=== PATIENT | female | born 1940 | race Caucasian/White ===

== ENCOUNTER → 2017-05-29 12:08 | Outpatient (CLI) | payer MEDICARE, SELFPAY ==
--- NOTE | 2017-05-29 12:16 | XR_ITS ---
XR hip LT 2-3V w/pelvis HISTORY: ITS.REASON: LT HIP PAIN ORDERING PHYSICIAN: Jose Garcia MD PATIENT AGE: 77 years COMPARISON: None FINDINGS: No obvious fracture or dislocation. No lytic or blastic lesion. The joint spaces well-preserved. There are mild osteoarthritic changes of the SI joints and degenerative disc disease of the lumbosacral junction. IMPRESSION: 1. 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 2. Degenerative changes of the sacroiliac joints with degenerative disc disease of the lower lumbar spine
== END ==
PROVIDERS: PCP Family Medicine; Visit Provider Family Medicine
DX: M25.552 Pain in left hip (principal)
CPT/HCPCS: 73502

== ENCOUNTER → 2017-12-02 11:33 | Outpatient (CLI) | payer MEDICARE, SELFPAY ==
--- NOTE | 2017-12-02 11:37 | XR_ITS ---
XR knee RT 4V HISTORY: ITS.REASON: right knee pain/ 4 views weightbearing ORDERING PHYSICIAN: Onesimo Craft MD PATIENT AGE: 77 years COMPARISON: 12/09/2013 FINDINGS: Severe osteoarthritic changes are present at the lateral compartment with moderate osteoarthritis at the medial compartment and patellofemoral joint. Small suprapatellar effusion is present. No fracture or dislocation. No lytic or blastic change. IMPRESSION: Severe osteoarthritis. This has progressed since 12/09/2013
== END ==
PROVIDERS: PCP Family Medicine; Visit Provider Orthopaedic Surgery
DX: M25.561 Pain in right knee (principal)
CPT/HCPCS: 73564

== ENCOUNTER → 2017-12-04 07:55 | Outpatient (CLI) | payer MEDICARE, SELFPAY ==
[2017-12-04 08:51] LABS: Microscopic, Urine URINE MICROSCOPIC (MICROSCOPIC)
[2017-12-04 09:11] LABS: Basophils % 0.5 % (0.1-2.0); Eosinophils # 0.2 K/mm3 (0.0-0.4); Hematocrit 45.8 % (37.0-47.0); Hemoglobin 14.4 g/dL (12.2-16.2); Lymphocytes # 1.5 K/mm3 (0.7-4.5); Lymphocytes % 19.6 K/mm3 (10-50); Mean Corpuscular HGB Conc 31.4 g/dL (31.8-35.4); Mean Corpuscular Hemoglobin 31.2 pg (27.0-31.2); Mean Corpuscular Volume 99.1 fl (81-99); Mean Platelet Volume 7.3 fl (7.4-10.4); Monocytes # 0.5 K/mm3 (0.1-1.0); Monocytes % 6.7 % (1.7-9.3); Neutrophils # 5.4 K/mm3 (1.8-7.8); Neutrophils % 71.2 % (37.0-80.0); Platelet Count 261 K/mm3 (142-424); Red Blood Count 4.62 M/mm3 (4.20-5.40); Red Cell Distribution Width 12.8 % (11.5-17.5); White Blood Count 7.6 K/mm3 (4.8-10.8)
--- NOTE | 2017-12-04 09:12 | XR_ITS ---
XR chest 2V HISTORY: ITS.REASON: DM2, HTN ORDERING PHYSICIAN: Greg So MD PATIENT AGE: 77 years COMPARISON: 03/15/2016 FINDINGS: The cardiomediastinal silhouette and pulmonary vascularity are within normal limits. The lungs are clear without infiltrates, suspicious nodules, or pleural effusions. There is severe subacromial stenosis of the right shoulder with osteoarthritic change of the acromioclavicular joint with bony debris about the AC joint. There has been prior left shoulder replacement. Multilevel degenerative disc disease is present in the thoracic spine. IMPRESSION: 1. No acute findings. 2. 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
[2017-12-04 09:20] LABS: Appearance,Urine CLEAR (Clear); Bilirubin,Urine Negative (Negative); Blood, Urine Negative (Negative); Color,Urine YELLOW (Yellow); Glucose,Urine (UA) Negative (Negative); Ketones,Urine Negative (Negative); Leukocyte Esterase,Urine Negative (Negative); Nitrate,Urine POSITIVE (Negative); PH,Urine 6.5 (5.0-8.5); Protein,Urine Negative (Negative)
[2017-12-04 09:27] LABS: Bacteria,Urine 4+ /lpf
[2017-12-04 09:29] LABS: Hemoglobin A1C 5.8 % (0.0-7.0)
[2017-12-04 09:31] LABS: Activated Partial Thrombo Time 27.2 seconds (23.6-34.0); INR 0.97 (0.9-1.1)
[2017-12-04 10:07] LABS: Alanine Aminotransferase 21 U/L (12-78); Albumin Level 3.8 gm/dL (3.4-5.0); Albumin/Globulin Ratio 1.4 (1.1-1.8); Alkaline Phosphatase 81 U/L (46-116); Anion Gap 10.5 mEq/L (5-15); Aspartate Amino Transferase 15 U/L (15-37); Bilirubin,Total 0.7 mg/dL (0.2-1.0); Blood Urea Nitrogen 22 mg/dL (7-18); Calcium 8.9 mg/dL (8.5-10.1); Carbon Dioxide 31 mmol/L (21.0-32.0); Chloride 104 mmol/L (98-107); Chol/HDL Ratio 1.9 (1-3.5); Cholesterol 155 mg/dL (140-200); Estimated Glomerular Filt Rate 120 ml/min (>60); Free T4 (Free Thyroxine) 1.04 ng/dl (0.76-1.46); GFR (African American) 145 ML/MIN (>60); Globulin 2.8 gm/dl (1.3-3.2); Glucose 80 mg/dL (74-106); HDL Cholesterol 81 mg/dL (29-89); LDL Cholesterol 66 mg/dL (0-130); Potassium 4.5 mmoL/L (3.5-5.1); Sodium 141 mmol/L (136-145); Thyroid Stimulating Hormone 1.59 uIU/ml (0.358-3.740); Total Protein,Serum 6.6 gm/dL (6.4-8.2); Triglycerides 40 mg/dL (30-200); VLDL Cholesterol 8 mg/dL (0-40)
== END ==
PROVIDERS: PCP Family Medicine; Visit Provider Family Medicine
DX: Z01.818 Encounter for other preprocedural examination (principal); E11.42 Type 2 diabetes mellitus with diabetic polyneuropathy; E78.5 Hyperlipidemia, unspecified; E03.9 Hypothyroidism, unspecified; I10 Essential (primary) hypertension; R82.90 Unspecified abnormal findings in urine; Z51.81 Encounter for therapeutic drug level monitoring
CPT/HCPCS: 36415; 71046; 80053; 80061; 81001; 83036; 84439; 84443; 85025; 85610; 85730; 87086; 87088; 87186; 93005

== ENCOUNTER → 2017-12-28 14:18 | Outpatient (CLI) | payer MEDICARE, SELFPAY ==
[2017-12-28 14:22] LABS: Microscopic, Urine URINE MICROSCOPIC (MICROSCOPIC)
[2017-12-28 14:50] LABS: Basophils # 0.1 K/mm3 (0-0.2); Basophils % 0.7 % (0.1-2.0); Eosinophils # 0.2 K/mm3 (0.0-0.4); Eosinophils % 2.7 % (0.1-12.0); Hematocrit 41.6 % (37.0-47.0); Hemoglobin 13.8 g/dL (12.2-16.2); Lymphocytes # 1.8 K/mm3 (0.7-4.5); Lymphocytes % 25.3 K/mm3 (10-50); Mean Corpuscular HGB Conc 33.1 g/dL (31.8-35.4); Mean Corpuscular Hemoglobin 32.9 pg (27.0-31.2); Mean Corpuscular Volume 99.3 fl (81-99); Mean Platelet Volume 7.4 fl (7.4-10.4); Monocytes # 0.4 K/mm3 (0.1-1.0); Monocytes % 5.9 % (1.7-9.3); Neutrophils # 4.7 K/mm3 (1.8-7.8); Neutrophils % 65.4 % (37.0-80.0); Platelet Count 277 K/mm3 (142-424); Red Blood Count 4.19 M/mm3 (4.20-5.40); White Blood Count 7.3 K/mm3 (4.8-10.8)
[2017-12-28 14:55] LABS: Appearance,Urine CLEAR (Clear); Bilirubin,Urine Negative (Negative); Blood, Urine Negative (Negative); Color,Urine YELLOW (Yellow); Glucose,Urine (UA) Negative (Negative); Ketones,Urine Negative (Negative); Leukocyte Esterase,Urine Negative (Negative); Nitrate,Urine Negative (Negative); Protein,Urine Negative (Negative); Urobilinogen,Urine 0.2 EU/dl (0.2)
[2017-12-28 16:55] LABS: Squamous Epithelial Cell,Urine Occasional #/hpf (0-5)
[2017-12-28 17:36] LABS: Alanine Aminotransferase 22 U/L (12-78); Albumin Level 3.8 gm/dL (3.4-5.0); Albumin/Globulin Ratio 1.4 (1.1-1.8); Alkaline Phosphatase 81 U/L (46-116); Anion Gap 10.4 mEq/L (5-15); Aspartate Amino Transferase 24 U/L (15-37); Bilirubin,Total 0.4 mg/dL (0.2-1.0); Blood Urea Nitrogen 17 mg/dL (7-18); Carbon Dioxide 31 mmol/L (21.0-32.0); Chloride 103 mmol/L (98-107); Creatinine,Serum 0.56 mg/dL (0.55-1.02); Estimated Glomerular Filt Rate 105 ml/min (>60); GFR (African American) 127 ML/MIN (>60); Globulin 2.8 gm/dl (1.3-3.2); Glucose 83 mg/dL (74-106); Potassium 4.4 mmoL/L (3.5-5.1); Sodium 140 mmol/L (136-145); Total Protein,Serum 6.6 gm/dL (6.4-8.2)
== END ==
PROVIDERS: Visit Provider Orthopaedic Surgery
DX: Z01.818 Encounter for other preprocedural examination (principal); M17.11 Unilateral primary osteoarthritis, right knee
CPT/HCPCS: 36415; 80053; 81001; 85025; 86850

== ENCOUNTER → 2018-01-09 10:21 | Outpatient (CLI) | payer MEDICARE, SELFPAY | PROVIDERS: Visit Provider Orthopaedic Surgery | DX: Z01.818 Encounter for other preprocedural examination (principal); M17.11 Unilateral primary osteoarthritis, right knee | CPT/HCPCS: 36415; 86850 ==

== ENCOUNTER 2018-01-11 06:04 | Inpatient (IN) ==
--- NOTE | 2018-01-11 06:50 | Progress Note ---
[facility] Anesthesia Checklist - Patient Identification Patient Identification: Arm Band, Verbal (Name & ) - Structural Data Admitted From: Home Planned Operative Procedure/s: Right TKA Consent for Planned Operative Procedure(s) Verified: Yes Verified Documents: Surgical Consent, History and Physical - NPO Status Verified Time NPO: 21:30 - Chart Verification Results Verified: CBC, BMP - Additional verifications Anesthesia Reactions: No - Airway Assessment C-Spine Mobility Assessed: Yes TMJ Mobility Assessed: Yes Dentition: Dentures-good fit - Neurological Assessment Level of Consciousness: Awake Hx Seizures: No Numbness or tingling in extremities: No - Anesthesia Plan Anesthesia Risk discussed: Yes Anesthesia Plan: Verified ASA Class: III Anesthesia Type: General (with Femoral/sciatic nerve block) [facility] History I have reviewed the patient's past medical history: Yes Medical History: Reports:: Cancer (skin), Diabetes Mellitus Type 2, Hyperlipidemia, Hypertension Denies:: Diabetes Mellitus Type 1, Internal Pacemaker, MRSA, Seizures Other Medical History: Reports: Arthritis, Hypothyroidism. Denies: Blood Transfusion Reaction Laterality Cases: Left: Arthroscopy Knee, Other, Bilateral: Carpal Tunnel Release Other Surgeries: Yes: Colonoscopy, Hysterectomy-Total. No: Pacemaker Amputation: No Fractures: No - *Social History Educational Level: Completed High School Smoking Status: Never smoker Alcohol Intake: never Occupational Status: retired Housing: house Household Members: spouse - Psychiatric History Expresses thoughts of harming self/others: None Suicide Plan Description: No Plan *Family Hx:: Cancer, Hypertension
--- NOTE | 2018-01-11 11:05 | Progress Note ---
[facility] Anesthesia Record Part I Intake, IV Amount: 1,100 Estimated blood loss (mL): 25 Urine output (mL): 250 Blood Products used (#): none Blood Pressure: 122/81 SaO2: 92 Pulse Rate: 90 Respiratory Rate: 17 Temperature: 97.3 F Patient is:: Awake, Stable Stable to PACU at:: 11:00
--- NOTE | 2018-01-11 11:06 | Progress Note ---
[facility] Anesthesia Record Part II Discharge Time: 11:30 Destination: Medical Surgical Department PACU nurse assessment reviewed?: Yes Patient Condition:: Good Anesthesia Complications:: None
--- NOTE | 2018-01-11 11:25 | Operative Note ---
Date of procedure: 01/11/18 Pre-op Diagnosis:: Advanced degenerative arthritis, right knee Post-op Diagnosis:: Same Procedure performed:: Cemented primary total knee arthroplasty, right knee Surgeon:: Onesimo Craft MD Procurement Officer(s):: China Madden HOUSEKEEPING CLEANER:: Reji Lan Anesthesia: GETA, regional Estimated blood loss (mL): 50 Clinical Note:: Patient is a 77-year-old female with end-stage osteoarthritis and [id number] osteoarthritis of the lateral compartment with a progressive valgus deformity of her right knee presented with unremitting severe pain not relieved by conservative management. The pain is advanced to the point that it is becoming a hazard for the patient with risk of falling and injuring herself. Total knee arthroplasty is indicated to relieve the pain, improve function, reduce the risk of falls and improve quality of life. She previously had a successful left total knee arthroplasty a few years ago by Dr. Serrano. Please refer to my office note for full details. Operative findings:: As noted on the preoperative evaluation, the knee joint had a fixed flexion of 5 and fixed valgus deformity of 80 degrees. As seen on the preoperative x- rays, the lateral and patellofemoral compartments showed advanced degenerative changes with [id number] appearance. The menisci and cruciate ligaments were significantly degenerated. There was extensive osteophyte formation over the lateral and patellofemoral compartments. There were a couple of small loose bodies at the back of the knee. Bone quality was satisfactory. Operative note:: On the day of the surgery the patient and her sister were seen in the preoperative area. I reviewed the clinical and x-ray findings with the patient and her sister. I again discussed the diagnosis, natural history and management options in detail including both nonsurgical and surgical. She has end-stage degenerative arthritis of her RIGHT knee and has failed to respond satisfactorily to conservative management so far and has opted for a RIGHT total knee arthroplasty. Her knee joint gives out and she is at risk of falls resulting in fractures. She previously had a successful total knee arthroplasty on the left side few years ago by Dr. Serrano. We again discussed the details of the procedure, risks and benefits and alternatives in detail. The complications discussed include but are not limited to infection, injury to nerves and blood vessels including injury to popliteal artery, injury to tendons and ligaments, DVT and PE, fat embolism, intraoperative fracture, limb length inequality, patella fracture, patellofemoral instability, patellar clunk syndrome, quadriceps and patellar tendon rupture, implant failure, component loosening, periprosthetic femur and tibia fractures, stiffness(arthrofibrosis), limp, incomplete relief of pain, incomplete functional recovery, likely need for further surgery in future including revision and anesthetic complications including heart attack, stroke and even . We discussed how any of these events can be devastating. We have discussed nonsurgical alternatives as well. Patient understands wishes to proceed with a RIGHT total knee arthroplasty and I believe that she is fully informed as to the risks, benefits, and alternatives including nonsurgical alternatives. We also discussed the postoperative course including the rehab and physical therapy required. She lives with her family and is planning to go back home with home health after surgery. A physical examination was performed and documented. Patient understood the risks, agreed to proceed with surgery, [signed the consent form] and no guarantees or assurances were given or implied. The patient was then brought to the operating room and a general anesthesia was administered by the veterinary meat inspector. Prior to that patient had femoral and sciatic nerve blocks in the pre-anesthetic area. The patient was then positioned supine on the operating table. All the bony prominences were appropriately padded. A well-padded tourniquet cuff was placed high over the upper thigh. The RIGHT knee was prepped with isopropyl alcohol followed by chlorhexidine and draped in the usual sterile fashion. Prior to this, patient had used Hibiclens for a total of 5 days prior to the surgery and also used topical intranasal Bactroban. The entire operative team wore isolation suits and the Operating Room traffic was controlled. The skin incision was marked for a medial parapatellar approach to the knee joint. The entire operative site was sealed off with Ioban drape. A preprocedure timeout was performed as per hospital protocol. At the start of the procedure administration of 2 g of prophylactic IV Ancef was confirmed with the anesthetic team. Patient also received 1 g of IV tranexamic acid before starting the procedure and one more gram at the end of the procedure to reduce the postoperative blood loss. A preprocedure timeout was performed as per hospital protocol. The limb was exsanguinated with Esmarch bandage, the knee joint flexed beyond 90 and the tourniquet cuff was inflated to 300 mmHg. Please see the nursing records for a total tourniquet time. I then made a midline incision utilizing a #10 scalpel blade. Electrocautery was used to seal off subcutaneous vessels. The extensor mechanism was exposed, marked and a curvilinear incision made for a medial parapatellar approach using the scalpel blade. The patella was everted carefully and most of the fat pad resected to allow sufficient visualization of the proximal tibia. The anterior cruciate ligament and the anterior aspects of both menisci were resected. A very limited medial release was performed releasing the deep MCL to keep it out of harm's way during bone cuts. A step drill was used to open the intramedullary canal and the IM distal femoral cutting jig was placed. The jig was pinned into position and the intramedullary itzel removed. The distal cut was made at 5 degrees of valgus and the sizing jig placed. This sized best at a size 4 femur for the [employer] system. We then placed the 4-in-1 cutting block in position in 3 degrees of external rotation. A cross pin was added for stabilizing the block and the valery wing utilized to ensure notching of the femur would not occur. The anterior cut was made followed by the posterior cut then the posterior chamfer and finally the anterior chamfer cuts in that order. Soft tissues were protected throughout this with careful retraction using the Z retractors. We checked for trueness of cuts and then moved on to the tibia. The tibial extra medullary guide was placed and aligned from the central aspect of the plateau between the spines down to the second metatarsal base. We pinned cutting block in position for minimal resection of the tibia from the lateral side which was more severely involved with arthritis, checked alignment, protected the soft tissues with appropriate retractors and resected with the [place] saw. The resected tibial plateau articular surface was removed and sized it at a size 3. We ensured correctness of the cut and correct posterior slope. We then checked the extension and flexion gaps and found them to be equal and well balanced. We trialed the femur and the tibia with trial components and a trial insert and ranged the knee to ensure full flexion and extension and checked for ligamentous stability. We then everted the patella and reamed for a 26 mm central pegged button. We had lateralized the femur and medialized the patella intentionally. We placed trial components and noted that a 11 mm thick polyethylene to fit best. This gave us a ligamentously stable knee and allowed full extension. We allowed this to be free-floating and then checked it and made sure it was in appropriate position in relation to the tibial tubercle. We also used tibial alignment itzel to check for satisfactory position of the base plate and markings were made with electrocautery on the proximal tibia. We then elected to proceed with the box cut for a posterior stabilized femoral component. We placed the cutting jig for the box cut in the femur, drilled and then used the box osteotome to create the channel. We then trialed with the posterior stabilized polyethylene and found a size 11 to fit best. This gave us appropriate range of motion with proper ligamentous stability. We then removed the trial components and positioned and pinned the base plate to the top of the tibia and punched the groove for the V shaped stem. We used a small trocar tipped pin drill holes into the subchondral sclerotic bone of the lateral tibia to augment cement fixation. We then copiously irrigated with the normal saline pulse lavage, injected the bone with 2 g of Ancef, and then dried the cut surfaces. We then cemented the tibial tray, the femoral component, and placed a 11 mm trial insert and brought the knee into extension. We then cemented the patella button. We allowed the cement to set and then inspected the knee joint and removed excess cement with an osteotome. We then placed the size 11 definitive polyethylene tibial insert ensuring that the dovetails fit appropriately and that the polyethylene was down and seated into the tibial tray properly. The knee joint was put through range of motion and noted the patella to be tracking appropriately with no thumb technique. The knee joint was then soaked with dilute Betadine (0.35 percent) solution for 3 minutes followed by suctioning of the solution and pulsatile lavage with the 1 L of normal saline. The tourniquet was deflated and hemostasis obtained with diathermy cautery. Another 1 gram of tranexamic acid was given intravenously by the veterinary meat inspector at the time of deflating the tourniquet. The knee joint was again thoroughly irrigated with pulse lavage and good hemostasis was confirmed before proceeding with wound closure. The capsule/extensor mechanism was closed with #1 Vicryl [id number] sutures ensuring a watertight closure. Next, the subcutaneous tissue was closed with 2-0 Vicryl interrupted sutures. The skin was closed with subcuticular 4-0 Monocryl sutures, Dermabond and Steri-Strips. Sterile dressings were applied consisting of Silverlon dressing, soft roll and secured in place with Mark wrap. No drains were placed. The patient was then transferred from the operating table onto the bed. The tibialis posterior and dorsalis pedis pulses were noted 2+ with good capillary refill in the foot. The patient was then reversed from the anesthetic and transported to the postoperative recovery area in a stable condition. Patient tolerated the procedure well and there were no immediate complications. The swab, needle and instrument counts were correct according to the scrub team at the end of the procedure. Portable x-rays of the RIGHT knee AP view and lateral view were obtained in the recovery area and showed the components to be well fixed in a satisfactory alignment and position without any complications. The knee was placed in a knee immobilizer which should be continued when standing and walking, until patient regains full quadriceps control. Postoperatively, institute and continue standard precautions and physical therapy and edema management for a standard primary total knee arthroplasty starting on postoperative day 1. Patient can be mobilized full weightbearing as tolerated. Implants: [employer] Beverly II nonporous RIGHT tibial base plate-size 3 [employer] Beverly II Biconvex patellar component- 26 mm [employer] posterior stabilized Legion Oxinium femoral component, size 4 RIGHT [employer] Legion PS XLPE high flexion articular insert- size 3-4 x 11 mm [employer] Versabond bone cement with gentamicin. Industry scheduling representative: Hernandez Lawrence ([employer]) Condition: stable Disposition: floor Specimens:: None Complications:: None
--- NOTE | 2018-01-11 13:36 | Pharmacy Consult Notes ---
[facility] Pharmacy VTE Monitoring - Patient Demographics Admission date: 01/11/18 Report Date: 01/11/18 Time: 13:35 Allergies/Adverse Reactions: Patient Allergies No Known Allergies Allergy (Verified 01/08/18 11:58) Height: 1.4 m Weight: 76.374 kg - VTE Risk Was VTE Risk Assessment Performed: Yes VTE Score: 5 VTE Risk Level: Low Risk - Prophylaxis VTE Prophylaxis Ordered?: Yes Types of VTE Prophylaxis: IPCS Knee High Location of Applied Device: Bilateral Lower Extremeties
--- NOTE | 2018-01-11 18:13 | Progress Note ---
Internal Medicine - PN: Subj Interval history: FAMILY MEDICINE CONSULT NOTE: 77 yo WF who is post op from TKA this morning. I was asked to consult for medical management. She is well known to me with hx of diabetes, HLP, hypothyroidism and OA. SHe tolerated the surgery well and has not unusual complaints at this time Exam Vital signs and Labs for Last 24 Hours: Temp Pulse Resp BP Pulse Ox 97.9 F 92 H 16 120/75 93 L 01/11/18 17:50 01/11/18 17:50 01/11/18 17:50 01/11/18 17:50 01/11/18 17:50 Laboratory Results - last 24 hr 01/11/18 06:41: POC Glucose 90 01/11/18 08:00: Urine Color Yellow, Urine Appearance Clear, Urine pH 6.0, Ur Specific [place] 1.010, Urine Protein Negative, Urine Glucose (UA) Negative, Urine Ketones Negative, Urine Blood Negative, Urine Nitrate Negative, Urine Bilirubin Negative, Urine Urobilinogen 0.2, Ur Leukocyte Esterase 1+ A, Urine WBC 5-10, Ur Squamous Epith Cells 3-5, Urine Bacteria 2+ A 01/11/18 11:33: POC Glucose 93 I & O for Last 24 hours: Intake & Output 01/09/18 01/10/18 01/11/18 01/12/18 11:59 11:59 11:59 11:59 Intake Total 1100 / 1100 Balance 1100 / 1100 Weight 154 lb 168 lb 6 oz - Constitutional Comments: sitting up in bed awake and alert. NAD - *Routine HEENT Exam ENT: Present: mucous membranes moist, oropharynx clear - *Routine Neck Exam Present: supple. Absent: carotid bruit, lymphadenopathy, thyromegaly - *Routine Respiratory Exam Present: CTA bilaterally - *Routine Cardiovascular Exam Present: RRR - *Routine Abdominal Exam Present: soft. Absent: tenderness - *Routine Extremities Exam Absent: edema, calf tenderness Assessment and Plan (1) Type 2 diabetes mellitus Current visit: Yes Status: Acute Category: Medical Code(s): E11.9 - Type 2 diabetes mellitus without complications (2) Hyperlipidemia Current visit: Yes Status: Acute Category: Medical Code(s): E78.5 - Hyperlipidemia, unspecified (3) Hypothyroid Current visit: Yes Status: Acute Category: Medical Code(s): E03.9 - Hypothyroidism, unspecified (4) Osteoarthritis Current visit: Yes Status: Acute Category: Medical Code(s): M19.90 - Unspecified osteoarthritis, unspecified site - Assessment and plan all Dx Assessment and Plan for all problems:: Appears stable post op. She has been appropriately started on her maintenance medication. She is on Xarelto for DVT prophylaxis. Will follow along while she is hospitalized.
--- NOTE | 2018-01-11 20:35 | Progress Note ---
Subjective Date: 01/11/18 Time: 19:15 Principal diagnosis: Status post total knee arthroplasty, right Interval history: Patient is status post right knee arthroplasty earlier today. Patient is lying down on the bed. She says the no blocks or wearing of and she is experiencing a little bit of pain. No history of any nausea or vomiting. No history of any cough, chest pain, shortness of breath or palpitations. Patient says she is eating and drinking well. She was seen postoperatively by Dr. Garcia for medical management. PN: Obj Ex Vital signs: Temp Pulse Resp BP Pulse Ox 97.9 F 93 H 16 130/70 89 L 01/11/18 18:50 01/11/18 18:50 01/11/18 18:50 01/11/18 18:50 01/11/18 19:03 Narrative: General appearance: alert, active, awake Cardiovascular: regular rate & rhythm, normal peripheral pulses Respiratory: No respiratory distress noted, speaks in full sentences ABD: soft and non tender Neuro: alert,, awake, oriented x 3 On examination of the lower extremities the limb lengths are equal. On examination of the right knee the dressings are clean, dry and intact. Soft tissue compartments are soft. Distal pulses are 2+. Capillary refill is brisk. She has numbness over her right foot and ankle. She is actively moving the ankle, foot and the toes. Postoperative check x-ray reviewed along with radiologist report. The x-rays show right total knee arthroplasty in satisfactory alignment. No complications noted. - Urinary Catheter Management Sewell Cath placed during this visit: yes Urethral indwelling: Yes Reason for continuing: Surgical procedure Insertion date: 01/11/18 Insertion time: 08:00 Progress Note: A&P (1) Type 2 diabetes mellitus Status: Acute Current Visit: Yes (2) Hyperlipidemia Status: Acute Current Visit: Yes (3) Hypothyroid Status: Acute Current Visit: Yes (4) Osteoarthritis Status: Acute Current Visit: Yes (5) History of total knee arthroplasty Status: Acute Current Visit: Yes Assessment and Plan for All Diagnoses:: I reviewed the clinical and operative findings and procedure performed with the patient. Patient was seen postoperatively by Dr. Garcia for management of medical problems. Avoid placing pillow behind the knee; use knee immobilizer when weightbearing and walking until she regains full quadriceps control and is able to actively straight leg raise. Start physical therapy on first postoperative day. Continue DVT prophylaxis and as needed pain medication. Care management consult regarding discharge planning. Medical management as per Dr. Garcia.
[2018-01-12 06:15] LABS: Basophils % 0.3 % (0.1-2.0); Eosinophils % 0.2 % (0.1-12.0); Hematocrit 36.3 % (37.0-47.0); Lymphocytes % 17.4 % (10-50); Mean Corpuscular HGB Conc 33.1 g/dL (31.8-35.4); Mean Corpuscular Hemoglobin 32.7 pg (27.0-31.2); Mean Corpuscular Volume 98.9 fl (81-99); Mean Platelet Volume 7.2 fl (7.4-10.4); Monocytes # 0.9 K/mm3 (0.1-1.0); Monocytes % 7.6 % (1.7-9.3); Neutrophils # 8.3 K/mm3 (1.8-7.8); Neutrophils % 74.5 % (37.0-80.0); Platelet Count 251 K/mm3 (142-424); Red Blood Count 3.67 M/mm3 (4.20-5.40); Red Cell Distribution Width 13.1 % (11.5-17.5); White Blood Count 11.2 K/mm3 (4.8-10.8)
[2018-01-12 06:36] LABS: Anion Gap 13.5 mEq/L (5-15); Calcium 8.1 mg/dL (8.5-10.1); Potassium 3.5 mmoL/L (3.5-5.1)
--- NOTE | 2018-01-12 08:26 | Progress Note ---
Internal Medicine - PN: Subj *Date: 01/12/18 *Time: 08:23 Interval history: Had some pain during the night and did not rest well. No c/o chest pain or SOA. She is using her IS. Eager to proceed with PT. Exam Vital signs and Labs for Last 24 Hours: Temp Pulse Resp BP Pulse Ox 98.1 F 88 20 113/53 L 92 L 01/12/18 04:00 01/12/18 04:00 01/12/18 04:00 01/12/18 04:00 01/12/18 04:00 Laboratory Results - last 24 hr 01/11/18 08:00: Urine Color Yellow, Urine Appearance Clear, Urine pH 6.0, Ur Specific [place] 1.010, Urine Protein Negative, Urine Glucose (UA) Negative, Urine Ketones Negative, Urine Blood Negative, Urine Nitrate Negative, Urine Bilirubin Negative, Urine Urobilinogen 0.2, Ur Leukocyte Esterase 1+ A, Urine WBC 5-10, Ur Squamous Epith Cells 3-5, Urine Bacteria 2+ A 01/11/18 11:33: POC Glucose 93 01/12/18 06:00: WBC 11.2 H, RBC 3.67 L, Hgb 12.0 L, Hct 36.3 L, MCV 98.9, MCH 32.7 H, MCHC 33.1, RDW 13.1, Plt Count 251, MPV 7.2 L, Neut % (Auto) 74.5, Lymph % (Auto) 17.4, [place] % (Auto) 7.6, Eos % (Auto) 0.2, Baso % (Auto) 0.3, Neut # (Auto) 8.3 H, Lymph # (Auto) 2.0, [place] # (Auto) 0.9, Eos # (Auto) 0.0, Baso # (Auto) 0.0 01/12/18 06:00: Sodium 138, Potassium 3.5, Chloride 102, Carbon Dioxide 26, Anion Gap 13.5, BUN 15, Creatinine 0.50 L, Estimated Creat Clear 58, Estimated GFR 120, Est GFR ( Amer) 145, Glucose 114 H, Calcium 8.1 L I & O for Last 24 hours: Intake & Output 01/09/18 01/10/18 01/11/18 01/12/18 11:59 11:59 11:59 11:59 Intake Total 1100 / 1100 2249 / 2249 Output Total 1900 / 1900 Balance 1100 / 1100 349 / 349 Weight 154 lb 168 lb 6 oz - Constitutional Comments: sitting up in bed. Alert and oriented - *Routine Respiratory Exam Present: CTA bilaterally - *Routine Cardiovascular Exam Present: RRR - *Routine Extremities Exam Absent: edema, calf tenderness Assessment and Plan (1) Type 2 diabetes mellitus Current visit: Yes Status: Acute Category: Medical Code(s): E11.9 - Type 2 diabetes mellitus without complications (2) Hyperlipidemia Current visit: Yes Status: Acute Category: Medical Code(s): E78.5 - Hyperlipidemia, unspecified (3) Hypothyroid Current visit: Yes Status: Acute Category: Medical Code(s): E03.9 - Hypothyroidism, unspecified (4) Osteoarthritis Current visit: Yes Status: Acute Category: Medical Code(s): M19.90 - Unspecified osteoarthritis, unspecified site (5) History of total knee arthroplasty Current visit: Yes Status: Acute Category: Surgical Code(s): Z96.659 - Presence of unspecified artificial knee joint - Assessment and plan all Dx Assessment and Plan for all problems:: Medically stable post op day #1. Proceed with PT.
--- NOTE | 2018-01-12 10:10 | Progress Note ---
Subjective Date: 01/12/18 Time: 09:30 Principal diagnosis: Status post total knee arthroplasty, right Interval history: Patient is status post right knee arthroplasty, postoperative day 1. Patient is lying down on the bed. She says she had a rough night with pain. She has the pain medication are helping but do not last long enough. No history of any nausea or vomiting. No history of any cough, chest pain, shortness of breath or palpitations. Patient says she is eating and drinking well. PN: Obj Ex Vital signs: Temp Pulse Resp BP Pulse Ox 97.5 F L 86 17 108/58 L 93 L 01/12/18 08:00 01/12/18 08:00 01/12/18 08:00 01/12/18 08:00 01/12/18 08:00 Narrative: Laboratory Results - last 24 hr 01/12/18 06:00: WBC 11.2 H, RBC 3.67 L, Hgb 12.0 L, Hct 36.3 L, MCV 98.9, MCH 32.7 H, MCHC 33.1, RDW 13.1, Plt Count 251, MPV 7.2 L, Neut % (Auto) 74.5, Lymph % (Auto) 17.4, [place] % (Auto) 7.6, Eos % (Auto) 0.2, Baso % (Auto) 0.3, Neut # (Auto) 8.3 H, Lymph # (Auto) 2.0, [place] # (Auto) 0.9, Eos # (Auto) 0.0, Baso # (Auto) 0.0 01/12/18 06:00: Sodium 138, Potassium 3.5, Chloride 102, Carbon Dioxide 26, Anion Gap 13.5, BUN 15, Creatinine 0.50 L, Estimated Creat Clear 58, Estimated GFR 120, Est GFR ( Amer) 145, Glucose 114 H, Calcium 8.1 L Exam: General appearance: alert, active, awake Cardiovascular: regular rate & rhythm, normal peripheral pulses Respiratory: No respiratory distress noted, speaks in full sentences ABD: soft and non tender Neuro: alert, awake, oriented x 3 On examination of the lower extremities the limb lengths are equal. On examination of the right knee the dressings are clean, dry and intact. Soft tissue compartments are soft. Distal pulses are 2+. Capillary refill is brisk. Sensation is intact light touch throughout. She is actively moving the ankle, foot and the toes. - Urinary Catheter Management Sewell Cath placed during this visit: yes Urethral indwelling: Yes Reason for continuing: Surgical procedure (DC Sewell catheter today) Insertion date: 01/11/18 Insertion time: 08:00 Progress Note: A&P (1) Type 2 diabetes mellitus Status: Acute Current Visit: Yes (2) Hyperlipidemia Status: Acute Current Visit: Yes (3) Hypothyroid Status: Acute Current Visit: Yes (4) Osteoarthritis Status: Acute Current Visit: Yes (5) History of total knee arthroplasty Status: Acute Current Visit: Yes Assessment and Plan for All Diagnoses:: I reviewed the clinical findings and progress with the patient. Advised her to avoid placing pillow behind the knee; use knee immobilizer when weightbearing and walking until she regains full quadriceps control and is able to actively straight leg raise. To be seen by PT today and start standard protocol for a primary knee replacement. Continue DVT prophylaxis and as needed pain medication. Changed her oral pain medication from [place] to Percocet as needed. Discontinue IV fluids as she is eating and drinking well; DC urinary catheter today. Care management consult regarding discharge planning. Medical manag ement as per Dr. Garcia.
--- NOTE | 2018-01-13 08:15 | Progress Note ---
Internal Medicine - PN: Subj *Date: 01/13/18 *Time: 08:12 Interval history: Rested better last night. SHe has been up to chair and BR and tolerating well. No chest pain, SOA. Exam Vital signs and Labs for Last 24 Hours: Temp Pulse Resp BP Pulse Ox 97.8 F 110 H 18 134/63 91 L 01/13/18 07:31 01/13/18 07:31 01/13/18 07:31 01/13/18 07:31 01/13/18 07:31 I & O for Last 24 hours: Intake & Output 01/10/18 01/11/18 01/12/18 01/13/18 11:59 11:59 11:59 11:59 Intake Total 1100 / 1100 2489 / 2489 481 / 481 Output Total 1900 / 1900 600 / 600 Balance 1100 / 1100 589 / 589 -119 / -119 Weight 168 lb 6 oz Microbiology Reports for the Last 24 Hours: Microbiology 01/11/18 08:00 Urine,Catheterized Urine Culture - Preliminary NO GROWTH AFTER 24 HOURS - Constitutional no acute distress - *Routine Respiratory Exam Present: CTA bilaterally - *Routine Cardiovascular Exam Present: RRR - *Routine Extremities Exam Absent: edema, calf tenderness Assessment and Plan (1) Type 2 diabetes mellitus Current visit: Yes Status: Acute Category: Medical Code(s): E11.9 - Type 2 diabetes mellitus without complications (2) Hyperlipidemia Current visit: Yes Status: Acute Category: Medical Code(s): E78.5 - Hyperlipidemia, unspecified (3) Hypothyroid Current visit: Yes Status: Acute Category: Medical Code(s): E03.9 - Hypothyroidism, unspecified (4) Osteoarthritis Current visit: Yes Status: Acute Category: Medical Code(s): M19.90 - Unspecified osteoarthritis, unspecified site (5) History of total knee arthroplasty Current visit: Yes Status: Acute Category: Surgical Code(s): Z96.659 - Presence of unspecified artificial knee joint - Assessment and plan all Dx Assessment and Plan for all problems:: POD#2 - Doing well. Medically stable. Continue PT. Plan is to return home.
--- NOTE | 2018-01-13 09:41 | Progress Note ---
Subjective Date: 01/13/18 Time: 09:00 Principal diagnosis: Status post total knee arthroplasty, right Interval history: Patient is status post right knee arthroplasty, postoperative day 2. Patient is lying down on the bed. She says she is doing well and the pain is well controlled. No history of any nausea or vomiting. No history of any cough, chest pain, shortness of breath or palpitations. Patient says she is eating and drinking well. She is mobilizing well with a walker and physical therapy. PN: Obj Ex Vital signs: Temp Pulse Resp BP Pulse Ox 97.8 F 110 H 18 134/63 91 L 01/13/18 07:31 01/13/18 07:31 01/13/18 07:31 01/13/18 07:31 01/13/18 08:00 Narrative: General appearance: alert, active, awake Cardiovascular: regular rate & rhythm, normal peripheral pulses Respiratory: No respiratory distress noted, speaks in full sentences ABD: soft and non tender Neuro: alert, awake, oriented x 3 On examination of the lower extremities the limb lengths are equal. On exam ination of the right knee the dressings are clean, dry and intact. I have reduced the compression dressing and just left a Silverlon dressing on. No signs of excessive inflammation, discharge or infection noted. Soft tissue compartments are soft. Distal pulses are 2+. Capillary refill is brisk. Sensation is intact light touch throughout. She is actively moving the ankle, foot and the toes. - Urinary Catheter Management Sewell Cath placed during this visit: yes Urethral indwelling: Yes Reason for continuing: Surgical procedure Insertion date: 01/11/18 Insertion time: 08:00 Progress Note: A&P (1) Type 2 diabetes mellitus Status: Acute Current Visit: Yes (2) Hyperlipidemia Status: Acute Current Visit: Yes (3) Hypothyroid Status: Acute Current Visit: Yes (4) Osteoarthritis Status: Acute Current Visit: Yes (5) History of total knee arthroplasty Status: Acute Current Visit: Yes Assessment and Plan for All Diagnoses:: I reviewed the clinical findings and progress with the patient. Advised her to avoid placing pillow behind the knee; use knee immobilizer when weightbearing and walking until she regains full quadriceps control and is able to actively straight leg raise. Continue mobilization with physical therapy and continue standard PT protocol for a primary knee replacement. Continue DVT prophylaxis and as needed pain medication. Patient is keen to go back home with home health. Care management consult regarding discharge planning. Medical management as per Dr. Garcia.
[2018-01-14 07:19] VITALS: BP 114/63
--- NOTE | 2018-01-14 08:16 | Progress Note ---
Internal Medicine - PN: Subj *Date: 01/14/18 *Time: 08:13 Interval history: Progressing with PT. No new complaints. She is anticipating going home today. Exam Vital signs and Labs for Last 24 Hours: Temp Pulse Resp BP Pulse Ox 98.2 F 108 H 17 114/63 96 01/14/18 07:18 01/14/18 07:18 01/14/18 07:18 01/14/18 07:18 01/14/18 07:18 I & O for Last 24 hours: Intake & Output 01/11/18 01/12/18 01/13/18 01/14/18 11:59 11:59 11:59 11:59 Intake Total 1100 / 1100 2489 / 2489 481 / 481 600 / 600 Output Total 1900 / 1900 600 / 600 Balance 1100 / 1100 589 / 589 -119 / -119 600 / 600 Weight 168 lb 6 oz 168 lb 2 oz Microbiology Reports for the Last 24 Hours: Microbiology 01/11/18 08:00 Urine,Catheterized Urine Culture - Final NO GROWTH AFTER 48 HOURS - Constitutional Comments: sitting up in chair. Appears comfortable - *Routine Respiratory Exam Present: CTA bilaterally - *Routine Cardiovascular Exam Present: RRR - *Routine Extremities Exam Comments: trace edema of right leg. No calf tenderness. Assessment and Plan (1) Type 2 diabetes mellitus Current visit: Yes Status: Acute Category: Medical Code(s): E11.9 - Type 2 diabetes mellitus without complications (2) Hyperlipidemia Current visit: Yes Status: Acute Category: Medical Code(s): E78.5 - Hyperlipidemia, unspecified (3) Hypothyroid Current visit: Yes Status: Acute Category: Medical Code(s): E03.9 - Hypothyroidism, unspecified (4) Osteoarthritis Current visit: Yes Status: Acute Category: Medical Code(s): M19.90 - Unspecified osteoarthritis, unspecified site (5) History of total knee arthroplasty Current visit: Yes Status: Acute Category: Surgical Code(s): Z96.659 - Presence of unspecified artificial knee joint - Assessment and plan all Dx Assessment and Plan for all problems:: POD#3. Doing well. Medically stable for discharge.
--- NOTE | 2018-01-14 09:26 | Discharge Summary ---
General - General Admission date:: 01/11/18 Discharge date: 01/14/18 HPI HPI: Patient is a 77-year-old female with advanced degenerative joint disease of the right knee who is admitted to the hospital electively following an uncomplicated primary total knee arthroplasty on 01/11/2018. She has not responded well to conservative management including NSAID, Tylenol, and intra-articular injections and arthroscopic surgery in the past. She is using assistive walking devices. Total knee arthroplasty is indicated to reduce the risk of falls, improve her pain and mobility and quality of life. The surgical and nonsurgical alternatives were discussed in detail with the patient as well as the risks and benefits of the surgery. She has a history of hypothyroidism, diabetes, hyperlipidemia, obesity and osteoarthritis. She previously had a successful total knee arthroplasty on the left side a few years ago by Dr. Serrano. Hospital Course Hospital Course: Patient underwent an uncomplicated straightforward primary right total knee arthroplasty on 01/11/2018. Following surgery patient progressed well without any complications. Her postoperative check x-ray was satisfactory with good alignment and fixation of the components. She progressed rapidly with physical therapy and was able to mobilize using a walker. At the time of discharge she still has not regained good quadriceps control and was advised to mobilize with the knee immobilizer until she fully regains quadriceps control and is able to actively straight leg raise. Her pain is well controlled with as needed oral Percocet. The dressings were reduced on the second postoperative day and the wound is healthy and healing well. No signs of any erythema, induration or discharge. Patient was started on Xarelto 10 mg daily for DVT prophylaxis after surgery. Her neurovascular status in both lower extremities is intact. Pedal pulses 2+ bilaterally and fully sensate distally. No clinical evidence of DVT noted. Patient was cleared for discharge by physical therapy. On the day of discharge, the patient has been stable. Patient's vital signs have been stable throughout and she is afebrile at the time of discharge. She is being dis charged home with home health. During her admission to the hospital she was also seen by Dr. Garcia for management of medical problems. On the day of discharge Dr. Garcia cleared her for discharge from a medical standpoint. Condition at discharge: improved and stable. Treatments and Procedures: Total knee arthroplasty, RIGHT knee; date of surgery 01/14/2018. Objective Vital signs: Temp Pulse Resp BP Pulse Ox 98.2 F 108 H 17 114/63 96 01/14/18 07:18 01/14/18 07:18 01/14/18 07:18 01/14/18 07:18 01/14/18 07:18 no acute distress, cooperative - *Routine HEENT Exam Head: Present: normocephalic, atraumatic Eye: Present: EOMI ENT: Present: mucous membranes moist - *Routine Neck Exam Present: supple, full ROM - *Routine Respiratory Exam Present: CTA bilaterally - *Routine Cardiovascular Exam Present: RRR, Normal S1, Normal S2 - *Routine Abdominal Exam Present: soft, normoactive bowel sounds. Absent: tenderness - *Routine Extremities Exam Comments: On examination of the right knee, Silverlon dressing is in place and is clean, dry and intact. There is no erythema or discharge. There is diffuse swelling and some tenderness over the knee as to be expected. Knee range of motion is 5- 70 of flexion. Distal pulses are 2+. Capillary refill is brisk. Sensation is intact to light touch throughout. Thigh and calf are soft and there is mild tenderness over the distal thigh. There is also 1+ edema of the left leg, ankle and foot. She demonstrates good range of foot and ankle movements. The quadriceps tendon is actively georgina. She is not able to actively straight leg raise. - *Routine Skin Exam Present: intact, warm, normal turgor - *Routine Neurological Exam Present: alert, oriented X3, CN II-XII intact, vision grossly intact, hearing grossly intact, normal speech - Routine Psychiatric Exam Present: normal affect, normal thought process, cooperative, good judgment DS: Diagnosis - Discharge Diagnosis (1) Type 2 diabetes mellitus Status: Acute (2) Hyperlipidemia Status: Acute (3) Hypothyroid Status: Acute (4) Osteoarthritis Status: Acute (5) History of total knee arthroplasty Status: Acute Discharge Plan - Patient Discharge Instructions ACTIVITY: Continue current activity, Ambulate as tolerated Patient Instructions: DI for Knee Replacement, DI for Surgical Site Infection - Follow up Plan Disposition: Home Health Service Home Medications: Home Medications Medication Instructions Recorded Confirmed Type gabapentin 300 mg capsule 300 mg PO BID 12/02/17 01/11/18 History levothyroxine 75 mcg capsule 75 mcg PO DAILY 12/02/17 01/11/18 History lisinopril 2.5 mg tablet 2.5 mg PO DAILY 12/02/17 01/11/18 History lovastatin 40 mg tablet 40 mg PO DAILY 12/02/17 01/11/18 History meloxicam 15 mg tablet 15 mg PO DAILY 12/02/17 01/11/18 History metformin 500 mg tablet 500 mg PO BID 12/02/17 01/11/18 History Cyanocobalamin (Vitamin B-12) 2.5 tab PO DAILY 01/11/18 01/11/18 History [Vitamin B-12 1000mcg Tablet] Prescriptions/Medication Reconciliation: New Docusate Sodium [Docusate Sodium 100mg Cap] 100 mg PO BIDP PRN #14 capsule PRN Reason: Constipation Oxycodone HCl/Acetaminophen [Percocet 5/325mg tablet] 1 - 2 each PO Q4HP PRN #30 tab PRN Reason: Moderate To Severe Pain Rivaroxaban [Xarelto 10mg tablet] 10 mg PO QPMWM #10 tablet Continue meloxicam 15 mg tablet 15 mg PO DAILY gabapentin 300 mg capsule 300 mg PO BID lisinopril 2.5 mg tablet 2.5 mg PO DAILY metformin 500 mg tablet 500 mg PO BID levothyroxine 75 mcg capsule 75 mcg PO DAILY lovastatin 40 mg tablet 40 mg PO DAILY Cyanocobalamin (Vitamin B-12) [Vitamin B-12 1000mcg Tablet] 2.5 tab PO DAILY Discontinued acetaminophen 325 mg capsule 325 mg PO Q6H PRN PRN Reason: pain Tramadol HCl/Acetaminophen [Ultracet 37.5/325mg tablet] 1 tab PO Q6HP PRN PRN Reason: PAIN - Additional Information Additional Information: Our recommendations on discharge include physical therapy with weightbearing as tolerated and range of motion exercises of the right knee with emphasis on full extension and regaining flexion gradually. Patient will have home health and physical therapy at home. Note is made that the patient easily extends the knee to 0 degrees and flexes to 120 degrees while she was under anesthesia for the total knee arthroplasty with the wound closed. I have strongly advised her not to place any pillow behind the knee. But she can place a pillow under the ankle thus allowing gravity/weight of the leg help the knee into full extension. Patient was also advised to keep the leg elevated and ice the knee/use Polar pack on a regular basis. At this stage it is permissible to take a shower and allow the incision to get wet with shower water. After padding the area dry, the wound can be left open. The Silverlon dressing does not need changing for up to 7 days after surgery unless clinically indicated. Patient will follow up with me in the office in approximately 12-14 days for wound check and to cut the suture ends. Recommend 10 mg of Xarelto p.o. daily for 10 days for DVT prophylaxis. Please feel free to call our office at [phone] or via the hospital bag machine set up operator [phone] for any orthopaedic questions or concerns.
== END 2018-01-14 13:27 | disposition home health service (06) ==
LOC: OR 06:04 → 2ND 06:04 → OBSVTOIN 12:00
PROVIDERS: ADMIT Orthopaedic Surgery; ATTEND Orthopaedic Surgery
CPT/HCPCS: 36415; 73560; 80048; 81001; 82962; 85025; 86850; 87086; 94761; 96374; 97116; 97161; 97530; C1765; C1776

== ENCOUNTER → 2018-02-26 08:41 | Outpatient (CLI) | payer MEDICARE, SELFPAY ==
--- NOTE | 2018-02-26 08:44 | XR_ITS ---
XR knee RT 2V HISTORY: Follow-up total knee arthroplasty ITS.REASON: sp RT TKA ORDERING PHYSICIAN: Onesimo Craft MD PATIENT AGE: 77 years COMPARISON: Portable postop knee 01/21/2018 FINDINGS: The metallic femoral prosthesis is in good alignment and apposition to the tibial plateau prosthesis. The ringlike plug along the undersurface the patella is again noted. There is been interval resolution of the postsurgical changes in the soft tissues seen on the previous study. Again noted is possibly 2 small oval opacities in the distal femur near the diametaphyseal zone possibly representing evolving bone infarcts IMPRESSION: Post total knee arthroplasty with stable small focal mildly sclerotic lesions within the distal femur as noted above
== END ==
PROVIDERS: PCP Family Medicine; Visit Provider Orthopaedic Surgery
DX: Z96.659 Presence of unspecified artificial knee joint (principal)
CPT/HCPCS: 73560

== ENCOUNTER 2018-04-05 09:00 | Outpatient (RCR) | payer MEDICARE, SELFPAY ==
--- NOTE | 2018-03-03 10:21 | HMH.PTOPEV ---
PT Outpatient Evaluation Rehab PT Outpatient Evaluation Start: 03/03/18 10:12 Freq: Status: Active Protocol: Document 03/03/18 10:12 KANDICE (Rec: 03/03/18 10:21 KANDICE [id number]) Electronically Signed By Cesar Cohen, PT 03/03/18 10:12 Outpatient Therapy Subjective History Subjective History Pt presents s/p R TKA on 01/11, and reports progressed well w/HHPT and HHOT since sx. Pt reports good ROM, decreased pain, and improved ambulation since sx. Chief Complaint Pain Stiff Swelling Weakness Symptom Type Sharp Symptoms Relieved By Rest/Positioning Ice Symptoms Aggravated By Standing Physical Activity Walking Prior Functional Limitations Standing Walking Current Functional Limitations Housework Standing Walking Stairs Symptom Description Intermittent Level of pain today (0-10) 0 Pain scale - at its best (0-10) 0 Pain scale - at its worst (0-10) 2 Hip/Knee Eval Gait Observation General Gait Pattern Observation Wide Based Gait Assistive Device Assistive Devices None / NA Palpation Tenderness right Knee Palpation Finding Tenderness Knee Palpation Overall Comment 2/4 popiteal space MMT bilateral Hip Flexion Strength Grade 4 Good Hip Abduction Strength Grade 4- Good- Hip Adduction Strength Grade 4- Good- Hip Extension Strength Grade 4- Good- Knee Extension Strength Grade 5 Normal Knee Flexion Strength Grade 5 Normal ROM right Knee Flexion Active Range of Motion ( 0-110 degrees) Knee ROM Limitations Pain Outpatient Therapy Assessment Impairments Problems/Impairmments Palpation Tenderness Impaired Range of Motion Impaired Strength Impaired Gait Pattern Impaired Walking Impaired Standing Impaired Household Care Impaired Stair Climbing Subjective C/O Pain Impaired Self Care/Self Management Prognosis Rehab Potential Good Clinical Impression Consistent with Diagno
== END 2018-04-05 09:05 | disposition home or self-care (01) ==
LOC: PT 09:00
PROVIDERS: Visit Provider Orthopaedic Surgery
DX: Z96.651 Presence of right artificial knee joint (principal)
CPT/HCPCS: 97014; 97016; 97110; 97140; 97163; G0283

== ENCOUNTER → 2018-07-08 08:43 | Outpatient (CLI) | payer MEDICARE, SELFPAY ==
--- NOTE | 2018-07-08 08:46 | XR_ITS ---
XR knee RT 2V HISTORY: Follow-up knee replacement ITS.REASON: sp RT TKA, dos 01/11/18 ORDERING PHYSICIAN: Onesimo Craft MD PATIENT AGE: 78 years COMPARISON: 02/26/2018 FINDINGS: Status post total knee replacement. Good alignment. No orthopedic complication. There is some increased density in the intramedullary region of the distal femur nonspecific and not significantly changed IMPRESSION: Status post total knee replacement, no acute finding
== END ==
PROVIDERS: PCP Family Medicine; Visit Provider Orthopaedic Surgery
DX: Z96.659 Presence of unspecified artificial knee joint (principal)
CPT/HCPCS: 73560

== ENCOUNTER → 2018-08-26 08:20 | Outpatient (CLI) | payer MEDICARE, SELFPAY ==
--- NOTE | 2018-08-26 09:00 | MM_ITS ---
MM Dig screening mamm BI w/CAD CAD Screening COMPARISON: Digital mammograms with CAD 07/15/2016 INDICATION: There is no personal or family history of breast cancer TECHNIQUE: Standard CC and MLO images were obtained. R2 CAD reviewed. FINDINGS: The breasts are composed primarily of fat with scattered fibroglandular densities throughout each breast. The nipples appear to be inverted but this was seen on the previous study as well. There are few benign-appearing calcifications in each breast. There is no suspicious lesion and there are no suspicious microcalcifications. There is minimal arterial calcification in each breast. IMPRESSION: Fibrofatty parenchyma no suspicious lesion seen BI-RADS Category: 2 Benign Finding(s) RECOMMENDED FOLLOW-UP: 1YR - 1 YEAR FOLLOW-UP (A letter has been sent to the patient regarding results of the study.)
--- NOTE | 2018-08-26 09:30 | XR_ITS ---
XR DEXA axial skeleton HISTORY: ITS.REASON: OSTEOPENIA ORDERING PHYSICIAN: Jose Garcia MD PATIENT AGE: 78 years COMPARISON: None FINDINGS: Lumbar spines shows degenerative disc disease with reactive sclerotic changes which cause false elevation of the bone density measurement throughout the lumbar spine. The BMD measured at the right femoral neck is 0.679 g/cm squared with a T score of -2.6. This is considered osteoporosis according to the World Health Organization criteria. Fracture risk is Moderate. Treatment is advised. IMPRESSION: Osteoporosis.
== END ==
PROVIDERS: PCP Family Medicine; Visit Provider Family Medicine
DX: Z12.31 Encounter for screening mammogram for malignant neoplasm of breast (principal); M85.89 Other specified disorders of bone density and structure, multiple sites
CPT/HCPCS: 77067; 77080

== ENCOUNTER 2018-10-15 08:55 | Outpatient (RCR) | payer MEDICARE, SELFPAY ==
--- NOTE | 2018-10-15 09:43 | HMH.OTOPEV ---
OT Inpatient Evaluation Rehab OT Outpatient Eval Start: 10/15/18 09:30 Freq: Status: Active Protocol: Document 10/15/18 09:30 TFRY (Rec: 10/15/18 09:43 TFRY [id number]) Electronically Signed By Gisselle Mayers OT 10/15/18 09:30 Outpatient Therapy Subjective History Subjective History This is a 78 year old right handed female referred to occupational therapy for adhesive capsulitis of right shoulder. Patient reports that she went to the doctor for her neck as she was having pain in her neck. Patient reports that she has seen occupational therapy in the past for her shoulder but knows she needs to have something done with her shoulder. Reports that she has stopped doing her exercises for her shoulder. Chief Complaint Pain Symptom Type Ache,Sharp Symptoms Relieved By Heat,Prescription Meds Symptoms Aggravated By Physical Activity Prior Functional Limitations None Current Functional Limitations Reaching,Lifting,Housework, Dressing Symptom Description Activity Dependent Level of pain today (0-10) 1 Pain scale - at its best (0-10) 0 Pain scale - at its worst (0-10) 5 Shoulder/Elbow Eval Shoulder Objective Measurements Shoulder ROM Right Shoulder Abduction Active Range of 85 Motion (degrees) Shoulder Flexion Active Range of Motion 115 (degrees) Query Text: Shoulder External Rotation Active Range 40 of Motion (degrees) Shoulder Internal Rotation Active Range 40 of Motion (degrees) Shoulder Extension Active Range of 55 Motion (degrees) pain with active ROM shoulder exam right standard pain with passive ROM shoulder exam right standard decreased ROM shoulder exam standard right Shoulder MMT Shoulder Abduction Strength Grade 3+ Fair+ Shoulder Extension Strength Grade 3+ Fair+ Shoulder Flexion Strength Grade 3+ Fair+ Shoulder Horizontal Abduction Strength 3+ Fair+ Grade Shoulder Horizontal Adduction Strength 3+ Fair+ Grade Shoulder External Rotation Strength 3+ Fair+ Grade Shoulder Internal Rotation Strength 3+ Fair+ Grade Shoulder Strength Patient Testing
== END 2018-10-15 08:59 | disposition home or self-care (01) ==
LOC: OT 08:55
PROVIDERS: PCP Family Medicine; Visit Provider Emergency Medicine
DX: M75.01 Adhesive capsulitis of right shoulder (principal)
CPT/HCPCS: 97165

== ENCOUNTER → 2019-01-12 08:09 | Outpatient (CLI) | payer MEDICARE, SELFPAY ==
--- NOTE | 2019-01-12 08:15 | XR_ITS ---
PROCEDURE: XR KNEE RT 2V CLINICAL INDICATION: 1 year follow up right total knee arthroplasty Follow-up knee replacement COMPARISON: [id number] KNEE-LIMITED 2 VIEWS-LT from 01/24/2014 [id number] XR knee RT 4V from 12/02/2017 KNEELMRT XR knee RT 2V from 01/11/2018 KNEELMRT XR knee RT 2V from 02/26/2018 FINDINGS: Status post total knee replacement with good alignment. No fracture or dislocation. Stable area of sclerosis in the intramedullary region of the distal femur Other findings:None. IMPRESSION: Good alignment status post total knee replacement Dictated by: Phu Amado MD 01/12/2019 11:35 Electronically signed by Phu Amado MD in [place] 01/12/2019 11:35
--- NOTE | 2019-01-12 09:57 | XR_ITS ---
PROCEDURE: XR SHOULDER RT MIN 2V CLINICAL INDICATION: right shoulder pain COMPARISON: [id number] VIEWS from 05/07/2015 FINDINGS: There are severe osteoarthritic changes of the glenohumeral joint and acromioclavicular joint with subacromial stenosis. Calcification noted over the humeral head laterally consistent with calcific tendinitis. There is moderate subacromial stenosis suggesting rotator cuff tear. There a calcification along the superior aspect of the glenoid which could be from the osteoarthritic change or a loose body. Calcification also noted along the humeral neck posteriorly. Prominent osteophytes are present along the humeral head and neck. There is an 8 mm calcific density at the base of the a chromium and may represent a loose body. IMPRESSION: Severe osteoarthritic change with calcific tendinitis and possible loose body Dictated by: Phu Amado MD 01/12/2019 11:25 Electronically signed by Phu Amado MD in [facility] 01/12/2019 11:25
== END ==
PROVIDERS: PCP Family Medicine; Visit Provider Orthopaedic Surgery
DX: Z96.659 Presence of unspecified artificial knee joint (principal); M25.511 Pain in right shoulder; M25.561 Pain in right knee
CPT/HCPCS: 73030; 73560

== ENCOUNTER → 2019-03-22 07:58 | Outpatient (CLI) | payer MEDICARE, SELFPAY ==
--- NOTE | 2019-03-22 07:58 | CT_ITS ---
PROCEDURE: CT SHOULDER RT WO CON CLINICAL HISTORY: preoperative work up COMPARISON: XR SHOULDER RT MIN 2V from 01/12/2019 TECHNIQUE: Shoulder pain Axial images obtained with sagittal and coronal reformats. 3D reconstruction images were performed. All CT scans at the facility use one or more dose reduction, viz: automated exposure control, ma/kV adjustment per patient size (including targeted exams where dose is matched to indication, i.e. head), or iterative reconstruction technique. FINDINGS: There is severe glenohumeral osteoarthritis. Moderate acromioclavicular joint arthropathy is also noted. There is superior subluxation of humeral head at the glenohumeral joint with near complete loss of the acromial humeral space. This is likely associated with chronic rotator cuff tear. There is some calcification in the region of the anticipated rotator cuff tendons and muscles. Chronic calcific tendinitis should be considered. There are also several well corticated bone densities in the soft tissues adjacent to the glenohumeral joint. These may represent intra-articular loose bodies. No acute fracture or dislocation is apparent. Moderate sized glenohumeral joint effusion is noted. IMPRESSION: Severe glenohumeral joint arthropathy with joint effusion Dictated by: Palomo Palacio 03/22/2019 09:15 Electronically signed by Palomo Palacio in [place] 03/22/2019 09:15
[2019-03-22 11:06] LABS: Microscopic, Urine URINE MICROSCOPIC (MICROSCOPIC)
--- NOTE | 2019-03-22 11:32 | ECG_ITS ---
APPROVED REPORT Exam: Resting ECG HR:88 bpm ECG Measurements Heart Rate 88 AXES VT 174 P 67 QRSd 134 QRS -77 QT 392 T 90 QTc 474 <Conclusion> Normal sinus rhythm Left axis deviation Nonspecific intraventricular block Cannot rule out Anteroseptal infarct, age undetermined Abnormal ECG Electronically signed by : Brad Raza, 03/24/2019 15:43:13
--- NOTE | 2019-03-22 11:41 | XR_ITS ---
PROCEDURE: XR CHEST 2V CLINICAL HISTORY: F/U COUGH,CONGESTION, COMPARISON: CXR CHEST(2 VIEWS-NOT PORTABLE) from 03/06/2016 CXR CHEST(2 VIEWS-NOT PORTABLE) from 03/11/2016 CXR1 CHEST-PORTABLE from 03/15/2016 CXR2V XR chest 2V from 12/04/2017 FINDINGS: The cardiomediastinal silhouette and pulmonary vascularity are within normal limits. The lungs are clear without infiltrates, suspicious nodules, or pleural effusions. No acute bony abnormalities. IMPRESSION: No acute findings. Dictated by: Palomo Palacio 03/22/2019 12:51 Electronically signed by Palomo Palacio in [facility] 03/22/2019 12:51
[2019-03-22 12:12] LABS: Basophils % 0.6 % (0.1-2.0); Eosinophils # 0.1 K/mm3 (0.0-0.4); Eosinophils % 1.1 % (0.1-12.0); Hematocrit 44.2 % (37.0-47.0); Lymphocytes # 1.8 K/mm3 (0.7-4.5); Lymphocytes % 26.2 % (10-50); Mean Corpuscular HGB Conc 31.7 g/dL (31.8-35.4); Mean Corpuscular Hemoglobin 32.1 pg (27.0-31.2); Mean Corpuscular Volume 101.2 fl (81-99); Mean Platelet Volume 7.6 fl (7.4-10.4); Monocytes # 0.4 K/mm3 (0.1-1.0); Monocytes % 5.8 % (1.7-9.3); Neutrophils # 4.5 K/mm3 (1.8-7.8); Neutrophils % 66.2 % (37.0-80.0); Platelet Count 285 K/mm3 (142-424); Red Blood Count 4.37 M/mm3 (4.20-5.40); Red Cell Distribution Width 12.9 % (11.5-17.5); White Blood Count 6.7 K/mm3 (4.8-10.8)
[2019-03-22 13:36] LABS: Appearance,Urine CLOUDY (Clear); Bilirubin,Urine Negative (Negative); Blood, Urine TRACE-L (Negative); Color,Urine YELLOW (Yellow); Glucose,Urine (UA) Negative (Negative); Ketones,Urine Negative (Negative); Leukocyte Esterase,Urine Negative (Negative); Nitrate,Urine POSITIVE (Negative); Protein,Urine Negative (Negative); Specific Gravity, Urine >= 1.030 (1.005-1.030); Urobilinogen,Urine 0.2 EU/dl (0.2)
[2019-03-22 13:48] LABS: Bacteria,Urine 4+ /lpf
[2019-03-22 14:06] LABS: Blood Urea Nitrogen 15 mg/dL (7-18); Calcium 8.9 mg/dL (8.5-10.1); Carbon Dioxide 29 mmol/L (21.0-32.0); Chloride 103 mmol/L (98-107); Creatinine,Serum 0.54 mg/dL (0.55-1.02); Estimated Glomerular Filt Rate 109 ml/min (>60); GFR (African American) 132 ML/MIN (>60); Glucose 74 mg/dL (74-106); Sodium 142 mmol/L (136-145)
[2019-03-22 15:21] LABS: Hemoglobin A1C 5.8 % (0.0-7.0)
== END ==
PROVIDERS: PCP Family Medicine; Visit Provider Orthopaedic Surgery
DX: M12.811 Other specific arthropathies, not elsewhere classified, right shoulder (principal); M75.101 Unspecified rotator cuff tear or rupture of right shoulder, not specified as traumatic; Z01.818 Encounter for other preprocedural examination; R82.90 Unspecified abnormal findings in urine
CPT/HCPCS: 36415; 71046; 73200; 80048; 81001; 83036; 85025; 87086; 87088; 87186; 93005

== ENCOUNTER → 2019-03-25 11:02 | Outpatient (CLI) | payer MEDICARE, SELFPAY ==
[2019-03-25 12:29] LABS: Free T4 (Free Thyroxine) 1.32 ng/dl (0.76-1.46); Thyroid Stimulating Hormone 1.29 uIU/ml (0.358-3.740)
[2019-03-26 09:46] LABS: Triiodothyronine (T3) Free 2.6 pg/mL (2.0-4.4)
== END ==
PROVIDERS: Visit Provider Internal Medicine Cardiovascular Disease
DX: I10 Essential (primary) hypertension (principal); R00.0 Tachycardia, unspecified; R94.31 Abnormal electrocardiogram [ECG] [EKG]; Z01.810 Encounter for preprocedural cardiovascular examination
CPT/HCPCS: 36415; 84439; 84443; 84481

== ENCOUNTER → 2019-03-28 08:07 | Outpatient (CLI) | payer MEDICARE, SELFPAY ==
--- NOTE | 2019-03-28 | CA_ITS ---
APPROVED REPORT Exam: Pharmacologic Technologist: Mirna Sauer Ht: 4 ft 10 in Wt: 155 lbs BSA: 1.63 m2 HR: 77 bpm BP: 121/64 mmHg Indications: Abnormal ekg Medical History Medications: Lisinopril,,,,, Omeprazole,,,,, Levothyroxine,,,,, Metoprolol,,,,, Lovastatin,,,,, Metformin,,,,, Gabapentin,,,,, Vitamin B12,,,,, Tramadol,,,,, Calcium,,,,, MeLOXICAM,,,,, Levofloxacin,,,,, Stress Test Details Test: LEXISCAN HR Resting HR: 82 bpm Max Heart Rate (APMHR): 143 bpm Max HR Achieved: 115 bpm Target HR (85% APMHR): 121 bpm % of APMHR: 80 Recovery HR: 93 bpm BP Resting BP: 121.0/64.0 mmHg Max BP: 126.0/58.0 mmHg Recovery BP: 126.0/58.0 mmHg ECG Resting ECG: Resting EKG showed sinus rhythm incomplete left bundle branch block Clinical Exercise duration: 04:00 min Highest Stage Achieved: Exercise capacity: 1.0 METs Stress ECG Conclusion Resting ECG: Sinus rhythm with right bundle branch block Lexiscan portion completed. Patient complained of abdominal cramping during peak infusion. Symptoms: Abdominal cramping during peak infusion. Resolved in recovery. Arrhythmias/Ectopy: Occasional PVC ST-T Changes: Less than 1.[address] depression. Conclusion: Images to follow. Test Summary REST . . . . . . . Resting REST 10:02 . . 82 . 121/ 64 . . Stage 1 01:00 . . 98 . . . . Stage 2 01:00 . . 109 . 117/ 65 . . Stage 3 01:00 . . 103 . 112/ 70 . . Stage 4 01:00 . . 102 . 112/ 67 . Stop exercise at 04:00 RECOVERY 01:00 . . 102 . 110/ 51 . . RECOVERY 02:00 . . 97 . 110/ 51 . . RECOVERY 03:00 . . 100 . 122/ 63 . . RECOVERY 04:00 . . 93 . 122/ 63 . . RECOVERY 04:20 . . 93 . 126/ 58 . . Electronically signed by : Claus Ribeiro, 03/28/2019 19:35:27
[2019-03-28 08:14] LABS: Microscopic, Urine URINE MICROSCOPIC (MICROSCOPIC)
--- NOTE | 2019-03-28 08:27 | CA_ITS ---
APPROVED REPORT EXAM: Comprehensive 2D, Doppler, and color-flow Echocardiogram Feed Blender: Danica Menard CRT Ht: 5 ft 6 in Wt: 157lbs BSA: 1.80 BP: 127/57 mmHg Indications: Diabetes, Hyperlipidemia, Hypertension/HDD Pre-Op Clearance shoulder, Diabetes, Hypertension/HDD, sinus tach, GERD 2D Dimensions LVOT 2.03 cm (M/F) 1.5-2.5 M-Mode Dimensions RVDd 2.88 cm (0.9-2.6) LVDd 4.59 cm (3.5-5.7) LVDs 3.22 cm (3.5-5.7) IVSd 1.63 cm (0.6-1.1) PWd 0.68 cm (0.6-1.1) EF (Teich) 57.00% FS 29.80% EDV (Teich) 96.80 mL ESV (Teich) 41.60 mL LV Diastology E/A Ratio 0.35 Mitral Valve MV A Velocity 81.00 (40-130 cm/s) Left Ventricle Left atrium is mildly enlarged, left ventricle is normal size, mild concentric left ventricular hypertrophy, reduced left ventricular systolic function, visually estimated ejection fraction 35%, there is marked hypokinesis involving mid to distal septum, anterior, anterior apical and anteroseptal wall. Grade 1 diastolic dysfunction seen without tissue Doppler evidence of raise left atrial pressure. Right Ventricle Right atrium and right ventricle are normal size and contractility. Aortic Valve Aortic valve is minimally thickened and fibrosed, there is no aortic stenosis or aortic insufficiency. Mitral Valve Mitral valve is grossly normal, there is mild mitral regurgitation. Tricuspid Valve Tricuspid valve is grossly normal, there is mild tricuspid regurgitation. Tricuspid radiation jet velocity is inadequate for calculation of the right ventricular systolic pressure. Pulmonic Valve Pulmonic valve is poorly visualized. Great Vessels Aortic root is normal size. Pericardium No significant pericardial effusion noted. Conclusion 1. Mildly enlarged left atrium, normal left ventricular size, mild concentric left ventricular hypertrophy, reduced left ventricular systolic function, visually estimated ejection fraction 35% with segmental wall motion abnormality described above, grade 1 diastolic dysfunction seen without tissue Doppler evidence of raise left atrial pressure. 2. Mild mitral and tricuspid regurgitation 3. No significant pericardial effusion noted. Electronically signed by : Claus Ribeiro, 03/28/2019 20:42:24
--- NOTE | 2019-03-28 08:27 | NM_ITS ---
APPROVED REPORT Exam: Nuclear Stress Test Indication: pre-op surgery..abn ekg Patient Location: Outpatient Stress Tech: Mirna Sauer NM Tech:China GilbertMIKE RT(R)(N) Ht: 4 ft 8 in Wt: 155 lbs HR: 77 bpm BP: 121/64 mmHg BSA: 1.59 m2 BMI: 34.7 History: pre-op surgery..abn ekg Procedure: Patient received a 0.4 mg of intravenous Lexiscan, resting heart rate 77 bpm, resting blood pressure 121/64 mmHg, with Lexiscan maximum heart rate achived was 109 bpm which is Less than 85 % of the maximum predicted heart rate and blood pressure was 117/65 mmHg. With Lexiscan, patient denied any complaint of chest pain. Electrocardiogram Resting electrocardiogram showed sinus rhythm with incomplete left bundle branch block nonspecific ST-T changes, with Lexiscan there is additional millimeter ST segment depression noted from the baseline EKG. The EKG portion of the Lexiscan Myoview is nondiagnostic. Cardiac Stress and Resting SPECT Images: Cardiac Stress and Resting SPECT images were obtained using technetium 99m Myoview 31.8 mCi stress and 10.64 mCi at rest. Gated SPECT with analysis of segmental wall motion and calculation of the ejection fraction also done. Cardiac stress and resting SPECT images show decrease tracer activity in the anteroseptal and anteroapical wall which partially improves on the resting images suggestive of mixed ischemia and scar in that area. Computer derived ejection fraction is 48% with moderate anterior apical and anteroseptal wall hypokinesis. Right ventricle is normal size and contractility. Conclusion: 1. The EKG portion of the Lexiscan Myoview is nondiagnostic. 2. Scintigraphic evidence of mixed ischemia and scar involving the anterior apical and anteroseptal wall, computer derived ejection fraction is 48% with segmental wall motion abnormality described above, right ventricle is normal size and contractility. 3. Abnormal Lexiscan Myoview study Electronically signed by : Claus Ribeiro, 03/28/2019 19:38:44
[2019-03-28 08:28] LABS: Appearance,Urine CLEAR (Clear); Bilirubin,Urine Negative (Negative); Blood, Urine Negative (Negative); Color,Urine YELLOW (Yellow); Glucose,Urine (UA) Negative (Negative); Ketones,Urine Negative (Negative); Leukocyte Esterase,Urine Negative (Negative); Nitrate,Urine Negative (Negative); PH,Urine 5.5 (5.0-8.5); Protein,Urine Negative (Negative); Specific Gravity, Urine >= 1.030 (1.005-1.030); Urobilinogen,Urine 0.2 EU/dl (0.2)
[2019-03-28 08:35] LABS: RBC,Urine Occasional #/hpf (0-3)
--- NOTE | 2019-03-28 14:00 | HMH.ITSHM ---
Current Home Medications as stated by this patient Leana Curry or event marketing representative. []LISINOPRIL LEVOTHYROXINE OMEPRAZOLE CALCIUM VITAMIN B12 ACTONEL MELOXICAM LOVASTATIN NEURONTIN
--- NOTE | 2019-03-28 15:41 | HMH.ITSHM ---
Current Home Medications as stated by this patient Leana Curry or employee's representative. [] LISINOPRIL LEVOTHYROXINE OMEPRAZOLE CALIUM LOVASRATIN
== END ==
PROVIDERS: Orthopaedic Surgery; PCP Family Medicine; Visit Provider Internal Medicine Cardiovascular Disease
DX: I10 Essential (primary) hypertension (principal); R00.0 Tachycardia, unspecified; R94.31 Abnormal electrocardiogram [ECG] [EKG]; Z01.818 Encounter for other preprocedural examination; M19.011 Primary osteoarthritis, right shoulder
CPT/HCPCS: 78452; 81001; 93017; 93306; A9502; J2785

== ENCOUNTER → 2019-04-02 08:07 | Outpatient (CLI) | payer MEDICARE, SELFPAY | PROVIDERS: Visit Provider Orthopaedic Surgery | DX: Z01.818 Encounter for other preprocedural examination (principal) | CPT/HCPCS: 36415; 86850 ==

== ENCOUNTER 2019-04-04 06:00 | Inpatient (IN) ==
--- NOTE | 2019-04-04 07:00 | Progress Note ---
[facility] Anesthesia Checklist - Patient Identification Patient Identification: Arm Band, Verbal (Name & ) - Structural Data Admitted From: Home Planned Operative Procedure/s: right total shoulder Consent for Planned Operative Procedure(s) Verified: Yes Verified Documents: History and Physical - NPO Status Verified Time NPO: 00:00 - Chart Verification Results Verified: CBC, BMP - Additional verifications Patient : No Anesthesia Reactions: No Hx Blood Transfusions: No Blood Transfusion Reaction: No Cephalosporin Allergy: No Previous Colonoscopy: Yes - Cardiovascular Assessment Heart Sounds: S1 & S2 Pulse Strength: Baseline Pulse Rhythm: Regular Peripheral Edema: No - Airway Assessment C-Spine Mobility Assessed: Yes TMJ Mobility Assessed: Yes Dentition: Good Dentition - Neurological Assessment Level of Consciousness: Awake, Alert, Appropriate Hx Seizures: No Numbness or tingling in extremities: No - Anesthesia Plan Anesthesia Risk discussed: Yes ASA Class: III Anesthesia Type: General [facility] History I have reviewed the patient's past medical history: Yes Medical History: Reports:: Diabetes Mellitus Type 2, Gastroesophageal Reflux Disease(GERD), Hyperlipidemia, Hypertension Denies:: Cancer, Diabetes Mellitus Type 1, Internal Pacemaker, MRSA, Seizures *Have you ever received a pneumonia vaccine?: Yes *Have you received a flu vaccine this season?: Yes Other Medical History: Reports: Arthritis, Hypothyroidism. Denies: Blood Transfusion Reaction Anesthesia experience/problems:: none Laterality Cases: Left: Arthroscopy Knee, Other, Bilateral: Carpal Tunnel Release Other Surgeries: Yes: Colonoscopy, Hysterectomy-Total, Other (Left reverse shoulder arthroplasty). No: Pacemaker Amputation: No Fractures: No - *Social History Educational Level: Completed High School Smoking Status: Never smoker Alcohol Intake: never Substance Use Type: other *Occupational Status:: retired Housing: house Household Members: spouse *Travel in the last 8 weeks: None Family Hx:: Cancer, Hypertension
--- NOTE | 2019-04-04 12:18 | Progress Note ---
[facility] Anesthesia Record Part I Intake, IV Amount: 1,300 Estimated blood loss (mL): 450 Urine output (mL): 600 Blood Products used (#): none Blood Pressure: 116/71 SaO2: 95 Pulse Rate: 81 Respiratory Rate: 14 Temperature: 97.1 F Patient is:: Awake, Nasal O2, Stable Stable to PACU at:: 12:10
--- NOTE | 2019-04-04 12:25 | Operative Note ---
Date of procedure: 04/04/19 Pre-op Diagnosis:: Rotator cuff tear arthropathy, right shoulder Post-op Diagnosis:: Same Procedure performed:: Reverse shoulder arthroplasty, right shoulder Surgeon:: Onesimo Craft MD Electronic Transaction Implementer(s):: China Madden SPRING SALVAGE WORKER:: Salo Meza Anesthesia: GETA, regional (Interscalene block) Estimated blood loss (mL): 400 Clinical Note:: Patient is a 78-year-old female with advanced degenerative changes in her right shoulder secondary to chronic rotator cuff tear. She is having significant pain, stiffness and disability secondary to the arthritis. She previously had a successful reverse shoulder arthroplasty on the left side. Please refer to my office note for full details. Operative findings:: Advanced degenerative changes involving both glenoid and humeral head as noted on the preoperative imaging. Patient also had complete full-thickness tears of the subscapularis, supra and infraspinatus tendons. The biceps tendon was absent. Operative note:: The patient was identified in the preoperative holding area. Risks were discussed with the patient, who again consented to the surgical procedure. The site and side were marked and initialed by me. Patient was taken to the operating room and placed under general anesthesia and positioned in a beachchair position with the head in neutral position. All the bony prominences were appropriately padded. Prior to that patient also had interscalene nerve blocks in the preoperative area. The upper extremity was prepped and draped in the usual sterile fashion. A preprocedure timeout was performed as per hospital protocol. Administration of preop prophylactic antibiotics (IV Ancef and vancomycin) was confirmed with the tests superintendent. A 10 cm long incision was made over the deltopectoral interval. Using a combination of Bovie cautery and blunt dissection, the deltopectoral interval was developed mobilizing the cephalic vein medially. The underlying fascia was incised and a combination of careful sharp and blunt dissection was used to free up the subdeltoid, subcoracoid and subacromial intervals. Rotator cuff pathology involving the subscapularis, supraspinatus and part of infraspinatus were identified. Excess degenerative rotator cuff was released and excised. The biceps tendon was absent in the groove. Inferiorly the capsule was carefully released and the humeral head was gently dislocated anteriorly. An external cutting guide was placed along the humerus and the humeral head and surrounding osteophytes were resected. A canal finder followed by sequential reaming and broaching was performed, and the trial broach was left in position. A calcar planar was used to fine-tune the depth, varus/valgus and version of the humeral cut. Retractors were then placed around the glenoid and the labrum was excised all around. The axillary nerve was identified by tug test and a careful capsular release was performed after protecting the axillary nerve. Osteophytes mainly anteriorly over the glenoid were removed with a rondure. Guidepin was drilled into the central inferior aspect of the glenoid at 10 degrees of inferior tilt using the drill guide. The glenoid was then reamed. A standard [place] reunion baseplate with a center screw and 4 peripheral locking screws was opened and assembled onto the glenoid with excellent initial fixation. Based off trialing and soft tissue tension, a [place] reunion is size 12 humeral stem with a 4 mm humeral socket and 6 mm poly-liner was opened and assembled on the back table. A 32+6 glenosphere was opened and assembled onto the baseplate. The humeral stem and the humeral sided components were then malleted into position in the proper depth and version. Reduction confirmed with excellent soft tissue tension and range of motion with no signs of instability or bony impingement. All instruments were then removed. Copious amounts of pulsatile lavage was used in the shoulder followed by a Betadine rinse and more lavage. The incision was then closed in layers over 1 g of vancomycin powder and Hemovac drain. Deltopectoral interval was closed with interrupted #1 Vicryl sutures. Subcutaneous tissue closed with 2-0 Vicryl sutures. The skin was closed with subcuticular 3-0 Monocryl Stratafix sutures and Dermabond Prineo Skin Closure System. Sterile dressings were applied consisting of 4 x 4 gauze, ABDs and secured in place with adhesive tape. The patient was then transferred from the operating table onto the bed. The radial pulse at the wrist was 2+ with good capillary refill in the hand. The patient was then reversed from the anesthetic and transported to the postoperative recovery area in a stable condition. Patient tolerated the procedure well and there were no immediate complications. The swab, needle and instrument counts were correct, according to the scrub team, at the end of the procedure. Another dose of tranexamic acid was given intravenously by the tests superintendent after the procedure. Portable x-rays of the shoulder were obtained in the recovery area which showed the components were well fixed in a satisfactory position without any complications. The arm was placed in a sling which should be continued until further recommendations in the office. Postoperatively, advised strict nonweightbearing on the right upper extremity. Implants: [place] [employer] glenoid baseplate, 28 mm [place] [employer] concentric glenosphere 32 mm/6 mm offset [employer] peripheral screws- 4.5 mm diameter x 28 mm, 32 mm, 16 mm and 16 mm [employer] center screw 6.5 mm x 24 mm Abdiel [employer] S press-fit humeral stem 12 mm x 96 mm [employer]iel [employer] humeral cup 32 mm x 4 mm [place] [employer] X3 humeral insert 32 mm x 10 mm Industry field representatives director: Edgar Vargas ([employer]) Condition: stable Disposition: PACU Specimens:: None Complications:: None
--- NOTE | 2019-04-04 14:18 | Pharmacy Consult Notes ---
[facility] Pharmacy VTE Monitoring - Patient Demographics Admission date: 04/04/19 Report Date: 04/04/19 Time: 14:17 Allergies/Adverse Reactions: Patient Allergies No Known Allergies Allergy (Verified 04/04/19 06:20) Height: 1.42 m Weight: 76.34 kg - VTE Risk Was VTE Risk Assessment Performed: Yes VTE Score: 3 VTE Risk Level: Low Risk - Prophylaxis VTE Prophylaxis Ordered?: Yes Types of VTE Prophylaxis: IPCS Thigh High Location of Applied Device: Bilateral Lower Extremeties - VTE Diagnosis Confirmed Treatment or plan recommended: Continue Current Treatment
--- NOTE | 2019-04-04 17:39 | Consult Report ---
*Admission Date: 04/04/19 *Reason for consult:: Medical management *History of present illness: Ms. Curry is a 78-year-old white female with a history of type 2 diabetes mellitus, hyperlipidemia, hypothyroidism who underwent right shoulder replacement by Dr. Craft this morning. She has been admitted postoperatively for observation and I have been asked to consult on the patient to manage her medication. Her surgery went well with no unforeseen complications. Of note, preoperatively she had an abnormal EKG and underwent an extensive cardiology preop evaluation including stress test, echocardiogram, and cardiac catheterization. Her stress test was abnormal. Her echo reportedly showed a 30 to 35% ejection fraction and her heart cath showed normal coronary arteries with a 30 to 35% ejection fraction. The patient tells me that the possibility of a pacemaker has been entertained but I do not find this in her medical record. At the present time she is sitting up in bed eating her supper. She has no complaints. [facility] History Medical History: Reports:: Arrhythmia, Cardiomyopathy, Congestive Heart Failure, Diabetes Mellitus Type 2, Gastroesophageal Reflux Disease(GERD), Hyperlipidemia Denies:: Cancer, Diabetes Mellitus Type 1, Internal Pacemaker, MRSA, Seizures *Have you ever received a pneumonia vaccine?: Yes *Have you received a flu vaccine this season?: Yes Other Medical History: Reports: Arthritis, Hypothyroidism. Denies: Blood Transfusion Reaction Anesthesia experience/problems:: none Laterality Cases: Left: Arthroscopy Knee, Other, Bilateral: Carpal Tunnel Release Other Surgeries: Yes: Cardiac Catheterization, Colonoscopy, Hysterectomy-Total, Other (Left reverse shoulder arthroplasty). No: Pacemaker Amputation: No Fractures: No - *Social History Educational Level: Completed High School Smoking Status: Never smoker Alcohol Intake: never Substance Use Type: denies use *Occupational Status:: retired Housing: house Household Members: spouse *Travel in the last 8 weeks: None Family Hx:: Cancer, Diabetes, Hypertension Review of Systems - Constitutional Denies anorexia, Denies chills, Denies fever(s) - Eyes Denies change in vision - ENT Denies abnormal hearing, Denies dizziness - *Cardiovascular Reports fast heart rate, Denies chest pain, Denies shortness of breath, Denies generalized swelling, Denies rapid, pounding, or irregular heartbeat - *Respiratory Denies chest congestion, Denies cough - *Gastrointestinal Denies abdominal pain, Denies constipation, Denies heartburn, Denies black, tarry stools - *Genitourinary Denies difficulty urinating - *Musculoskeletal Reports joint pain, Reports limited joint movement - Integumentary/Breasts Denies change in skin color - *Neurologic Denies confusion, Denies dizziness - Psychiatric Denies behavioral changes, Denies memory loss - Endocrine Denies cold intolerance, Denies heat intolerance - Hematologic/Lymphatic Denies easy bruising Meds Home Medications Medication Instructions Recorded Confirmed Type lisinopril 2.5 mg tablet 2.5 mg PO DAILY 12/02/17 04/04/19 History lovastatin 40 mg tablet 40 mg PO HS 12/02/17 04/04/19 History meloxicam 15 mg tablet 15 mg PO DAILY 12/02/17 04/04/19 History metformin 500 mg tablet 500 mg PO BID 12/02/17 04/04/19 History Cyanocobalamin (Vitamin B-12) 2,500 mcg PO DAILY 01/11/18 04/04/19 History [Vitamin B-12 1000mcg Tablet] gabapentin 300 mg capsule 300 mg PO BID 03/23/19 04/04/19 History omeprazole 40 mg capsule,delayed 40 mg PO DAILY 03/23/19 04/04/19 History release risedronate 35 mg tablet 35 mg PO WEEKLY 03/23/19 04/04/19 History tramadol 37.5 mg-acetaminophen 325 1 tab PO Q6HP PRN 03/23/19 04/04/19 History mg tablet calcium carbonate-vitamin D3 600 1 tab PO BID tab 03/25/19 04/04/19 History mg (1,500 mg)-800 unit tablet Levothyroxine Sodium 75 mcg PO DAILY 04/04/19 04/04/19 History [Levothyroxine 75mcg (0.075mg) Tab] Metoprolol Succinate 25 mg PO DAILY 04/04/19 04/04/19 History Allergies Allergy/AdvReac Type Severity Reaction Status Date / Time No Known Allergies Allergy Verified 04/04/19 06:20 Exam Vital signs and Labs for Last 24 Hours: Temp Pulse Resp BP Pulse Ox 98.1 F 83 17 121/73 95 04/04/19 17:00 04/04/19 17:00 04/04/19 17:00 04/04/19 17:00 04/04/19 17:00 Laboratory Results - last 24 hr 04/04/19 06:39: POC Glucose 98 04/04/19 08:10: Urine Color Yellow, Urine Appearance Clear, Urine pH 6.0, Ur Specific [place] 1.025, Urine Protein Negative, Urine Glucose (UA) Negative, Urine Ketones Negative, Urine Blood Negative, Urine Nitrate Negative, Urine Bilirubin Negative, Urine Urobilinogen 0.2, Ur Leukocyte Esterase Negative, Urine RBC 5-10, Urine WBC Occasional, Ur Squamous Epith Cells Occasional, Urine Bacteria None 04/04/19 12:22: POC Glucose 134 H 04/04/19 14:18: WBC Cancelled, Corrected WBC Cancelled, RBC Cancelled, Hgb Cancelled, Hct Cancelled, MCV Cancelled, MCH Cancelled, MCHC Cancelled, RDW Cancelled, Plt Count Cancelled, MPV Cancelled, Neut % (Auto) Cancelled, Lymph % (Auto) Cancelled, [place] % (Auto) Cancelled, Eos % (Auto) Cancelled, Baso % (Auto) Cancelled, Neut # (Auto) Cancelled, Lymph # (Auto) Cancelled, [place] # (Auto) Cancelled, Eos # (Auto) Cancelled, Baso # (Auto) Cancelled, Total Counted Cancelled, Neutrophils % (Manual) Cancelled, Band Neutrophils % Cancelled, Lymphocytes % (Manual) Cancelled, Atypical Lymphs % Cancelled, Monocytes % (Manual) Cancelled, Eosinophils % (Manual) Cancelled, Basophils % (Manual) Cancelled, Metamyelocytes % Cancelled, Myelocytes % Cancelled, Promyelocytes % Cancelled, Blast Cells % Cancelled, Nucleated RBCs Cancelled, Differential Comment Cancelled, Hypersegmented Neuts Cancelled, Toxic Granulation Cancelled, Toxic Vacuolation Cancelled, Dohle Bodies Cancelled, Tereza Rods Cancelled, Platelet Estimate Cancelled, Giant Platelets Cancelled, RBC Morphology Can celled, Polychromasia Cancelled, Hypochromasia Cancelled, Poikilocytosis Cancelled, Basophilic Stippling Cancelled, Anisocytosis Cancelled, Microcytosis Cancelled, Macrocytosis Cancelled, Spherocytes Cancelled, Pappenheimer Bodies Cancelled, Sickle Cells Cancelled, Target Cells Cancelled, Tear Drop Cells Cancelled, Ovalocytes Cancelled, Stomatocytes Cancelled, Helmet Cells Cancelled, [place] Bodies Cancelled, [place] Rings Cancelled, Humza Cells Cancelled, Acanthocytes (Spur) Cancelled, Rouleaux Cancelled, Schistocytes Cancelled 04/04/19 14:18: Sodium Cancelled, Potassium Cancelled, Chloride Cancelled, Carbon Dioxide Cancelled, Anion Gap Cancelled, BUN Cancelled, Creatinine Cancelled, Estimated Creat Clear Cancelled, Estimated GFR Cancelled, Est GFR ( Amer) Cancelled, Glucose Cancelled, Calcium Cancelled I & O for Last 24 hours: Intake & Output 04/02/19 04/03/19 04/04/19 04/05/19 11:59 11:59 11:59 11:59 Intake Total 1365 / 1365 Output Total 675 / 675 Balance 690 / 690 Weight 155 lb 168 lb 4.8 oz Narrative: She is sitting up in bed eating her supper. She is awake, alert, and in no distress. Color is normal. HEENT shows a cream to be atraumatic and normocephalic. Sclera and conjunctive are clear. Nares patent. Oropharynx shows no oral lesions. Mucous membranes are moist. Neck is supple with no masses, thyromegaly, or bruits. Lungs are clear to auscultation. Heart is regular. Abdomen is soft and nondistended with no unusual masses or tenderness. Lower extremities show no edema. Right arm is in a sling and swath. Internal Medicine - CN: Reslt - Labs CBC & Chem 7: 04/04/19 14:18 04/04/19 14:18 Labs: Short CBC 04/04/19 Range/Units 14:18 WBC Cancelled Hgb Cancelled Hct Cancelled Plt Count Cancelled BMP 04/04/19 14:18 Sodium Cancelled Potassium Cancelled Chloride Cancelled Carbon Dioxide Cancelled BUN Cancelled Creatinine Cancelled Glucose Cancelled Calcium Cancelled Urine 04/04/19 Range/Units 08:10 Urine Color Yellow (Yellow) Urine Appearance Clear (Clear) Urine pH 6.0 (5.0-8.5) Ur Specific [place] 1.025 (1.005-1.030) Urine Protein Negative (Negative) Urine Glucose (UA) Negative (Negative) Assessment and Plan (1) Status post replacement of right shoulder joint Current visit: Yes Status: Acute Category: Surgical Code(s): Z96.611 - Presence of right artificial shoulder joint (2) Cardiomyopathy Current visit: No Status: Acute Qualifiers: Cardiomyopathy type: unspecified Qualified Code(s): I42.9 - Cardiomyopathy, unspecified Category: Medical Code(s): I42.9 - Cardiomyopathy, unspecified (3) Hyperlipidemia Current visit: No Status: Acute Qualifiers: Hyperlipidemia type: unspecified Qualified Code(s): E78.5 - Hyperlipidemia, unspecified Category: Medical Code(s): E78.5 - Hyperlipidemia, unspecified (4) Hypothyroid Current visit: No Status: Acute Category: Medical Code(s): E03.9 - Hypothyroidism, unspecified (5) Type 2 diabetes mellitus Current visit: No Status: Acute Qualifiers: Diabetes mellitus mcc insulin use: unspecified watermaster insulin use status Diabetes mellitus complication status: with other specified complication Qualified Code(s): E11.69 - Type 2 diabetes mellitus with other specified complication Category: Medical Code(s): E11.9 - Type 2 diabetes mellitus without complications - Assessment and plan all Dx Assessment and Plan for all problems:: We will follow the patient medically. She is stable at the present time. All medications have been reordered by orthopedic surgery. We will plan to repeat labs in the morning. Rehab per Ortho recommendation.
--- NOTE | 2019-04-04 18:49 | Progress Note ---
[facility] [place] Anesthesia Record Part II Discharge Time: 12:40 Destination: Medical Surgical Department PACU nurse assessment reviewed?: Yes Patient Condition:: Good Anesthesia Complications:: None Swallowing reflex intact?: Yes Cyanosis?: No Blood Pressure: 113/74 Pulse Rate: 66 Temperature: 98 F Mental Status: Alert & Oriented Pain level:: 0 Nausea and/or vomitting:: None Intake, IV Amount: 0
[2019-04-05 07:42] LABS: Basophils % 0.3 % (0.1-2.0); Eosinophils # 0.1 K/mm3 (0.0-0.4); Eosinophils % 0.6 % (0.1-12.0); Hematocrit 40.4 % (37.0-47.0); Hemoglobin 12.6 g/dL (12.2-16.2); Lymphocytes % 16.6 % (10-50); Mean Corpuscular HGB Conc 31.1 g/dL (31.8-35.4); Mean Corpuscular Volume 103.1 fl (81-99); Mean Platelet Volume 8.2 fl (7.4-10.4); Monocytes # 0.9 K/mm3 (0.1-1.0); Monocytes % 7.4 % (1.7-9.3); Neutrophils # 8.8 K/mm3 (1.8-7.8); Neutrophils % 75.2 % (37.0-80.0); Platelet Count 246 K/mm3 (142-424); Red Blood Count 3.92 M/mm3 (4.20-5.40); White Blood Count 11.7 K/mm3 (4.8-10.8)
[2019-04-05 07:44] LABS: Anion Gap 11.3 mEq/L (5-15); Calcium 8.3 mg/dL (8.5-10.1)
--- NOTE | 2019-04-05 08:50 | Progress Note ---
Internal Medicine - PN: Subj *Date: 04/05/19 *Time: 08:48 Interval history: She rested fairly well last night. No new complaints this morning. She has been up to the bathroom with assistance. Exam Vital signs and Labs for Last 24 Hours: Temp Pulse Resp BP Pulse Ox 97.7 F 100 H 16 113/48 L 94 L 04/05/19 08:00 04/05/19 08:00 04/05/19 08:00 04/05/19 08:00 04/05/19 08:00 Laboratory Results - last 24 hr 04/04/19 08:10: Urine Color Yellow, Urine Appearance Clear, Urine pH 6.0, Ur Specific [place] 1.025, Urine Protein Negative, Urine Glucose (UA) Negative, Urine Ketones Negative, Urine Blood Negative, Urine Nitrate Negative, Urine Bilirubin Negative, Urine Urobilinogen 0.2, Ur Leukocyte Esterase Negative, Urine RBC 5-10, Urine WBC Occasional, Ur Squamous Epith Cells Occasional, Urine Bacteria None 04/04/19 12:22: POC Glucose 134 H 04/04/19 14:18: WBC Cancelled, Corrected WBC Cancelled, RBC Cancelled, Hgb Cancelled, Hct Cancelled, MCV Cancelled, MCH Cancelled, MCHC Cancelled, RDW Cancelled, Plt Count Cancelled, MPV Cancelled, Neut % (Auto) Cancelled, Lymph % (Auto) Cancelled, [place] % (Auto) Cancelled, Eos % (Auto) Cancelled, Baso % (Auto) Cancelled, Neut # (Auto) Cancelled, Lymph # (Auto) Cancelled, [place] # (Auto) Cancelled, Eos # (Auto) Cancelled, Baso # (Auto) Cancelled, Total Counted Cancelled, Neutrophils % (Manual) Cancelled, Band Neutrophils % Cancelled, Lym phocytes % (Manual) Cancelled, Atypical Lymphs % Cancelled, Monocytes % (Manual) Cancelled, Eosinophils % (Manual) Cancelled, Basophils % (Manual) Cancelled, Metamyelocytes % Cancelled, Myelocytes % Cancelled, Promyelocytes % Cancelled, Blast Cells % Cancelled, Nucleated RBCs Cancelled, Differential Comment Cancelled, Hypersegmented Neuts Cancelled, Toxic Granulation Cancelled, Toxic Vacuolation Cancelled, Dohle Bodies Cancelled, Tereza Rods Cancelled, Platelet Estimate Cancelled, Giant Platelets Cancelled, RBC Morphology Cancelled, Polychromasia Cancelled, Hypochromasia Cancelled, Poikilocytosis Cancelled, Basophilic Stippling Cancelled, Anisocytosis Cancelled, Microcytosis Cancelled, Macrocytosis Cancelled, Spherocytes Cancelled, Pappenheimer Bodies Cancelled, Sickle Cells Cancelled, Target Cells Cancelled, Tear Drop Cells Cancelled, Ovalocytes Cancelled, Stomatocytes Cancelled, Helmet Cells Cancelled, [place] Bodies Cancelled, [place] Rings Cancelled, [place] Cells Cancelled, Acanthoc ytes (Spur) Cancelled, Rouleaux Cancelled, Schistocytes Cancelled 04/04/19 14:18: Sodium Cancelled, Potassium Cancelled, Chloride Cancelled, Carbon Dioxide Cancelled, Anion Gap Cancelled, BUN Cancelled, Creatinine Cancelled, Estimated Creat Clear Cancelled, Estimated GFR Cancelled, Est GFR ( Amer) Cancelled, Glucose Cancelled, Calcium Cancelled 04/05/19 07:07: WBC 11.7 H, RBC 3.92 L, Hgb 12.6, Hct 40.4, MCV 103.1 H, MCH 32.1 H, MCHC 31.1 L, RDW 13.0, Plt Count 246, MPV 8.2, Neut % (Auto) 75.2, Lymph % (Auto) 16.6, [place] % (Auto) 7.4, Eos % (Auto) 0.6, Baso % (Auto) 0.3, Neut # (Auto) 8.8 H, Lymph # (Auto) 2.0, [place] # (Auto) 0.9, Eos # (Auto) 0.1, Baso # (Auto) 0.0 04/05/19 07:07: Sodium 140, Potassium 4.3, Chloride 105, Carbon Dioxide 28, Anion Gap 11.3, BUN 11, Creatinine 0.61, Estimated Creat Clear 57, Estimated GFR 95, Est GFR ( Amer) 115, Glucose 91, Calcium 8.3 L I & O for Last 24 hours: Intake & Output 04/02/19 04/03/19 04/04/19 04/05/19 11:59 11:59 11:59 11:59 Intake Total 2285 / 2285 Output Total 885 / 885 Balance 1400 / 1400 Weight 155 lb 168 lb 4.8 oz 168 lb 4.814 oz Narrative: Alert and oriented. Color is normal. Lungs clear to auscultation. Heart is regular. Lower extremities show no edema or calf tenderness. Assessment and Plan (1) Status post replacement of right shoulder joint Current visit: Yes Status: Acute Category: Surgical Code(s): Z96.611 - Presence of right artificial shoulder joint (2) Cardiomyopathy Current visit: No Status: Acute Qualifiers: Cardiomyopathy type: unspecified Qualified Code(s): I42.9 - Cardiomyopathy, unspecified Category: Medical Code(s): I42.9 - Cardiomyopathy, unspecified (3) Hyperlipidemia Current visit: No Status: Acute Qualifiers: Hyperlipidemia type: unspecified Qualified Code(s): E78.5 - Hyperlipidemia, unspecified Category: Medical Code(s): E78.5 - Hyperlipidemia, unspecified (4) Hypothyroid Current visit: No Status: Acute Category: Medical Code(s): E03.9 - Hypothyroidism, unspecified (5) Type 2 diabetes mellitus Current visit: No Status: Acute Qualifiers: 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 Medically stable. Blood sugars 91 this morning. Discharge planning per orthopedic service.
--- NOTE | 2019-04-05 13:39 | Progress Note ---
Subjective Date: 04/05/19 Time: 12:30 Principal diagnosis: Status post reverse shoulder arthroplasty, right Interval history: Patient is status post right reverse shoulder arthroplasty post op day #1. Patient is lying down in the bed. Says she is doing well and reports no problems. Patient has no pain or discomfort in the shoulder; says the nerve block is wearing off and she is able to feel the hand and move the fingers. No history of any nausea or vomiting. No history of any cough, chest pain, shortness of breath or palpitations. Patient says she is eating and drinking well. Exam General appearance: alert, active, awake, no acute distress Cardiovascular: regular rate & rhythm, normal peripheral pulses Respiratory: No respiratory distress noted, speaks in full sentences ABD: soft and non tender Neuro: alert, awake, oriented x 3 Psych: Appropriate mood and affect for her situation On examination of the right shoulder the dressings are clean, dry and intact; she is in an arm sling. The surgical drain is in place and she had total of about 160 cc drainage since surgery. The drain is removed and dressings are changed by me. There is no soakage of the dressings. The wound looks clean and healthy. No discharge or complications is noted. There is some ecchymosis around the surgical incision and upper arm as to be expected. Distal pulses are 2+. Distal sensation is intact to light touch throughout. No motor deficits noted distally. Sensation is intact over the axillary nerve distribution. Deltoid is felt to be georgina well. I have reviewed the clinical and operative findings and procedure performed with the patient and her . Patient is doing well and reports no problems. Advised her to continue with arm sling, rest, activity modification, regular icing/use the polar pack, as needed pain medication. Encouraged her to inte rmittently move the elbow, forearm, wrist and fingers. Complete nonweightbearing on the right upper extremity. Specifically advised her to not mobilize the shoulder and also place a pillow behind the elbow when lying down or sitting. Case management consult regarding discharge planning. She is keen to go back to work and I am discharging her this afternoon. Follow-up in my office in 1 weeks time with check x-ray. Continue medical management as per Dr. Garcia. PN: Obj Ex Vital signs: Temp Pulse Resp BP Pulse Ox 97.7 F 100 H 16 113/48 L 94 L 02/04/20 08:00 04/05/19 08:00 04/05/19 08:00 04/05/19 08:00 04/05/19 08:00 - Urinary Catheter Management Sewell Cath placed during this visit: no Progress Note: A&P (1) Status post replacement of right shoulder joint Status: Acute Current Visit: Yes (2) Cardiomyopathy Status: Acute Current Visit: No (3) Hyperlipidemia Status: Acute Current Visit: No (4) Hypothyroid Status: Acute Current Visit: No (5) Type 2 diabetes mellitus Status: Acute Current Visit: No
--- NOTE | 2019-04-05 14:20 | Discharge Summary ---
General - General Admission date:: 04/04/19 Objective Vital signs: Temp Pulse Resp BP Pulse Ox 98.1 F 94 H 16 108/41 L 94 L 04/05/19 12:00 04/05/19 12:00 04/05/19 12:00 04/05/19 12:00 04/05/19 12:00 Results Labs on day of discharge: Labs from last 24 hours 04/05/19 04/05/19 04/04/19 07:07 07:07 14:18 WBC 11.7 H Corrected WBC RBC 3.92 L Hgb 12.6 Hct 40.4 MCV 103.1 H MCH 32.1 H MCHC 31.1 L RDW 13.0 Plt Count 246 MPV 8.2 Neut % (Auto) 75.2 Lymph % (Auto) 16.6 [place] % (Auto) 7.4 Eos % (Auto) 0.6 Baso % (Auto) 0.3 Neut # (Auto) 8.8 H Lymph # (Auto) 2.0 [place] # (Auto) 0.9 Eos # (Auto) 0.1 Baso # (Auto) 0.0 Total Counted Neutrophils % (Manual) Band Neutrophils % Lymphocytes % (Manual) Atypical Lymphs % Monocytes % (Manual) Eosinophils % (Manual) Basophils % (Manual) Metamyelocytes % Myelocytes % Promyelocytes % Blast Cells % Nucleated RBCs Differential Comment Hypersegmented Neuts Toxic Granulation Toxic Vacuolation Dohle Bodies Tereza Rods Platelet Estimate Giant Platelets RBC Morphology Polychromasia Hypochromasia Poikilocytosis Basophilic Stippling Anisocytosis Microcytosis Macrocytosis Spherocytes Pappenheimer Bodies Sickle Cells Target Cells Tear Drop Cells Ovalocytes Stomatocytes Helmet Cells [place] Bodies Junior Rings Humza Cells Acanthocytes (Spur) Rouleaux Schistocytes Sodium 140 Cancelled Potassium 4.3 Cancelled Chloride 105 Cancelled Carbon Dioxide 28 Cancelled Anion Gap 11.3 Cancelled BUN 11 Cancelled Creatinine 0.61 Cancelled Estimated Creat Clear 57 Cancelled Estimated GFR 95 Cancelled Est GFR ( Amer) 115 Cancelled Glucose 91 Cancelled Calcium 8.3 L Cancelled 04/04/19 14:18 WBC Cancelled Corrected WBC Cancelled RBC Cancelled Hgb Cancelled Hct Cancelled MCV Cancelled MCH Cancelled MCHC Cancelled RDW Cancelled Plt Count Cancelled MPV Cancelled Neut % (Auto) Cancelled Lymph % (Auto) Cancelled [place] % (Auto) Cancelled Eos % (Auto) Cancelled Baso % (Auto) Cancelled Neut # (Auto) Cancelled Lymph # (Auto) Cancelled [place] # (Auto) Cancelled Eos # (Auto) Cancelled Baso # (Auto) Cancelled Total Counted Cancelled Neutrophils % (Manual) Cancelled Band Neutrophils % Cancelled Lymphocytes % (Manual) Cancelled Atypical Lymphs % Cancelled Monocytes % (Manual) Cancelled Eosinophils % (Manual) Cancelled Basophils % (Manual) Cancelled Metamyelocytes % Cancelled Myelocytes % Cancelled Promyelocytes % Cancelled Blast Cells % Cancelled Nucleated RBCs Cancelled Differential Comment Cancelled Hypersegmented Neuts Cancelled Toxic Granulation Cancelled Toxic Vacuolation Cancelled Dohle Bodies Cancelled Tereza Rods Cancelled Platelet Estimate Cancelled Giant Platelets Cancelled RBC Morphology Cancelled Polychromasia Cancelled Hypochromasia Cancelled Poikilocytosis Cancelled Basophilic Stippling Cancelled Anisocytosis Cancelled Microcytosis Cancelled Macrocytosis Cancelled Spherocytes Cancelled Pappenheimer Bodies Cancelled Sickle Cells Cancelled Target Cells Cancelled Tear Drop Cells Cancelled Ovalocytes Cancelled Stomatocytes Cancelled Helmet Cells Cancelled [place] Bodies Cancelled [place] Rings Cancelled [place] Cells Cancelled Acanthocytes (Spur) Cancelled Rouleaux Cancelled Schistocytes Cancelled Sodium Potassium Chloride Carbon Dioxide Anion Gap BUN Creatinine Estimated Creat Clear Estimated GFR Est GFR ( Amer) Glucose Calcium DS: Diagnosis - Discharge Diagnosis (1) Status post replacement of right shoulder joint Status: Acute (2) Cardiomyopathy Status: Acute (3) Hyperlipidemia Status: Acute (4) Hypothyroid Status: Acute (5) Type 2 diabetes mellitus Status: Acute Discharge Plan - Patient Discharge Instructions Patient Instructions: How to Care for a Surgical Wound, Type 2 Diabetes, DI for Surgical Site Infection, Shoulder Replacement, DI for Shoulder Replacement - Follow up Plan Follow up with: Onesimo Craft MD [Staff Physician] - 04/14/19 10:15 am Bernabe Honeycutt MD [Staff Physician] - 04/14/19 11:30 am Home Medications: Home Medications Medication Instructions Recorded Confirmed Type lisinopril 2.5 mg tablet 2.5 mg PO DAILY 12/02/17 04/04/19 History lovastatin 40 mg tablet 40 mg PO HS 12/02/17 04/04/19 History meloxicam 15 mg tablet 15 mg PO DAILY 12/02/17 04/04/19 History metformin 500 mg tablet 500 mg PO BID 12/02/17 04/04/19 History Cyanocobalamin (Vitamin B-12) 2,500 mcg PO DAILY 01/11/18 04/04/19 History [Vitamin B-12 1000mcg Tablet] gabapentin 300 mg capsule 300 mg PO BID 03/23/19 04/04/19 History omeprazole 40 mg capsule,delayed 40 mg PO DAILY 03/23/19 04/04/19 History release risedronate 35 mg tablet 35 mg PO WEEKLY 03/23/19 04/04/19 History tramadol 37.5 mg-acetaminophen 325 1 tab PO Q6HP PRN 03/23/19 04/04/19 History mg tablet calcium carbonate-vitamin D3 600 1 tab PO BID tab 03/25/19 04/04/19 History mg (1,500 mg)-800 unit tablet Levothyroxine Sodium 75 mcg PO DAILY 04/04/19 04/04/19 History [Levothyroxine 75mcg (0.075mg) Tab] Metoprolol Succinate 25 mg PO DAILY 04/04/19 04/04/19 History Prescriptions/Medication Reconciliation: No Action meloxicam 15 mg tablet 15 mg PO DAILY lisinopril 2.5 mg tablet 2.5 mg PO DAILY metformin 500 mg tablet 500 mg PO BID lovastatin 40 mg tablet 40 mg PO HS omeprazole 40 mg capsule,delayed release 40 mg PO DAILY risedronate 35 mg tablet 35 mg PO WEEKLY tramadol 37.5 mg-acetaminophen 325 mg tablet 1 tab PO Q6HP PRN PRN Reason: PAIN gabapentin 300 mg capsule 300 mg PO BID calcium carbonate-vitamin D3 600 mg (1,500 mg)-800 unit tablet 1 tab PO BID tab Metoprolol Succinate 25 mg PO DAILY Levothyroxine Sodium [Levothyroxine 75mcg (0.075mg) Tab] 75 mcg PO DAILY Cyanocobalamin (Vitamin B-12) [Vitamin B-12 1000mcg Tablet] 2,500 mcg PO DAILY - Problem Reconciliation Problems Reviewed?: Yes
== END 2019-04-05 17:24 | disposition home or self-care (01) | DRG 483 ==
LOC: 2ND 06:00 → OR 06:00 → OBSVTOIN 06:02 → 2ND 12:42
PROVIDERS: ADMIT Orthopaedic Surgery; ATTEND Orthopaedic Surgery
CPT/HCPCS: 36415; 73030; 80048; 81001; 82962; 85025; 86850; 93458; 96374; 99152; C1713; C1725; C1769; C1776; J1644; J2405; J3370; Q9967

== ENCOUNTER → 2019-04-14 11:03 | Outpatient (CLI) | payer MEDICARE, SELFPAY ==
--- NOTE | 2019-04-14 11:07 | XR_ITS ---
PROCEDURE: XR SHOULDER RT MIN 2V CLINICAL INDICATION: sp reverse RT shoulder arthroplasty COMPARISON: 04/04/2019 FINDINGS: Status post right shoulder replacement with good alignment. There is heterotopic ossification about the shoulder joint and acromioclavicular region. No change with no acute finding. Previously noted curvilinear density over the right proximal humerus is not demonstrated on today's exam. IMPRESSION: Status post right shoulder replacement with good alignment Dictated by: Phu Amado MD 04/14/2019 12:37 Electronically signed by Phu Amado MD in [place] 04/14/2019 12:37
== END ==
PROVIDERS: PCP Family Medicine; Visit Provider Orthopaedic Surgery
DX: Z96.611 Presence of right artificial shoulder joint (principal); M25.511 Pain in right shoulder
CPT/HCPCS: 73030

== ENCOUNTER → 2019-05-11 07:58 | Outpatient (CLI) | payer MEDICARE, SELFPAY ==
--- NOTE | 2019-05-11 08:01 | XR_ITS ---
PROCEDURE: XR SHOULDER RT MIN 2V CLINICAL INDICATION: sp reverse RT shoulder arthroplasty COMPARISON: [id number] [id number] VIEWS from 05/07/2015 XR SHOULDER RT MIN 2V from 01/12/2019 XR SHOULDER RT MIN 2V from 04/04/2019 XR SHOULDER RT MIN 2V from 04/14/2019 FINDINGS: The post right shoulder replacement. There is good alignment of the prosthesis with no acute findings. There is an old fracture of the distal clavicle with osteoarthritic changes at the AC joint and heterotopic ossification about the right shoulder. There is a calcific density in the sub clavicular region rounded in nature and could be due to a synovial osteo chondroma. IMPRESSION: Good alignment status post right shoulder arthroplasty Dictated by: Phu Amado MD 05/11/2019 09:43 Electronically signed by Phu Amado MD in [place] 05/11/2019 09:43
== END ==
PROVIDERS: PCP Family Medicine; Visit Provider Orthopaedic Surgery
DX: Z96.611 Presence of right artificial shoulder joint (principal); M25.511 Pain in right shoulder
CPT/HCPCS: 73030

== ENCOUNTER 2019-05-24 09:30 | Outpatient (RCR) | payer MEDICARE, SELFPAY ==
--- NOTE | 2019-05-19 11:10 | HMH.OTOPEV ---
OT Inpatient Evaluation Rehab OT Outpatient Eval Start: 05/19/19 10:49 Freq: Status: Active Protocol: Document 05/19/19 10:49 RMARSHALL (Rec: 05/19/19 11:10 [id number] Electronically Signed By Ravi Valerio OT 05/19/19 10:49 Outpatient Therapy Subjective History Subjective History Pt is a 79 year old female who reports to therapy for initial evaluation to right shoulder. Pt had a total shoulder arthoplasty (reverse) on April 04, 2019. Pt is currently starting week 6 of post op. Surgeon sent a protocol to follow with therapy. Pt demonstrates with decreased PROM and strength upon evaluation. Pt will continue to be seen twice a week in order to address deficits. Chief Complaint Pain,Stiff,Weakness Symptom Type Ache,Sharp Symptoms Relieved By Rest/Positioning Symptoms Aggravated By Physical Activity Prior Functional Limitations None Current Functional Limitations Reaching,Lifting,Housework, Dressing,Driving,Sleeping, Recreation Activity Symptom Description Intermittent,Activity Dependent Level of pain today (0-10) 0 Pain scale - at its best (0-10) 0 Shoulder/Elbow Eval Shoulder Objective Measurements Shoulder ROM Right Shoulder Abduction Passive Range of 90 degrees Motion (degrees) Shoulder Flexion Passive Range of Motion 115 degrees (degrees) Shoulder External Rotation Passive Range 20 degrees of Motion (degrees) Shoulder Internal Rotation Passive Range 40 degrees of Motion (degrees) pain with passive ROM shoulder exam right standard decreased ROM shoulder exam standard right Shoulder MMT Anterior Deltoid Strength Grade 3 Fair Shoulder Abduction Strength Grade 3 Fair Shoulder Flexion Strength Grade 3 Fair Shoulder External Rotation Strength 3 Fair Grade Middle Deltoid Strength Strength Grade 3 Fair Shoulder Internal Rotation Strength 3 Fair Grade Posterior Deltoid Strength Grade 3 Fair Shoulder Strength Patient Testing Sitting Position Elbow Objective Measurements OT Outpatient Assessment Impairments Problems/Impairments Palpation Tenderness,Impaired Range of Motion,Impaired
== END 2019-05-24 09:35 | disposition home or self-care (01) ==
LOC: OT 09:30
PROVIDERS: Visit Provider Orthopaedic Surgery
DX: M75.101 Unspecified rotator cuff tear or rupture of right shoulder, not specified as traumatic (principal); M12.811 Other specific arthropathies, not elsewhere classified, right shoulder; M25.511 Pain in right shoulder; G89.29 Other chronic pain; Z96.611 Presence of right artificial shoulder joint
CPT/HCPCS: 97110; 97140; 97166

== ENCOUNTER → 2019-06-22 08:04 | Outpatient (CLI) | payer MEDICARE, SELFPAY ==
--- NOTE | 2019-06-22 08:08 | XR_ITS ---
PROCEDURE: XR SHOULDER RT MIN 2V CLINICAL INDICATION: sp reverse RT shoulder arthroplasty Follow-up surgery COMPARISON: XR SHOULDER RT MIN 2V from 01/12/2019 XR SHOULDER RT MIN 2V from 04/04/2019 XR SHOULDER RT MIN 2V from 04/14/2019 XR SHOULDER RT MIN 2V from 05/11/2019 FINDINGS: Prior total arthroplasty of the right shoulder with the ball portion of the prosthesis at the glenoid in the socket portion at the proximal humerus indicating a reverse shoulder arthroplasty. There is good alignment. Prominent bony hypertrophic changes are present at the acromioclavicular and coracoclavicular region as before with a small separate bony fragment at the distal clavicle unchanged. Does appear to be some capsular calcification along the posterior aspect of the shoulder IMPRESSION: No change status post right shoulder replacement as described above with good alignment Dictated by: Phu Amado MD 06/22/2019 11:52 Electronically signed by Phu Amado MD in [place] 06/22/2019 11:52
== END ==
PROVIDERS: PCP Family Medicine; Visit Provider Orthopaedic Surgery
DX: Z96.611 Presence of right artificial shoulder joint (principal); M25.511 Pain in right shoulder
CPT/HCPCS: 73030

== ENCOUNTER → 2019-08-16 12:32 | Outpatient (CLI) | payer MEDICARE, SELFPAY | PROVIDERS: PCP Family Medicine; Visit Provider Urology | DX: I51.9 Heart disease, unspecified (principal) | CPT/HCPCS: 93306 ==

== ENCOUNTER → 2019-08-29 07:39 | Outpatient (CLI) | payer MEDICARE, SELFPAY ==
--- NOTE | 2019-08-29 07:41 | MM_ITS ---
PROCEDURE: MM DIG SCREENING MAMM BI W/CAD Digital Breast Tomosynthesis Included CLINICAL INDICATION: SCREENING There is no personal or family history of breast cancer. COMPARISON: DMSB DIG MAMM-SCREEN HANNAH W/CAD from 07/15/2016 DIG MAMM-SCREEN HANNAH from 08/26/2018 TECHNIQUE: Standard CC and MLO images and 3D Tomosynthesis was obtained. R2 CAD reviewed. FINDINGS: Scattered diffuse fibroglandular densities are seen throughout both breasts. There are scattered benign-appearing microcalcifications in each breast. There is a stable tiny nodular density near the axillary tail left breast. The nipples are inverted bilaterally which has been noted previously. There is faint arterial calcification in each breast. There is no suspicious lesion in either breast and no suspicious microcalcifications. IMPRESSION: Fibrofatty parenchyma with no suspicious lesions seen BI-RAD Category: 2 Benign Finding(s) FOLLOW-UP: 1YR 1 Year Follow-up (A letter has been sent to the patient regarding results of the study.) Dictated by: Dr. Kota Maddox MD 08/30/2019 17:[address] Kota Maddox MD in [place] 08/30/2019 17:47
--- NOTE | 2019-08-29 07:42 | XR_ITS ---
PROCEDURE: XR DEXA AXIAL SKELETON CLINICAL HISTORY: OSTEOPOROSIS COMPARISON: No exams were available for comparison in ring on the pancreatectomy and not a FINDINGS: The right hip BMD is 0.507 with a t-score of -3.1. The left hip BMD is 0.631 with a t-score of -2.5. The Lumbar spine BMD is 1.296 with a t-score of 2.3. IMPRESSION: This patient is considered osteoporotic according to the World Health Organization criteria. Fracture risk is high. Treatment is advised. Based on these results of follow-up exam is recommended in 1 year Dictated by: Phu Amado MD 08/29/2019 22:13 Electronically signed by Phu Amado MD in [place] 08/30/2019 07:55
== END ==
PROVIDERS: PCP Family Medicine; Visit Provider Family Medicine
DX: Z12.31 Encounter for screening mammogram for malignant neoplasm of breast (principal); M81.0 Age-related osteoporosis without current pathological fracture
CPT/HCPCS: 77063; 77067; 77080

== ENCOUNTER 2019-08-31 08:56 | Day surgery (SDC) | payer MEDICARE, SELFPAY ==
[2019-08-31] VITALS (7 sets, daily range): BP systolic 112–141; BP diastolic 67–100; PULSE 70–87; RESP 16–18; TEMP 36.7; O2SAT 91–98; BMI 37.8
--- NOTE | 2019-08-31 07:03 | IR_ITS ---
APPROVED REPORT Patient Location: Outpatient Internal Audit Consultant: MIKE Duque RT (R) PROCEDURES 1. Pocket formation for biventricular pacemaker generator with cardiac resynchronization/defibrillator therapy. 2. Placement of atrial sensing and pacing lead into the right atrial appendage. 3. Placement of a right ventricular sensing, pacing and shocking lead in the right ventricular apex. 4. Placement of left ventricular sensing pacing lead via the coronary sinus. 5. Permanent cardiac resynchronization therapy with ICD implantation/biventricular pacemaker. INDICATION Systolic Congestive Heart Failure, ejection <35%, Wide QRS >120ms, [place] Heart Assoication Class 3 Congestive Heart Failure Informed consent was obtained prior to the procedure. COMPLICATIONS None Estimated Blood Loss: Less than 10ml TECHNIQUE 1% Lidocaine with epinephrine used to anesthetized the left anterior aspect of the chest. Scalpel was used to make the initial cutaneous incision while electrocautery was used to dissect down tinto the fascia. The fascia was lifted off the pectoralis muscle and digitally manipulated creating a pocket for the defibrillator. The patient was then placed in Trendelenburg position and the subclavian vein was accessed 3 times via the Selinger technique. A 8 Afghan sheath was placed under fluoroscopic guidance into the subclavian vein. The dilator was removed from the sheath. Using fluoroscopic guidance, the ventricular lead was placed into the right ventricular apex, screwed and secured into place. Electronic interrogation proved acceptable thresholds and voltage within the lead. Using 3-0 silk, the ventricular lead was then secured into place and sheath peeled away. Following this, a 9.5 Afghan sheath and dilator was then placed over one of the wires while keeping the other wire in place within the subclavian vein. The dilator was removed from the sheath. Using fluoroscopic guidance, contrast was used to visualize the coronary sinus, the left ventricular lead was placed into the coronary sinus. Electronic interrogation proved acceptable thresholds and voltage within the lead. Using 3-0 silk, the left ventricular lead was then secured into place and sheath peeled away.An additional 6 Afghan fresh sheath and dilator was placed over the existing wire. Using fluoroscopic guidance, the atrial lead was then placed into the right atrial appendage and screwed and secured in place. Electrical interrogation demonstrated acceptable thresholds and voltage number. The atrial lead was then secured into place using 3-0 silk and sheath peeled away. 1 gram of Ancef was used to flush the pocket. All 3 leads were connected to generator and tested via computer. The defibrillator then secured to the fascia. Monocryl was used to close the subcutaneous layers while markell were used to close the cutaneous layer. A pressure dressing was placed and the patient was transferred to the postop holding area in stable condition for postoperative care. INTERROGATION Generator Serial number: VIGILANT X4 [id number] Generator Model number: [id number] Atrial lead model number: INGEVITY MRI 7740 Atrial lead serial number: [id number] P-wave: 2.5 mV Impedence: 450 Ohms Threshold: 1.0V Left Ventricular lead model number: ACUITY X4 SPIRAL 4674 Left Ventricular lead serial number: [id number] R-wave: 4.0 mV Impedence: 568 Ohms Threshold: 1.0V Right Ventricular lead model number: ELGIN 4 FRONT 0675 Right Ventricular lead serial number: [id number] R-wave: 12.0 mV Impedence: 1200 Ohms Threshold: 0.5V Pacing Parameters: Mode: DDDR Base/Max Track: 60/130 PPM ICD Rate Cutoffs: VT-1: 170 BP
[2019-08-31 09:39] LABS: Chloride 101 mmol/L (98-107); Potassium 4.5 mmoL/L (3.5-5.1); Sodium 135 mmol/L (136-145)
[2019-08-31 09:42] LABS: Basophils # 0.4 K/mm3 (0-0.2); Basophils % 4.5 % (0.1-2.0); Eosinophils # 0.2 K/mm3 (0.0-0.4); Eosinophils % 1.9 % (0.1-12.0); Hematocrit 48.1 % (37.0-47.0); Hemoglobin 14.7 g/dL (12.2-16.2); Lymphocytes # 2.7 K/mm3 (0.7-4.5); Lymphocytes % 28.7 % (10-50); Mean Corpuscular HGB Conc 30.5 g/dL (31.8-35.4); Mean Corpuscular Hemoglobin 32.8 pg (27.0-31.2); Mean Corpuscular Volume 107.5 fl (81-99); Mean Platelet Volume 11.3 fl (7.4-10.4); Monocytes # 0.7 K/mm3 (0.1-1.0); Monocytes % 7.6 % (1.7-9.3); Neutrophils # 5.8 K/mm3 (1.8-7.8); Neutrophils % 61.8 % (37.0-80.0); Platelet Count 280 K/mm3 (142-424); Red Blood Count 4.47 M/mm3 (4.20-5.40); Red Cell Distribution Width 20.3 % (11.5-17.5); White Blood Count 9.4 K/mm3 (4.8-10.8)
[2019-08-31 09:43] LABS: Anion Gap 11.5 mEq/L (5-15); Blood Urea Nitrogen 21 mg/dl (7-17); Calcium 9.7 mg/dl (8.4-10.2); Carbon Dioxide 27 mmol/L (22.0-30.0); Creatinine Clearance Estimated 54 mL/min (50-200); Estimated Glomerular Filt Rate 97 ml/min (>60); GFR (African American) 117 ML/MIN (>60); Glucose 93 mg/dl (74-100)
--- NOTE | 2019-08-31 10:03 | P.PN_ITS ---
[facility] Anesthesia Checklist - Patient Identification Patient Identification: Arm Band - Structural Data Admitted From: Home Planned Operative Procedure/s: Biventricular pacemaker/AICD Consent for Planned Operative Procedure(s) Verified: Yes Verified Documents: Surgical Consent, History and Physical - NPO Status Verified Time NPO: 00:00 - Additional verifications Anesthesia Reactions: No Hx Blood Transfusions: No Blood Transfusion Reaction: No - Airway Assessment C-Spine Mobility Assessed: Yes (mp2) TMJ Mobility Assessed: Yes Dentition: Dentures-good fit - Neurological Assessment Level of Consciousness: Awake, Alert - Anesthesia Plan Anesthesia Risk discussed: Yes Anesthesia Plan: Verified ASA Class: III Anesthesia Type: MAC [facility] History I have reviewed the patient's past medical history: Yes Medical History: Reports:: Arrhythmia, Cardiomyopathy, Congestive Heart Failure, Diabetes Mellitus Type 2, Gastroesophageal Reflux Disease(GERD), Hyperlipidemia, Hypertension Denies:: Cancer, Diabetes Mellitus Type 1, Internal Pacemaker, MRSA, Seizures *Have you ever received a pneumonia vaccine?: Yes *Have you received a flu vaccine this season?: Yes Other Medical History: Reports: Arthritis, Hypothyroidism. Denies: Blood Transfusion Reaction Anesthesia experience/problems:: nac Laterality Cases: Left: Other, Right: Arthroscopy Shoulder, Bilateral: Arthroscopy Knee, Carpal Tunnel Release Other Surgeries: Yes: Cardiac Catheterization, Colonoscopy, Coronary Stent, Hysterectomy-Total, Other. No: Pacemaker Amputation: No Fractures: No - *Social History Educational Level: Completed High School Smoking Status: Never smoker Alcohol Intake: never Substance Use Type: denies use *Occupational Status:: retired Housing: house Household Members: spouse *Travel in the last 8 weeks: None Family Hx:: Cancer, Diabetes, Hypertension
--- NOTE | 2019-08-31 13:29 | XR_ITS ---
PROCEDURE: XR CHEST PORTABLE CLINICAL HISTORY: post aicd placement Follow-up pacer placement COMPARISON: CTAC CTA-CHEST from 03/11/2016 CXR1 CHEST-PORTABLE from 03/15/2016 CXR2V XR chest 2V from 12/04/2017 XR CHEST 2V from 03/22/2019 FINDINGS: There has been interval insertion of a biventricular and right atrial pacemaker from the left subclavian approach. The leads appear in satisfactory position on the AP view. There is no evidence of pneumothorax. No obvious complications Lungs are clear. Bilateral shoulder prosthesis present. No acute bony abnormalities. IMPRESSION: Status post cardiac pacemaker placement as detailed above without evidence of pneumothorax Dictated by: Phu Amado MD 08/31/2019 13:59 Electronically signed by Phu Amado MD in [place] 08/31/2019 13:59
== END 2019-08-31 15:04 | disposition home or self-care (01) ==
LOC: CATHLAB 08:57
PROVIDERS: PCP Family Medicine; Visit Provider Internal Medicine
PROC: 0JH609Z Insertion of Cardiac Resynchronization Defibrillator Pulse Generator into Chest Subcutaneous Tissue and Fascia, Open Approach (ICD-10-PCS; CPT 33249; principal; 2019-08-31 10:30)
DX: I11.0 Hypertensive heart disease with heart failure (principal); I50.22 Chronic systolic (congestive) heart failure; E11.9 Type 2 diabetes mellitus without complications; Z79.84 Long term (current) use of oral hypoglycemic drugs; E03.9 Hypothyroidism, unspecified; E78.5 Hyperlipidemia, unspecified; I42.9 Cardiomyopathy, unspecified; Z45.02 Encounter for adjustment and management of automatic implantable cardiac defibrillator
CPT/HCPCS: 33249; 71045; 80048; 85025; C1769; C1882; C1895; C1898; C1900; J2704; Q9967

== ENCOUNTER → 2019-09-21 08:37 | Outpatient (CLI) | payer MEDICARE, SELFPAY ==
--- NOTE | 2019-09-21 08:42 | XR_ITS ---
PROCEDURE: XR SHOULDER RT MIN 2V CLINICAL INDICATION: sp rt reverse total shoulder arthroplasty COMPARISON: XR SHOULDER RT MIN 2V from 04/04/2019 XR SHOULDER RT MIN 2V from 04/14/2019 XR SHOULDER RT MIN 2V from 05/11/2019 XR SHOULDER RT MIN 2V from 06/22/2019 FINDINGS: There has been a reverse total arthroplasty with good alignment of the shoulder. Bony hypertrophic changes/heterotopic ossification noted along the inferior aspect of the a chromium. There is bony fragmentation at the acromioclavicular joint. These findings are not significantly changed. IMPRESSION: Good alignment status post reverse arthroplasty of the right shoulder with bony hypertrophy/heterotopic ossification at the a chromium and bony fragmentation at the distal clavicle unchanged Dictated by: Phu Amado MD 09/21/2019 14:57 Electronically signed by Phu Amado MD in [place] 09/21/2019 14:57
== END ==
PROVIDERS: PCP Family Medicine; Visit Provider Orthopaedic Surgery
DX: Z09 Encounter for follow-up examination after completed treatment for conditions other than malignant neoplasm (principal); Z96.611 Presence of right artificial shoulder joint
CPT/HCPCS: 73030

== ENCOUNTER → 2020-02-29 08:42 | Outpatient (CLI) | payer MEDICARE, SELFPAY ==
--- NOTE | 2020-02-29 08:47 | XR_ITS ---
PROCEDURE: XR HIP RT 2-3V W/PELVIS CLINICAL INDICATION: HANNAH HIP PAIN COMPARISON: CR HIPCMLT XR hip LT 2-3V w/pelvis from 05/29/2017 FINDINGS: No fracture or dislocation is evident. No significant degenerative change. No lytic or blastic change. Unremarkable soft tissues. Several phleboliths just above the symphysis pubis. The SI joints and symphysis pubis appear normal. IMPRESSION: No acute findings. Dictated by: Dr. Kota Maddox MD 02/29/2020 09:23 Dr. Kota Maddox MD in [place] 02/29/2020 09:23
--- NOTE | 2020-02-29 08:47 | XR_ITS ---
PROCEDURE: XR LUMBAR SPINE MIN 4V CLINICAL INDICATION: SPINAL STENOSIS COMPARISON: CR LS5 LUMBAR SPINE 5 VIEWS from 01/12/2017 FINDINGS: There is generalized osteopenia. There is rather severe multilevel degenerate changes multilevel disc space narrowing, there is a vacuum phenomenon at the L4-5 disc space. There is no obvious pars defect. There prominent hypertrophic facet changes at the L3-4, L4-5 and L5-S1 levels. The SI joints are normal. All these changes are basically stable with no significant progression from the previous study 01/12/2017. There is diffuse arthrosclerotic calcification of the abdominal aorta but there is no aneurysm. There does appear to be suggestion of bony spinal stenosis lower lumbar spine on the coned-down lateral view, this could be confirmed with a CT scan lumbar spine. IMPRESSION: Marked diffuse multilevel degenerate changes and osteopenia, findings all basically unchanged from the previous study Dictated by: Dr. Kota Maddox MD 02/29/2020 09:22 Dr. Kota Maddox MD in [place] 02/29/2020 09:22
--- NOTE | 2020-02-29 08:47 | XR_ITS ---
PROCEDURE: XR HIP LT 2-3V W/PELVIS CLINICAL INDICATION: HANNAH HIP PAIN COMPARISON: CR HIPCMLT XR hip LT 2-3V w/pelvis from 05/29/2017 FINDINGS: No fracture or dislocation is evident. There is mild asymmetrical joint space narrowing. No lytic or blastic change. Unremarkable soft tissues. IMPRESSION: Mild osteoarthritic change left hip Dictated by: Dr. Kota Maddox MD 02/29/2020 09:25 Dr. Kota Maddox MD in [place] 02/29/2020 09:25
== END ==
PROVIDERS: PCP Family Medicine; Visit Provider Family Medicine
DX: M25.552 Pain in left hip (principal); M25.551 Pain in right hip; M48.07 Spinal stenosis, lumbosacral region
CPT/HCPCS: 72110; 73502

== ENCOUNTER → 2020-03-27 08:33 | Outpatient (CLI) | payer MEDICARE, SELFPAY ==
--- NOTE | 2020-03-27 08:39 | XR_ITS ---
PROCEDURE: XR SHOULDER RT MIN 2V CLINICAL INDICATION: 1 year follow up RT reverse, sx 04/04/2019 Follow-up shoulder replacement COMPARISON: CR XR SHOULDER RT MIN 2V from 04/14/2019 CR XR SHOULDER RT MIN 2V from 05/11/2019 CR XR SHOULDER RT MIN 2V from 06/22/2019 CR XR SHOULDER RT MIN 2V from 09/21/2019 FINDINGS: Good alignment status post reverse right shoulder replacement. No fracture or dislocation. There is an old fracture involving the distal aspect of the clavicle. Other findings:None. IMPRESSION: Good alignment status post right total shoulder replacement Dictated by: Phu Amado MD 03/27/2020 16:09 Phu Amado MD in [place] 03/27/2020 16:09
== END ==
PROVIDERS: PCP Family Medicine; Visit Provider Orthopaedic Surgery
DX: Z96.611 Presence of right artificial shoulder joint (principal)
CPT/HCPCS: 73030

== ENCOUNTER → 2020-08-29 07:54 | Outpatient (CLI) | payer MEDICARE, SELFPAY ==
--- NOTE | 2020-08-29 07:58 | MM_ITS ---
PROCEDURE INFORMATION: Exam: MG Screening 3D Mammography Exam date and time: 08/29/2020 7:58 AM Age: 80 years old Clinical indication: Encounter for screening mammogram for malignant neoplasm of breast TECHNIQUE: Imaging protocol: Screening tomosynthesis and 2D mammography including computer-aided detection (CAD) when performed. COMPARISON: 1. MG MM DIG SCREENING MAMM BI W/CAD 08/29/2019 8:07 AM 2. MG DIG MAMM-SCREEN HANNAH 08/26/2018 9:14 AM FINDINGS: MAMMOGRAPHY: Breast composition: The breasts are almost entirely fatty. Mass: None. Architectural distortion: None. Calcifications: No suspicious calcifications. Asymmetric density: None. Skin thickening: None. Axillary adenopathy: None. IMPRESSION: No mammographic evidence of malignancy. Annual screening is recommended unless otherwise clinically indicated. ASSESSMENT: BI-RADS Category 1: Negative
--- NOTE | 2020-08-29 07:59 | XR_ITS ---
PROCEDURE: XR DEXA AXIAL SKELETON CLINICAL HISTORY: AGE RELATED OSTEOPOROSIS COMPARISON: CR,DX BONE3 BONE DENSITOMETRY(HIP:LT SPINE from 07/15/2016 FINDINGS: The right hip BMD is 0.572 with a T-score of -2.5. The left hip BMD is 0.646 with a T-score of -2.4. The lumbar spine BMD is 1.237 with a T-score of 1.7. Previously the lowest T-score value is -2.4 IMPRESSION: This patient is considered osteoporotic according to the World Health Organization criteria. Fracture risk is high. Treatment is advised. Based on these results a follow-up exam is recommended in 1 year. Dictated by: Phu Amado MD 08/30/2020 07:38 Phu Amado MD in [place] 08/30/2020 07:38
== END ==
PROVIDERS: PCP Family Medicine; Visit Provider Family Medicine
DX: Z12.31 Encounter for screening mammogram for malignant neoplasm of breast (principal); M81.0 Age-related osteoporosis without current pathological fracture
CPT/HCPCS: 77063; 77067; 77080

== ENCOUNTER → 2021-01-22 12:50 | Outpatient (CLI) | payer MEDICARE, SELFPAY | PROVIDERS: PCP Internal Medicine; Visit Provider Physician Assistant | DX: E78.5 Hyperlipidemia, unspecified (principal); I42.9 Cardiomyopathy, unspecified; I50.22 Chronic systolic (congestive) heart failure; I11.0 Hypertensive heart disease with heart failure | CPT/HCPCS: 93306 ==

== ENCOUNTER 2021-02-17 09:14 | Emergency (ER) | payer MEDICARE, SELFPAY ==
[2021-02-17 10:22] VITALS: BP 134/89; PULSE 87; RESP 18; TEMP 37.1; O2SAT 94; BMI 35.9
[2021-02-17 10:26] VITALS: BP 134/89; PULSE 87; RESP 18; TEMP 37.1
--- NOTE | 2021-02-17 10:55 | HMH.EDUTC ---
[facility] [place] Disposition Clinical Impression: Allergic rhinitis Qualifiers: Allergic rhinitis trigger: unspecified Allergic rhinitis seasonality: unspecified Qualified Code(s): J30.9 - Allergic rhinitis, unspecified Disposition: Home, Self-Care Condition on Discharge: Good Instructions: DI for Allergic Rhinitis Additional Instructions: Drink plenty of fluids. Take tylenol for pain or fever. Return if you begin to have difficulty breathing. Follow up with your regular doctor. GO TO THE ER FOR ANY WORSENING SYMPTOMS Quarantine until you know the results of your covid-19 test. If it is positive, the health department should call you and give you further instructions about your length of Quarantine and other things. Notify your school or workplace of your results and follow their instructions regarding return to work/school. Prescriptions: Loratadine [Claritin 10mg Tablet] 10 mg PO DAILY #30 tab Transmission Status: Received by [facility] Fluticasone Propionate [Flonase 50mcg nasal spray 16gm] 1 spr NS DAILY 30 Days #120 each Transmission Status: Received by [facility] Referrals: Jose Garcia MD [Primary Care Provider] - Time of Disposition: 11:06 Medical Decision Making - Medical Records Medical records reviewed: No: I reviewed the patient's medical records. - Rey Inquiry Pt receiving controlled substance: No Vital Signs: 02/17/21 10:22 02/17/21 10:26 Temperature 98.7 F 98.7 F Temperature Source Oral Pulse Rate 87 Pulse Rate [Left] 87 Respiratory Rate 18 18 Blood Pressure 134/89 Blood Pressure [Right Arm] 134/89 Blood Pressure Mean [Right Arm] 104 02 Sat by Pulse Oximetry 94 L [facility] [place] HPI - General Stated complaint: sore throat, runny nose, COVID test Time Seen by Provider: 02/17/21 10:55 Mode of Arrival: Ambulatory Source of Information: Patient Limitations: No Limitations Description of Symptoms (Recalled from Triage Doc. by RN): pt c/o nasal drainage and cough. pt requests a covid test. HEENT Symptoms (Recalled from RN notes): Yes (nasal drainage) Resp Symptoms (Recalled from RN notes): Yes (cough) Skin Symptoms (Recalled from RN notes): No MS Symptoms (Recalled from RN notes): No Functional Status (Recalled from RN notes): wnl - History of Present Illness Provider Complaint: She states that she has been having sinus congestion and some chilling for the past 2 days. - Related Data Home Medications Medication Instructions Recorded Confirmed meloxicam 15 mg tablet 15 mg PO DAILY 12/02/17 01/29/21 metformin 500 mg tablet 500 mg PO BID 12/02/17 01/29/21 Cyanocobalamin (Vitamin B-12) 2,500 mcg PO DAILY 01/11/18 01/29/21 [Vitamin B-12 1000mcg Tablet] gabapentin 300 mg capsule 300 mg PO BID 03/23/19 01/29/21 omeprazole 40 mg capsule,delayed 40 mg PO DAILY 03/23/19 01/29/21 release risedronate 35 mg tablet 35 mg PO WEEKLY 03/23/19 01/29/21 calcium carbonate 600 mg-vitamin 1 tab PO BID tab 03/25/19 01/29/21 D3 20 mcg (800 unit) tablet Levothyroxine Sodium 75 mcg PO DAILY 04/04/19 01/29/21 [Levothyroxine 75mcg (0.075mg) Tab] Aspirin [Low Dose Aspirin EC] 81 mg PO DAILY 08/31/19 01/29/21 tramadol 37.5 mg-acetaminophen 325 1 tab PO Q4-6H PRN tab 09/08/19 01/29/21 mg tablet Previous Rx's Medication Instructions Recorded metoprolol succinate 25 mg See Rx Instructions .ROUTE 07/26/20 tablet,extended release 24 hr .COMPLEX #90 tab losartan 50 mg tablet See Rx Instructions .ROUTE 10/18/20 .COMPLEX #90 tab rosuvastatin 10 mg tablet See Rx Instructions .ROUTE 01/28/21 .COMPLEX #90 tab Fluticasone Propionate [Flonase 1 spr NS DAILY 30 Days #120 each 02/17/21 50mcg nasal spray 16gm] Loratadine [Claritin 10mg 10 mg PO DAILY #30 tab 02/17/21 Tablet] Allergies Allergy/AdvReac Type Severity Reaction Status Date / Time No Known Allergies Allergy Verified 01/29/21 13:41 - Worker's Comp Is this a Worker's Comp
== END 2021-02-17 11:27 | disposition home or self-care (01) ==
PROVIDERS: Emergency Provider Nurse Practitioner Family; PCP Family Medicine
DX: J30.9 Allergic rhinitis, unspecified (principal); K21.9 Gastro-esophageal reflux disease without esophagitis; E11.9 Type 2 diabetes mellitus without complications; I50.9 Heart failure, unspecified; Z20.822 Contact with and (suspected) exposure to COVID-19; Z79.899 Other long term (current) drug therapy
CPT/HCPCS: G0463; 99202; C9803; U0003; U0005

== ENCOUNTER → 2021-04-01 10:17 | Outpatient (CLI) | payer MEDICARE, SELFPAY ==
[2021-04-02 06:49] LABS: Covid-19 Nasal PCR Sendout Lex POSITIVE
== END ==
PROVIDERS: PCP Family Medicine; Visit Provider Nurse Practitioner
DX: U07.1 COVID-19 (principal)
CPT/HCPCS: C9803; U0004; U0005

== ENCOUNTER 2021-04-12 21:29 | Emergency (ER) | payer MEDICARE, SELFPAY ==
[2021-04-12 21:28] VITALS: BP 139/78; PULSE 82; RESP 18; TEMP 36.7; O2SAT 92; BMI 35.9
[2021-04-12 21:33] VITALS: BMI 35.9
--- NOTE | 2021-04-12 21:34 | XR_ITS ---
PROCEDURE INFORMATION: Exam: XR Right Humerus Exam date and time: 04/12/2021 9:34 PM Age: 81 years old Clinical indication: Injury or trauma; Fall; Blunt trauma (contusions or hematomas); Arm, upper; Right; Injury date: 04/12/2021; Injury details: Fell obvious deformity; Prior surgery; Surgery date: 6+ months; Surgery type: Total shoulder TECHNIQUE: Imaging protocol: XR Right humerus. Views: 2 or more views. COMPARISON: CR XR SHOULDER RT MIN 2V 03/27/2020 8:54 AM FINDINGS: Bones/joints: Comminuted fracture of the mid humerus at the approximate level of the tip of the arthroplasty stem component. There is mild apex medial fracture angulation. No dislocation. Soft tissues: Soft tissue swelling adjacent to the fracture site. IMPRESSION: Humerus fracture.
--- NOTE | 2021-04-12 21:34 | CT_ITS ---
PROCEDURE INFORMATION: Exam: CT Cervical Spine Without Contrast Exam date and time: 04/12/2021 9:34 PM Age: 81 years old Clinical indication: Injury or trauma; Fall; Blunt trauma; Injury date: 04/12/2021; Additional info: Fall hematoma over left eye TECHNIQUE: Imaging protocol: Computed tomography images of the cervical spine without contrast. Radiation optimization: All CT scans at this facility use at least one of these dose optimization techniques: automated exposure control; mA and/or kV adjustment per patient size (includes targeted exams where dose is matched to clinical indication); or iterative reconstruction. COMPARISON: [facility] CT CERVICAL SPINE W/O CONT 06/21/2015 9:00 PM FINDINGS: Bones/joints: No acute fracture. Normal alignment. Discs/Spinal canal/Neural foramina: Obliteration of the disc space at C3-C4. Severe disc space narrowing at C4-C5 and C6-C7. Moderate disc space narrowing at C5-C6 and C7-T1. No significant disc protrusion. No severe spinal canal stenosis. Multilevel facet arthrosis. Mild bilateral bony foraminal stenosis at C4-C5 and C5-C6. Lungs: Lung apices are normal. Soft tissues: Unremarkable. IMPRESSION: No acute findings.
--- NOTE | 2021-04-12 21:34 | CT_ITS ---
PROCEDURE INFORMATION: Exam: CT Head Without Contrast Exam date and time: 04/12/2021 9:34 PM Age: 81 years old Clinical indication: Injury or trauma; Fall; Blunt trauma (contusions or hematomas); Without loss of consciousness; Injury date: 04/12/2021; Additional info: Fall hematoma over left eye TECHNIQUE: Imaging protocol: Computed tomography of the head without contrast. Radiation optimization: All CT scans at this facility use at least one of these dose optimization techniques: automated exposure control; mA and/or kV adjustment per patient size (includes targeted exams where dose is matched to clinical indication); or iterative reconstruction. COMPARISON: [facility] CT CERVICAL SPINE W/O CONT 06/21/2015 9:00 PM FINDINGS: Brain: There is age-appropriate cerebral atrophy. Moderate changes of chronic small vessel ischemia within the cerebral white matter regions bilaterally. No acute infarct or hemorrhage. Cerebral ventricles: No ventriculomegaly. Paranasal sinuses: Visualized sinuses are unremarkable. No fluid levels. Mastoid air cells: Visualized mastoid air cells are well aerated. Bones/joints: Unremarkable. No acute fracture. Soft tissues: Unremarkable. IMPRESSION: No acute intracranial abnormality.
--- NOTE | 2021-04-12 21:42 | XR_ITS ---
PROCEDURE INFORMATION: Exam: XR Pelvis Exam date and time: 04/12/2021 9:42 PM Age: 81 years old Clinical indication: Injury or trauma; Fall; Blunt trauma (contusions or hematomas); Bilateral; Pelvic region; Injury date: 04/12/2021 TECHNIQUE: Imaging protocol: XR pelvis. Views: 1 or 2 view. COMPARISON: CR XR HIP LT 2-3V W/PELVIS 02/29/2020 8:50 AM FINDINGS: Bones/joints: No acute fracture or dislocation. Mild bilateral hip joint space narrowing. The SI joints and pubic symphysis are unremarkable. Soft tissues: Unremarkable. IMPRESSION: No acute findings.
--- NOTE | 2021-04-12 21:42 | XR_ITS ---
PROCEDURE INFORMATION: Exam: XR Chest Exam date and time: 04/12/2021 9:42 PM Age: 81 years old Clinical indication: Injury or trauma; Fall; Blunt trauma (contusions or hematomas); Injury date: 04/12/2021; Prior surgery; Surgery date: 6+ months; Surgery type: Pacemaker TECHNIQUE: Imaging protocol: XR of the chest. Views: 4 or more views. COMPARISON: CR XR CHEST PORTABLE 08/31/2019 1:41 PM FINDINGS: Tubes, catheters and devices: Cardiac pulse generator in place. Lungs: Unremarkable. No consolidation. Pleural spaces: Unremarkable. No pleural effusion. No pneumothorax. Heart/Mediastinum: Unremarkable. No cardiomegaly. Bones/joints: Prior bilateral shoulder arthroplasty. Mildly angulated and comminuted fracture through the proximal right humeral shaft adjacent to the tip of the humeral stem component of the arthroplasty. IMPRESSION: Proximal right humerus fracture.
--- NOTE | 2021-04-12 21:44 | XR_ITS ---
PROCEDURE INFORMATION: Exam: XR Left Knee Exam date and time: 04/12/2021 9:44 PM Age: 81 years old Clinical indication: Injury or trauma; Fall; Blunt trauma; Knee; Left; Injury date: 04/12/2021; Prior surgery; Surgery date: 6+ months TECHNIQUE: Imaging protocol: XR Left knee. Views: 3 views. COMPARISON: CR (KNEE AP, KNEE, KNEE AP) 07/08/2018 8:50 AM FINDINGS: Bones/joints: Normal bone mineralization. Stable appearance of TKR hardware. No acute fracture or dislocation. Soft tissues: No effusion or soft tissue swelling. IMPRESSION: No acute findings.
[2021-04-12 21:47] LABS: Basophils # 0.2 K/mm3 (0-0.2); Basophils % 1.9 % (0.1-2.0); Eosinophils # 0.2 K/mm3 (0.0-0.4); Eosinophils % 2.3 % (0.1-12.0); Hematocrit 44.4 % (37.0-47.0); Lymphocytes # 2.2 K/mm3 (0.7-4.5); Lymphocytes % 28.4 % (10-50); Mean Corpuscular HGB Conc 31.6 g/dL (31.8-35.4); Mean Corpuscular Hemoglobin 32.6 pg (27.0-31.2); Mean Corpuscular Volume 103.2 fl (81-99); Mean Platelet Volume 8.6 fl (7.4-10.4); Monocytes # 0.6 K/mm3 (0.1-1.0); Monocytes % 7.9 % (1.7-9.3); Neutrophils # 4.7 K/mm3 (1.8-7.8); Neutrophils % 59.5 % (37.0-80.0); Platelet Count 242 K/mm3 (142-424); Red Cell Distribution Width 13.1 % (11.5-17.5); White Blood Count 7.8 K/mm3 (4.8-10.8)
--- NOTE | 2021-04-12 21:59 | HMH.EDFALL ---
ED Disposition Clinical Impression: Fracture, humerus closed Qualifiers: Encounter type: initial encounter Humerus Location: shaft Fracture morphology: comminuted Fracture alignment: displaced Laterality: right Qualified Code(s): S42.351A - Displaced comminuted fracture of shaft of humerus, right arm, initial encounter for closed fracture Concussion without loss of consciousness Qualifiers: Encounter type: initial encounter Qualified Code(s): S06.0X0A - Concussion without loss of consciousness, initial encounter Fall Qualifiers: Encounter type: initial encounter Qualified Code(s): W19.XXXA - Unspecified fall, initial encounter Disposition: Home, Self-Care Condition on Discharge: Good Instructions: Humeral Shaft Fracture Additional Instructions: call pcp and ortho for follow up Referrals: Jose Garcia MD [Primary Care Provider] - Onesimo Craft MD [Staff Physician] - - Critical Care Critical Care Time: No Attestation: On 04/12/21, the high probability of a clinically significant, sudden or life threatening deterioration of the following system(s) required my full and direct attention, intervention and personal management. The time I documented below is in addition to time spent performing reported procedures but includes the following listed in this critical care notation. Medical Decision Making - Medical Records Medical records reviewed: Yes: I reviewed the patient's medical records. - Rey Inquiry Pt receiving controlled substance: No Vital Signs: 04/12/21 21:28 Temperature 98.1 F Temperature Source Oral Pulse Rate [Left Radial] 82 Respiratory Rate 18 Blood Pressure [Left Arm] 139/78 Blood Pressure Mean [Left Arm] 98 Blood Pressure Source [Left Arm] Automatic Cuff Blood Pressure Position [Left Arm] Sitting 02 Sat by Pulse Oximetry 92 L Oxygen Delivery Method Room Air - Lab Data Lab results reviewed: Yes: I reviewed the patient's lab results. Lab Results 04/12/21 21:30: WBC 7.8, RBC 4.30, Hgb 14.0, Hct 44.4, MCV 103.2 H, MCH 32.6 H, MCHC 31.6 L, RDW 13.1, Plt Count 242, MPV 8.6, Neut % (Auto) 59.5, Lymph % (Auto) 28.4, [place] % (Auto) 7.9, Eos % (Auto) 2.3, Baso % (Auto) 1.9, Neut # (Auto) 4.7, Lymph # (Auto) 2.2, [place] # (Auto) 0.6, Eos # (Auto) 0.2, Baso # (Auto) 0.2 04/12/21 21:30: Sodium 134 L, Potassium 5.0, Chloride 98, Carbon Dioxide 30, Anion Gap 11.0, BUN 20 H, Creatinine 0.50 L, Estimated Creat Clear 51, Estimated GFR 119, Est GFR ( Amer) 144, Glucose 115 H, Calcium 9.1, Total Bilirubin 0.9, AST 45 H, ALT 18, Alkaline Phosphatase 55, Total Protein 6.7, Albumin 4.3, Globulin 2.4, Albumin/Globulin Ratio 1.8 04/12/21 21:56: PT 11.0, INR 0.97 04/12/21 22:42: SARS-CoV-2 (PCR) Detected A, Influenza A Untype (PCR) Not detected, Influenza Type B (PCR) Not detected Result diagrams: 04/12/21 21:30 04/12/21 21:30 Orders (Tests/Meds): ED MEDICATIONS Discontinued Medications Generic Name Dose Route Start Last Admin Trade Name Nicci PRN Reason Stop Dose Admin Morphine Sulfate 2 mg 04/12/21 22:17 04/12/21 22:26 Morphine 2mg/Ml Syringe IV 04/12/21 22:18 2 mg ONCE ONE Administration Morphine Sulfate 2 mg 04/12/21 23:41 04/12/21 23:51 Morphine 2mg/Ml Syringe IV 04/12/21 23:42 Not Given ONCE ONE Morphine Sulfate 4 mg 04/12/21 23:50 04/12/21 23:51 Morphine 4mg/Ml Syringe IV 04/12/21 23:51 2 mg ONCE ONE Administration Ondansetron HCl 4 mg 04/12/21 22:17 04/12/21 22:26 Ondansetron 4mg/2ml Vial IV 04/12/21 22:18 4 mg ONCE ONE Administration - Radiology Data #1 Image(s): Chest, Humerus, Pelvis, Knee Image Reviewed: Yes I have reviewed radiologist's interpretation Preliminary Findings: Abnormal (see report ) - Physician Consults Physician Consulted: priscilla Reason -: Pt condition Medical Decision Narrative: pt with acute fx rt humerus but otherxrays ok and labs and vittal signs ok and had covid-19 about 2 we
[2021-04-12 22:00] LABS: Alanine Aminotransferase 18 U/L (12-78); Albumin Level 4.3 g/dl (3.5-5.0); Albumin/Globulin Ratio 1.8 (1.1-1.8); Alkaline Phosphatase 55 U/L (38-126); Aspartate Amino Transferase 45 U/L (14-36); Bilirubin,Total 0.9 mg/dl (0.2-1.3); Blood Urea Nitrogen 20 mg/dl (7-17); Calcium 9.1 mg/dl (8.4-10.2); Carbon Dioxide 30 mmol/L (22.0-30.0); Chloride 98 mmol/L (98-107); Creatinine Clearance Estimated 51 mL/min (50-200); Estimated Glomerular Filt Rate 119 ml/min (>60); GFR (African American) 144 ML/MIN (>60); Globulin 2.4 g/dL (1.3-3.2); Glucose 115 mg/dl (74-100); Sodium 134 mmol/L (136-145); Total Protein,Serum 6.7 g/dl (6.3-8.2)
[2021-04-12 22:14] LABS: INR 0.97 (0.9-1.1)
--- NOTE | 2021-04-12 22:41 | PC.NURSE ---
Ortho paged for Dr. Gaston
[2021-04-12 22:48] LABS: Influenza A, PCR Not Detected (NotDetected); Influenza B, PCR Not Detected (NotDetected)
[2021-04-12 23:00] VITALS: BP 121/73; PULSE 91; RESP 18; O2SAT 95
[2021-04-12 23:15] LABS: Coronavirus 19, PCR Detected (NotDetected)
[2021-04-13] VITALS: BP 122/68; PULSE 93; O2SAT 94
[2021-04-13 01:02] VITALS: BP 131/79; PULSE 90; RESP 16; TEMP 36.6; O2SAT 95
== END 2021-04-13 01:02 | disposition home or self-care (01) ==
PROVIDERS: Emergency Provider Emergency Medicine; PCP Family Medicine
DX: S42.351A Displaced comminuted fracture of shaft of humerus, right arm, initial encounter for closed fracture (principal); S06.0X0A Concussion without loss of consciousness, initial encounter; W01.0XXA Fall on same level from slipping, tripping and stumbling without subsequent striking against object, initial encounter; Y92.481 Parking lot as the place of occurrence of the external cause
CPT/HCPCS: 29105; 70450; 71045; 72125; 72170; 73060; 73562; 80053; 85025; 85610; 96374; 96375; 96376; 99283; C9803; J2405; U0003; U0005

== ENCOUNTER 2021-05-13 09:19 | Emergency (ER) | payer MEDICARE, SELFPAY ==
[2021-05-13 09:25] VITALS: BP 141/89; PULSE 86; RESP 20; TEMP 36.9; O2SAT 100; BMI 33.4
[2021-05-13 09:40] VITALS: BP 141/89; PULSE 86; RESP 20; TEMP 36.9; O2SAT 100
--- NOTE | 2021-05-13 09:48 | HMH.EDUTC ---
[facility] [place] Clinical Impression: Encounter for screening for COVID-19 Disposition: Home, Self-Care Condition on Discharge: Good Instructions: Preventing the Spread of Coronavirus Discharge Instructions Additional Instructions: Drink plenty of fluids. Follow up with your regular doctor. GO TO THE ER FOR ANY WORSENING SYMPTOMS Referrals: Jeffrey Pool [Primary Care Provider] - Time of Disposition: 09:51 Medical Decision Making - Medical Records Medical records reviewed: No: I reviewed the patient's medical records. - Rey Inquiry Pt receiving controlled substance: No Vital Signs: 05/13/21 09:25 05/13/21 09:40 Temperature 98.4 F 98.4 F Temperature Source Oral Pulse Rate 86 Pulse Rate [Right Brachial] 86 Respiratory Rate 20 20 Blood Pressure 141/89 H Blood Pressure [Right Arm] 141/89 H Blood Pressure Mean [Right Arm] 106 Blood Pressure Source [Right Arm] Automatic Cuff Blood Pressure Position [Right Arm] Sitting 02 Sat by Pulse Oximetry 100 Oxygen Delivery Method Room Air [facility] [place] - General Stated complaint: covid test Time Seen by Provider: 05/13/21 09:48 - History of Present Illness Provider Complaint: She is scheduled for surgery to repair her broke right arm. She needs a covid-19 test before she can do this. - Related Data Home Medications Medication Instructions Recorded Confirmed meloxicam 15 mg tablet 15 mg PO DAILY 12/02/17 04/16/21 metformin 500 mg tablet 500 mg PO BID 12/02/17 04/16/21 Cyanocobalamin (Vitamin B-12) 2,500 mcg PO DAILY 01/11/18 04/16/21 [Vitamin B-12 1000mcg Tablet] gabapentin 300 mg capsule 300 mg PO BID 03/23/19 04/16/21 omeprazole 40 mg capsule,delayed 40 mg PO DAILY 03/23/19 04/16/21 release risedronate 35 mg tablet 35 mg PO WEEKLY 03/23/19 04/16/21 calcium carbonate 600 mg-vitamin 1 tab PO BID tab 03/25/19 04/16/21 D3 20 mcg (800 unit) tablet Levothyroxine Sodium 75 mcg PO DAILY 04/04/19 04/16/21 [Levothyroxine 75mcg (0.075mg) Tab] Aspirin [Low Dose Aspirin EC] 81 mg PO DAILY 08/31/19 04/16/21 tramadol 37.5 mg-acetaminophen 325 1 tab PO Q4-6H PRN tab 09/08/19 04/16/21 mg tablet Previous Rx's Medication Instructions Recorded metoprolol succinate 25 mg See Rx Instructions .ROUTE 07/26/20 tablet,extended release 24 hr .COMPLEX #90 tab losartan 50 mg tablet See Rx Instructions .ROUTE 10/18/20 .COMPLEX #90 tab rosuvastatin 10 mg tablet See Rx Instructions .ROUTE 01/28/21 .COMPLEX #90 tab Fluticasone Propionate [Flonase 1 spr NS DAILY 30 Days #120 each 02/17/21 50mcg nasal spray 16gm] Loratadine [Claritin 10mg 10 mg PO DAILY #30 tab 02/17/21 Tablet] Allergies Allergy/AdvReac Type Severity Reaction Status Date / Time No Known Allergies Allergy Verified 04/16/21 11:21 [facility] History - Hepatitis A Screen Attestation statement:: This patient has been screened for Hepatitis A risk factors. I have reviewed the patient's past medical history: Yes Medical History: Reports:: Arrhythmia, Cardiomyopathy, Congestive Heart Failure, Coronary Artery Disease, Diabetes Mellitus Type 2, Gastroesophageal Reflux Disease(GERD), Hyperlipidemia, Hypertension, Internal Pacemaker Denies:: Cancer, Diabetes Mellitus Type 1, MRSA, Seizures Other Medical History: Reports: Arthritis, Hypothyroidism. Denies: Blood Transfusion Reaction Comment: Hx of KYM Laterality Cases: Left: Other, Right: Arthroscopy Shoulder, Bilateral: Arthroscopy Knee, Carpal Tunnel Release Other Surgeries: Yes: Cardiac Catheterization, Colonoscopy, Coronary Stent, Hysterectomy-Total, Pacemaker, Other Amputation: No Fractures: No - Social History Smoking Status: Never smoker Alcohol Intake: never Substance Use Type: denies use Occupational Status: retired Housing: house Household Members: spouse Family Hx:: Cancer, Diabetes, Hypertension ROS Obtained: Yes All systems reviewed & no additional complaints - Constitutional Constituti
== END 2021-05-13 09:50 | disposition home or self-care (01) ==
PROVIDERS: Emergency Provider Nurse Practitioner Family; PCP Orthopaedic Surgery
DX: Z11.52 Encounter for screening for COVID-19 (principal)
CPT/HCPCS: G0463; 99211; C9803; U0003; U0005

== ENCOUNTER 2021-05-25 21:40 | Emergency (ER) | payer MEDICARE, SELFPAY ==
[2021-05-25 22:24] VITALS: BP 147/73; PULSE 92; RESP 16; TEMP 36.6; O2SAT 98
--- NOTE | 2021-05-25 22:29 | PC.NURSE ---
PT CAME IN WITH POSSIBLE BLEEDING FROM SURGICAL SITE. OLD BLOOD NOTED. SX SITE WELL APPROXIMATED WITH NO S/S OF INFECTION. PT REQUEST TO HAVE AREA RE DRESSED AND TO LEAVE WITHOUT BEING SEEN SINCE THERE WAS NO COMPLICATION WITH THE SITE.
== END 2021-05-25 22:25 | disposition left against medical advice (07) ==
LOC: ER 21:57
PROVIDERS: Emergency Provider Emergency Medicine; PCP Family Medicine
DX: Z53.21 Procedure and treatment not carried out due to patient leaving prior to being seen by health care provider (principal); Z48.01 Encounter for change or removal of surgical wound dressing
CPT/HCPCS: 99211

== ENCOUNTER 2021-05-28 20:13 | Emergency (ER) | payer MEDICARE, SELFPAY ==
[2021-05-28 20:49] VITALS: BP 135/78; PULSE 87; RESP 19; TEMP 36.8; O2SAT 98
== END 2021-05-28 20:54 | disposition left against medical advice (07) ==
LOC: ER 20:20
PROVIDERS: Emergency Provider Emergency Medicine; PCP Family Medicine
DX: Z53.21 Procedure and treatment not carried out due to patient leaving prior to being seen by health care provider (principal); Z48.01 Encounter for change or removal of surgical wound dressing
CPT/HCPCS: 99211

== ENCOUNTER → 2021-07-26 10:03 | Outpatient (CLI) | payer MEDICARE, SELFPAY ==
[2021-07-26 11:16] LABS: Chloride 99 mmol/L (98-107); Sodium 134 mmol/L (136-145)
[2021-07-26 11:17] LABS: Potassium 3.6 mmoL/L (3.5-5.1)
[2021-07-26 11:19] LABS: Blood Urea Nitrogen 33 mg/dl (7-17); Estimated Glomerular Filt Rate 81 ml/min (>60); GFR (African American) 97 ML/MIN (>60)
[2021-07-26 11:20] LABS: Anion Gap 8.6 mEq/L (5-15); Calcium 9.6 mg/dl (8.4-10.2); Carbon Dioxide 30 mmol/L (22.0-30.0); Glucose 92 mg/dl (74-100)
[2021-07-26 11:28] LABS: NT Pro Brain Natriuretic Pep. 141 pg/mL (0-450)
== END ==
PROVIDERS: Visit Provider Internal Medicine Cardiovascular Disease
DX: I50.9 Heart failure, unspecified; I50.22 Chronic systolic (congestive) heart failure; E11.69 Type 2 diabetes mellitus with other specified complication; E78.5 Hyperlipidemia, unspecified; I42.9 Cardiomyopathy, unspecified; R60.9 Edema, unspecified; R93.1 Abnormal findings on diagnostic imaging of heart and coronary circulation; R94.31 Abnormal electrocardiogram [ECG] [EKG]; Z95.810 Presence of automatic (implantable) cardiac defibrillator; Z96.611 Presence of right artificial shoulder joint; Z79.84 Long term (current) use of oral hypoglycemic drugs
CPT/HCPCS: 36415; 80048; 83880

== ENCOUNTER 2021-11-08 08:00 | Outpatient (RCR) | payer MEDICARE, SELFPAY | END 2021-11-08 08:05 | disposition home or self-care (01) | LOC: OT 08:00 | PROVIDERS: PCP Family Medicine; Visit Provider Orthopaedic Surgery | DX: M79.621 Pain in right upper arm (principal); M25.511 Pain in right shoulder | CPT/HCPCS: 97010; 97014; 97110; 97140; 97164; 97166; G0283 ==

== ENCOUNTER → 2022-01-15 10:10 | Outpatient (CLI) | payer MEDICARE, SELFPAY ==
--- NOTE | 2022-01-15 10:13 | MM_ITS ---
PROCEDURE INFORMATION: Exam: MG Bilateral Screening 3D Mammography Exam date and time: 01/15/2022 10:06 AM Age: 81 years old Clinical indication: Screening examination. No family history of breast cancer. TECHNIQUE: Imaging protocol: Bilateral Screening tomosynthesis and 2D mammography including computer-aided detection (CAD) when performed. COMPARISON: 1. MG MM DIG SCREENING MAMM BI W/CAD 08/29/2020 8:26 AM 2. MG MM DIG SCREENING MAMM BI W/CAD 08/29/2019 8:07 AM 3. MG DIG MAMM-SCREEN HANNAH 08/26/2018 9:14 AM 4. MG DMSB DIG MAMM-SCREEN HANNAH W/CAD 07/15/2016 10:35 AM FINDINGS: MAMMOGRAPHY: Breast composition: The breasts are almost entirely fatty. Mass: None. Architectural distortion: None. Calcifications: No suspicious calcifications. Asymmetric density: None. Skin thickening: None. Axillary adenopathy: None. Other findings: Left pacemaker battery pack in the axilla, limits evaluation and accentuates the importance of clinical breast exam. Stable bilateral nipple inversion. IMPRESSION: No mammographic evidence of malignancy. Annual screening is recommended unless otherwise clinically indicated. ASSESSMENT: BI-RADS Category 2: Benign
== END ==
PROVIDERS: PCP Family Medicine; Visit Provider Family Medicine
DX: Z12.31 Encounter for screening mammogram for malignant neoplasm of breast (principal)
CPT/HCPCS: 77063; 77067

== ENCOUNTER 2022-02-25 13:33 | Emergency (ER) | payer MEDICARE, SELFPAY ==
--- NOTE | 2022-02-25 15:19 | EXP.UTC ---
Discharge Plan Disposition Patient Disposition: Home, Self-Care Condition: Good Prescriptions Prescriptions: New cyclobenzaprine 5 mg tablet 5 mg PO HS Qty: 20 0RF methylprednisolone 4 mg Tablets,Dose Pack 4 mg PO DIRECTED Qty: 21 0RF No Action meloxicam 15 mg tablet 15 mg PO DAILY metformin 500 mg tablet 500 mg PO BID omeprazole 40 mg capsule,delayed release(DR/EC) 40 mg PO DAILY risedronate [Actonel] 35 mg tablet 35 mg PO WEEKLY Rx Instructions: administer at least 30 minutes before the first food or drink of the day other than water. gabapentin [Neurontin] 300 mg capsule 300 mg PO BID calcium carbonate-vitamin D3 600 mg(1,500mg) -800 unit tablet 1 tab PO BID Label Comments: TAKE ONE TABLET BY MOUTH TWICE DAILY tramadol-acetaminophen 37.5-325 mg tablet 1 tab PO Q4-6H PRN furosemide [Lasix] 20 mg tablet 20 mg PO DAILY Qty: 30 5RF losartan 50 mg tablet See Rx Instructions .ROUTE .COMPLEX Qty: 90 2RF Dose Instruction: TAKE ONE TABLET BY MOUTH EVERY DAY AT BEDTIME FOR HIGH BLOOD PRESSURE Rx Instructions: TAKE ONE TABLET BY MOUTH EVERY DAY AT BEDTIME FOR HIGH BLOOD PRESSURE metoprolol succinate 25 mg tablet extended release 24 hr See Rx Instructions .ROUTE .COMPLEX Qty: 90 3RF Dose Instruction: TAKE ONE TABLET BY MOUTH EVERY DAY Rx Instructions: TAKE ONE TABLET BY MOUTH EVERY DAY rosuvastatin 10 mg tablet See Rx Instructions .ROUTE .COMPLEX Qty: 90 1RF Dose Instruction: TAKE ONE TABLET BY MOUTH EVERY DAY Rx Instructions: TAKE ONE TABLET BY MOUTH EVERY DAY cyanocobalamin (vitamin B-12) 1,000 MCG tablet 2,500 mcg PO DAILY levothyroxine 75 MCG tablet 75 mcg PO DAILY Label Comments: TAKE 1 TABLET BY MOUTH EVERY DAY aspirin 81 MG tablet,delayed release (DR/EC) 81 mg PO DAILY loratadine 10 MG tablet 10 mg PO DAILY Qty: 30 0RF fluticasone propionate 120 SPR/BOT bottle 1 spr NS DAILY 30 Days Qty: 120 0RF Referrals Follow up/Referrals: Jose Garcia MD [Primary Care Provider] - See instructions Activity Restrictions/Add. Instructions Additional Instructions/Restrictions: Go home and rest. It would be best if you rested tomorrow too. No heavy lifting. No twisting. Take the oral medications as directed. The muscle relaxer (cyclobenzaprine--Flexeril) will make you drowsy, so don't drive or operate heavy machinery after taking it. Follow up with your regular doctor. GO TO THE ER FOR ANY WORSENING SYMPTOMS OR CONCERN, ESPECIALLY BOWEL OR BLADDER ISSUES, SADDLE AREA NUMBNESS, FEVER, ETC Clinical Impressions Clinical Impression: Muscle spasm of back, Back pain Discharge ED Provider: Trip Ng [facility] [place] General Stated complaint: No accident, RT side back pain Time Seen by Provider: 02/25/22 15:19 History of Present Illness Provider Complaint: She states that for the past several days she has had right sided low back pain. She denies any urinary symptoms. She denies any fall or injury. She has had similar symptoms in the past that were well treated with steroids and a muscle relaxer. Related Data Home Medications Medication Instructions Recorded Confirmed meloxicam 15 mg tablet 15 mg PO DAILY Pain 12/02/17 12/13/21 metformin 500 mg tablet 500 mg PO BID Diabetes 12/02/17 12/13/21 cyanocobalamin (vitamin B-12) 2,500 mcg PO DAILY Supplement 01/11/18 12/13/21 1,000 mcg tablet gabapentin 300 mg capsule 300 mg PO BID Pain 03/23/19 12/13/21 (Neurontin) omeprazole 40 mg capsule,delayed 40 mg PO DAILY GERD 03/23/19 12/13/21 release risedronate 35 mg tablet (Actonel) 35 mg PO WEEKLY Osteoarthritis 03/23/19 12/13/21 calcium carbonate 600 mg-vitamin 1 tab PO BID Supplement 03/25/19 12/13/21 D3 20 mcg (800 unit) tablet levothyroxine 75 mcg tablet 75 mcg PO DAILY THYROID 04/04/19 12/13/21 aspirin 81 mg tablet,delayed
[2022-02-25 15:21] VITALS: BP 118/79; PULSE 82; RESP 16; TEMP 36.8; O2SAT 94; BMI 35.9
[2022-02-25 15:55] VITALS: BP 118/79; PULSE 82; RESP 16; TEMP 36.8
== END 2022-02-25 15:55 | disposition home or self-care (01) ==
PROVIDERS: Emergency Provider Nurse Practitioner Family; PCP Family Medicine
DX: M62.830 Muscle spasm of back (principal)
CPT/HCPCS: 99212; G0463

== ENCOUNTER 2022-04-11 08:50 | Emergency (ER) | payer MEDICARE, SELFPAY ==
--- NOTE | 2022-04-11 08:54 | EXP.UTC ---
Discharge Plan Disposition Patient Disposition: Home, Self-Care Condition: Good Prescriptions Prescriptions: New azithromycin [Zithromax] 250 mg tablet See Rx Instructions .ROUTE .COMPLEX Qty: 6 0RF Rx Instructions: For 250 mg dose pack: take 500 mg today (day 1), then 250 mg for 4 days (days 2-5) prednisone 20 mg tablet 20 mg PO BID Qty: 10 0RF cyclobenzaprine 5 mg tablet 5 mg PO Q8H PRN (Reason: muscle spasm) Qty: 30 0RF No Action meloxicam 15 mg tablet 15 mg PO DAILY metformin 500 mg tablet 500 mg PO BID omeprazole 40 mg capsule,delayed release(DR/EC) 40 mg PO DAILY risedronate [Actonel] 35 mg tablet 35 mg PO WEEKLY Rx Instructions: administer at least 30 minutes before the first food or drink of the day other than water. gabapentin [Neurontin] 300 mg capsule 300 mg PO BID calcium carbonate-vitamin D3 600 mg(1,500mg) -800 unit tablet 1 tab PO BID Label Comments: TAKE ONE TABLET BY MOUTH TWICE DAILY tramadol-acetaminophen 37.5-325 mg tablet 1 tab PO Q4-6H PRN furosemide [Lasix] 20 mg tablet 20 mg PO DAILY Qty: 30 5RF losartan 50 mg tablet See Rx Instructions .ROUTE .COMPLEX Qty: 90 2RF Dose Instruction: TAKE ONE TABLET BY MOUTH EVERY DAY AT BEDTIME FOR HIGH BLOOD PRESSURE Rx Instructions: TAKE ONE TABLET BY MOUTH EVERY DAY AT BEDTIME FOR HIGH BLOOD PRESSURE metoprolol succinate 25 mg tablet extended release 24 hr See Rx Instructions .ROUTE .COMPLEX Qty: 90 3RF Dose Instruction: TAKE ONE TABLET BY MOUTH EVERY DAY Rx Instructions: TAKE ONE TABLET BY MOUTH EVERY DAY rosuvastatin 10 mg tablet See Rx Instructions .ROUTE .COMPLEX Qty: 90 1RF Dose Instruction: TAKE ONE TABLET BY MOUTH EVERY DAY Rx Instructions: TAKE ONE TABLET BY MOUTH EVERY DAY cyanocobalamin (vitamin B-12) 1,000 MCG tablet 2,500 mcg PO DAILY levothyroxine 75 MCG tablet 75 mcg PO DAILY Label Comments: TAKE 1 TABLET BY MOUTH EVERY DAY aspirin 81 MG tablet,delayed release (DR/EC) 81 mg PO DAILY loratadine 10 MG tablet 10 mg PO DAILY Qty: 30 0RF fluticasone propionate 120 SPR/BOT bottle 1 spr NS DAILY 30 Days Qty: 120 0RF cyclobenzaprine 5 mg tablet 5 mg PO HS Qty: 20 0RF methylprednisolone 4 mg Tablets,Dose Pack 4 mg PO DIRECTED Qty: 21 0RF Referrals Follow up/Referrals: Jose Garcia MD [Primary Care Provider] - See instructions Clinical Impressions Clinical Impression: Upper respiratory infection, Muscle spasm of back Instructions Patient Instructions: DI for Muscle Spasm Discharge ED Provider: Nani Tony [facility] [place] HPI General Stated complaint: Back muscle spasms cough drainage congestion Time Seen by Provider: 04/11/22 09:32 History of Present Illness Provider Complaint: Cough and congestion X 2 days. Feels achy and tired. Denies ear pain or sore throat. Has post nasal drainage. No fever. No vomiting or diarrhea. Also has spasms in her back, which she has had before. Requesting refill on muscle relaxer. Onset (ago): day(s) (2) Relieving factors: none Exacerbating factors: none Associated symptoms: cough Treatments prior to arrival: none Related Data Home Medications Medication Instructions Recorded Confirmed meloxicam 15 mg tablet 15 mg PO DAILY Pain 12/02/17 12/13/21 metformin 500 mg tablet 500 mg PO BID Diabetes 12/02/17 12/13/21 cyanocobalamin (vitamin B-12) 2,500 mcg PO DAILY Supplement 01/11/18 12/13/21 1,000 mcg tablet gabapentin 300 mg capsule 300 mg PO BID Pain 03/23/19 12/13/21 (Neurontin) omeprazole 40 mg capsule,delayed 40 mg PO DAILY GERD 03/23/19 12/13/21 release risedronate 35 mg tablet (Actonel) 35 mg PO WEEKLY Osteoarthritis 03/23/19 12/13/21 calcium carbonate 600 mg-vitamin 1 tab PO BID Supplement 03/25/19 12/13/21 D3 20 mcg (800 unit) tablet levothyroxine 75 mcg tablet 75 mcg PO
[2022-04-11 09:15] VITALS: BP 118/85; PULSE 86; RESP 20; TEMP 36.8; O2SAT 95; BMI 37.6
[2022-04-11 10:09] VITALS: BP 118/85; PULSE 86; RESP 20; TEMP 36.8; O2SAT 95
== END 2022-04-11 10:09 | disposition home or self-care (01) ==
PROVIDERS: Emergency Provider Physician Assistant; PCP Family Medicine
DX: J06.9 Acute upper respiratory infection, unspecified (principal); M62.830 Muscle spasm of back
CPT/HCPCS: 99212; 99213; C9803; G0463; U0003; U0005

== ENCOUNTER → 2022-07-01 08:06 | Outpatient (POV) | payer MEDICARE, SELFPAY | PROVIDERS: Visit Provider Dermatology | DX: Z00.00 Encounter for general adult medical examination without abnormal findings (principal) ==

== ENCOUNTER → 2022-08-26 12:48 | Outpatient (CLI) | payer MEDICARE, SELFPAY ==
--- NOTE | 2022-08-26 12:57 | XR_ITS ---
FINAL REPORT CLINICAL HISTORY: HIP PAIN FINDINGS: RIGHT HIP Two views of the right hip demonstrate no acute fracture or dislocation. There is mild degenerative change present in both hips as well as the lower lumbar spine. The visualized bony structures are well aligned. No soft tissue abnormality is seen. IMPRESSION: No acute bony abnormality. Reviewed, Interpreted and Dictated by Ronnell Méndez III, MD Transcribed by Dara Hess Authenticated and [facility]
== END ==
PROVIDERS: PCP Family Medicine; Visit Provider Family Medicine
DX: M25.551 Pain in right hip (principal); W19.XXXA Unspecified fall, initial encounter
CPT/HCPCS: 73502

== ENCOUNTER → 2022-09-26 07:50 | Outpatient (CLI) | payer MEDICARE, SELFPAY ==
--- NOTE | 2022-09-26 07:54 | CT_ITS ---
FINAL REPORT CLINICAL HISTORY: LUMBAR RADICULOPATHY COMPARISON: None FINDINGS: CT LUMBAR SPINE TECHNIQUE: Thin section noncontrast axial CT with sagittal reconstructions of the lumbar spine were obtained. This study was performed with techniques to keep radiation doses as low as reasonably achievable, (ALARA). Individualized dose reduction techniques using automated exposure control or adjustment of mA and/or kV according to the patient's size were employed. FINDINGS: Exam is limited secondary to body habitus with large [id number] imaging performed. Generalized spondylolisthesis of L4 on L5 secondary to facet disease. Grade 1 spondylolisthesis of L5 on S1 relative to pars defects. Canal stenosis at essentially all lumbar levels with neuroforaminal narrowing most pronounced at L4-5 and L5-S1. No acute fracture. Incidental note is made of minimal bilateral nephrolithiasis. IMPRESSION: Multilevel degenerative disc disease, most pronounced at L4-5 and L5-S1. Reviewed, Interpreted and Dictated by Franky De Dios MD Transcribed by Angélica Edge Authenticated and [facility]
== END ==
PROVIDERS: PCP Family Medicine; Visit Provider Family Medicine
DX: M54.16 Radiculopathy, lumbar region (principal)
CPT/HCPCS: 72131

== ENCOUNTER 2022-12-03 20:27 | Emergency (ER) | payer MEDICARE, SELFPAY ==
[2022-12-03 20:28] VITALS: BP 124/79; PULSE 95; RESP 19; TEMP 36.8; O2SAT 100; BMI 30.2
--- OUTSIDE RECORDS SUMMARY | 2022-12-03 22:07 | XMS_ITS | Continuity of Care Document ---
Author Name Unknown Organization [facility] Address [address] [address] Phone Care Team Providers Care Internet Marketing Consultant Name Role Phone Edgar Bhandari DO Unavailable Unavailable Allergies, Adverse Reactions, Alerts Substance Reaction Status Criticality No Known Allergies Active No Inform ation Medications Medication Instructions Dosage Effective Dates (start - stop) Status Comments gabapentin 400 mg capsule take 1 capsule by oral route 2 times every day 400 MG - Active meloxicam 15 mg tablet take 1 tablet by oral route 2 times every day 15 MG - Active aspirin 81 mg tablet,delayed release take 1 tablet by oral route every day 81 MG - Active rosuvastatin 10 mg tablet take 1 tablet by oral route every day 10 MG - Active losartan 50 mg tablet take 1 tablet by o ral route every day 50 MG - Active metoprolol succinate ER 25 mg tablet,extended release 24 hr take 1 tablet by oral route every day 25 MG - Active risedronate 5 mg tablet take 1 tablet by oral route every day in the morning, at least 30 min before first food, beverage, or medication of day 5 MG - Active tramadol 37.5 mg-acetaminophen 325
--- OUTSIDE RECORDS SUMMARY | 2022-12-03 22:07 | XMS_ITS | Clinical Summary ---
Author Name Unknown Address [address] [place] [id number] Phone Organization [facility] Address [address] [place] [phone] Phone Care Team Providers Care Pottery Decorator Name Role Phone Trip Valentina Unavailable Unavailable Conditions or Problems Problem Name Problem Code Onset Date Status Entry Date Provider Comment Standard Description Annotate CELLULITIS , BACK [id number] (SNOMED CT) Active Valentina Dominique Cellulitis of back, except buttock REDNESS-SK IN L52 (ICD-10-CM) Active Valentina Dominique Erythema nodosum Medications Medication Instructions Start Date Stop Date Generic Name [facility] Provider ADVAIR DISKUS AEROSOL POWDER BREATH ACTIVATED FLUTICASONE-SALME TEROL AEPB [id number] Valentina Dominique ALBUTEROL SULFATE NEBU ALBUTEROL SULFATE [facility] [id number] Valentina Dominique PREDNISONE TABS PREDNISONE TABS [id number] Valentina Dominique [facility] VITAMIN B-12 TABS
--- NOTE | 2022-12-04 00:57 | HMH.EDGENADL ---
Discharge Plan Disposition Patient Disposition: Home, Self-Care Condition: Good Prescriptions Prescriptions: New methocarbamol 500 mg tablet 500 mg PO Q6H PRN (Reason: pain) Qty: 30 0RF lidocaine 5 % adhesive patch,medicated 1 patch topical DAILY PRN (Reason: pain) Qty: 30 0RF Rx Instructions: leave on most painful area for up to 12 hrs oxycodone 5 mg tablet 5 mg PO Q8H PRN (Reason: pain) Qty: 12 0RF No Action meloxicam 15 mg tablet 15 mg PO DAILY metformin 500 mg tablet 500 mg PO DAILY omeprazole 40 mg capsule,delayed release(DR/EC) 40 mg PO DAILY risedronate [Actonel] 35 mg tablet 35 mg PO WEEKLY Rx Instructions: administer at least 30 minutes before the first food or drink of the day other than water. gabapentin [Neurontin] 300 mg capsule 300 mg PO TID calcium carbonate-vitamin D3 600 mg(1,500mg) -800 unit tablet 1 tab PO BID Patient Comments: TAKE ONE TABLET BY MOUTH TWICE DAILY tramadol-acetaminophen 37.5-325 mg tablet 1 tab PO Q4-6H PRN furosemide [Lasix] 20 mg tablet 20 mg PO DAILY Qty: 90 5RF metoprolol succinate 25 mg tablet extended release 24 hr See Rx Instructions .ROUTE .COMPLEX Qty: 90 3RF Dose Instruction: TAKE ONE TABLET BY MOUTH EVERY DAY Rx Instructions: TAKE ONE TABLET BY MOUTH EVERY DAY rosuvastatin 10 mg tablet See Rx Instructions .ROUTE .COMPLEX Qty: 90 1RF Dose Instruction: TAKE ONE TABLET BY MOUTH EVERY DAY Rx Instructions: TAKE ONE TABLET BY MOUTH EVERY DAY losartan 50 mg tablet See Rx Instructions .ROUTE .COMPLEX Qty: 90 1RF Dose Instruction: TAKE ONE TABLET BY MOUTH EVERY DAY AT BEDTIME FOR HIGH BLOOD PRESSURE Rx Instructions: TAKE ONE TABLET BY MOUTH EVERY DAY AT BEDTIME FOR HIGH BLOOD PRESSURE cyclobenzaprine 5 mg tablet 5 mg PO Q8H PRN (Reason: muscle spasm) Qty: 30 0RF cyanocobalamin (vitamin B-12) 1,000 MCG tablet 2,500 mcg PO DAILY levothyroxine 75 MCG tablet 75 mcg PO DAILY Patient Comments: TAKE 1 TABLET BY MOUTH EVERY DAY aspirin 81 MG tablet,delayed release (DR/EC) 81 mg PO DAILY loratadine 10 MG tablet 10 mg PO DAILY Qty: 30 0RF Referrals Follow up/Referrals: Jose Garcia MD [Primary Care Provider] - See instructions Activity Restrictions/Add. Instructions Additional Instructions/Restrictions: Please follow-up with your primary care provider. Recommend following up with pain management and consideration of MRI. Please return to the emergency department if you develop any new or worsening symptoms or become concerned for your health. Please take oxycodone as needed for pain. Do not take tramadol at the same time as the oxycodone. Please use lidocaine patches as needed for pain. Please take Robaxin as needed. Please take Tylenol, but do not take the tramadol with the Tylenol. Clinical Impressions Clinical Impression: Sciatica, Spinal stenosis at L4-L5 level Instructions Patient Instructions: DI for Low Back Pain Discharge ED Provider: Ajay Lomeli General Adult HPI General Chief complaint: Back Pain/Injury Stated complaint: leg cramps, back spasms Time Seen by Provider: 12/04/22 00:57 Mode of Arrival: Wheelchair Source of Information: Patient Limitations: No Limitations Description of Symptoms (Recalled from ER Triage Doc. by RN): 82 F presents with an exacerbation of her sciatic back pain. Patient states it has been going on most of the day and medication is not helping. No loss of bowel or bladder. History of Present Illness HPI narrative: 82-year-old female presents with worsening bilateral shooting lower extremity pain. She has been dealing with this for a few weeks, but it has now significantly worsened today. She reports shooting and grabbing pain radiating down her buttocks and posterior legs bilaterally. She describes it as a spasm. She is being worked up b
--- NOTE | 2022-12-04 01:01 | CT_ITS ---
PROCEDURE INFORMATION: Exam: CT Lumbar Spine Without Contrast Exam date and time: 12/04/2022 12:11 AM Age: 82 years old Clinical indication: Injury or trauma; Fall; Blunt trauma (contusions or hematomas); Patient HX: PT states she fell x1 week ago, C/O low back & bilat hip pain TECHNIQUE: Imaging protocol: Computed tomography of the lumbar spine without contrast. Radiation optimization: All CT scans at this facility use at least one of these dose optimization techniques: automated exposure control; mA and/or kV adjustment per patient size (includes targeted exams where dose is matched to clinical indication); or iterative reconstruction. REPORTING DATA: Count of CT and Cardiac NM exams in prior 12 months: This patient has received 0 known CTs and 0 known cardiac nuclear medicine studies in the 12 months prior to the current study. COMPARISON: No relevant prior studies available. FINDINGS: Bones/joints: Spinal alignment is normal. Severe osteopenia. Fractures may be missed. 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 Severe multilevel degenerative disc disease with disc space narrowing, vacuum disc phenomenon and posterior projecting osteophytes. Discogenic sclerosis at L4-L5 and L5-S1. Degenerative anterior subluxation of L4 on L5. Multilevel moderate to severe facet arthropathy L4-L5 and L5-S1. Severe spinal stenosis at L4-L5 due to anterolisthesis of L4 on L5 with midsagittal canal measurements 7 mm axial image . Vasculature: The aorta demonstrates moderate atherosclerotic calcification. Soft tissues: Unremarkable. IMPRESSION: 1. Spinal alignment is normal. 2. Severe osteopenia. Fractures may be missed. 3. No definite fracture identified. If the patient has persistent pain MRI may be helpful. 4. 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 5. Severe multilevel degenerative disc disease with disc space narrowing, vacuum disc phenomenon and posterior projecting osteophytes. 6. Discogenic sclerosis at L4-L5 and L5-S1. Degenerative anterior subluxation of L4 on L5. 7. The aorta demonstrates moderate atherosclerotic calcification. 8. Multilevel moderate to severe facet arthropathy L4-L5 and L5-S1. 9. Severe spinal stenosis at L4-L5 due to anterolisthesis of L4 on L5 with midsagittal canal measurements 7 mm axial image 65.
--- NOTE | 2022-12-04 01:01 | CT_ITS ---
PROCEDURE INFORMATION: Exam: CT Pelvis Without Contrast; Skeletal Exam date and time: 12/04/2022 12:14 AM Age: 82 years old Clinical indication: Injury or trauma; Fall; Blunt trauma (contusions or hematomas); Bilateral; Patient HX: PT states she fell x1 week ago, C/O low back & bilat hip pain TECHNIQUE: Imaging protocol: Computed tomography of the pelvis without contrast. Exam focused on the skeleton. Radiation optimization: All CT scans at this facility use at least one of these dose optimization techniques: automated exposure control; mA and/or kV adjustment per patient size (includes targeted exams where dose is matched to clinical indication); or iterative reconstruction. REPORTING DATA: Count of CT and Cardiac NM exams in prior 12 months: This patient has received 0 known CTs and 0 known cardiac nuclear medicine studies in the 12 months prior to the current study. COMPARISON: No relevant prior studies available. FINDINGS: Stomach and bowel: Distal colonic diverticuli. Reproductive: Hysterectomy. There is a cyst in the left adnexal region which measures 2.4 cm on series 4, image 53. Vasculature: Atherosclerosis of the vasculature. Bones/joints: Lower lumbar spinal degenerative disc disease. Hip joint spaces are mildly narrowed. No visible fracture. Soft tissues: Fat containing ventral abdominal wall hernia in the midline. IMPRESSION: 1. No acute osseous injury identified. 2. There is a cyst in the left adnexal region which measures 2.4 cm on series 4, image 53. Recommend ultrasound follow-up.
[2022-12-04 01:21] VITALS: BP 132/76; PULSE 86; RESP 18; TEMP 37.1; O2SAT 97
== END 2022-12-04 01:18 | disposition home or self-care (01) ==
PROVIDERS: Emergency Provider Emergency Medicine; PCP Family Medicine
DX: M48.061 Spinal stenosis, lumbar region without neurogenic claudication (principal); M54.30 Sciatica, unspecified side; R29.6 Repeated falls; I11.0 Hypertensive heart disease with heart failure; E11.9 Type 2 diabetes mellitus without complications; I25.10 Atherosclerotic heart disease of native coronary artery without angina pectoris; I50.22 Chronic systolic (congestive) heart failure; Z79.84 Long term (current) use of oral hypoglycemic drugs; Z95.810 Presence of automatic (implantable) cardiac defibrillator
CPT/HCPCS: 72131; 72192; 99285

== ENCOUNTER → 2022-12-22 10:50 | Outpatient (POV) | payer MEDICARE, SELFPAY ==
[2022-12-22 11:47] VITALS: BP 134/83; PULSE 97; RESP 18; O2SAT 95; BMI 36.0
--- NOTE | 2022-12-22 12:31 | EXP.PAIN.OV ---
HPI Data of Consult Patient: new to practice Consult date: 12/22/22 Requesting Physician: Fuentes Sharma CRNA Primary Care Provider: Jose Garcia MD Consult Narrative Reason for consult: Lumbar back pain. Bilateral hip and leg radicular symptoms. History of present illness: Ms. Curry is a 82 year old female who presents our clinic today in a wheelchair. Patient is ambulatory at home with a walker. Patient's main complaint is low back pain that she describes as constant, dull, aching, sharp, stabbing. She rates pain 10/10. Patient also complained of bilateral hip and leg radicular symptoms to the foot. Patient's lumbar CT scan does show multilevel degenerative disc lumbar spine. Disc bulge L4-5, L5-S1. Patient has a 3 to 4-month history of the symptoms that have increased in severity over the last several weeks. Patient is taking tramadol 50 mg 1 p.o. 3 times daily. Tylenol daily. Patient also taking Celebrex 100 mg 1 p.o. twice daily. Patient interested in injective therapy. I discussed in detail with her and her daughter regarding lumbar epidural steroid injection at the L4-5 level. Discussed risk and benefits. They wish to proceed. CC: Fuentes Sharma CRNA [facility] Disclaimer: The information contained in this section may have been updated after the patient was seen, as this information can be updated by other users. Medical History Abnormal echocardiogram Abnormal stress test Cardiomyopathy Preoperative clearance Surgical History AICD (automatic cardioverter/defibrillator) present Social History (Updated 12/22/22 @ 11:49 by Lauren Mccracken RN) Smoking Status: Never smoker second hand exposure: No alcohol intake: never substance use type: denies use current occupational status: retired Travel in the last 8 weeks: None household members: spouse housing: house current occupational exposures/hazards: No caffeine: Yes Meds Home Medications and Allergies Home Medications Medication Instructions Recorded Confirmed Type cyanocobalamin (vitamin B-12) 2,500 mcg PO DAILY Supplement 01/11/18 12/22/22 History 1,000 mcg tablet omeprazole 40 mg capsule,delayed 40 mg PO DAILY GERD 03/23/19 12/22/22 History release risedronate 35 mg tablet (Actonel) 35 mg PO WEEKLY Osteoarthritis 03/23/19 12/22/22 History calcium carbonate 600 mg-vitamin 1 tab PO BID Supplement 03/25/19 12/22/22 History D3 20 mcg (800 unit) tablet levothyroxine 75 mcg tablet 75 mcg PO DAILY THYROID 04/04/19 12/22/22 History aspirin 81 mg tablet,delayed 81 mg PO DAILY Heart disease 08/31/19 12/22/22 History release tramadol 37.5 mg-acetaminophen 325 1 tab PO Q4-6H PRN Pain 09/08/19 12/22/22 History mg tablet loratadine 10 mg tablet 10 mg PO DAILY #30 tabs 02/17/21 12/22/22 Rx cyclobenzaprine 5 mg tablet 5 mg PO Q8H PRN muscle spasm #30 04/11/22 12/22/22 Rx tabs gabapentin 300 mg capsule 300 mg PO TID Pain 06/12/22 12/22/22 History (Neurontin) metformin 500 mg tablet 500 mg PO DAILY Diabetes 06/12/22 12/22/22 History furosemide 20 mg tablet (Lasix) 20 mg PO DAILY #90 tabs 07/21/22 12/22/22 Rx metoprolol succinate 25 mg See Rx Instructions .Route 07/29/22 12/22/22 Rx tablet,extended release 24 hr .COMPLEX #90 tabs rosuvastatin 10 mg tablet See Rx Instructions .Route 07/29/22 12/22/22 Rx .COMPLEX #90 tabs losartan 50 mg tablet See Rx Instructions .Route 10/13/22 12/22/22 Rx .COMPLEX #90 tabs lidocaine 5 % topical patch 1 patch topical DAILY PRN pain #30 12/04/22 12/22/22 Rx ea methocarbamol 500 mg tablet 500 mg PO Q6H PRN pain #30 tabs 12/04/22 12/22/22 Rx oxycodone 5 mg tablet 5 mg PO Q8H PRN pain #12 tabs 12/04/22 12/22/22 Rx New Prescriptions to Start Prescriptions: Allergies Allergy/AdvReac Type Severity Reaction Status Date / Time No Known Allergies Allergy Brandin
== END ==
PROVIDERS: PCP Family Medicine; Visit Provider Nurse Anesthetist, Certified Registered
DX: M54.9 Dorsalgia, unspecified (principal); M54.30 Sciatica, unspecified side
CPT/HCPCS: 99202; G0463

== ENCOUNTER 2023-01-06 10:06 | Day surgery (SDC) | payer MEDICARE, SELFPAY ==
[2023-01-06 10:20] VITALS: BP 117/57; PULSE 83; RESP 16; TEMP 36.6; O2SAT 94; BMI 37.1
[2023-01-06 10:39] VITALS: BP 126/69; PULSE 87; RESP 18; O2SAT 94
--- NOTE | 2023-01-06 10:42 | EXP.PAIN.PRO ---
Procedure Date: 01/06/23 Time: 10:30 Anesthesiologist:: Fuentes Sharma CRNA Complications:: None Pre-procedure Diagnosis:: Degenerative disc disease lumbar spine multilevels. Lumbar radiculopathy. Lumbar postlaminectomy syndrome. Lumbar spinal stenosis. Lumbar facet arthropathy. Lumbar spondylosis. Post-procedure Diagnosis:: Same. Indications for Procedure:: Patient is a very pleasant 82-year-old female that comes our clinic today for lumbar epidural steroid injection. Patient has low back pain she describes as constant, dull, sharp, stabbing. Patient also reports bilateral hip and leg radicular symptoms to the foot. She rates her pain 10/10. Procedure Details:: Procedure: Caudal epidural steroid injection under fluoroscopy Informed consent was obtained and the risks and benefits of the procedure were explained to the patient. The patient was taken to the procedure room and noninvasive monitors placed, including noninvasive blood pressure cuff and pulse oximeter. The back was viewed using C-arm Fluoroscopy and prepped using Chloraprep as a cleansing solution and the L4-L5 interspace was palpated. Skin and subcutaneous tissues were anesthetized using lidocaine 1.5% and a 25-gauge needle. After this, 25-gauge spinal needle was placed into the caudal interspace and advanced using fluoroscopic guidance. After confirmation of needle placement in the epidural space, with dye, a solution containing normal saline, 3 mL and Depo-Medrol 80 mg were incrementally injected into the lumbar epidural space. The patient tolerated the procedure well with no complications. The patient was observed in the Pain Clinic and then discharged home neurologically intact. Plan and Disposition:: Patient was discharged without incident.
== END 2023-01-06 10:39 | disposition home or self-care (01) ==
PROVIDERS: PCP Family Medicine; Visit Provider Nurse Anesthetist, Certified Registered
DX: M51.16 Intervertebral disc disorders with radiculopathy, lumbar region (principal); M96.1 Postlaminectomy syndrome, not elsewhere classified; M48.061 Spinal stenosis, lumbar region without neurogenic claudication; M47.26 Other spondylosis with radiculopathy, lumbar region
CPT/HCPCS: 62323; J1040

== ENCOUNTER → 2023-01-19 11:09 | Outpatient (POV) | payer MEDICARE, SELFPAY ==
--- NOTE | 2023-01-19 11:11 | EXP.PAIN.SOA ---
[facility] Pain Management SOAP Note Subjective:: Seen is a pleasant 82-year-old female who presents today for follow-up of lumbar epidural steroid injection L4-L5 on 01/06/2023. We are currently treating the patient for degenerative disc disease of lumbar spine with lumbar radiculopathy symptoms, chronic pain syndrome, lumbar facet arthropathy, severe osteopenia lumbar spine. Today she rates her pain a 0 out of 10. Patient denies any new trauma or injury. She does state that she has had 100% relief of her low back and leg pain following this injection and it still providing additional improvement. Patient states she has been able to increase her activity with decreased pain symptoms.Patient does present today in wheelchair for help with ambulation. Patient does continue to use a walker at home. Patient is currently managed with gabapentin 300 mg 3 times a day and tramadol 37.5 mg 3 times a day from outside providers. Patient denies any side effects from this medication. Patient did have severe osteopenia noted on her lumbar imaging. Patient does state that she takes calcium 3 times a day and then also does a weekly medication to help with her bones as well. Her Rey has been reviewed and is appropriate. Review of Systems: General: No recent weight changes, no fever, no sleep disturbances Respiratory: No cough, no shortness of air, no recurring pulmonary infections Cardiovascular/peripheral vascular: No chest pain, no palpitations, no edema, no shortness of breath Gastrointestinal: No new onset incontinence, normal bowel movements reported Genitourinary: No new onset incontinence Musculoskeletal: Low back pain Psychiatric: [Normal mood/affect] Neurological: [Denies weakness in extremities], [denies balance issues] Objective:: Physical Exam: General: Alert and oriented x3, no acute distress, pleasant and cooperative Lungs: Respirations even and unlabored, symmetrical chest expansion Eyes: PERRL Musculoskeletal: Flexion and extension of lumbar [spine] somewhat guarded secondary to pain, [antalgic gait noted] Neurological: Speech clear, no gross sensory deficit Assessment:: Degenerative disc disease of lumbar spine with lumbar radiculopathy symptoms, chronic pain syndrome, lumbar facet arthropathy, severe osteopenia lumbar spine Plan:: Patient has had significant improvement following her lumbar epidural and does not require any additional injective therapy. Patient will return to clinic in 1 month for reevaluation of symptoms and plan of care. Patient has been instructed to contact the clinic with any concerns before the next appointment. Dr. Sanchez has reviewed this note and agrees with this plan of care. This note was dictated using voice recognition software and make contain errors or omissions. [facility] Disclaimer: The information contained in this section may have been updated after the patient was seen, as this information can be updated by other users. Medical History Abnormal echocardiogram Abnormal stress test Cardiomyopathy Preoperative clearance Surgical History AICD (automatic cardioverter/defibrillator) present Family History (Updated 01/06/23 @ 10:21 by Twyla Zavala RN) Other No significant family history Social History Smoking Status: Never smoker second hand exposure: No alcohol intake: never substance use type: denies use current occupational status: retired Travel in the last 8 weeks: None household members: spouse housing: house current occupational exposures/hazards: No caffeine: Yes
[2023-01-19 11:18] VITALS: BP 101/68; PULSE 86; RESP 18; O2SAT 97; BMI 37.1
== END ==
PROVIDERS: PCP Family Medicine; Visit Provider Nurse Practitioner Family
DX: M51.16 Intervertebral disc disorders with radiculopathy, lumbar region (principal); G89.4 Chronic pain syndrome; M47.26 Other spondylosis with radiculopathy, lumbar region; M85.88 Other specified disorders of bone density and structure, other site
CPT/HCPCS: 99212; G0463

== ENCOUNTER → 2023-02-16 09:02 | Outpatient (POV) | payer MEDICARE, SELFPAY ==
--- NOTE | 2023-02-16 09:07 | EXP.PAIN.SOA ---
[facility] Pain Management SOAP Note Subjective:: Patient is a pleasant 82-year-old female who presents today for 1 month follow-up. We are currently treating the patient for degenerative disc disease of lumbar spine with lumbar radiculopathy symptoms, chronic pain syndrome, lumbar facet arthropathy, severe osteopenia lumbar spine. Patient denies any new trauma or injury. Patient previously had 100% relief of her low back and leg symptoms from her lumbar epidural steroid injection that was done 01/06/2023. Patient states her pain today is a 7 out of 10. She states that she continues to get significant relief in her back and legs following this injection however she has been experiencing more muscle spasms. She states these occur in her low back and legs with the right side more frequently. Patient states she thinks some are related to certain positioning she does. Patient states she was previously prescribed muscle relaxers that did help however it has been sometime. She also states she has started to experience some numbness and tingling into her right arm and hand. Patient is unsure if this is related to her neck or if it is because she puts more pressure on her right arm while she uses her walker. Patient states it has progressively worsened over the last week. Patient is currently managed with gabapentin 300 mg 3 times a day and tramadol 37.5 mg 3 times a day from her primary care. Patient denies any side effects from this medication. Her Rey has been reviewed and is appropriate. Review of Systems: General: No recent weight changes, no fever, no sleep disturbances Respiratory: No cough, no shortness of air, no recurring pulmonary infections Cardiovascular/peripheral vascular: No chest pain, no palpitations, no edema, no shortness of breath Gastrointestinal: No new onset incontinence, normal bowel movements reported Genitourinary: No new onset incontinence Musculoskeletal: Low back pain Psychiatric: [Normal mood/affect] Neurological: [Denies weakness in extremities], [denies balance issues] Objective:: Physical Exam: General: Alert and oriented x3, no acute distress, pleasant and cooperative Lungs: Respirations even and unlabored, symmetrical chest expansion Eyes: PERRL Musculoskeletal: Flexion and extension of lumbar [spine] somewhat guarded secondary to pain, [antalgic gait noted] Neurological: Speech clear, no gross sensory deficit Assessment:: Degenerative disc disease of lumbar spine with lumbar radiculopathy symptoms, chronic pain syndrome, lumbar facet arthropathy, severe osteopenia lumbar spine Plan:: Patient continues to do well following her lumbar epidural steroid injection and does not require any injection therapy in this location. I have discussed with the patient if her neck and arm symptoms continue she may benefit from a cervical epidural. We will follow-up with this at future visits. I will order the patient a compounded cream and also send in cyclobenzaprine 5 mg 3 times daily as needed and provide 42 tablets. Patient will return to clinic in 1 month for reevaluation of symptoms and plan of care. Patient has been instructed to contact the clinic with any concerns before the next appointment. Dr. Sanchez has reviewed this note and agrees with this plan of care. This note was dictated using voice recognition software and make contain errors or omissions. [facility] Disclaimer: The information contained in this section may have been updated after the patient was seen, as this information can be updated by other users. Medical History Abnormal echocardiogram Abnormal stress test Cardiomyopathy Preoperative clearance Surgical History AICD (automatic cardioverter/defibrillator) present Family History (Updated 01/06/23 @ 10:21 by Twyla Zavala RN) Other No significant family history Social History (Reviewed
[2023-02-16 09:59] VITALS: BP 111/61; PULSE 90; RESP 18; O2SAT 92; BMI 37.1
== END | disposition home or self-care (01) ==
PROVIDERS: PCP Family Medicine; Visit Provider Nurse Practitioner Family
DX: M51.16 Intervertebral disc disorders with radiculopathy, lumbar region (principal); G89.4 Chronic pain syndrome; M47.26 Other spondylosis with radiculopathy, lumbar region
CPT/HCPCS: 99212; G0463

== ENCOUNTER → 2023-03-19 09:40 | Outpatient (POV) | payer MEDICARE, SELFPAY ==
--- NOTE | 2023-03-19 10:23 | EXP.PAIN.SOA ---
[facility] Pain Management SOAP Note Subjective:: Patient is a pleasant 82-year-old female who presents today for follow-up. We are currently treating the patient for degenerative disc disease of lumbar spine with lumbar radiculopathy symptoms, chronic pain syndrome, lumbar facet arthropathy, severe osteopenia lumbar spine. Today she rates her pain a 5 out of 10. Patient denies any new trauma or injury. Patient states that she still is getting good relief from her lumbar epidural back in December of L4-L5. Patient states that she does have day-to-day pain however it is still much more manageable and tolerable at this time. Patient states that the muscle relaxer we prescribed her at her last visit did help significantly along with the compounded cream. She is requesting a refill of her cyclobenzaprine 5 mg 3 times a day. Patient is prescribed gabapentin 300 mg 3 times a day and tramadol 37.5 mg 3 times a day from her PCP. Her Rey has been reviewed and is appropriate. Review of Systems: General: No recent weight changes, no fever, no sleep disturbances Respiratory: No cough, no shortness of air, no recurring pulmonary infections Cardiovascular/peripheral vascular: No chest pain, no palpitations, no edema, no shortness of breath Gastrointestinal: No new onset incontinence, normal bowel movements reported Genitourinary: No new onset incontinence Musculoskeletal: Low back pain Psychiatric: [Normal mood/affect] Neurological: [Denies weakness in extremities], [denies balance issues] Objective:: Physical Exam: General: Alert and oriented x3, no acute distress, pleasant and cooperative Lungs: Respirations even and unlabored, symmetrical chest expansion Eyes: PERRL Musculoskeletal: Flexion and extension of lumbar [spine] somewhat guarded secondary to pain, [antalgic gait noted] Neurological: Speech clear, no gross sensory deficit Assessment:: Degenerative disc disease of lumbar spine with lumbar radiculopathy symptoms, chronic pain syndrome, lumbar facet arthropathy, severe osteopenia lumbar spine Plan:: I will refill the patient's cyclobenzaprine 5 mg 3 times a day and provide a 3-month supply of this medication. Patient will return to clinic in 3 months for reevaluation of symptoms and plan of care. Patient has been instructed to contact the clinic with any concerns before the next appointment. Dr. Sanchez has reviewed this note and agrees with this plan of care. This note was dictated using voice recognition software and make contain errors or omissions. [facility] Disclaimer: The information contained in this section may have been updated after the patient was seen, as this information can be updated by other users. Medical History Abnormal echocardiogram Abnormal stress test Cardiomyopathy Preoperative clearance Surgical History AICD (automatic cardioverter/defibrillator) present Family History (Updated 01/06/23 @ 10:21 by Twyla Zavala RN) Other No significant family history Social History Smoking Status: Never smoker second hand exposure: No alcohol intake: never substance use type: denies use current occupational status: retired Travel in the last 8 weeks: None household members: spouse housing: house current occupational exposures/hazards: No caffeine: Yes
[2023-03-19 12:43] VITALS: BP 133/76; PULSE 88; RESP 18; O2SAT 94; BMI 37.1
== END | disposition home or self-care (01) ==
PROVIDERS: PCP Family Medicine; Visit Provider Nurse Practitioner Family
DX: M51.16 Intervertebral disc disorders with radiculopathy, lumbar region (principal); M47.26 Other spondylosis with radiculopathy, lumbar region; G89.4 Chronic pain syndrome; M85.88 Other specified disorders of bone density and structure, other site
CPT/HCPCS: 99212; G0463

== ENCOUNTER 2023-05-29 09:44 | Emergency (ER) | payer MEDICARE, SELFPAY ==
[2023-05-29 09:44] VITALS: BP 138/61; PULSE 97; RESP 16; TEMP 36.9; O2SAT 93; BMI 37.1
--- NOTE | 2023-05-29 09:54 | HMH.EDGENADL ---
Discharge Plan Disposition Patient Disposition: Home, Self-Care Condition: Good Prescriptions Prescriptions: New bacitracin 500 unit/gram ointment 1 applic topical BID Qty: 14 0RF Rx Instructions: Apply to right leg wound twice daily. No Action metformin 500 mg tablet 500 mg PO DAILY omeprazole 40 mg capsule,delayed release(DR/EC) 40 mg PO DAILY risedronate [Actonel] 35 mg tablet 35 mg PO WEEKLY Rx Instructions: administer at least 30 minutes before the first food or drink of the day other than water. gabapentin [Neurontin] 300 mg capsule 300 mg PO TID calcium carbonate-vitamin D3 600 mg(1,500mg) -800 unit tablet 1 tab PO BID Patient Comments: TAKE ONE TABLET BY MOUTH TWICE DAILY tramadol-acetaminophen 37.5-325 mg tablet 1 tab PO Q4-6H PRN (Reason: Pain) furosemide [Lasix] 20 mg tablet 20 mg PO DAILY Qty: 90 5RF metoprolol succinate 25 mg tablet extended release 24 hr See Rx Instructions .ROUTE .COMPLEX Qty: 90 3RF Dose Instruction: TAKE ONE TABLET BY MOUTH EVERY DAY Rx Instructions: TAKE ONE TABLET BY MOUTH EVERY DAY rosuvastatin 10 mg tablet See Rx Instructions .ROUTE .COMPLEX Qty: 90 1RF Dose Instruction: TAKE ONE TABLET BY MOUTH EVERY DAY Rx Instructions: TAKE ONE TABLET BY MOUTH EVERY DAY losartan 50 mg tablet See Rx Instructions .ROUTE .COMPLEX Qty: 90 3RF Dose Instruction: TAKE ONE TABLET BY MOUTH EVERY DAY AT BEDTIME FOR HIGH BLOOD PRESSURE Rx Instructions: TAKE ONE TABLET BY MOUTH EVERY DAY AT BEDTIME FOR HIGH BLOOD PRESSURE methocarbamol 500 mg tablet 500 mg PO Q6H PRN (Reason: pain) Qty: 30 0RF lidocaine 5 % adhesive patch,medicated 1 patch topical DAILY PRN (Reason: pain) Qty: 30 0RF Rx Instructions: leave on most painful area for up to 12 hrs oxycodone 5 mg tablet 5 mg PO Q8H PRN (Reason: pain) Qty: 12 0RF cyanocobalamin (vitamin B-12) 1,000 MCG tablet 2,500 mcg PO DAILY levothyroxine 75 MCG tablet 75 mcg PO DAILY Patient Comments: TAKE 1 TABLET BY MOUTH EVERY DAY aspirin 81 MG tablet,delayed release (DR/EC) 81 mg PO DAILY loratadine 10 MG tablet 10 mg PO DAILY Qty: 30 0RF cyclobenzaprine 5 mg tablet 5 mg PO Q8H PRN (Reason: muscle spasm) Qty: 90 2RF Referrals Follow up/Referrals: Jose Garcia MD [Primary Care Provider] - See instructions Activity Restrictions/Add. Instructions Additional Instructions/Restrictions: You were seen in the ED today due to skin tear. Please apply bacitracin twice daily and redress it twice daily. You may wash the wound with warm water and soap. Please avoid soaking it. Watch for any signs of infection. Return to the ED if any symptoms worsen or if new concerning symptoms arise. Thank you. Clinical Impressions Clinical Impression: Skin tear Instructions Patient Instructions: DI for Minor Laceration Discharge ED Provider: Xavi Villanueva General Adult HPI General Chief complaint: Fall Stated complaint: fall Time Seen by Provider: 05/29/23 09:47 Mode of Arrival: EMS Source of Information: Patient Limitations: No Limitations Description of Symptoms (Recalled from ER Triage Doc. by RN): Patient states she was reaching for crayons when she fell forward and scrapped her right lateral donaldson on the fire place. Denies any other injury or pain anywhere else. Denies hitting her head or LOC. History of Present Illness HPI narrative: Patient is an 83-year-old female with history of CAD s/p pacemaker, HTN, HLD, type 2 diabetes who presents due to leg wound. Per EMS, patient scraped her leg against her fireplace at home when she was reaching to grab something. She did not fall or strike her head. She noticed a wound on her right leg and called for EMS. She was transported to the hospital in stable condition. On arrival, patient is complaining only of stinging pain at the site of her wound on her right lower leg. She denies any head trauma or loss of consciousness. Denies any injury elsewhere. She is unsure when her last tetanus shot was. Related Data Home Medications Medication Instructions Recorded Confirmed cyanocobalamin (vitamin B-12) 2,500 mcg PO DAILY Supplement 01/11/18 03/19/23 1,000 mcg tablet omeprazole 40 mg capsule,delayed 40 mg PO DAILY GERD 03/23/19 03/19/23 release risedronate 35 mg tablet (Actonel) 35 mg PO WEEKLY Osteoarthritis 03/23/19 03/19/23 calcium carbonate 600 mg-vitamin 1 tab PO BID Supplement 03/25/19 03/19/23 D3 20 mcg (800 unit) tablet levothyroxine 75 mcg tablet 75 mcg PO DAILY THYROID 04/04/19 03/19/23 aspirin 81 mg tablet,delayed 81 mg PO DAILY Heart disease 08/31/19 03/19/23 release tramadol 37.5 mg-acetaminophen 325 1 tab PO Q4-6H PRN Pain 09/08/19 03/19/23 mg tablet gabapentin 300 mg capsule 300 mg PO TID Pain 06/12/22 03/19/23 (Neurontin) metformin 500 mg tablet 500 mg PO DAILY Diabetes 06/12/22 03/19/23 Previous Rx's Medication Instructions Recorded loratadine 10 mg tablet 10 mg PO DAILY #30 tabs 02/17/21 furosemide 20 mg tablet (Lasix) 20 mg PO DAILY #90 tabs 07/21/22 metoprolol succinate 25 mg See Rx Instructions .Route 07/29/22 tablet,extended release 24 hr .COMPLEX #90 tabs lidocaine 5 % topical patch 1 patch topical DAILY PRN pain #30 12/04/22 ea methocarbamol 500 mg tablet 500 mg PO Q6H PRN pain #30 tabs 12/04/22 oxycodone 5 mg tablet 5 mg PO Q8H PRN pain #12 tabs 12/04/22 rosuvastatin 10 mg tablet See Rx Instructions .Route 01/26/23 .COMPLEX #90 tabs cyclobenzaprine 5 mg tablet 5 mg PO Q8H PRN muscle spasm #90 03/19/23 tabs losartan 50 mg tablet See Rx Instructions .Route 04/06/23 .COMPLEX #90 tabs bacitracin 500 unit/gram topical 1 applic topical BID #14 grams 05/29/23 ointment Allergies Allergy/AdvReac Type Severity Reaction Status Date / Time No Known Allergies Allergy Verified 01/06/23 10:21 [facility] Disclaimer: The information contained in this section may have been updated after the patient was seen, as this information can be updated by other users. Medical History Abnormal echocardiogram Abnormal stress test Cardiomyopathy Preoperative clearance Surgical History AICD (automatic cardioverter/defibrillator) present Family History (Updated 01/06/23 @ 10:21 by Twyla Zavala RN) Other No significant family history Social History Smoking Status: Never smoker second hand exposure: No alcohol intake: never substance use type: denies use current occupational status: retired Travel in the last 8 weeks: None household members: spouse housing: house current occupational exposures/hazards: No caffeine: Yes ROS Obtained: Yes All systems reviewed & no additional complaints except as documented Integumentary/Breasts Skin/Breast: Reports wounds Physical Exam General General appearance: alert and in no apparent distress Head Head exam: atraumatic, normocephalic and normal inspection Eye Eye exam: Present normal appearance, PERRL and EOMI ENT ENT exam: Present normal exam, normal oropharynx, mucous membranes moist, TM's normal bilaterally and normal external ear exam Neck Neck exam: Present normal inspection, full ROM and trachea midline; Absent meningismus or lymphadenopathy Chest Chest inspection: Present normal inspection and symmetric chest wall rise; Absent tenderness Respiratory Respiratory exam: Present normal lung sounds bilaterally; Absent respiratory distress Cardiovascular Cardiovascular exam: Present regular rate and normal rhythm; Absent JVD Abdominal Exam Abdominal exam: Present soft and normal bowel sounds; Absent distention, tenderness or guarding Extremities Exam Extremities exam: Present normal inspection, full ROM and normal capillary refill; Absent calf tenderness Back Exam Back exam: Present normal inspection; Absent tenderness Neurological Exam Neurological exam: Present alert and oriented X3 Psychiatric Psychiatric exam: Present normal affect and normal mood Skin Skin exam: Present warm, dry, intact and normal color Expanded Skin Exam Type of lesion: Present abrasion Comment: 10 cm skin tear to anterolateral right lower leg with approximated edges. No active bleeding. Lymphatic Lymphatic Findings: no adenopathy Medical Decision Making Rey Inquiry Pt receiving controlled substance: No Rey was queried for this patient: No Vital Signs: 05/29/23 09:44 05/29/23 10:00 Temperature 98.5 F Temperature Source Oral Pulse Rate 85 Pulse Rate [Radial] 97 H Respiratory Rate 16 Blood Pressure 108/66 L Blood Pressure [Left Arm] 138/61 Blood Pressure Mean [Left Arm] 86 Blood Pressure Source [Left Arm] Automatic Cuff Blood Pressure Position [Left Arm] Sitting 02 Sat by Pulse Oximetry 93 L 92 L Oxygen Delivery Method Room Air Orders (Tests/Meds): ED MEDICATIONS Discontinued Medications Generic Name Dose Route Start Last Admin Trade Name Nicci PRN Reason Stop Dose Admin Bacitracin 1 each 05/29/23 09:53 05/29/23 10:27 Bacitracin Oint 0.9gm Udp TP 05/29/23 09:54 1 each ONCE ONE Administration Tetanus/Reduced Diphtheria/Acell Pertussis 0.5 ml 05/29/23 09:53 05/29/23 10:26 Tet/Diphth/Pert-Adult 0.5ml Syringe IM 05/29/23 09:54 0.5 ml .ONCE ONE Administration Medical Decision Narrative: In summary, patient is an 83-year-old female, evaluated in the emergency department today due to leg wound. On arrival, patient is hemodynamically stable with normal vital signs. On examination, patient has skin tear to right lower leg. Differential diagnosis includes but is not limited to skin tear, contaminated wound, underlying fracture. On initial evaluation, patient is well-appearing, alert/oriented, with isolated trauma to the right lower extremity. She has a skin tear, no deep laceration, with no active bleeding. Wound irrigated at bedside with 500 mL normal saline. Skin tear does not require extensive repair. Wound is approximated. She has no underlying tenderness and appropriate range of motion at hip, knee, ankle and is ambulatory. Low concern for underlying fracture. Tetanus shot given. Bacitracin applied to wound and gauze wrap applied. On reevaluation, patient is resting comfortably in no distress. She is ambulatory with assistance at baseline and is currently ambulatory at her baseline. She is appropriate for discharge at this time. Patient and daughter at bedside counseled on home care, given strict return precautions and agreeable to plan. Additional history was provided by EMS. I considered the utility of obtaining x-rays, but decided against this because wound is superficial and patient has no concerning signs of underlying injury. I considered the utility of treatment with wound repair, but decided against this because wound is superficial and approximated. Critical Care Critical Care Time Critical Care Time: No
[2023-05-29 10:00] VITALS: BP 108/66; PULSE 85; O2SAT 92
[2023-05-29] MEDS: TET/DIPHTH/PERT-ADULT 0.5ML SYRINGE 0.5 ML IM (10:26)
[2023-05-29] MEDS: BACITRACIN OINT 0.9GM UDP 1 EACH TP (10:27)
[2023-05-29 10:40] VITALS: BP 108/66; PULSE 85; RESP 16; TEMP 36.9; O2SAT 92
== END 2023-05-29 10:41 | disposition home or self-care (01) ==
PROVIDERS: Emergency Provider Student in an Organized Health Care Education/Training Program; PCP Family Medicine
DX: S81.801A Unspecified open wound, right lower leg, initial encounter (principal); E11.9 Type 2 diabetes mellitus without complications; I11.9 Hypertensive heart disease without heart failure; E78.5 Hyperlipidemia, unspecified; I25.10 Atherosclerotic heart disease of native coronary artery without angina pectoris; Z95.0 Presence of cardiac pacemaker; W22.09XA Striking against other stationary object, initial encounter; Z79.84 Long term (current) use of oral hypoglycemic drugs
CPT/HCPCS: 90471; 90715; 99283

== ENCOUNTER 2023-06-18 09:01 | Outpatient (POV) | payer MEDICARE, SELFPAY ==
[2023-06-18 09:09] VITALS: BP 116/87; PULSE 43; RESP 16; O2SAT 99; BMI 37.1
--- NOTE | 2023-06-18 09:41 | EXP.PAIN.SOA ---
[facility] Pain Management SOAP Note Subjective:: Patient is a pleasant 83-year-old female who presents today for follow-up. Today she rates her pain an 8 out of 10. Patient states she has pain all across her low back into her right hip more prominently and daily her legs with the right side being worse. Patient does state that she did have a fall a couple weeks ago and that she does have a wound on her lower right leg that she is seeing wound care for. She states that she is scheduled to follow-up with them on the . Patient does describe her pain as a aching, throbbing sensation that does affect her ability perform activities of daily living such as cooking and cleaning. Patient did previously get a lumbar epidural back in December that did provide significant relief of more than 50% lasting up until the last few weeks. Patient is interested in injection therapy currently. Patient at her last visit was given a 3-month supply of her Flexeril 5 mg 3 times a day. Patient denies any side effects from this medication and states that it does still help however she does not take it on a regular basis and does not need refills. Patient is prescribed gabapentin and tramadol from her primary care provider. Her Rey has been reviewed and is appropriate. Review of Systems: General: No recent weight changes, no fever, no sleep disturbances Respiratory: No cough, no shortness of air, no recurring pulmonary infections Cardiovascular/peripheral vascular: No chest pain, no palpitations, no edema, no shortness of breath Gastrointestinal: No new onset incontinence, normal bowel movements reported Genitourinary: No new onset incontinence Musculoskeletal: Low back pain, bilateral leg pain, right hip pain Psychiatric: [Normal mood/affect] Neurological: [Denies weakness in extremities], [denies balance issues] Objective:: Physical Exam: General: Alert and oriented x3, no acute distress, pleasant and cooperative Lungs: Respirations even and unlabored, symmetrical chest expansion Eyes: PERRL Musculoskeletal: Flexion and extension of lumbar [spine] somewhat guarded secondary to pain, [antalgic gait noted] Neurological: Speech clear, no gross sensory deficit Assessment:: Degenerative disc disease of lumbar spine with lumbar radiculopathy symptoms, chronic pain syndrome, lumbar facet arthropathy, severe osteopenia lumbar spine, right lower leg wound Plan:: Patient did have a significant size wound that is in stages of healing with eschar along her right lower leg on the lateral aspect. Patient did have significant redness with taut skin and warm to touch. I have discussed with the patient that I do have concerns for possible cellulitis. I will send in a 10-day dose of sulfa trimethoprim 800/160 mg twice a day. Patient will return to clinic in 2 weeks to review over her wound. I have counseled her if she has any increased redness, swelling, fever or other signs of infection to not hesitate and come in for evaluation. I have counseled the patient that she may benefit from a repeat lumbar epidural steroid injection. Risk and benefits were discussed with patient and she would like to proceed forward with this plan of care. Patient had 1 in December that did provide more than 50% relief lasting nearly 6 months. We will submit to insurance for the lumbar epidural steroid injection however I have counseled the patient that we will wait and see how her wound looks in 2 weeks before proceeding forward with this lumbar epidural. Patient will be scheduled for a LESI L4-L5 under fluoroscopy. Patient has been instructed to contact the clinic with any concerns before the next appointment. Dr. Sanchez has reviewed this note and agrees with this plan of care. This note was dictated using voice recognition software and make contain errors or omissions. [facility] Disclaimer: The information contained in this section may have been updated after the patient was seen, as this information can be updated by other users. Medical History Abnormal echocardiogram Cardiomyopathy Abnormal stress test Preoperative clearance Surgical History AICD (automatic cardioverter/defibrillator) present Family History Other No significant family history Social History Smoking Status: Never smoker second hand exposure: No alcohol intake: never substance use type: denies use current occupational status: other Travel in the last 8 weeks: None household members: spouse housing: house current occupational exposures/hazards: No caffeine: Yes
== END 2023-06-18 23:59 | disposition home or self-care (01) ==
PROVIDERS: PCP Family Medicine; Visit Provider Nurse Practitioner Family
DX: M51.16 Intervertebral disc disorders with radiculopathy, lumbar region (principal); G89.4 Chronic pain syndrome; M47.26 Other spondylosis with radiculopathy, lumbar region; M85.88 Other specified disorders of bone density and structure, other site; S81.801A Unspecified open wound, right lower leg, initial encounter
CPT/HCPCS: 99212; G0463

== ENCOUNTER 2023-06-24 10:12 | Emergency (ER) | payer MEDICARE, SELFPAY ==
[2023-06-24 10:12] VITALS: BP 106/89; PULSE 70; RESP 18; TEMP 36.5; O2SAT 93; BMI 37.1
--- NOTE | 2023-06-24 10:18 | HMH.EDGENADL ---
Discharge Plan Disposition Patient Disposition: Home, Self-Care Condition: Good Prescriptions Prescriptions: No Action metformin 500 mg tablet 500 mg PO DAILY omeprazole 40 mg capsule,delayed release(DR/EC) 40 mg PO DAILY risedronate [Actonel] 35 mg tablet 35 mg PO WEEKLY Rx Instructions: administer at least 30 minutes before the first food or drink of the day other than water. gabapentin [Neurontin] 300 mg capsule 300 mg PO TID calcium carbonate-vitamin D3 600 mg(1,500mg) -800 unit tablet 1 tab PO BID Patient Comments: TAKE ONE TABLET BY MOUTH TWICE DAILY tramadol-acetaminophen 37.5-325 mg tablet 1 tab PO Q4-6H PRN (Reason: Pain) furosemide [Lasix] 20 mg tablet 20 mg PO DAILY Qty: 90 5RF metoprolol succinate 25 mg tablet extended release 24 hr See Rx Instructions .ROUTE .COMPLEX Qty: 90 3RF Dose Instruction: TAKE ONE TABLET BY MOUTH EVERY DAY Rx Instructions: TAKE ONE TABLET BY MOUTH EVERY DAY rosuvastatin 10 mg tablet See Rx Instructions .ROUTE .COMPLEX Qty: 90 1RF Dose Instruction: TAKE ONE TABLET BY MOUTH EVERY DAY Rx Instructions: TAKE ONE TABLET BY MOUTH EVERY DAY losartan 50 mg tablet See Rx Instructions .ROUTE .COMPLEX Qty: 90 3RF Dose Instruction: TAKE ONE TABLET BY MOUTH EVERY DAY AT BEDTIME FOR HIGH BLOOD PRESSURE Rx Instructions: TAKE ONE TABLET BY MOUTH EVERY DAY AT BEDTIME FOR HIGH BLOOD PRESSURE methocarbamol 500 mg tablet 500 mg PO Q6H PRN (Reason: pain) Qty: 30 0RF lidocaine 5 % adhesive patch,medicated 1 patch topical DAILY PRN (Reason: pain) Qty: 30 0RF Rx Instructions: leave on most painful area for up to 12 hrs oxycodone 5 mg tablet 5 mg PO Q8H PRN (Reason: pain) Qty: 12 0RF bacitracin 500 unit/gram ointment 1 applic topical BID Qty: 14 0RF Rx Instructions: Apply to right leg wound twice daily. cyanocobalamin (vitamin B-12) 1,000 MCG tablet 2,500 mcg PO DAILY levothyroxine 75 MCG tablet 75 mcg PO DAILY Patient Comments: TAKE 1 TABLET BY MOUTH EVERY DAY aspirin 81 MG tablet,delayed release (DR/EC) 81 mg PO DAILY loratadine 10 MG tablet 10 mg PO DAILY Qty: 30 0RF cyclobenzaprine 5 mg tablet 5 mg PO Q8H PRN (Reason: muscle spasm) Qty: 90 2RF Activity Restrictions/Add. Instructions Additional Instructions/Restrictions: We have repaired your laceration with stitches that will need removed in approximately 10 to 14 days. Please follow-up with your wound care team for further evaluation. Please monitor for signs of infection. Please return with any new or worsening symptoms. Clinical Impressions Clinical Impression: Laceration of leg Discharge ED Provider: [place] [facility] Adult HPI General Chief complaint: Extremity Injury, Lower Stated complaint: laceration to leg Time Seen by Provider: 06/24/23 10:18 Mode of Arrival: EMS Source of Information: Patient and EMS Limitations: No Limitations Description of Symptoms (Recalled from ER Triage Doc. by RN): r leg laceration from fall History of Present Illness HPI narrative: This patient presents for evaluation of laceration sustained to left lower extremity shortly prior to arrival. She uses a walker at baseline, was turning, and injured her extremity on a piece of furniture. Previous therapies include direct pressure to control bleeding. She has recently sustained a different injury to her ipsilateral extremity that has been healing by secondary intention. She was evaluated and given tetanus shot at that time. She denies any distal numbness or tingling. She has been ambulatory since the accident. She denies blood thinner usage. She was in her normal state of health prior to onset of symptoms. She did not strike her head or injure herself elsewhere. She denies any pain elsewhere. She does not report any concerns for contamination or foreign body. Please note that above description of symptoms, in this electronic medical record under categorization of recalled from ER triage doctor by RN are reflective of an initial nursing assessment, however, is not reflective of my full history and physical exam that was personally taken and clarified. Consequentially, this preceding description of symptoms, which may include the patient's categorized chief complaint in the EMR, do not reflect my personal clinical impression, and the ultimate description of history of present illness and patient stated complaints should be deferred to this section of the note. Unless stated otherwise or congruent with this section of the note, additional signs, symptoms, or incongruence should be interpreted as inaccurate with my clinical impression. Related Data Home Medications Medication Instructions Recorded Confirmed cyanocobalamin (vitamin B-12) 2,500 mcg PO DAILY Supplement 11/12/18 04/18/24 1,000 mcg tablet omeprazole 40 mg capsule,delayed 40 mg PO DAILY GERD 03/23/19 06/18/23 release risedronate 35 mg tablet (Actonel) 35 mg PO WEEKLY Osteoarthritis 03/23/19 06/18/23 calcium carbonate 600 mg-vitamin 1 tab PO BID Supplement 03/25/19 06/18/23 D3 20 mcg (800 unit) tablet levothyroxine 75 mcg tablet 75 mcg PO DAILY THYROID 04/04/19 06/18/23 aspirin 81 mg tablet,delayed 81 mg PO DAILY Heart disease 08/31/19 06/18/23 release tramadol 37.5 mg-acetaminophen 325 1 tab PO Q4-6H PRN Pain 09/08/19 06/18/23 mg tablet gabapentin 300 mg capsule 300 mg PO TID Pain 06/12/22 06/18/23 (Neurontin) metformin 500 mg tablet 500 mg PO DAILY Diabetes 06/12/22 06/18/23 Previous Rx's Medication Instructions Recorded loratadine 10 mg tablet 10 mg PO DAILY #30 tabs 02/17/21 furosemide 20 mg tablet (Lasix) 20 mg PO DAILY #90 tabs 07/21/22 metoprolol succinate 25 mg See Rx Instructions .Route 07/29/22 tablet,extended release 24 hr .COMPLEX #90 tabs lidocaine 5 % topical patch 1 patch topical DAILY PRN pain #30 12/04/22 ea methocarbamol 500 mg tablet 500 mg PO Q6H PRN pain #30 tabs 12/04/22 oxycodone 5 mg tablet 5 mg PO Q8H PRN pain #12 tabs 12/04/22 rosuvastatin 10 mg tablet See Rx Instructions .Route 01/26/23 .COMPLEX #90 tabs cyclobenzaprine 5 mg tablet 5 mg PO Q8H PRN muscle spasm #90 03/19/23 tabs losartan 50 mg tablet See Rx Instructions .Route 04/06/23 .COMPLEX #90 tabs bacitracin 500 unit/gram topical 1 applic topical BID #14 grams 05/29/23 ointment Allergies Allergy/AdvReac Type Severity Reaction Status Date / Time No Known Allergies Allergy Verified 06/16/23 08:29 [facility] Disclaimer: The information contained in this section may have been updated after the patient was seen, as this information can be updated by other users. Medical History Abnormal echocardiogram Cardiomyopathy Abnormal stress test Preoperative clearance Surgical History AICD (automatic cardioverter/defibrillator) present Family History Other No significant family history Social History Smoking Status: Never smoker second hand exposure: No alcohol intake: never substance use type: denies use current occupational status: other Travel in the last 8 weeks: None household members: spouse housing: house current occupational exposures/hazards: No caffeine: Yes ROS Obtained: Yes other As per HPI Physical Exam General General appearance: alert and in no apparent distress Head Head exam: atraumatic and normocephalic Eye Eye exam: Present normal appearance Neck Neck exam: Present normal inspection Chest Chest inspection: Present normal inspection and symmetric chest wall rise Respiratory Respiratory exam: Present normal lung sounds bilaterally; Absent respiratory distress Cardiovascular Cardiovascular exam: Present regular rate and normal rhythm Abdominal Exam Abdominal exam: Present soft Neurological Exam Neurological exam: Present alert and oriented X3 Psychiatric Psychiatric exam: Present normal affect and normal mood Skin Skin exam: Present warm and dry Other Other exam information: Laceration to medial aspect of right leg, venous oozing, no overt contamination, approximately 5 cm, no appreciable foreign body or exposure of bone, tendon. Distally neurovascularly intact. No evidence of trauma elsewhere. Medical Decision Making Medical Records Medical records reviewed: Yes I reviewed the patient's medical records. Rey Inquiry Pt receiving controlled substance: No Vital Signs: 06/24/23 10:12 06/24/23 12:32 Temperature 97.7 F 98.2 F Temperature Source Oral Oral Pulse Rate 69 Pulse Rate [Left] 70 Respiratory Rate 18 17 Blood Pressure 129/78 Blood Pressure [Left Arm] 106/89 L Blood Pressure Mean [Left Arm] 94 02 Sat by Pulse Oximetry 93 L Oxygen Delivery Method Room Air Room Air Orders (Tests/Meds): ED MEDICATIONS Discontinued Medications Generic Name Dose Route Start Last Admin Trade Name Freq PRN Reason Stop Dose Admin Lidocaine HCl 20 ml 06/24/23 11:10 06/24/23 11:13 Lidocaine 1% 20ml Mdv SQ 06/24/23 11:11 20 ml ONCE ONE Administration Oxycodone HCl 5 mg 06/24/23 10:29 06/24/23 10:36 Oxycodone 5mg Immediate Release Tablet PO 06/24/23 10:30 5 mg ONCE ONE Administration ORDERS Category Date Time Status XR tibia fibula RT 2V Stat Exams 06/24/23 10:29 Completed Medical Decision Narrative: Patient with history and exam per above presenting for evaluation of laceration Diagnoses considered include laceration, although considered, no clinical evidence of vascular injury, nerve injury, foreign body, and patient exhibits no signs or symptoms of hemineglect or red flag features at this time to suggest more ominous precipitant of her 2 recent injuries in this lower extremity outside of mechanical nature. ED workup and treatment included: ED MEDICATIONS Discontinued Medications Generic Name Dose Route Start Last Admin Trade Name Freq PRN Reason Stop Dose Admin Lidocaine HCl 20 ml 06/24/23 11:10 06/24/23 11:13 Lidocaine 1% 20ml Mdv SQ 06/24/23 11:11 20 ml ONCE ONE Administration Oxycodone HCl 5 mg 06/24/23 10:29 06/24/23 10:36 Oxycodone 5mg Immediate Release Tablet PO 06/24/23 10:30 5 mg ONCE ONE Administration ORDERS Category Date Time Status XR tibia fibula RT 2V Stat Exams 06/24/23 10:29 Completed Imaging was independently visualized and interpreted by me, significant for no osseous involvement or foreign body. Please refer to radiology report for full details. My clinical impression at this time is most consistent with isolated laceration I discussed my clinical impression with patient and answered all questions. At this time, the evidence for any other entities in the differential is insufficient to warrant any further testing or ED observation. This was explained to the patient. The patient was advised that persistent or worsening symptoms require further evaluation. I confirmed the patient's understanding of this discussion. Procedures Laceration Laceration 1: Site: lower extremity Side (If applicable): right Size (cm): 5 Description: flap Depth: involves subcutaneous layer Local Anesthetic: lidocaine 1% Amount of anesthesia used (mL): 10 Pre-repair: wound explored, irrigated extensively and deep structures intact Skin layer closed with: nylon Size (cm): 3-0 Number of sutures: 9 Technique: simple, interrupted Subcutaneous layer closed with: vicryl Size: 3-0 Number of sutures: 3 Technique: simple, interrupted Critical Care Critical Care Time Critical Care Time: No
--- NOTE | 2023-06-24 10:21 | PC.NURSE ---
DR LEE AT BEDSIDE
--- NOTE | 2023-06-24 10:29 | XR_ITS ---
FINAL REPORT CLINICAL HISTORY: lac to medial side of leg, old on r, eval FB, osse COMPARISON: None FINDINGS: There are 3 views of the right tibia/fibula. Total knee prosthesis is present. The hardware appears intact. There is no acute fracture or dislocation. The bones are osteopenic. The joint spaces are intact. There is no soft tissue abnormality. No evidence of radiopaque foreign body. IMPRESSION: No acute bony abnormality. No evidence of radiopaque foreign body. Reviewed, Interpreted and Dictated by Eduard Bunch MD Transcribed by Angélica Edge Authenticated and . [facility]
[2023-06-24] MEDS: OXYCODONE 5MG IMMEDIATE RELEASE TABLET 5 MG PO (10:36)
--- NOTE | 2023-06-24 10:38 | PC.NURSE ---
PT ASSISTED WITH USE OF BEDPAN
--- NOTE | 2023-06-24 10:40 | PC.NURSE ---
XR AT BEDSIDE
[2023-06-24] MEDS: LIDOCAINE 1% 20ML MDV 20 ML SQ (11:13)
--- NOTE | 2023-06-24 12:11 | PC.NURSE ---
ROUNDED ON PT NO NEEDS AT THIS TIME,CALL LIGHT AT BS
[2023-06-24 12:32] VITALS: BP 129/78; PULSE 69; RESP 17; TEMP 36.8; O2SAT 92
== END 2023-06-24 12:33 | disposition home or self-care (01) ==
PROVIDERS: Emergency Provider Emergency Medicine; PCP Family Medicine
DX: S81.811A Laceration without foreign body, right lower leg, initial encounter (principal); W22.8XXA Striking against or struck by other objects, initial encounter
CPT/HCPCS: 12002; 73590; 99283

== ENCOUNTER 2023-07-02 08:31 | Outpatient (POV) | payer MEDICARE, SELFPAY ==
[2023-07-02 08:59] VITALS: BP 114/77; PULSE 85; RESP 18; O2SAT 97; BMI 37.1
--- NOTE | 2023-07-02 09:05 | A.OFFVIS_ITS ---
[facility] Pain Management SOAP Note Subjective:: Patient is a pleasant 83-year-old female who presents today for 2-week follow- up. Today she rates her pain an 8 out of 10. Today's visit is related to an open skin and wound that she had at our last visit due to a fall. We did prescribe her antibiotics as a precaution to rule out cellulitis. Patient and daughter do state that it is much better and that the swelling has gone down. Patient does state that she did have a fall however from our last visit. Patient states that she felt like she just got off balance to and fell into some cabinets however this did hit the same leg on the inside causing her to go and have stitches. Patient is now seeing wound care for her leg. Patient was given a 3-month supply of the Flexeril 5 mg 3 times a day and has already been scheduled for her upcoming lumbar epidural steroid injection. Patient is prescribed gabapentin and tramadol from her PCP. Her Rey has been reviewed and is appropriate. Review of Systems: General: No recent weight changes, no fever, no sleep disturbances Respiratory: No cough, no shortness of air, no recurring pulmonary infections Cardiovascular/peripheral vascular: No chest pain, no palpitations, no edema, no shortness of breath Gastrointestinal: No new onset incontinence, normal bowel movements reported Genitourinary: No new onset incontinence Musculoskeletal: Low back pain Psychiatric: [Normal mood/affect] Neurological: [Denies weakness in extremities], [denies balance issues] Objective:: Physical Exam: General: Alert and oriented x3, no acute distress, pleasant and cooperative Lungs: Respirations even and unlabored, symmetrical chest expansion Eyes: PERRL Musculoskeletal: Flexion and extension of lumbar [spine] somewhat guarded secondary to pain, [antalgic gait noted] Neurological: Speech clear, no gross sensory deficit Assessment:: Degenerative disc disease of lumbar spine with lumbar radiculopathy symptoms, chronic pain syndrome, lumbar facet arthropathy, severe osteopenia lumbar spine, right lower leg wound Plan:: Patient's leg she is doing much better today with the swelling and discoloration better from our last visit. Patient is now seeing wound care and will be regularly monitored until her lower right leg wound is healed. Patient is already scheduled for her lumbar epidural. I have counseled the patient to call us with any issues from now until her next visit. Patient will return to clinic for her LESI L4-L5. Patient has been instructed to contact the clinic with any concerns before the next appointment. Dr. Sanchez has reviewed this note and agrees with this plan of care. This note was dictated using voice recognition software and make contain errors or omissions. [facility] Disclaimer: The information contained in this section may have been updated after the patient was seen, as this information can be updated by other users. Medical History Abnormal echocardiogram Cardiomyopathy Abnormal stress test Preoperative clearance Surgical History AICD (automatic cardioverter/defibrillator) present Family History Other No significant family history Social History Smoking Status: Never smoker second hand exposure: No alcohol intake: never substance use type: denies use current occupational status: retired Travel in the last 8 weeks: None household members: spouse housing: house current occupational exposures/hazards: No caffeine: Yes
== END 2023-07-02 23:59 | disposition home or self-care (01) ==
LOC: SC.PAIN 08:32
PROVIDERS: PCP Family Medicine; Visit Provider Nurse Practitioner Family
DX: M51.16 Intervertebral disc disorders with radiculopathy, lumbar region (principal); G89.4 Chronic pain syndrome; M47.26 Other spondylosis with radiculopathy, lumbar region; M85.88 Other specified disorders of bone density and structure, other site; S81.801D Unspecified open wound, right lower leg, subsequent encounter
CPT/HCPCS: 99212; G0463

== ENCOUNTER 2023-07-03 09:20 | Outpatient (CLI) | payer MEDICARE, SELFPAY ==
--- NOTE | 2023-07-03 09:35 | XR_ITS ---
FINAL REPORT CLINICAL HISTORY: OSTEOPOROSIS COMPARISON: 08/29/2020 FINDINGS: Using L1-4, the bone mineral density of the spine is 1.271 g/cm2, corresponding to T-score of 2.0. Using the left hip, the bone mineral density of the femoral neck is 0.582 g/cm2, corresponding to a T-score of -2.9. Using the right hip, the bone mineral density of the femoral neck is 0.602 g/cm?, corresponding to a T-score of -2.2. NOTE: T-score: Standard deviation compared with peak bone mass of young adult mean. *Following the recommendations of the International Society of Bone densitometry, classification of hip BMD is based on the lower of two T-scores; total hip or femoral neck. IMPRESSION: Diminished bone mineral density in the right hip, consistent with osteopenia. Diminished bone mineral density in the left hip, consistent with osteoporosis. Normal bone mineral density in the lumbar spine. Reviewed, Interpreted and Dictated by Franky De Dios MD Transcribed by Dara Hess Authenticated and [facility]
--- NOTE | 2023-07-03 09:35 | MM_ITS ---
PROCEDURE INFORMATION: Exam: MG Bilateral Screening 3D Mammography Exam date and time: 07/03/2023 9:36 AM Age: 83 years old Clinical indication: Screening examination TECHNIQUE: Imaging protocol: Bilateral Screening tomosynthesis and 2D mammography including computer-aided detection (CAD) when performed. COMPARISON: 1. MG MM DIG SCREENING MAMM BI W/CAD 01/15/2022 10:06 AM 2. MG MM DIG SCREENING MAMM BI W/CAD 08/29/2020 8:26 AM FINDINGS: MAMMOGRAPHY: Breast composition: There are scattered areas of fibroglandular density. Mass: None. Architectural distortion: None. Calcifications: No suspicious calcifications. Asymmetric density: None. Skin thickening: None. Axillary adenopathy: None. IMPRESSION: No mammographic evidence of malignancy. Annual screening is recommended unless otherwise clinically indicated. ASSESSMENT: BI-RADS Category 1: Negative
== END 2023-07-03 23:59 | disposition home or self-care (01) ==
PROVIDERS: PCP Family Medicine; Visit Provider Family Medicine
DX: M81.0 Age-related osteoporosis without current pathological fracture (principal); Z12.31 Encounter for screening mammogram for malignant neoplasm of breast
CPT/HCPCS: 77063; 77067; 77080

== ENCOUNTER 2023-07-07 10:36 | Day surgery (SDC) | payer MEDICARE, SELFPAY ==
[2023-07-07 10:53] VITALS: BP 110/79; PULSE 87; RESP 18; TEMP 36.5; O2SAT 92; BMI 37.1
[2023-07-07] MEDS: methylPREDNISolone ACETATE 80MG/ML VIAL 80 MG (11:07)
[2023-07-07 11:14] VITALS: BP 128/61; PULSE 81; RESP 18; O2SAT 92
--- NOTE | 2023-07-07 11:32 | EXP.PAIN.PRO ---
Procedure Date: 07/07/23 Time: 11:20 Anesthesiologist:: Fuentes Sharma CRNA Complications:: None Pre-procedure Diagnosis:: Degenerative disc lumbar spine multilevels. Lumbar radiculopathy. Lumbar postlaminectomy syndrome. Lumbar spondylosis. Post-procedure Diagnosis:: Same. Indications for Procedure:: Patient is a very pleasant 83-year-old female comes our clinic today for a lumbar epidural steroid injection at the L4-5 level. Patient reports 6 to 7 months of significant improvement terms of her overall low back pain as well as mild hip and leg radicular symptoms with previous injection. She rates her pain today as 5/10. Procedure Details:: Procedure: Lumbar epidural steroid injection under fluoroscopy Informed consent was obtained and the risks and benefits of the procedure were explained to the patient. The patient was taken to the procedure room and noninvasive monitors placed, including noninvasive blood pressure cuff and pulse oximeter. The back was viewed using C-arm Fluoroscopy and prepped using Chloraprep as a cleansing solution and the L4-L5 interspace was palpated. Skin and subcutaneous tissues were anesthetized using lidocaine 1.5% and a 25-gauge needle. After this, an 18-gauge Touhy epidural needle was placed into the L4-L5 interspace and advanced using fluoroscopic guidance and loss of resistance to air until the epidural space was encountered. After confirmation of needle placement in the epidural space, with dye, a solution containing normal saline, 3 mL and Depo-Medrol 80 mg were incrementally injected into the lumbar epidural space. The patient tolerated the procedure well with no complications. The patient was observed in the Pain Clinic and then discharged home neurologically intact. Plan and Disposition:: Patient was discharged without incident.
== END 2023-07-07 11:14 | disposition home or self-care (01) ==
LOC: SC.PAINP 10:38
PROVIDERS: PCP Family Medicine; Visit Provider Nurse Anesthetist, Certified Registered
DX: M51.16 Intervertebral disc disorders with radiculopathy, lumbar region (principal); M96.1 Postlaminectomy syndrome, not elsewhere classified; M47.26 Other spondylosis with radiculopathy, lumbar region
CPT/HCPCS: 62323; J1010

== ENCOUNTER 2023-07-22 14:43 | Outpatient (POV) | payer MEDICARE, SELFPAY ==
--- NOTE | 2023-07-22 14:52 | A.OFFVIS_ITS ---
[facility] Pain Management SOAP Note Subjective:: Patient is a pleasant 83-year-old female who presents today for follow-up of lumbar epidural steroid injection L4-L5 on 07/07/2023. Today she rates her pain a 5 out of 10. She denies any new trauma or injury. She does state that she had at least 50% improvement following this injection. She does state however it does not seem like it worked as well as her last epidural however it did take away for a sharp shooting pains. Patient states she has been able to increase her activity with decreased pain symptoms and feels more functional. Patient does state that she still will occasionally have muscle spasms in and around her low back and right leg but it is very random and this is nothing new. Patient states this is been going on for years. Patient does state that she is still seeing wound care for her lower right leg injury and that overall it is doing well and healing nicely. Patient is still using her Flexeril 5 mg as needed and does not need any refills at this time. Patient is prescribed gabapentin and tramadol from her PCP. Her Rey has been reviewed and is appropriate. Review of Systems: General: No recent weight changes, no fever, no sleep disturbances Respiratory: No cough, no shortness of air, no recurring pulmonary infections Cardiovascular/peripheral vascular: No chest pain, no palpitations, no edema, no shortness of breath Gastrointestinal: No new onset incontinence, normal bowel movements reported Genitourinary: No new onset incontinence Musculoskeletal: Low back pain Psychiatric: [Normal mood/affect] Neurological: [Denies weakness in extremities], [denies balance issues] Objective:: Physical Exam: General: Alert and oriented x3, no acute distress, pleasant and cooperative Lungs: Respirations even and unlabored, symmetrical chest expansion Eyes: PERRL Musculoskeletal: Flexion and extension of lumbar [spine] somewhat guarded secondary to pain, [antalgic gait noted] Neurological: Speech clear, no gross sensory deficit Assessment:: Degenerative disc disease of lumbar spine with lumbar radiculopathy symptoms, lumbar spinal stenosis Plan:: Patient has had significant improvement following her lumbar epidural and does not require any additional injection therapy currently. I will send in a prescription of the Salonpas patches. The Aspercreme patches that we discussed are only available [id number]. Patient will return to clinic in 1 month for reevaluation of symptoms and plan of care. Patient has been instructed to contact the clinic with any concerns before the next appointment. Dr. Sanchez has reviewed this note and agrees with this plan of care. This note was dictated using voice recognition software and make contain errors or omissions. [facility] Disclaimer: The information contained in this section may have been updated after the patient was seen, as this information can be updated by other users. Medical History Abnormal echocardiogram Cardiomyopathy Abnormal stress test Preoperative clearance Surgical History AICD (automatic cardioverter/defibrillator) present Family History Other No significant family history Social History Smoking Status: Never smoker second hand exposure: No alcohol intake: never substance use type: denies use current occupational status: retired Travel in the last 8 weeks: None household members: spouse housing: house current occupational exposures/hazards: No caffeine: Yes
[2023-07-22 14:59] VITALS: BP 112/71; PULSE 92; RESP 18; O2SAT 97; BMI 36.7
== END 2023-07-22 23:59 | disposition home or self-care (01) ==
PROVIDERS: Visit Provider Nurse Practitioner Family
DX: M51.16 Intervertebral disc disorders with radiculopathy, lumbar region (principal); M48.061 Spinal stenosis, lumbar region without neurogenic claudication
CPT/HCPCS: 99212; G0463

== ENCOUNTER 2023-08-20 10:21 | Outpatient (POV) | payer MEDICARE, SELFPAY ==
--- NOTE | 2023-08-20 10:24 | A.OFFVIS_ITS ---
[facility] Pain Management SOAP Note Subjective:: Patient is a pleasant 83-year-old female who presents today for 1 month follow- up. Today she rates her pain a 7 out of 10. She denies any new trauma or injury. Patient did previously have a lumbar epidural steroid injection L4-L5 on 07/07/2023 that did provide at least 50% improvement following this injection however she states that it is already worn off officially. Patient states that she was having severe pain yesterday and still states it is all in her low back with radiating symptoms down into her legs. She describes it as a sharp shooting pain with numbness and tingling. She states the pain does interfere with her ability to perform activities of daily living such as cooking and cleaning. Patient did previously have a lumbar epidural back in December that did provide more than 6 months relief and she states she was really hoping that this injection would do just as well. Patient states she is interested in repeating her prior injection in hopes of getting the 6-month relief. Patient states she did have overall significant improved function with decreased pain. This last injection done in the beginning of June did provide about a month and a week improvement. Patient is still using her Flexeril 5 mg as needed. Patient is prescribed gabapentin and tramadol from Dr. Garcia. Her Rey has been reviewed and is appropriate. Review of Systems: General: No recent weight changes, no fever, no sleep disturbances Respiratory: No cough, no shortness of air, no recurring pulmonary infections Cardiovascular/peripheral vascular: No chest pain, no palpitations, no edema, no shortness of breath Gastrointestinal: No new onset incontinence, normal bowel movements reported Genitourinary: No new onset incontinence Musculoskeletal: Low back pain, bilateral leg pain Psychiatric: [Normal mood/affect] Neurological: [Denies weakness in extremities], [denies balance issues] Objective:: Physical Exam: General: Alert and oriented x3, no acute distress, pleasant and cooperative Lungs: Respirations even and unlabored, symmetrical chest expansion Eyes: PERRL Musculoskeletal: Flexion and extension of lumbar [spine] somewhat guarded secondary to pain, [antalgic gait noted] Neurological: Speech clear, no gross sensory deficit Assessment:: Degenerative disc disease of lumbar spine with lumbar radiculopathy symptoms, lumbar spinal stenosis Plan:: Patient is experiencing significant pain throughout her low back and legs with limited range of motion. I have discussed with patient that she may benefit from repeat lumbar epidural. Patient does get significant relief of more than 50% and her last injection did give over a month of relief however the one prior did give it 6 months relief. Risk and benefits were discussed with patient and she would like to proceed forward with this plan of care. Patient has tried and failed conservative therapy including continued at home exercise and stretching between injections. We will schedule the patient for repeat lumbar epidural steroid injection L4-L5 under fluoroscopy. Patient has been instructed to contact the clinic with any concerns before the next appointment. Dr. Sanchez has reviewed this note and agrees with this plan of care. This note was dictated using voice recognition software and make contain errors or omissions. [facility] Disclaimer: The information contained in this section may have been updated after the patient was seen, as this information can be updated by other users. Medical History Abnormal echocardiogram Cardiomyopathy Abnormal stress test Preoperative clearance Surgical History AICD (automatic cardioverter/defibrillator) present Family History Other No significant family history Social History Smoking Status: Never smoker second hand exposure: No alcohol intake: never substance use type: denies use current occupational status: retired Travel in the last 8 weeks: None household members: spouse housing: house current occupational exposures/hazards: No caffeine: Yes
[2023-08-20 10:28] VITALS: BP 139/77; PULSE 79; RESP 18; O2SAT 95; BMI 37.1
== END 2023-08-20 23:59 | disposition home or self-care (01) ==
LOC: SC.PAIN 10:22
PROVIDERS: PCP Family Medicine; Visit Provider Nurse Practitioner Family
DX: M51.16 Intervertebral disc disorders with radiculopathy, lumbar region (principal); M48.061 Spinal stenosis, lumbar region without neurogenic claudication
CPT/HCPCS: 99212; G0463

== ENCOUNTER 2023-08-21 09:00 | Outpatient (RCR) | payer MEDICARE, SELFPAY ==
--- NOTE | 2023-06-25 16:03 | HMH.PTOPWND ---
Rehab Outpt Wound Evaluation Rehab OP Wound Evaluation Start: 06/25/23 15:38 Freq: Status: Active Protocol: Document 06/25/23 15:38 MAYITO (Rec: 06/25/23 16:03 MAYITO [id number]) E-signed By Juan Francisco Kerr, PT Subjective/History History History This is the initial PT eval for Leana Curry, 83 yowf who presents with R eddy wounds after multiple falls. She reports her original wound happened ~1 mo ago and has not healed well after falling into a piece of furniture at her home. She also has a new wound just medial to the old wound, suffered in a fall yesterday at her home while preparing to come to her wound care appointment. She reports no c/o pain at this time. PMH of cardiomyopathy, DM, AICD placed. SHe does take 81mg aspirin for anticoagulation. Subjective Subjective She reports 0/10 pain, but 3/4 TTP to the moustapha-wound skin of her new wound. Mild moustapha- wound edema noted. New diagnosis of cancer in past 12 No months? Wound Eval Wound Right Anterior Eddy Wound Type Skin Tear Is This a Chronic Wound No Wound Length (cm) 8.0 Wound Width (cm) 5.4 Wound Depth (cm) 0.1 Number of Sutures 9 Number of Sutures Removed 0 Wound Bed Appearance Gila Wound Margins Description Well Defined Surrounding Tissue Appearance Gila Drainage Description Serosanguineous Drainage Amount Moderate Wound Topical Solution/Irrigant Saline Irrigant Primary Dressing Ioplex Wound Secondary Dressing Type Non-Adherent Gauze Pad,Gauze Roll/Wrap,Adhering Gauze Roll Wound Debridement Amount of Tissue None Removed Dressing Change Patient Tolerance Tolerated Well Right Lateral Eddy Wound Type Skin Tear Is This a Chronic Wound Yes Wound Length (cm) 9.0 Wound Width (cm) 6.0 Wound Depth (cm) 0.2 Wound Bed Appearance Beefy Red,Dusky Red,Eschar Percentage Granulated (%) 10 Percentage of Eschar (Black) (%) 90 Wound Margins Description Indistinct Surrounding Tissue Appearance Gila,Bright Red Edema Type Non-Pitting Drainage Description Sanguineous Drainage Amount Moderate Wound Topical Solution/Irrigant Saline Irrigant Primary Dressing Composite Comment optifoam gentle border SA Wound Secondary Dressing Type Gauze Roll/Wrap,Adhering Gauze Roll Wound Debridement Method Sharps,Forceps,Gauze, Mechanical Wound Debridement Amount of Tissue Moderate Removed Dressing Change Patient Tolerance Tolerated Well Cheung-Palafox Wound Assessment Tool Assessment Wound size 4=Length x Width 36.1--<80 sq cm Wound depth 4=Obscured by necrosis Wound edges 2=Distinct, outline clearly visible, attached, even with wound base Wound undermining 1=None present Necrotic tissue type 5=Firmly adherent, hard, black eschar Necrotic tissue amount 5=75% to 100% of wound covered Exudate type 3=Serosanguineous: thin, watery, pale red/pink Exudate amount 4=Moderate Skin color surrounding wound 2=Bright red &/or blanches to touch Peripheral tissue edema 2=Non-pitting edema extends <4 cm around wound Peripheral tissue induration 1=None present Granulation tissue 4=Gila, &/or dull, dusky red & /or fills < or = 25% of wound Epithelialization 5= < 25% wound covered Wound assessment total score 42 Wound Problems/Impairments Impairments Problems/Impairmments Palpation Tenderness,Impaired Transfers,Impaired Gait Pattern,Impaired Walking, Impaired Standing,Impaired Shower/Bathing,Impaired Household Care,Increased Edema ,Wound Care Needs,Subjective C /O Pain,Impaired Self Care/ Self Management Prognosis Rehab Potential Good Clinical Impression Consistent with Diagnosis Yes Short Term Goals Number of Weeks 2 Decreased Palpation Tenderness Yes: 2/4 R lower leg Decrease Wound Area Yes: by 25% Increase Red Granulation Tissue % Yes: by 50% Insurance Compliance Analyst Goals Number of Weeks 4 Decreased Palpation Tenderness Yes: 1/4 to R lower leg Decrease Edema Yes Decrease Wound Area Yes: by 75% Outpatient Therapy Plan of Care Treatment Plan May Include Therapeutic Exercise Including Home Yes Exercise Program Manual Therapy Techniques Yes Neuromuscular Re-education Yes Therapeutic Activities to Return to Yes Previous Functional/Work Level ADL/Self Care Education Yes Orthotics/Bracing/Splinting Yes Manual Lymphatic Drainage Yes Wound Care Yes Eval/Re-Eval Yes Frequency Times per week 2 Duration Number of Weeks 4 Addendums This patient is a candidate for social No or vocational rehab? Patient/Guardian verbally acknowledges Yes understanding of treatment program and consents to further treatment? Patient/Guardian verbally acknowledges Yes understanding of diagnosis, prognosis and goals for treatment? Eval Complexity PT Charges 86279 - High Complexity PHYSICIAN CERTIFICATION: I certify the specified therapy services for Leana J Patricio are required, authorized, and reviewed every 30 days.
--- NOTE | 2023-07-22 12:24 | HMH.RHREAS ---
Rehab Reassessment Rehab OP Re-assessment Start: 06/25/23 15:38 Freq: Status: Active Protocol: Document 07/22/23 12:18 PHORNE (Rec: 07/22/23 12:24 PHORNE Laptop) E-signed By Juan Francisco Kerr, PT Phillip Wound Assessment Tool Assessment Wound size 3= Length x Width 16.1--<36 sq cm Wound depth 2=Partial thickness skin loss involving epidermis &/or dermis Wound edges 1=Indistinct, diffuse, none clearly visible Wound undermining 1=None present Necrotic tissue type 2=White/schreiber non-viable tissue &/or non-adherent yellow slough Necrotic tissue amount 2=<25% of wound bed covered Exudate type 2=Bloody Exudate amount 3=Small Skin color surrounding wound 1=Skelp or normal for ethnic group Peripheral tissue edema 2=Non-pitting edema extends <4 cm around wound Peripheral tissue induration 1=None present Granulation tissue 1=Skin intact or partial thickness wound Epithelialization 3=50% to <75% wound covered &/ or epithelial tissue extends to < 0.5cm Wound assessment total score 24 Rehab Re-assessment Subjective Subjective Pt reports no c/o pain or discomfort this am. I feel good, I haven't had any problems with it since I saw you the last time. Objective Objective Notes R lateral donaldson wound: L= 5.0 cm, W= 3.4 cm, D= 0.1 cm R anterior donaldson wound: L= 3.9 cm, W= 1.4 cm, D= 0.1 cm Wound surface area total: 77& of wound surface area is healed at this time vs IE. BWAT: score 24 this date vs 42 on IE. Edema: R lower leg with 1+ pitting edema noted throughout . Assessment Progress Assessment Progressing as Expected Assessment Notes Pt has shown significant improvement in overall wound surface area and wound bed healthy tissue quality. She continues to need skilled intervention to return to PLOF . Patient goals met ST/3 LT/3 Goals Not Met STG: none LT/3 Plan Plan Continue per initial POC. Frequency of Therapy 2 x/wk Duration of therapy 4 wks Time and Billing Re-Eval Time 12 Re-Eval Billing Units 0 PHYSICIAN CERTIFICATION: I certify the specified therapy services for Leana J Patricio are required, authorized, and reviewed every 30 days.
== END 2023-08-21 10:05 | disposition home or self-care (01) ==
LOC: PT 09:00
PROVIDERS: Visit Provider Family Medicine
DX: M79.661 Pain in right lower leg (principal)
CPT/HCPCS: 97140; 97163; 97164; 97597; 97598

== ENCOUNTER 2023-09-08 08:14 | Day surgery (SDC) | payer MEDICARE, SELFPAY ==
[2023-09-08 08:28] VITALS: BP 123/78; PULSE 71; RESP 18; TEMP 36.2; O2SAT 92; BMI 37.1
[2023-09-08] MEDS: methylPREDNISolone ACETATE 80MG/ML VIAL 80 MG (08:41)
[2023-09-08 08:42] VITALS: BP 143/92; PULSE 75; RESP 20; O2SAT 97
[2023-09-08 08:45] VITALS: BP 143/92; PULSE 75; RESP 20; O2SAT 97
[2023-09-08 08:50] VITALS: BP 141/63; PULSE 85; RESP 18; O2SAT 96
--- NOTE | 2023-09-08 08:51 | EXP.PAIN.PRO ---
Procedure Date: 09/08/23 Time: 08:40 Anesthesiologist:: Fuentes Sharma CRNA Complications:: None Pre-procedure Diagnosis:: Degenerative disc lumbar spine multilevels. Lumbar radiculopathy. Lumbar spondylosis. Multilevel lumbar facet arthropathy. Lumbar postlaminectomy syndrome. Post-procedure Diagnosis:: Same. Indications for Procedure:: Patient is a pleasant 83-year-old female comes to clinic today for caudal epidural steroid injection. Patient has had several lumbar epidurals steroid injections at the L4-5 and L5-S1 level. However, due to scar tissue, arthritis it is difficult to access the epidural space at the L4-5 or L5-S1 level. Discussed caudal epidural with the patient. She wishes to proceed. Procedure Details:: Details of the procedure explained to the patient. The patient taken procedure and placed in the prone position on fluoroscopy table. The area over the sacrum was cleaned using chlorhexidine as a cleansing solution. Using fluoroscopy guidance and a lateral position a 22-gauge 3 inch spinal needle was used to access the caudal epidural space with ease. After negative aspiration 0.5 mL of contrast dye was injected. There was a cephalad spread in the sacral epidural space. After negative aspiration a solution containing 3 cc of normal saline, 2 cc of steroid and 1 cc of 1% lidocaine was injected. Patient tolerated procedure without difficulty. There are no complications. Plan and Disposition:: Patient was discharged without incident.
[2023-09-08] MEDS: IOPAMIDOL-200 (41%);10ML VIAL 10 ML IV (08:53)
== END 2023-09-08 08:50 | disposition home or self-care (01) ==
LOC: SC.PAINP 08:15
PROVIDERS: PCP Family Medicine; Visit Provider Nurse Anesthetist, Certified Registered
DX: M47.26 Other spondylosis with radiculopathy, lumbar region (principal)
CPT/HCPCS: 62323; J1010; Q9966

== ENCOUNTER 2023-09-28 11:13 | Outpatient (POV) | payer MEDICARE, SELFPAY ==
--- NOTE | 2023-09-28 11:19 | A.OFFVIS_ITS ---
[facility] Disclaimer: The information contained in this section may have been updated after the patient was seen, as this information can be updated by other users. Medical History Abnormal echocardiogram Cardiomyopathy Abnormal stress test Preoperative clearance Surgical History AICD (automatic cardioverter/defibrillator) present Family History Other No significant family history Social History Smoking Status: Never smoker second hand exposure: No alcohol intake: never substance use type: denies use current occupational status: retired Travel in the last 8 weeks: None household members: spouse housing: house current occupational exposures/hazards: No caffeine: Yes PM Subjective & Objective Subjective Subjective:: Patient is a pleasant 83-year-old female who presents today for follow-up of caudal epidural on 09/08/2023. Today she rates her pain a 8 out of 10. She does state that she had significant relief with this injection. She states it did take a couple days for it to kick in and however it is still continuing to provide relief in her overall leg symptoms. She rates the improvement at least 50%. Patient does state a lot of her pain today is more related to her overall low back. She states that she was bending over a day last week and felt like she pulled a muscle or something along those lines. She states the pain is worse with bending twisting or lifting. Patient does state that it is almost like grabbing sensation and denies any radiating symptoms into her legs. Patient is interested in any improvement we can provide. Patient is prescribed muscle relaxer and states she is still using these with some improvement. She is on Flexeril 5 mg as needed. Patient is prescribed gabapentin and tramadol from Dr. Garcia. Her Rey has been reviewed and is appropriate. Review of Systems: General: No recent weight changes, no fever, no sleep disturbances Respiratory: No cough, no shortness of air, no recurring pulmonary infections Cardiovascular/peripheral vascular: No chest pain, no palpitations, no edema, no shortness of breath Gastrointestinal: No new onset incontinence, normal bowel movements reported Genitourinary: No new onset incontinence Musculoskeletal: Low back pain Psychiatric: [Normal mood/affect] Neurological: [Denies weakness in extremities], [denies balance issues] Pain at rest (0-10 scale): 8 Objective Objective:: Physical Exam: General: Alert and oriented x3, no acute distress, pleasant and cooperative Lungs: Respirations even and unlabored, symmetrical chest expansion Eyes: PERRL Musculoskeletal: Flexion and extension of lumbar [spine] somewhat guarded secondary to pain, [antalgic gait noted] positive Kemps test Neurological: Speech clear, no gross sensory deficit Has patient had previous pain injection?: Yes Percent improvement in pain since last injection: 50 Conservative treatment options previously tried: Home exercise plan Length of tr eatment: Longer than 6 weeks Meds Home Medications and Allergies Home Medications ?Medication ?Instructions ?Recorded ?Confirmed ?Type cyanocobalamin (vitamin B-12) 2,500 mcg PO DAILY Supplement 01/11/18 09/28/23 History 1,000 mcg tablet omeprazole 40 mg capsule,delayed 40 mg PO DAILY GERD 03/23/19 09/28/23 History release risedronate 35 mg tablet (Actonel) 35 mg PO WEEKLY Osteoarthritis 03/23/19 09/28/23 History calcium carbonate 600 mg-vitamin 1 tab PO BID Supplement 03/25/19 09/28/23 History D3 20 mcg (800 unit) tablet levothyroxine 75 mcg tablet 75 mcg PO DAILY THYROID 04/04/19 09/28/23 History aspirin 81 mg tablet,delayed 81 mg PO DAILY Heart disease 08/31/19 09/28/23 History release tramadol 37.5 mg-acetaminophen 325 1 tab PO Q4-6H PRN Pain 09/08/19 09/28/23 History mg tablet loratadine 10 mg tablet 10 mg PO DAILY #30 tabs 02/17/21 09/28/23 Rx gabapentin 300 mg capsule 300 mg PO TID Pain 06/12/22 09/28/23 History (Neurontin) metformin 500 mg tablet 500 mg PO DAILY Diabetes 06/12/22 09/28/23 History lidocaine 5 % topical patch 1 patch topical DAILY PRN pain #30 12/04/22 09/28/23 Rx ea methocarbamol 500 mg tablet 500 mg PO Q6H PRN pain #30 tabs 12/04/22 09/28/23 Rx oxycodone 5 mg tablet 5 mg PO Q8H PRN pain #12 tabs 12/04/22 09/28/23 Rx losartan 50 mg tablet See Rx Instructions .Route 04/06/23 09/28/23 Rx .COMPLEX #90 tabs bacitracin 500 unit/gram topical 1 applic topical BID #14 grams 05/29/23 09/28/23 Rx ointment furosemide 20 mg tablet See Rx Instructions .Route 07/13/23 09/28/23 Rx .COMPLEX #90 tabs metoprolol succinate 25 mg See Rx Instructions .Route 07/20/23 09/28/23 Rx tablet,extended release 24 hr .COMPLEX #90 tabs rosuvastatin 10 mg tablet See Rx Instructions .Route 07/20/23 09/28/23 Rx .COMPLEX #90 tabs camphor 3.1 %-methyl salicylate 10 1 patch topical TID PRN pain 5 07/22/23 09/28/23 Rx %-menthol 6 % topical patch days #20 ea (Salonpas) cyclobenzaprine 5 mg tablet 5 mg PO Q8H PRN muscle spasm #90 09/21/23 09/28/23 Rx tabs New Prescriptions to Start Prescriptions: Allergies Allergy/AdvReac Type Severity Reaction Status Date / Time No Known Allergies Allergy Verified 09/28/23 11:23 Assessment and Plan *Assessment and plan (1) Degenerative disc disease, lumbar: Status: Acute Category: Medical Code(s): M51.36 - Other intervertebral disc degeneration, lumbar region (2) Lumbar radiculopathy: Status: Acute Category: Medical Code(s): M54.16 - Radiculopathy, lumbar region Plan Patient is experiencing worsening pain in her low back with a positive Kemps test and limited range of motion of her lumbar spine. I have discussed with the patient that she may benefit from a lumbar medial branch block. Risk and benefits were discussed with the patient and she would like to proceed forward with this plan of care. Patient does get significant relief with the injection therapy. Patient has continued at home stretching exercise for longer than 6 weeks. Patient does have multilevel facet arthropathy and spondylosis. Patient has continued to try oral medications, heat and ice and topicals. We will schedule the patient for a lumbar medial branch block bilaterally L4-L5 and L5- S1. If the patient does have significant relief we will look at repeating this injection and doing a lumbar RFA at a later date. Patient did have elevated blood pressure today is on blood pressure medications. I have discussed with the patient to continue to monitor this at home and to contact her primary care if it continues to be elevated in order to see if she needs to make any changes to her current medication regimen. Patient has been instructed to contact the clinic with any concerns before the next appointment. Dr. Sanchez has reviewed this note and agrees with this plan of care. This note was dictated using voice recognition software and make contain errors or omissions. All injections are used with Lidocaine or Bupivacaine and Depo Medrol.
[2023-09-28 11:23] VITALS: BP 111/62; PULSE 77; RESP 16; O2SAT 94; BMI 37.1
== END 2023-09-28 23:59 | disposition home or self-care (01) ==
LOC: SC.PAIN 11:14
PROVIDERS: PCP Family Medicine; Visit Provider Nurse Practitioner Family
DX: M51.36 Other intervertebral disc degeneration, lumbar region (principal); M54.16 Radiculopathy, lumbar region; M54.59 Other low back pain
CPT/HCPCS: 99212; G0463

== ENCOUNTER 2023-10-06 08:47 | Day surgery (SDC) | payer MEDICARE, SELFPAY ==
[2023-10-06 09:12] VITALS: BP 116/61; PULSE 84; RESP 16; TEMP 36.3; O2SAT 92; BMI 37.1
--- NOTE | 2023-10-06 09:23 | P.PCN_ITS ---
Procedure Date: 10/06/23 Time: 09:20 Anesthesiologist:: Fuentes Sharma CRNA Complications:: None Pre-procedure Diagnosis:: Degenerative disc lumbar spine multilevels. Lumbar radiculopathy. Multilevel lumbar disc bulge. Lumbar facet arthropathy. Lumbar spondylosis. Post-procedure Diagnosis:: Same. Indications for Procedure:: Patient is a pleasant 83-year-old female comes to clinic today for around 1 of lumbar medial branch blocks/facet injections at the L4-5 and L5-S1 level bilaterally. Patient describes low back pain is constant, dull, aching. She has difficulty with flexion, extension, left and right rotation. Patient has previously had lumbar epidural steroid injections at L4-5 level. She reports significant improvement terms of her overall low back pain as well as bilateral hip and leg radicular symptoms. However, the low back pain has returned. Procedure Details:: Informed consent was obtained and the risk and benefits of the procedure was explained to the patient. Patient was taken to the procedure room where renay nvasive monitors were placed, including noninvasive blood pressure cuff as well as pulse oximeter. The area over the lumbar spine was cleansed using chlorhexidine as a cleansing solution. I anesthetized the skin and subcutaneous tissues with 1% Lidocaine. I placed 22-gauge spinal needles into the facet joint/ medial branches of L4-L5, and L5-S1] bilaterally. Needle placement was confirmed with fluoroscopy. After confirmation of needle placement, each site was injected with 1 mL of 1% lidocaine and 0.25 % Marcaine and 10 mg of Depo- Medrol. A total of 80 mg of depo medrol was used for bilateral medial branch blocks of L4-L5, and L5-S1] bilaterally. Patient tolerated the procedure without difficulty. There were no complications. Plan and Disposition:: Patient was discharged out incident.
[2023-10-06] MEDS: methylPREDNISolone ACETATE 80MG/ML VIAL 80 MG (09:25)
[2023-10-06] MEDS: LIDOCAINE 1% 5ML PF VIAL 5 ML (09:25)
[2023-10-06] MEDS: BUPIVACAINE 0.25% 10ML INJ 25 MG IJ (09:25)
[2023-10-06 09:31] VITALS: BP 107/59; PULSE 80; RESP 18; O2SAT 93
== END 2023-10-06 09:31 | disposition home or self-care (01) ==
PROVIDERS: PCP Family Medicine; Visit Provider Nurse Anesthetist, Certified Registered
DX: M47.816 Spondylosis without myelopathy or radiculopathy, lumbar region (principal); M51.36 Other intervertebral disc degeneration, lumbar region
CPT/HCPCS: 64493; 64494; J1010

== ENCOUNTER 2023-10-22 11:25 | Outpatient (POV) | payer MEDICARE, SELFPAY ==
--- NOTE | 2023-10-22 12:09 | EXP.PAIN.SOA ---
[facility] Disclaimer: The information contained in this section may have been updated after the patient was seen, as this information can be updated by other users. Medical History Abnormal echocardiogram Cardiomyopathy Abnormal stress test Preoperative clearance Surgical History AICD (automatic cardioverter/defibrillator) present Family History Other No significant family history Social History Smoking Status: Never smoker second hand exposure: No alcohol intake: never substance use type: denies use current occupational status: other Travel in the last 8 weeks: None household members: spouse housing: house current occupational exposures/hazards: No caffeine: Yes PM Subjective & Objective Subjective Subjective:: Patient is a pleasant 83-year-old female who presents today for follow-up of lumbar medial branch block bilaterally L4-L5 and L5-S1 on 10/06/2023. She does rate her pain today an 8 out of 10 however states that that is just due to muscle spasms that she started having today. Patient does state that the procedure itself provided significant relief and felt like it did kick it down to a much more tolerable amount. Patient states at least 70 to 80% relief and feels like that is still helping if she could just get the muscle spasms down. Patient is currently prescribed Flexeril 5 mg as needed and she stated that she took 1 at 4 this morning however has not taken any additional. Patient is prescribed gabapentin and tramadol from her PCP. Her Rey has been reviewed and is appropriate. Patient does also have a compounded cream. Review of Systems: General: No recent weight changes, no fever, no sleep disturbances Respiratory: No cough, no shortness of air, no recurring pulmonary infections Cardiovascular/peripheral vascular: No chest pain, no palpitations, no edema, no shortness of breath Gastrointestinal: No new onset incontinence, normal bowel movements reported Genitourinary: No new onset incontinence Musculoskeletal: Low back pain/muscle spasms Psychiatric: [Normal mood/affect] Neurological: [Denies weakness in extremities], [denies balance issues] Pain at rest (0-10 scale): 8 Objective Objective:: Physical Exam: General: Alert and oriented x3, no acute distress, pleasant and cooperative Lungs: Respirations even and unlabored, symmetrical chest expansion Eyes: PERRL Musculoskeletal: Flexion and extension of lumbar [spine] somewhat guarded secondary to pain, [antalgic gait noted] Neurological: Speech clear, no gross sensory deficit Has patient had previous pain injection?: Yes Percent improvement in pain since last injection: 80% Conservative treatment options previously tried: Home exercise plan Length of treatment: Longer than 6 weeks Meds Home Medications and Allergies Home Medications ?Medication ?Instructions ?Recorded ?Confirmed ?Type cyanocobalamin (vitamin B-12) 2,500 mcg PO DAILY Supplement 01/11/18 10/06/23 History 1,000 mcg tablet omeprazole 40 mg capsule,delayed 40 mg PO DAILY GERD 03/23/19 10/06/23 History release risedronate 35 mg tablet (Actonel) 35 mg PO WEEKLY Osteoarthritis 03/23/19 10/06/23 History calcium carbonate 600 mg-vitamin 1 tab PO BID Supplement 03/25/19 10/06/23 History D3 20 mcg (800 unit) tablet levothyroxine 75 mcg tablet 75 mcg PO DAILY THYROID 04/04/19 10/06/23 History aspirin 81 mg tablet,delayed 81 mg PO DAILY Heart disease 08/31/19 10/06/23 History release tramadol 37.5 mg-acetaminophen 325 1 tab PO Q4-6H PRN Pain 09/08/19 10/06/23 History mg tablet loratadine 10 mg tablet 10 mg PO DAILY #30 tabs 02/17/21 10/06/23 Rx gabapentin 300 mg capsule 300 mg PO TID Pain 06/12/22 10/06/23 History (Neurontin) metformin 500 mg tablet 500 mg PO DAILY Diabetes 06/12/22 10/06/23 History lidocaine 5 % topical patch 1 patch topical DAILY PRN pain #30 12/04/22 10/06/23 Rx ea methocarbamol 500 mg tablet 500 mg PO Q6H PRN pain #30 tabs 12/04/22 10/06/23 Rx oxycodone 5 mg tablet 5 mg PO Q8H PRN pain #12 tabs 12/04/22 10/06/23 Rx losartan 50 mg tablet See Rx Instructions .Route 04/06/23 10/06/23 Rx .COMPLEX #90 tabs bacitracin 500 unit/gram topical 1 applic topical BID #14 grams 03/29/24 08/06/24 Rx ointment furosemide 20 mg tablet See Rx Instructions .Route 07/13/23 10/06/23 Rx .COMPLEX #90 tabs metoprolol succinate 25 mg See Rx Instructions .Route 07/20/23 10/06/23 Rx tablet,extended release 24 hr .COMPLEX #90 tabs rosuvastatin 10 mg tablet See Rx Instructions .Route 07/20/23 10/06/23 Rx .COMPLEX #90 tabs camphor 3.1 %-methyl salicylate 10 1 patch topical TID PRN pain 5 07/22/23 10/06/23 Rx %-menthol 6 % topical patch days #20 ea (Salonpas) cyclobenzaprine 5 mg tablet 5 mg PO Q8H PRN muscle spasm #90 09/21/23 10/06/23 Rx tabs New Prescriptions to Start Prescriptions: Allergies Allergy/AdvReac Type Severity Reaction Status Date / Time No Known Allergies Allergy Verified 10/06/23 09:12 Assessment and Plan *Assessment and plan (1) Lumbar radiculopathy: Status: Acute Category: Medical Code(s): M54.16 - Radiculopathy, lumbar region (2) Degenerative disc disease, lumbar: Status: Acute Category: Medical Code(s): M51.36 - Other intervertebral disc degeneration, lumbar region Plan Patient did have significant relief following her first lumbar medial branch block. Patient is still getting improvement however she is experiencing worsening muscle spasms. Patient was counseled that she can take 2 of the 5 mg Flexeril tablets if needed and that I do recommend her trying her compounded cream on this area. Patient will return to clinic in 1 month for reevaluation of symptoms and plan of care. Patient has been instructed to contact the clinic with any concerns before the next appointment. Dr. Sanchez has reviewed this note and agrees with this plan of care. This note was dictated using voice recognition software and make contain errors or omissions. All injections are used with Lidocaine or Bupivacaine and Depo Medrol.
[2023-10-22 12:42] VITALS: BP 109/64; PULSE 84; RESP 16; O2SAT 93; BMI 37.1
== END 2023-10-22 23:59 | disposition home or self-care (01) ==
LOC: SC.PAIN 11:26
PROVIDERS: PCP Family Medicine; Visit Provider Nurse Practitioner Family
DX: M51.16 Intervertebral disc disorders with radiculopathy, lumbar region (principal); Z79.899 Other long term (current) drug therapy; Z95.810 Presence of automatic (implantable) cardiac defibrillator
CPT/HCPCS: 99212; G0463

== ENCOUNTER 2023-12-16 11:03 | Outpatient (POV) | payer MEDICARE, SELFPAY ==
[2023-12-16 11:31] VITALS: BP 116/87; PULSE 60; RESP 16; O2SAT 96; BMI 37.1
--- NOTE | 2023-12-16 11:57 | A.OFFVIS_ITS ---
[facility] Disclaimer: The information contained in this section may have been updated after the patient was seen, as this information can be updated by other users. Medical History Abnormal echocardiogram Cardiomyopathy Abnormal stress test Preoperative clearance Surgical History AICD (automatic cardioverter/defibrillator) present Family History Other No significant family history Social History Smoking Status: Never smoker second hand exposure: No alcohol intake: never substance use type: denies use current occupational status: other Travel in the last 8 weeks: None household members: spouse housing: house current occupational exposures/hazards: No caffeine: Yes PM Subjective & Objective Subjective Subjective:: Patient is a pleasant 83-year-old female who presents today for follow-up. Today she rates her pain a 5 out of 10. Patient does state from her last visit she did end up having surgery on her right arm to remove hardware. Patient states she does have to remain in a brace nail continuously due to how brittle her bones are. Patient states this was a previous old injury that she fractured her arm back about 3 years ago. Patient is currently managed with Flexeril 5 mg as needed from our office. Patient did previously have a lumbar medial branch block bilaterally L4-L5 and L5-S1 back on October 05 and states it is still providing significant improvement. She does state that she has pain from day-to-day and that some days are better than others however it is still very manageable. She denies any other issues her Rey has been reviewed and is appropriate. Review of Systems: General: No recent weight changes, no fever, no sleep disturbances Respiratory: No cough, no shortness of air, no recurring pulmonary infections Cardiovascular/peripheral vascular: No chest pain, no palpitations, no edema, no shortness of breath Gastrointestinal: No new onset incontinence, normal bowel movements reported Genitourinary: No new onset incontinence Musculoskeletal: Low back pain Psychiatric: [Normal mood/affect] Neurological: [Denies weakness in extremities], [denies balance issues] Pain at rest (0-10 scale): 5 Objective Objective:: Physical Exam: General: Alert and oriented x3, no acute distress, pleasant and cooperative Lungs: Respirations even and unlabored, symmetrical chest expansion Eyes: PERRL Musculoskeletal: Flexion and extension of lumbar [spine] somewhat guarded secondary to pain, [antalgic gait noted] Neurological: Speech clear, no gross sensory deficit Has patient had previous pain injection?: No Conservative treatment options previously tried: Home exercise plan Length of treatment: Longer than 6 weeks Meds Home Medications and Allergies Home Medications ?Medication ?Instructions ?Recorded ?Confirmed ?Type cyanocobalamin (vitamin B-12) 2,500 mcg PO DAILY Supplement 01/11/18 12/16/23 History 1,000 mcg tablet omeprazole 40 mg capsule,delayed 40 mg PO DAILY GERD 03/23/19 12/16/23 History release risedronate 35 mg tablet (Actonel) 35 mg PO WEEKLY Osteoarthritis 03/23/19 12/16/23 History calcium 600 mg (as 1 tab PO BID Supplement 03/25/19 12/16/23 History carbonate)-vitamin D3 20 mcg (800 unit) tablet levothyroxine 75 mcg tablet 75 mcg PO DAILY THYROID 04/04/19 12/16/23 History aspirin 81 mg tablet,delayed 81 mg PO DAILY Heart disease 08/31/19 12/16/23 History release tramadol 37.5 mg-acetaminophen 325 1 tab PO Q4-6H PRN Pain 09/08/19 12/16/23 History mg tablet loratadine 10 mg tablet 10 mg PO DAILY #30 tabs 02/17/21 12/16/23 Rx gabapentin 300 mg capsule 300 mg PO TID Pain 06/12/22 12/16/23 History (Neurontin) metformin 500 mg tablet 500 mg PO DAILY Diabetes 06/12/22 12/16/23 History lidocaine 5 % topical patch 1 patch topical DAILY PRN pain #30 12/04/22 12/16/23 Rx ea methocarbamol 500 mg tablet 500 mg PO Q6H PRN pain #30 tabs 12/04/22 12/16/23 Rx oxycodone 5 mg tablet 5 mg PO Q8H PRN pain #12 tabs 12/04/22 12/16/23 Rx losartan 50 mg tablet See Rx Instructions .Route 04/06/23 12/16/23 Rx .COMPLEX #90 tabs bacitracin 500 unit/gram topical 1 applic topical BID #14 grams 05/29/23 12/16/23 Rx ointment furosemide 20 mg tablet See Rx Instructions .Route 07/13/23 12/16/23 Rx .COMPLEX #90 tabs metoprolol succinate 25 mg See Rx Instructions .Route 07/20/23 12/16/23 Rx tablet,extended release 24 hr .COMPLEX #90 tabs rosuvastatin 10 mg tablet See Rx Instructions .Route 07/20/23 12/16/23 Rx .COMPLEX #90 tabs camphor 3.1 %-methyl salicylate 10 1 patch topical TID PRN pain 5 07/22/23 12/16/23 Rx %-menthol 6 % topical patch days #20 ea (Salonpas) cyclobenzaprine 5 mg tablet 5 mg PO Q8H PRN muscle spasm #90 09/21/23 12/16/23 Rx tabs New Prescriptions to Start Prescriptions: Allergies Allergy/AdvReac Type Severity Reaction Status Date / Time No Known Allergies Allergy Verified 10/06/23 09:12 Assessment and Plan *Assessment and plan (1) Degenerative disc disease, lumbar: Status: Acute Category: Medical Code(s): M51.36 - Other intervertebral disc degeneration, lumbar region Plan Patient is doing well and does not require any additional interventions at this time. I will send in refills of her Flexeril. I will also order her compounded cream. Patient will return to clinic in 3 months for reevaluation of symptoms and plan of care. Patient has been instructed to contact the clinic with any concerns before the next appointment. Dr. Sanchez has reviewed this note and agrees with this plan of care. This note was dictated using voice recognition software and make contain errors or omissions. All injections are used with Lidocaine or Bupivacaine and Depo Medrol.
== END 2023-12-16 23:59 | disposition home or self-care (01) ==
PROVIDERS: PCP Family Medicine; Visit Provider Nurse Practitioner Family
DX: M51.369 Other intervertebral disc degeneration, lumbar region without mention of lumbar back pain or lower extremity pain (principal); Z79.899 Other long term (current) drug therapy
CPT/HCPCS: 99212; G0463

== ENCOUNTER 2024-03-17 09:25 | Outpatient (POV) | payer MEDICARE, SELFPAY ==
[2024-03-17 10:08] VITALS: BP 128/85; PULSE 90; RESP 16; O2SAT 94; BMI 37.1
--- NOTE | 2024-03-17 10:31 | A.OFFVIS_ITS ---
[facility] Disclaimer: The information contained in this section may have been updated after the patient was seen, as this information can be updated by other users. Medical History Abnormal echocardiogram Cardiomyopathy Abnormal stress test Preoperative clearance Surgical History AICD (automatic cardioverter/defibrillator) present Family History Other No significant family history Social History Smoking Status: Never smoker second hand exposure: No alcohol intake: never substance use type: denies use current occupational status: other Travel in the last 8 weeks: None household members: spouse housing: house current occupational exposures/hazards: No caffeine: Yes PM Subjective & Objective Subjective Subjective:: Patient is a pleasant 83-year-old female who presents today for 3-month follow- up. Today she rates her pain an 6 out of 10. Patient does state that she did have a fall since from our last visit. She states that she was walking with her walker and went to bend down and just got off balance and fell. Patient does states she has been having more low back pain that radiates into her right hip and down her right leg with numbness and tingling. She does state the pain is fairly constant but does seem worse when she is up walking. Patient does state that she is interested in additional injection therapy as it does significantly improve her symptoms and typically last for quite a while. Patient is prescribed Flexeril and compounded cream from our office. Patient is prescribed gabapentin and tramadol from her PCP. Her Rey has been reviewed and is appropriate. Review of Systems: General: No recent weight changes, no fever, no sleep disturbances Respiratory: No cough, no shortness of air, no recurring pulmonary infections Cardiovascular/peripheral vascular: No chest pain, no palpitations, no edema, no shortness of breath Gastrointestinal: No new onset incontinence, normal bowel movements reported Genitourinary: No new onset incontinence Musculoskeletal: Low back pain, right hip, right leg pain Psychiatric: [Normal mood/affect] Neurological: [Denies weakness in extremities], [denies balance issues] Pain at rest (0-10 scale): 6 Objective Objective:: Physical Exam: General: Alert and oriented x3, no acute distress, pleasant and cooperative Lungs: Respirations even and unlabored, symmetrical chest expansion Eyes: PERRL Musculoskeletal: Flexion and extension of lumbar [spine] somewhat guarded secondary to pain, [antalgic gait noted] positive right leg raise Neurological: Speech clear, no gross sensory deficit Has patient had previous pain injection?: No Conservative treatment options previously tried: Home exercise plan Length of treatment: Longer than 12 weeks Meds Home Medications and Allergies Home Medications ?Medication ?Instructions ?Recorded ?Confirmed ?Type cyanocobalamin (vitamin B-12) 2,500 mcg PO DAILY Supplement 01/11/18 03/17/24 History 1,000 mcg tablet omeprazole 40 mg capsule,delayed 40 mg PO DAILY GERD 03/23/19 03/17/24 History release risedronate 35 mg tablet (Actonel) 35 mg PO WEEKLY Osteoarthritis 03/23/19 03/17/24 History calcium 600 mg (as 1 tab PO BID Supplement 03/25/19 03/17/24 History carbonate)-vitamin D3 20 mcg (800 unit) tablet levothyroxine 75 mcg tablet 75 mcg PO DAILY THYROID 04/04/19 03/17/24 History aspirin 81 mg tablet,delayed 81 mg PO DAILY Heart disease 08/31/19 03/17/24 History release tramadol 37.5 mg-acetaminophen 325 1 tab PO Q4-6H PRN Pain 09/08/19 03/17/24 History mg tablet loratadine 10 mg tablet 10 mg PO DAILY #30 tabs 02/17/21 03/17/24 Rx gabapentin 300 mg capsule 300 mg PO TID Pain 06/12/22 03/17/24 History (Neurontin) metformin 500 mg tablet 500 mg PO DAILY Diabetes 06/12/22 03/17/24 History lidocaine 5 % topical patch 1 patch topical DAILY PRN pain #30 12/04/22 03/17/24 Rx ea methocarbamol 500 mg tablet 500 mg PO Q6H PRN pain #30 tabs 12/04/22 03/17/24 Rx oxycodone 5 mg tablet 5 mg PO Q8H PRN pain #12 tabs 12/04/22 03/17/24 Rx bacitracin 500 unit/gram topical 1 applic topical BID #14 grams 05/29/23 03/17/24 Rx ointment furosemide 20 mg tablet See Rx Instructions .Route 07/13/23 03/17/24 Rx .COMPLEX #90 tabs camphor 3.1 %-methyl salicylate 10 1 patch topical TID PRN pain 5 07/22/23 03/17/24 Rx %-menthol 6 % topical patch days #20 ea (Salonpas) cyclobenzaprine 5 mg tablet 5 mg PO Q8H PRN muscle spasm #90 12/16/23 03/17/24 Rx tabs metoprolol succinate 25 mg See Rx Instructions .Route 01/19/24 03/17/24 Rx tablet,extended release 24 hr .COMPLEX #90 tabs rosuvastatin 10 mg tablet See Rx Instructions .Route 01/25/24 03/17/24 Rx .COMPLEX #90 tabs losartan 50 mg tablet See Rx Instructions .Route 03/16/24 03/17/24 Rx .COMPLEX #90 tabs New Prescriptions to Start Prescriptions: Allergies Allergy/AdvReac Type Severity Reaction Status Date / Time No Known Allergies Allergy Verified 01/18/24 08:39 Assessment and Plan *Assessment and plan (1) Lumbar radiculopathy: Status: Acute Category: Medical Code(s): M54.16 - Radiculopathy, lumbar region (2) Degenerative disc disease, lumbar: Status: Acute Category: Medical Code(s): M51.369 - Other intervertebral disc degeneration, lumbar region without mention of lumbar back pain or lower extremity pain Plan Patient is experiencing worsening pain in her low back with radiating numbness and tingling down into her right hip and right leg. Patient did have limited range of motion of her lumbar spine with a positive right leg raise. I did discuss with the patient that I do believe she would benefit from a repeat lumbar epidural steroid injection. Risk and benefits were discussed with patient and she would like to proceed forward with this plan of care. Patient had her last lumbar epidural L4-L5 back in July 2023 that did provide more than 50% and lasted longer than 3 months. Patient does have longstanding issues with her lumbar spine. Patient has continued conservative treatment including oral medications, heat and ice, topicals, at home stretching exercise for longer than 12 weeks. Patient will be scheduled for an LESI L4-L5 under fluoroscopy. Patient has been instructed to contact the clinic with any concerns before the next appointment. Dr. Sanchez has reviewed this note and agrees with this plan of care. This note was dictated using voice recognition software and make contain errors or omissions. All injections are used with Lidocaine, Bupivacaine and Depo Medrol. Occasionally urine drug screen is needed to verify patient's compliance with our office pain contract. This is ordered based off specific treatments related to chronic pain with the potential to abuse certain medications.
== END 2024-03-17 23:59 | disposition home or self-care (01) ==
LOC: SC.PAIN 09:26
PROVIDERS: PCP Family Medicine; Visit Provider Nurse Practitioner Family
DX: M51.16 Intervertebral disc disorders with radiculopathy, lumbar region (principal); Z79.899 Other long term (current) drug therapy
CPT/HCPCS: 99212; G0463

== ENCOUNTER 2024-03-29 10:54 | Day surgery (SDC) | payer MEDICARE, SELFPAY ==
[2024-03-29 11:29] VITALS: BP 122/74; PULSE 77; RESP 16; TEMP 36.8; O2SAT 94; BMI 37.1
[2024-03-29] MEDS: methylPREDNISolone ACETATE 80MG/ML VIAL 80 MG (11:32)
[2024-03-29 12:00] VITALS: BP 112/73; PULSE 63; RESP 18; TEMP 36.8; O2SAT 95
--- NOTE | 2024-03-29 13:03 | EXP.PAIN.PRO ---
Procedure Date: 03/29/24 Time: 11:55 Anesthesiologist:: Fuentes Sharma CRNA Complications:: None Pre-procedure Diagnosis:: Degenerative disc lumbar spine multilevels. Lumbar radiculopathy. Post-procedure Diagnosis:: Same. Indications for Procedure:: Patient is a very pleasant 83-year-old female comes clinic today for lumbar epidural steroid injection. Patient describes low lumbar back pain as well as bilateral hip and leg radicular symptoms at times. She rates her pain 7/10. Procedure Details:: Procedure: Lumbar epidural steroid injection under fluoroscopy Informed consent was obtained and the risks and benefits of the procedure were explained to the patient. The patient was taken to the procedure room and noninvasive monitors placed, including noninvasive blood pressure cuff and pulse oximeter. The back was viewed using C-arm Fluoroscopy and prepped using Chloraprep as a cleansing solution and the L4-L5 interspace was palpated. Skin and subcutaneous tissues were anesthetized using lidocaine 1.5% and a 25-gauge needle. After this, an 18-gauge Touhy epidural needle was placed into the L4-L5 interspace and advanced using fluoroscopic guidance and loss of resistance to air until the epidural space was encountered. After confirmation of needle placement in the epidural space, with dye, a solution containing normal saline, 3 mL and Depo-Medrol 80 mg were incrementally injected into the lumbar epidural space. The patient tolerated the procedure well with no complications. The patient was observed in the Pain Clinic and then discharged home neurologically intact. Plan and Disposition:: Patient was discharged without incident.
== END 2024-03-29 12:01 | disposition home or self-care (01) ==
LOC: SC.PAINP 10:56
PROVIDERS: PCP Family Medicine; Visit Provider Nurse Anesthetist, Certified Registered
DX: M51.16 Intervertebral disc disorders with radiculopathy, lumbar region (principal)
CPT/HCPCS: 62323; J1010

== ENCOUNTER 2024-04-13 12:58 | Outpatient (POV) | payer MEDICARE, SELFPAY ==
--- NOTE | 2024-04-13 13:16 | EXP.PAIN.SOA ---
[facility] Disclaimer: The information contained in this section may have been updated after the patient was seen, as this information can be updated by other users. Medical History Abnormal echocardiogram Cardiomyopathy Abnormal stress test Preoperative clearance Surgical History AICD (automatic cardioverter/defibrillator) present Family History Other No significant family history Social History (Updated 03/29/24 @ 11:29 by Loretta Suraez RN) Smoking Status: Never smoker second hand exposure: No alcohol intake: never substance use type: denies use current occupational status: other Travel in the last 8 weeks: None household members: spouse housing: house current occupational exposures/hazards: No caffeine: Yes PM Subjective & Objective Subjective Subjective:: patient is a pleasant 84-year-old female who presents today for follow-up of lumbar epidural steroid injection L4-L5 on 03/29/2024. Today she rates her pain a 7 out of 10. She denies any new trauma or injury. She does state that she has had approximately 75 percent improvement for the first few days at least however now states this 1 has already started to slowly wear off and that only rating about 25% currently ongoing improvement. Patient states she does still have the low back and leg symptoms that are definitely not as severe as what they were. Patient is currently managed with Flexeril and compounded cream from our office. She denies any side effects. Her Rey has been reviewed and is appropriate. Review of Systems: General: No recent weight changes, no fever, no sleep disturbances Respiratory: No cough, no shortness of air, no recurring pulmonary infections Cardiovascular/peripheral vascular: No chest pain, no palpitations, no edema, no shortness of breath Gastrointestinal: No new onset incontinence, normal bowel movements reported Genitourinary: No new onset incontinence Musculoskeletal: Low back pain Psychiatric: [Normal mood/affect] Neurological: [Denies weakness in extremities], [denies balance issues] Pain at rest (0-10 scale): 7 Objective Objective:: Physical Exam: General: Alert and oriented x3, no acute distress, pleasant and cooperative Lungs: Respirations even and unlabored, symmetrical chest expansion Eyes: PERRL Musculoskeletal: Flexion and extension of lumbar [spine] somewhat guarded secondary to pain, [antalgic gait noted] Neurological: Speech clear, no gross sensory deficit Has patient had previous pain injection?: Yes Percent improvement in pain since last injection: 75% Conservative treatment options previously tried: Home exercise plan Length of treatment: Longer than 12 weeks Meds Home Medications and Allergies Home Medications ?Medication ?Instructions ?Recorded ?Confirmed ?Type cyanocobalamin (vitamin B-12) 2,500 mcg PO DAILY Supplement 01/11/18 04/13/24 History 1,000 mcg tablet omeprazole 40 mg capsule,delayed 40 mg PO DAILY GERD 03/23/19 04/13/24 History release risedronate 35 mg tablet (Actonel) 35 mg PO WEEKLY Osteoarthritis 03/23/19 04/13/24 History calcium 600 mg (as 1 tab PO BID Supplement 03/25/19 04/13/24 History carbonate)-vitamin D3 20 mcg (800 unit) tablet levothyroxine 75 mcg tablet 75 mcg PO DAILY THYROID 04/04/19 04/13/24 History aspirin 81 mg tablet,delayed 81 mg PO DAILY Heart disease 08/31/19 04/13/24 History release tramadol 37.5 mg-acetaminophen 325 1 tab PO Q4-6H PRN Pain 09/08/19 04/13/24 History mg tablet loratadine 10 mg tablet 10 mg PO DAILY #30 tabs 02/17/21 04/13/24 Rx gabapentin 300 mg capsule 300 mg PO TID Pain 06/12/22 04/13/24 History (Neurontin) metformin 500 mg tablet 500 mg PO DAILY Diabetes 06/12/22 04/13/24 History lidocaine 5 % topical patch 1 patch topical DAILY PRN pain #30 12/04/22 04/13/24 Rx ea methocarbamol 500 mg tablet 500 mg PO Q6H PRN pain #30 tabs 12/04/22 04/13/24 Rx oxycodone 5 mg tablet 5 mg PO Q8H PRN pain #12 tabs 12/04/22 04/13/24 Rx bacitracin 500 unit/gram topical 1 applic topical BID #14 grams 05/29/23 04/13/24 Rx ointment furosemide 20 mg tablet See Rx Instructions .Route 07/13/23 04/13/24 Rx .COMPLEX #90 tabs camphor 3.1 %-methyl salicylate 10 1 patch topical TID PRN pain 5 07/22/23 04/13/24 Rx %-menthol 6 % topical patch days #20 ea (Salonpas) cyclobenzaprine 5 mg tablet 5 mg PO Q8H PRN muscle spasm #90 12/16/23 04/13/24 Rx tabs metoprolol succinate 25 mg See Rx Instructions .Route 01/19/24 04/13/24 Rx tablet,extended release 24 hr .COMPLEX #90 tabs rosuvastatin 10 mg tablet See Rx Instructions .Route 01/25/24 04/13/24 Rx .COMPLEX #90 tabs losartan 50 mg tablet See Rx Instructions .Route 03/16/24 04/13/24 Rx .COMPLEX #90 tabs New Prescriptions to Start Prescriptions: Allergies Allergy/AdvReac Type Severity Reaction Status Date / Time No Known Allergies Allergy Verified 03/29/24 11:32 Assessment and Plan *Assessment and plan (1) Degenerative disc disease, lumbar: Status: Acute Category: Medical Code(s): M51.369 - Other intervertebral disc degeneration, lumbar region without mention of lumbar back pain or lower extremity pain (2) Lumbar radiculopathy: Status: Acute Category: Medical Code(s): M54.16 - Radiculopathy, lumbar region Plan Patient did have significant improvement following this injection however it was more relief the first week and has slowly decreased down. I did discuss with the patient that I would in future recommend additional epidurals to see if this 1 just did not do as well as her previous ones. Patient will return to clinic in 6 weeks for reevaluation of symptoms and plan of care. Patient has been instructed to contact the clinic with any concerns before the next appointment. Dr. Sanchez has reviewed this note and agrees with this plan of care. This note was dictated using voice recognition software and make contain errors or omissions. All injections are used with Lidocaine, Bupivacaine and Depo Medrol. Occasionally urine drug screen is needed to verify patient's compliance with our office pain contract. This is ordered based off specific treatments related to chronic pain with the potential to abuse certain medications.
[2024-04-13 13:31] VITALS: BP 109/56; PULSE 67; RESP 14; O2SAT 93; BMI 37.1
== END 2024-04-13 23:59 | disposition home or self-care (01) ==
LOC: SC.PAIN 13:00
PROVIDERS: PCP Family Medicine; Visit Provider Nurse Practitioner Family
DX: M51.16 Intervertebral disc disorders with radiculopathy, lumbar region (principal); Z79.899 Other long term (current) drug therapy
CPT/HCPCS: 99212; G0463

== ENCOUNTER 2024-05-25 08:28 | Outpatient (POV) | payer MEDICARE, SELFPAY ==
--- NOTE | 2024-05-25 08:46 | EXP.PAIN.SOA ---
[facility] Disclaimer: The information contained in this section may have been updated after the patient was seen, as this information can be updated by other users. Medical History Abnormal echocardiogram Cardiomyopathy Abnormal stress test Preoperative clearance Surgical History AICD (automatic cardioverter/defibrillator) present Family History Other No significant family history Social History (Updated 03/29/24 @ 11:29 by Loretta Suarez RN) Smoking Status: Never smoker second hand exposure: No alcohol intake: never substance use type: denies use current occupational status: other Travel in the last 8 weeks: None household members: spouse housing: house current occupational exposures/hazards: No caffeine: Yes PM Subjective & Objective Subjective Subjective:: Patient is a pleasant 84-year-old female who presents today for 6-week follow-up. She rates her pain today a 6 out of 10. She denies any new injuries or falls. She does state overall her pain is doing okay. She does state that it does seem to come and go however it does primarily affect her right side down to her calf. Patient does state occasionally on random times she will have some left-sided symptoms. Patient is currently managed with Flexeril and compounded cream from our office. She denies any side effects. She states that she is not needed to take the compounded cream and that the Flexeril she just uses as needed. Patient is unsure if she needs refills. Her Rey has been reviewed and is appropriate. Review of Systems: General: No recent weight changes, no fever, no sleep disturbances Respiratory: No cough, no shortness of air, no recurring pulmonary infections Cardiovascular/peripheral vascular: No chest pain, no palpitations, no edema, no shortness of breath Gastrointestinal: No new onset incontinence, normal bowel movements reported Genitourinary: No new onset incontinence Musculoskeletal: Low back pain Psychiatric: [Normal mood/affect] Neurological: [Denies weakness in extremities], [denies balance issues] Pain at rest (0-10 scale): 6 Objective Objective:: Physical Exam: General: Alert and oriented x3, no acute distress, pleasant and cooperative Lungs: Respirations even and unlabored, symmetrical chest expansion Eyes: PERRL Musculoskeletal: Flexion and extension of lumbar [spine] somewhat guarded secondary to pain, [antalgic gait noted] Neurological: Speech clear, no gross sensory deficit Has patient had previous pain injection?: No Conservative treatment options previously tried: Home exercise plan Length of treatment: Longer than 12 weeks Meds Home Medications and Allergies Home Medications ?Medication ?Instructions ?Recorded ?Confirmed ?Type cyanocobalamin (vitamin B-12) 2,500 mcg PO DAILY Supplement 01/11/18 04/13/24 History 1,000 mcg tablet omeprazole 40 mg capsule,delayed 40 mg PO DAILY GERD 03/23/19 04/13/24 History release risedronate 35 mg tablet (Actonel) 35 mg PO WEEKLY Osteoarthritis 03/23/19 04/13/24 History calcium 600 mg (as 1 tab PO BID Supplement 03/25/19 04/13/24 History carbonate)-vitamin D3 20 mcg (800 unit) tablet levothyroxine 75 mcg tablet 75 mcg PO DAILY THYROID 04/04/19 04/13/24 History aspirin 81 mg tablet,delayed 81 mg PO DAILY Heart disease 08/31/19 04/13/24 History release tramadol 37.5 mg-acetaminophen 325 1 tab PO Q4-6H PRN Pain 09/08/19 04/13/24 History mg tablet loratadine 10 mg tablet 10 mg PO DAILY #30 tabs 02/17/21 04/13/24 Rx gabapentin 300 mg capsule 300 mg PO TID Pain 06/12/22 04/13/24 History (Neurontin) metformin 500 mg tablet 500 mg PO DAILY Diabetes 06/12/22 04/13/24 History lidocaine 5 % topical patch 1 patch topical DAILY PRN pain #30 12/04/22 04/13/24 Rx ea methocarbamol 500 mg tablet 500 mg PO Q6H PRN pain #30 tabs 12/04/22 04/13/24 Rx oxycodone 5 mg tablet 5 mg PO Q8H PRN pain #12 tabs 12/04/22 04/13/24 Rx bacitracin 500 unit/gram topical 1 applic topical BID #14 grams 05/29/23 04/13/24 Rx ointment furosemide 20 mg tablet See Rx Instructions .Route 07/13/23 04/13/24 Rx .COMPLEX #90 tabs camphor 3.1 %-methyl salicylate 10 1 patch topical TID PRN pain 5 07/22/23 04/13/24 Rx %-menthol 6 % topical patch days #20 ea (Salonpas) cyclobenzaprine 5 mg tablet 5 mg PO Q8H PRN muscle spasm #90 12/16/23 04/13/24 Rx tabs metoprolol succinate 25 mg See Rx Instructions .Route 01/19/24 04/13/24 Rx tablet,extended release 24 hr .COMPLEX #90 tabs rosuvastatin 10 mg tablet See Rx Instructions .Route 01/25/24 04/13/24 Rx .COMPLEX #90 tabs losartan 50 mg tablet See Rx Instructions .Route 03/16/24 04/13/24 Rx .COMPLEX #90 tabs New Prescriptions to Start Prescriptions: Allergies Allergy/AdvReac Type Severity Reaction Status Date / Time No Known Allergies Allergy Verified 03/29/24 11:32 Assessment and Plan *Assessment and plan (1) Lumbar radiculopathy: Status: Acute Category: Medical Code(s): M54.16 - Radiculopathy, lumbar region (2) Degenerative disc disease, lumbar: Status: Acute Category: Medical Code(s): M51.369 - Other intervertebral disc degeneration, lumbar region without mention of lumbar back pain or lower extremity pain Plan I will make sure that she does have refills on her Flexeril. Patient will return to clinic in another 6 weeks for reevaluation of symptoms and plan of care. We did discuss that if her pain does significantly increase or change from now until her next visit to please call our office and we will get her a sooner appointment for evaluation. Patient agrees with this plan of care. Patient has been instructed to contact the clinic with any concerns before the next appointment. Dr. Sanchez has reviewed this note and agrees with this plan of care. This note was dictated using voice recognition software and make contain errors or omissions. All injections are used with Lidocaine, Bupivacaine and Depo Medrol. Occasionally urine drug screen is needed to verify patient's compliance with our office pain contract. This is ordered based off specific treatments related to chronic pain with the potential to abuse certain medications.
[2024-05-25 08:57] VITALS: BP 115/69; PULSE 80; RESP 16; O2SAT 94; BMI 37.1
== END 2024-05-25 23:59 | disposition home or self-care (01) ==
PROVIDERS: PCP Family Medicine; Visit Provider Nurse Practitioner Family
DX: M51.16 Intervertebral disc disorders with radiculopathy, lumbar region (principal); Z79.899 Other long term (current) drug therapy
CPT/HCPCS: 99212; G0463

== ENCOUNTER 2024-08-01 10:33 | Outpatient (CLI) | payer MEDICARE, SELFPAY ==
--- OUTSIDE RECORDS SUMMARY | 2024-08-01 10:36 | XMS_ITS | Data Portability ---
Author Organization [place] [facility] Address [address] [facility] [place] [address] Assessment No assessment recorded. Plan of Treatment Reminders Order Date Submit Date Provider Last Modified By Organization Details Last Modified Time Details Appointments None record ed. Lab None record ed. Referral None record ed. Procedures None record ed. Surgeries None record ed. Imaging XR, should er, 2 or more view - 3 view room 5 017 04/21/19 17 JENNIFER Not available 7 09:35:48 XR, should er, 2 or more view - 3 view room 5 017 04/21/19 17 [email or web address] Not available 7 09:54:00 Medication Orders None record ed. Patient TargetsNo targets recorded. Patient InstructionsNo instructions recorded. Reason for Referral None Reported. Results Created Date Observation Date Name Description Value Unit Range Abnormal Flag Note LastModifiedBy Organization Detail LastModifiedTime 03/10/19 17 03/10/2016 XR, shoul fany, 2 or more view [place] [address] [place] [address] Anastasia arrieta Name: CHEL arrieta : [birth year] 43 Anastasia arrieta Orderi ng Provid er: FREDY MOREAU EXAM DATE: 2016 EXAM: XR LT SHOULD ER COMPLE TE CLINIC AL INFORM ATION: Left should er pain IMAGES PROVID ED: 3 view left should er COMPAR CATIA: 2015 FINDIN GS: Again noted is the left should er revers e total arthro plasty . There is no eviden ce of loosen ing or compli cation . There is no eviden ce of fractu re. The AC joint demons trates mild DJD IMPRES SYDNEE: Stable uncomp licate d appear ing left should er revers e total arthro plasty Interp reted By: Paco Luevano MD Electr onical ly Signed By: Paco Luevano MD on 03/10/19 17 9:41 AM [email or web address] [facility] [address] , [place], [address], 03/10/2016 11:25:05 04/21/19 17 04/21/2016 XR, shoul fany, 2 or more view [place] [address] [place] [address] Patien t Name: CHEL arrieta : [birth year] 43 Anastasia arrieta Orderi ng Provid er: FREYD MOREAU EXAM DATE: 2016 EXAM: XR LT SHOULD ER COMPLE TE RADIOG RAPHIC VIEWS: 3 COMPAR CATIA: 03/10/19 HISTOR Y: Follow -up of prior surger bessie MCCLOUD GS: Again seen is a left should er revers e total arthro plasty . There is no eviden ce of loosen ing or compli cation . No fractu re is identi fied. There are mild degene rative change s at the acromi oclavi cular joint. IMPRES SYDNEE: 1. There is a left should er revers e total arthro plasty in place withou t eviden ce of compli cation . Interp reted By: Umer goldstein MD [facility] onical ly Signed By: Umer goldstein MD on 017 9:30 AM [email or web address] [facility] [address], [place], [address], 04/21/2016 11:47:58 07/17/19 17 07/16/2016 XR, shoul fany, 2 or more view [place] [address] [place] [address] Patien t Name: CHEL arrieta : [birth year] Anastasia arrieta Orderi ng Provid er: FREDY MOREAU EXAM DATE: 2016 EXAM: XR LT SHOULD ER COMPLE TE RADIOG RAPHIC VIEWS: 3 COMPAR CATIA: HISTOR Y: Follow -up of prior surger y. FINDIN GS: Again seen is a left should er revers e total arthro plasty . There is no eviden ce of loosen ing or compli cation . No fractu re is identi fied. There are mild degene rative change s at the acromi oclavi cular joint. IMPRES SYDNEE: 1. There is a left should er revers e total arthro plasty in place withou t eviden ce of compli cation . Interp reted By: Umer goldstein MD Electr onical ly Signed By: Umer goldstein MD on 9:16 AM [email or web address] [facility] [address] , [place], [address], 07/16/2016 10:02:31 02/21/20 17 02/20/2017 XR, samina fany, 2 or more view [place] [address] [place] [address] Patien t Name: CHEL CURRY Patiblaire arrieta : [birth year] Patien t Orderi ng Provid er: ANASTACIA GILLESPIE EXAM DATE: 2016 EXAM: XR LT SHOULD ER COMPLE TE RADIOG RAPHIC VIEWS: 4 COMPAR CATIA: HISTOR Y: Follow -up of prior surger y. FINDIN GS: Again seen is a left should er revers e total arthro plasty . There is no eviden ce of loosen ing or compli cation . No fractu re is identi fied. There are mild to modera te degene rative change s at the acromi oclavi cular joint. IMPRES SYDNEE: 1. There is a left should er revers e total arthro plasty in place withou t eviden ce of compli cation . Interp reted By: Umer goldstein MD Electr onical ly Signed By: Umer goldstein MD on 2016 10:39 AM [email or web address] [facility] [address] [place] [address] , [place], [address], 02/24/2017 10:50:39 Result Notes None recorded. Problems Name Problem SNOMED Code Status Onset Date Resolution Date Notes Provider Name and Address Organization Details Recorded Time Localized , secondary osteoarth ritis of the shoulder region 864991563 Active 2016 FREDY MOREAU MD [facility] [place], [address] , [place] [facility] 7 09:15:35 Idiopathi c osteoarth ritis 809189049 Active 2015 From Automated Load;Provi fany: Fredy Moreau;Stat us: Active Not Available [facility] 7 07:51:40 Problem Notes None recorded. Procedures Surgical History Date Name Laterality Status Provider Name and Address Organization Details Recorded Time 6 Orthopedic Surgery completed Leslie Cui [facility] 03/10/2016 09:25:09 Imaging Results None recorded. Procedure Notes None recorded. Medical Equipment None Reported. Allergies No known drug allergies Medications Name Sig Start Date Stop Date Status Note LastModified by Organization Details LastModified Time Potaba 500 mg capsule active Medication Descriptio n: potassium aminobenzo ate; refills:0 Not Available Not Available Not Available meloxicam 15 mg tablet Daily active Frequency: daily;Medi cation Descriptio n: meloxicam; Dosage:1; Route:oral ; refills:0 Not Available Not Available Not Available atenolol 25 mg tablet Daily active Duration: 30 days;Frequ ency: daily;Medi cation Descriptio n: atenolol; Dosage:1; Route:oral ; refills:0; Quantity:3 0 tablet Not Available Not Available Not Available Diflucan 150 mg tablet Take 1 tablet every day by oral route for 1 day. 2015 active Not Available Not Available Not Avai lable lisinopril 2.5 mg tablet Daily active Duration: 30 days;Frequ ency: daily;Medi cation Descriptio n: lisinopril ; Dosage:1; Route:oral ; refills:5; Quantity:3 0 tablet Not Available Not Available Not Available glipizide 2.5 mg-metformi n 500 mg tablet Daily active Frequency: daily;Medi cation Descriptio n: glipiZIDE- metformin; Dosage:2; Route:oral ; refills:0 Not Available Not Available Not Available acetaminoph en active Medication Descriptio n: acetaminop hen; refills:0 Not Available Not Available Not Available Vitamin B-12 Daily active Duration: 10 days;Frequ ency: daily;Medi cation Descriptio n: cyanocobal hermosillo; Dosage:1; Route:oral ; refills:0; Quantity:3 0 tablet Not Available Not Available Not Available omeprazole active Medicatio n Descriptio n: omeprazole ; refills:0 Not Available Not Available Not Available lovastatin active Medicatio n Descriptio n: lovastatin ; refills:0 Not Available Not Available Not Available gabapentin active Medicatio n Descriptio n: gabapentin ; Route:comp ounding; refills:0 Not Available Not Available Not Available Januvia 100 mg tablet Daily active Frequency: daily;[facility] cation Descriptio n: sitaglipti n; Dosage:1; Route:oral ; refills:0 Not Available Not Available Not Available Vitals Date Recorded Body height Body weight Body mass index (BMI) Provider Name and Address Organization Details Last Updated DateTime 03/10/2016 139.7 cm 04859.59 g 36.7 kg/m2 Leslie [facility] 03/10/2016 09:24:40 Date Recorded Body height Body weight Body mass index (BMI) Provider Name and Address Organization Details Last Updated DateTime 04/21/2016 139.7 cm 33541.19 g 37 kg/m2 Leslie [facility] 04/21/2016 08:45:45 Date Recorded Body height Body weight Body mass index (BMI) Provider Name and Address Organization Details Last Updated DateTime 07/16/2016 139.7 cm 15847.78 g 37.2 kg/m2 Leslie [facility] 07/16/2016 08:46:54 Date Recorded Body height Body mass index (BMI) Body weight Systolic blood pressure Diastolic blood pressure Provider Name and Address Organization Details Last Updated DateTime 02/20/2017 139.7 cm 37.2 kg/m2 09590.78 g 113 mm[Hg] 63 mm[Hg] Leslie [facility] 7 09:53:58 Social History Question Answer Notes LastModified by Organizat ion Details LastModified Time Tobacco Smoking Status Former Smoker Leslie Cui [facility] 03/10/2016 09:24:52 What Was The Date Of Your Most Recent Tobacco Screening? 02/20/2017 Information n ot available 04/19/2019 Sex: Unknown Functional Status None recorded. Mental Status None recorded. Family History Nothing Reported. Medical History Condition Response Allergies/Hayfever N Other N Gout N Anxiety/Depression N Thyroid Disease Y Heart Conditions N Kidney Stones N Hernia N Migraines N COPD N Glaucoma N Pneumonia Y Skin Problems N Immune System Disorder N Anesthesia Complications N Heart Attack ([place]) N Mental Illness N Neurological Problems N Diabetes Y Rheumatic Fever N Bleeding Disorder N Arthritis Y Seizures/Epilepsy N Blood Clot N Tuberculosis N Genetic Disorder N AIDS/HIV N Cancer N Stroke N Asthma N Blood Thinners N Alcohol Overuse/Alcohol Abuse N Sleep Apnea N High Cholesterol Y Liver Disease N Hypertension Y Osteoporosis N Kidney Disease N Gynecological HistoryNo gynecological history recorded. Obstetrics History GPAL:G 0 P 0 0 0 0 Past Encounters Encounter ID Performer Location Encounter Start Date Encounter Closed Date Diagnosis/Indication Diagnosis SNOMED-CT Code Diagnosis ICD10 Code Diagnosis Note [id number] FREDY MOREAU MD [facility] [address] [place] [address] 03/10/2016 09:14:19 03/10/2016 09:58:31 Localized, secondary osteoarthritis of the shoulder region 751415439 M19.212 PT RxCounsele d on progressio n F/U 6 weeksXOA LEFT shoulder 3 views [id number] FREDY MOREAU MD [facility] [address] [place] [address] 04/21/2016 08:39:54 04/21/2016 09:18:00 Localized, secondary osteoarthritis of the shoulder region 011442116 M19.212 Assessment /Plan: 1. Physical therapy - continue with PT; gradual WB 2. Pain control - good pain control at this point 3. Follow-up in 3 months with repeat shoulder x-rays on arrival: XOA (Grashey, Axillary, and Scapular Y views) [id number] FREDY MOREAU MD [facility] [address] [place] [address] 07/16/2016 08:37:55 07/17/2016 09:08:57 Localized, secondary osteoarthritis of the shoulder region 363073669 M19.212 Assessment /Plan: 1. Physical therapy - continue with PT & HEP, activity as tolerated; counseled on gradual progressio n 2. Pain control - pain free 3. Follow-up in 6 months for [address] Gillespie with repeat shoulder x-rays on arrival: XOA (Grashey, Axillary, and Scapular Y views) I explained to the patient that [place] would be [place] out of [place] and the patient's care would be transition ed to Dr. Gillespie. I explained that Dr. Gillespie is an experience d shoulder expert and will take great care of him in my absence. I explained that I would be happy to see the patient anytime as needed prior to my departure date. The patient and her were very supportive . [id number] ANASTACIA GILLESPIE MD [facility] [address] [place] [address] 02/20/2017 09:38:08 02/20/2017 13:32:40 Postoperative care [id number] Z48.89 f/u in 1 year with [facility] Concerns Section Related Observation LastModified by Organization Detai ls LastModified Time None Recorded Concern Status LastModified by Organization Details LastModified Time None Recorded Advance Directives Directive None Recorded Payers Insurance Date Sequence Insurance Name Policy Number Policy Clemens Covered Member ID Clemens Member ID Guarantor Name 02/16/2018 1 [employer] (MEDICARE REPLACEMENT/A DVANTAGE - PPO) Chel Curry [id number] Chel Curry Notes Date Note Type Note Provider Name and Address Organization Details Recorded Time 03/10/2016 text/html Shoulder: LEFT Date of Surgery: 01/30/16 6 weeks post-surgery Diagnosis: Rotator cuff tear arthropathy Operation: Primary Reverse Total Shoulder Arthroplasty, SSc not reparable Subjective: Doing very well postop. No issues Diagnostic Imagin02/11/16: 3 views of the shoulder (Grashey, Axillary, and Scapular Y views) do not reveal any periprosthetic fracture. The shoulder is well aligned and no dislocation is noted. The components are in excellent position. 03/10/16: 3 views LEFT shoulder - well aligned, no fracture Physical Exam: General: comfortable Vascular: 2+ radial pulses, symmetric Neurologic: sensation to light touch is intact distally, elbow flexion/elbow extension/wrist flexion/wrist extension/hand intrinsics intact, able to fire deltoid 5/5 Dermatologic: healed Shoulder range of motion: PROM: 140/140/40AROM: 100/100/30No acromial ttp Assessment/Plan: 1. Physical therapy prescription and physical therapy protocol were given to the patient. I counseled regarding the importance of participation with physical therapy, sling compliance, and non-weight bearing. Sling completed 2. Pain control - good pain control 3. Follow-up in 6 weeks with repeat shoulder x-rays on arrival: XOA (Grashey, Axillary, and Scapular Y views) FREDY MOREAU MD [address] [place] [address], [phone], [facility] 03/10/2016 09:56:24 04/21/2016 text/html Shoulder: LEFT Date of Surgery: 01/30/16 3 Months post-surgery Diagnosis: Rotator cuff tear arthropathy Operation: Primary Reverse Total Shoulder Arthroplasty, SSc not reparable Subjective: She has only had 4 PT visits due to bout with pneumonia. Lungs improving Diagnostic Imagin02/11/16: 3 views of the shoulder (Grashey, Axillary, and Scapular Y views) do not reveal any periprosthetic fracture. The shoulder is well aligned and no dislocation is noted. The components are in excellent position. 03/10/16: 3 views LEFT shoulder - well aligned, no fracture 04/21/16: 3v LEFT shoulder - no changes noted Physical Exam: General: comfortable Vascular: 2+ radial pulses, symmetric Neurologic:SLT intact, deltoid 5/5 Dermatologic: healed Shoulder range of motion: PROM: 140/140/40AROM: 130/130/30No acromial ttp Assessment/Plan: 1. Physical therapy - continue with PT; gradual WB 2. Pain control - good pain control at this point 3. Follow-up in 3 months with repeat shoulder x-rays on arrival: XOA (Grashey, Axillary, and Scapular Y views) FREDY MOREAU MD [address] [place] [address], [phone], [facility] 04/21/2016 09:16:30 07/16/2016 text/html Shoulder: LEFT Date of Surgery: 01/30/16 6 Months post-surgery Diagnosis: Rotator cuff tear arthropathy Operation: Primary Reverse Total Shoulder Arthroplasty, SSc not reparable Subjective: She has been participating with PT & compliant with HEP.Very happy with progress.Now has better ROM & strength on operative side than right. Diagnostic Imagin02/11/16: 3 views of the shoulder (Grashey, Axillary, and Scapular Y views) do not reveal any periprosthetic fracture. The shoulder is well aligned and no dislocation is noted. The components are in excellent position. 03/10/16: 3 views LEFT shoulder - well aligned, no fracture 04/21/16: 3v LEFT shoulder - no changes noted 07/16/16: 3 views LEFT shoulder - no changes noted, no notching, no acromial change FREDY MOREAU MD [address] [place], [address], [facility] 07/16/2016 10:02:17 02/20/2017 text/html feels good lit tle to no trouble ONE YEAR F/U TSR ANASTACIA GILLESPIE MD [address] [place], [address], [facility] 02/20/2017 10:10:29 OBGyn Episode No OBEpisode recorded.
--- NOTE | 2024-08-01 10:39 | XR_ITS ---
FINAL REPORT CLINICAL HISTORY: ACUTE COUGH, congestion COMPARISON: 04/12/2021 FINDINGS: PA and lateral views of the chest were obtained. There is no change in the AICD since the prior exam. The cardiac and mediastinal silhouettes are within normal limits. There are low lung volumes, without evidence of infiltrate. There is no pleural effusion or pneumothorax. No acute osseous abnormality is identified. Bilateral shoulder arthroplasties are again noted. IMPRESSION: Low lung volumes, without evidence of infiltrate. Reviewed, Interpreted and Dictated by Saige Alcantar MD Transcribed by Dara Hess Authenticated and . [facility]
== END 2024-08-01 23:59 | disposition home or self-care (01) ==
LOC: RAD 10:34
PROVIDERS: PCP Family Medicine; Visit Provider Nurse Practitioner Family
DX: R91.8 Other nonspecific abnormal finding of lung field (principal); R05.1 Acute cough
CPT/HCPCS: 71046

== ENCOUNTER 2024-10-27 10:38 | Outpatient (CLI) | payer MEDICARE, SELFPAY ==
--- OUTSIDE RECORDS SUMMARY | 2024-10-11 20:00 | XMS_ITS | Clinical Summary ---
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, SUBS Active 14 00:00: 00 HYPERTENSIVE HEART DISEASE WITH HEART FAILURE Active 03-02 00:00: 00 UNSPECIFIED SYSTOLIC (CONGESTIVE) HEART FAILURE Active 03-02 00:00: 00 TYPE 2 DIABETES MELLITUS WITHOUT COMPLICATION S Active 03-02 00:00: 00 ATHSCL HEART DISEASE OF [place] CORONARY ARTERY W/O ANG PCTRS Active 03-02 00:00: 00 HYPOTHYROIDI SM, UNSPECIFIED Active 03-02 00:00: 00 AGE-RELATED OSTEOPOROSIS W/O CURRENT PATHOLOGICAL FRACTURE Active 03-02 00:00: 00 OBESITY, UNSPECIFIED Active 03-02 00:00: 00 UNSPECIFIED OSTEOARTHRIT IS, UNSPECIFIED SITE Active 03-02 00:00: 00 GASTRO-ESOPH AGEAL REFLUX DISEASE WITHOUT ESOPHAGITIS Active 03-02 00:00: 00 HYPERLIPIDEM IA, UNSPECIFIED Active 03-02 00:00: 00 PRESENCE OF AUTOMATIC (IMPLANTABLE ) CARDIAC DEFIBRILLATO R Active 03-02 00:00: 00 PRESENCE OF RIGHT ARTIFICIAL KNEE JOINT Active 03-02 00:00: 00 PRESENCE OF LEFT ARTIFICIAL KNEE JOINT Active 03-02 00:00: 00 PRESENCE OF RIGHT ARTIFICIAL SHOULDER JOINT Active 03-02 00:00: 00 PRESENCE OF LEFT ARTIFICIAL SHOULDER JOINT Active 03-02 00:00: 00 PERSONAL HISTORY OF NICOTINE DEPENDENCE Active 03-02 00:00: 00 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 Ordering Clinician Indication Dosage Frequency Signature (SIG) Comments Components ondansetron 4 mg disintegrat ing tablet 14 00:00: 00 06-16 00:00 :00 No [id number] Per instruc tions Per instructio ns (route: oral) Med Classific ation: Gastroint estinal Therapy Agents oxycodone 5 mg tablet 14 00:00: 00 Yes [id number] PAIN 1 tablet EVERY 6 HOURS 1 tablet EVERY 6 HOURS (route: oral) Med Classific ation: Analgesic , Anti-infl ammatory or Antipyret ic tramadol 50 mg tablet 10 00:00: 00 06-16 00:00 :00 No [id number] Per instruc tions EVERY 6 HOURS NEEDED Per instructio ns EVERY 6 HOURS NEEDED (route: oral) Med Classific ation: Analgesic , Anti-infl ammatory or Antipyret ic metformin 500 mg tablet 3-29 00:00: 00 Yes [id number] T2DM 1 tablet DAILY 1 tablet DAILY (route: oral) Med Classific ation: Endocrine celecoxib 200 mg capsule 3-28 00:00: 00 Yes [id number] NSAID 1 capsule EVERY DAY 1 capsule EVERY DAY (route: oral) Med Classific ation: Analgesic , Anti-infl ammatory or Antipyret ic cyclobenzap rine 5 mg tablet -26 00:00: 00 Yes [id number] MUSCLE SPASMS 1 tablet EVERY 8 HOURS 1 tablet EVERY 8 HOURS (route: oral) Med Classific ation: Locomotor System gabapentin 300 mg capsule 3-19 00:00: 00 Yes [id number] NERVE PAIN 1 capsule 3 TIMES DAILY 1 capsule 3 TIMES DAILY (route: oral) Med Classific ation: Central Nervous System Agents tramadol 37.5 mg-acetamin ophen 325 mg tablet 05-18 00:00: 00 06-16 00:00 :00 No [id number] Unavailable Per instruc tions EVERY 6 HOURS NEEDED Per instructio ns EVERY 6 HOURS NEEDED (route: oral) Med Classific ation: Analgesic , Anti-infl ammatory or Antipyret ic Aspirin Childrens 81 mg chewable tablet 06-16 00:00: 00 Yes [id number] HEART 1 tablet DAILY 1 tablet DAILY (route: oral) Med Classific ation: Hematolog ical Agents furosemide 20 mg tablet 06-16 00:00: 00 Yes [id number] EDEMA 1 tablet DAILY 1 tablet DAILY (route: oral) Med Classific ation: Cardiovas cular Therapy Agents levothyroxi ne 75 mcg tablet 06-16 00:00: 00 Yes [id number] THYROID 1 tablet DAILY 1 tablet DAILY (route: oral) Med Classific ation: Endocrine losartan 50 mg tablet 06-16 00:00: 00 Yes [id number] BLOOD PRESSURE 1 tablet BEDTIME 1 tablet BEDTIME (route: oral) Med Classific ation: Cardiovas cular Therapy Agents metoprolol succinate ER 25 mg tablet,exte nded release 24 hr 06-16 00:00: 00 Yes [id number] HEART 1 tablet DAILY 1 tablet DAILY (route: oral) Med Classific ation: Cardiovas cular Therapy Agents risedronate 35 mg tablet 06-16 00:00: 00 Yes [id number] OSTEOPOROSI S 1 tablet WEEKLY 1 tablet WEEKLY (route: oral) Med Classific ation: Endocrine rosuvastati n 10 mg tablet 06-16 00:00: 00 Yes [id number] CHOLESTEROL 1 tablet DAILY 1 tablet DAILY (route: oral) Med Classific ation: Cardiovas cular Therapy Agents Vital Signs Vital Name Observation Time Observation Value Commen ts Temperature 2024-10-12 14:46:00.000 97.3 [degF] Temperature 2024-10-04 14:41:00.000 97.9 [degF] Temperature 2024-09-26 15:57:00.000 98.3 [degF] Temperature 2024-09-21 13:05:00.000 98.6 [degF] Temperature 2024-09-15 12:09:00.000 97 [degF] Temperature 2024-09-06 13:02:00.000 97.4 [degF] Temperature 2024-08-22 10:17:00.000 97.4 [degF] Temperature 2024-08-16 12:16:00.000 97.7 [degF] Pulse 2024-10-12 14:46:00.000 84 /min Pulse 2024-10-04 14:41:00.000 72 /min Pulse 2024-09-26 15:57:00.000 72 /min Pulse 2024-09-21 13:05:00.000 75 /min Pulse 2024-09-15 12:09:00.000 80 /min Pulse 2024-09-06 13:02:00.000 80 /min Pulse 2024-08-22 10:17:00.000 84 /min Pulse 2024-08-16 12:16:00.000 80 /min O2 Saturation (%) 2024-10-04 14:41:00.000 92 % O2 Saturation (%) 2024-09-26 15:57:00.000 97 % O2 Saturation (%) 2024-08-22 10:17:00.000 94 % O2 Saturation (%) 2024-08-16 12:16:00.000 94 % Respirations 2024-10-12 14:46:00.000 16 /min Respirations 2024-10-04 14:41:00.000 18 /min Respirations 2024-09-26 15:57:00.000 18 /min Respirations 2024-09-21 13:05:00.000 18 /min Respirations 2024-09-15 12:09:00.000 18 /min Respirations 2024-09-06 13:02:00.000 18 /min Respirations 2024-08-22 10:17:00.000 18 /min Respirations 2024-08-16 12:16:00.000 18 /min Weight (lbs) 2024-09-26 16:12:00.000 143 [lb_av] Systolic Blood Pressure 2024-10-12 14:46:00.000 132 mm [Hg] Systolic Blood Pressure 2024-10-04 14:41:00.000 130 mm [Hg] Systolic Blood Pressure 2024-09-26 15:57:00.000 116 mm [Hg] Systolic Blood Pressure 2024-09-21 13:05:00.000 121 mm [Hg] Systolic Blood Pressure 2024-09-15 12:09:00.000 134 mm [Hg] Systolic Blood Pressure 2024-09-06 13:02:00.000 116 mm [Hg] Systolic Blood Pressure 2024-08-22 10:17:00.000 124 mm [Hg] Systolic Blood Pressure 2024-08-16 12:16:00.000 122 mm [Hg] Diastolic Blood Pressure 2024-10-12 14:46:00.000 72 mm [Hg] Diastolic Blood Pressure 2024-10-04 14:41:00.000 72 mm [Hg] Diastolic Blood Pressure 2024-09-26 15:57:00.000 62 mm [Hg] Diastolic Blood Pressure 2024-09-21 13:05:00.000 63 mm [Hg] Diastolic Blood Pressure 2024-09-15 12:09:00.000 70 mm [Hg] Diastolic Blood Pressure 2024-09-06 13:02:00.000 78 mm [Hg] Diastolic Blood Pressure 2024-08-22 10:17:00.000 68 mm [Hg] Diastolic Blood Pressure 2024-08-16 12:16:00.000 80 mm [Hg] Plan of Treatment Planned Activity Planned Date Details Comments Future Scheduled Test AGENCY MAY PERFORM A RESUMPTION OF CARE VISIT FOLLOWING ANY HOSPITAL ADMISSION. PT TO EVALUATE, OBSERVE / ASSESS, AND MONITOR, COPPER TAPPER TO OBSERVE AND MONITOR, PROVIDE SKILLED THERAPEUTIC INTERVENTION, ACTIVITY, EDUCATION, AND TRAINING TO ADDRESS; [code = AGENCY MAY PERFORM A RESUMPTION OF CARE VISIT FOLLOWING ANY HOSPITAL ADMISSION. PT TO EVALUATE, OBSERVE / ASSESS, AND MONITOR, COPPER TAPPER TO OBSERVE AND MONITOR, PROVIDE SKILLED THERAPEUTIC INTERVENTION, ACTIVITY, EDUCATION, AND TRAINING TO ADDRESS;] Future Scheduled Test THERAPEUTI C EXERCISES AND ESTABLISHING A HOME EXERCISE PROGRAM (PT/COPPER TAPPER) [code = THERAPEUTIC EXERCISES AND ESTABLISHING A HOME EXERCISE PROGRAM (PT/COPPER TAPPER)] Future Scheduled Test NEUROMUSCU LAR RE-EDUCATION / BALANCE / POSTURAL CONTROL (PT) [code = NEUROMUSCULAR RE-EDUCATION / BALANCE / POSTURAL CONTROL (PT)] Future Scheduled Test SIT TO/FRO M STAND TRANSFERS (PT/COPPER TAPPER) [code = SIT TO/FROM STAND TRANSFERS (PT/COPPER TAPPER)] Future Scheduled Test PT/COPPER TAPPER TO PROVIDE GAIT TRAINING FOR IMPROVED MOBILITY AND /OR TO NORMALIZE GAIT PATTERN [code = PT/COPPER TAPPER TO PROVIDE GAIT TRAINING FOR IMPROVED MOBILITY AND /OR TO NORMALIZE GAIT PATTERN] Future Scheduled Test PT / COPPER TAPPER T O MONITOR FOR HYPO/HYPERGLYCEMIA AND CONDUCT ROUTINE FOOT INSPECTIONS. RECORD PATIENT REPORTED BLOOD SUGAR LEVELS AND NOTIFY PHYSICIAN AND/OR THE RN CLINICAL VENDING MACHINE MECHANIC FOR PHYSICIAN NOTIFICATION IF BLOOD SUGAR LEVELS ARE OUTSIDE ORDERED PARAMETERS. TEACH PATIENT/CAREGIVER ON DAILY FOOT INSPECTIONS [code = PT / COPPER TAPPER TO MONITOR FOR HYPO/HYPERGLYCEMIA AND CONDUCT ROUTINE FOOT INSPECTIONS. RECORD PATIENT REPORTED BLOOD SUGAR LEVELS AND NOTIFY PHYSICIAN AND/OR THE RN CLINICAL VENDING MACHINE MECHANIC FOR PHYSICIAN NOTIFICATION IF BLOOD SUGAR LEVELS ARE OUTSIDE ORDERED PARAMETERS. TEACH PATIENT/CAREGIVER ON DAILY FOOT INSPECTIONS] Future Scheduled Test PT / COPPER TAPPER T O MONITOR AND EDUCATE ON OXYGEN SATURATION DURING ADLS/IADLS, NOTIFY PHYSICIAN AND/OR THE RN CLINICAL VENDING MACHINE MECHANIC FOR PHYSICIAN NOTIFICATION AND IF O2 SATS BELOW PHYSICIAN ORDERED PARAMETERS AFTER 10 MIN OF REST [code = PT / COPPER TAPPER TO MONITOR AND EDUCATE ON OXYGEN SATURATION DURING ADLS/IADLS, NOTIFY PHYSICIAN AND/OR THE RN CLINICAL VENDING MACHINE MECHANIC FOR PHYSICIAN NOTIFICATION AND IF O2 SATS BELOW PHYSICIAN ORDERED PARAMETERS AFTER 10 MIN OF REST] Future Scheduled Test PT TO ASSE SS / COPPER TAPPER TO MONITOR CARDIO/RESPIRATORY SYSTEM; AND NOTIFY THE PHYSICIAN AND/OR THE RN CLINICAL VENDING MACHINE MECHANIC FOR PHYSICIAN NOTIFICATION FOR EARLY SIGNS AND SYMPTOMS OF EXACERBATION OR DETERIORATION. [code = PT TO ASSESS / COPPER TAPPER TO MONITOR CARDIO/RESPIRATORY SYSTEM; AND NOTIFY THE PHYSICIAN AND/OR THE RN CLINICAL VENDING MACHINE MECHANIC FOR PHYSICIAN NOTIFICATION FOR EARLY SIGNS AND SYMPTOMS OF EXACERBATION OR DETERIORATION.] Goal 2024-08-12 Patient Goal - I NDEPENDENCE WITH FUNCTIONAL ACTIVITIES WITHIN HOME Goal 2024-10-12 Patient Goal - I NDEPENDENCE WITH FUNCTIONAL ACTIVITIES WITHIN HOME Goal Provider Goal - Goal Provider Goal - PT STG: PATIENT WILL DEMONSTRATE IMPROVED FUNCTIONAL STRENGTH EVIDENCED BY FIVE TIMES SIT TO STAND TEST (CUT SCORE >12 SECONDS INDICATES AN INCREASED FALL RISK) IMPROVING FROM 36 SECONDS TO LESS THAN OR EQUAL TO 30 SECONDS WITHIN 4 WEEKS IN ORDER TO DECREASE FALL RISK PT LTG: PATIENT WILL DEMONSTRATE IMPROVED FUNCTIONAL STRENGTH EVIDENCED BY FIVE TIMES SIT TO STAND TEST (CUT SCORE >12 SECONDS INDICATES AN INCREASED FALL RISK) IMPROVING FROM 36 SECONDS TO LESS THAN OR EQUAL TO 12 SECONDS WITHIN 8 WEEKS IN ORDER TO DECREASE FALL RISK PT LTG: PATIENT WILL DEMONSTRATE INDEPENDENCE AND COMPLIANCE WITH HEP WITHIN 4 WEEKS Goal Provider Goal - PT STG: PATIENT WILL DEMONSTRATE REDUCED FALL RISK EVIDENCED BY TUG TEST (CUT SCORE >11 SECONDS INDICATES INCREASED FALL RISK) IMPROVING FROM 50 SECONDS TO LESS THAN OR EQUAL TO 44 SECONDS WITHIN 4 WEEKS PT LTG: PATIENT WILL DEMONSTRATE REDUCED FALL RISK EVIDENCED BY TUG TEST (CUT SCORE >11 SECONDS INDICATES INCREASED FALL RISK) IMPROVING FROM 50 SECONDS TO LESS THAN OR EQUAL TO 20 SECONDS WITHIN 8 WEEKS Goal Provider Goal - PT STG: PATIENT WILL DEMONSTRATE IMPROVED ABILITY TO PERFORM SIT TO/FROM STAND TRANSFERS TO REDUCE THE RISK OF SKIN BREAKDOWN AND REDUCE FALL RISK FROM SBA TO IND WITHIN 8 WEEKS Goal Provider Goal - PT STG: PATIENT WILL DEMONSTRATE IMPROVED 6 MINUTE WALK TEST AMBULATION FROM 75 FT CGA TO 150 FT SBA WITH APPROPRIATE AD WITHIN 4 WEEKS. PT LTG: PATIENT WILL DEMONSTRATE IMPROVED 6 MINUTE WALK TEST AMBULATION FROM 75 FT CGA TO 300 FT IND WITH APPROPRIATE AD WITHIN 8 WEEKS. Goal Provider Goal - PATIENT S BLOOD SUGAR WILL REMAIN WELL CONTROLLED WITH SELF-MANAGEMENT THROUGHOUT EPISODE OF CARE. Goal Provider Goal - PT LTG: PATIENT WILL MAINTAIN OXYGEN SATURATION WITHIN PHYSICIAN ORDERED PARAMETERS THROUGHOUT EPISODE OF CARE. Goal Provider Goal - PT LTG: PATIENT WILL NOT EXPERIENCE CARDIAC OR RESPIRATORY COMPLICATIONS THROUGHOUT THE EPISODE OF CARE. Reason for Visit INDEPENDENT WITH USE OF ASSISTIVE DEVICE Encounters Start Date/Time End Date/Time Encounter Type Admission Type Attending [facility] Care Department Encounter ID Discharge Date Discharge Status Discharge Condition Discharge Reason Percent Goals Met 2024-08-15 00:00:00 2024-10-12 00:00:00 Outpatient RECERTIFIC ATION BENJAMIN MARTÍNEZ [facility] [id number] 2024-10-12 00:00:00 DISCHARGE TO HOME OR SELF CARE INDEPENDEN T WITH USE OF ASSISTIVE DEVICE HH - OTHER (PROVIDE DETAILS IN COORD NOTE) 88.89
--- OUTSIDE RECORDS SUMMARY | 2024-10-11 20:00 | XMS_ITS | Clinical Summary ---
Author Organization Unknown Care Team Providers Care Burning Machine Operator Name Role Phone ESTHER LOWE, GILMA Unavailable Unavailable TANYA PT, BENJAMIN Unavailable Unavailable CANDIDA OT, TED Unavailable Unavailable ONIEL RECREATION SPECIALIST, LAURA Unavailable Unavailable Payers Payer Name Policy Type Policy Number Effective Date Expira tion Date [employer].APRIL.PPO.C.AUTH [id number] Problems Condition Name Condition Details Condition Category [...] 03-02 00:00: 00 ATHSCL HEART DISEASE OF [place] CORONARY ARTERY W/O ANG PCTRS Active 03-02 [...] OF NICOTINE DEPENDENCE Active 03-02 00:00: 00 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 Active [...] 14 00:00: 00 06-16 00:00 :00 No [id number] Per instruc tions Per instructio ns (route: oral) Med Classific ation: Gastroint estinal Therapy Agents oxycodone 5 mg tablet 14 00:00: 00 Yes [id number] PAIN 1 tablet EVERY 6 HOURS 1 tablet EVERY 6 HOURS (route: oral) Med Classific ation: Analgesic , Anti-infl ammatory or Antipyret ic tramadol 50 mg tablet 10 00:00: 00 06-16 00:00 :00 No [id number] Per instruc tions EVERY 6 HOURS NEEDED Per instructio ns EVERY 6 HOURS NEEDED (route: oral) Med Classific ation: Analgesic , Anti-infl ammatory or Antipyret ic metformin 500 mg tablet 3-29 00:00: 00 Yes [id number] T2DM 1 tablet DAILY 1 tablet DAILY (route: oral) Med Classific ation: Endocrine celecoxib 200 mg capsule 3-28 00:00: 00 Yes [id number] NSAID 1 capsule EVERY DAY 1 capsule EVERY DAY (route: oral) Med Classific ation: Analgesic , Anti-infl ammatory or Antipyret ic cyclobenzap rine 5 mg tablet -26 00:00: 00 Yes [id number] MUSCLE SPASMS 1 tablet EVERY 8 HOURS 1 tablet EVERY 8 HOURS (route: oral) Med Classific ation: Locomotor System gabapentin 300 mg capsule 3-19 00:00: 00 Yes [id number] NERVE PAIN 1 capsule 3 TIMES DAILY 1 capsule 3 TIMES DAILY (route: oral) Med Classific ation: Central Nervous System Agents tramadol 37.5 mg-acetamin ophen 325 mg tablet 05-18 00:00: 00 06-16 00:00 :00 No [id number] Unavailable Per instruc tions EVERY 6 HOURS NEEDED Per instructio ns EVERY 6 HOURS NEEDED (route: oral) Med Classific ation: Analgesic , Anti-infl ammatory or Antipyret ic Aspirin Childrens 81 mg chewable tablet 06-16 00:00: 00 Yes [id number] HEART 1 tablet DAILY 1 tablet DAILY (route: oral) Med Classific ation: Hematolog ical Agents furosemide 20 mg tablet 06-16 00:00: 00 Yes [id number] EDEMA 1 tablet DAILY 1 tablet DAILY (route: oral) Med Classific ation: Cardiovas cular Therapy Agents levothyroxi ne 75 mcg tablet 06-16 00:00: 00 Yes [id number] THYROID 1 tablet DAILY 1 tablet DAILY (route: oral) Med Classific ation: Endocrine losartan 50 mg tablet 06-16 00:00: 00 Yes [id number] BLOOD PRESSURE 1 tablet BEDTIME 1 tablet BEDTIME (route: oral) Med Classific ation: Cardiovas cular Therapy Agents metoprolol succinate ER 25 mg tablet,exte nded release 24 hr 06-16 00:00: 00 Yes [id number] HEART 1 tablet DAILY 1 tablet DAILY (route: oral) Med Classific ation: Cardiovas cular Therapy Agents risedronate 35 mg tablet 06-16 00:00: 00 Yes [id number] OSTEOPOROSI S 1 tablet WEEKLY 1 tablet WEEKLY (route: oral) Med Classific ation: Endocrine rosuvastati n 10 mg tablet 06-16 00:00: 00 Yes [id number] CHOLESTEROL 1 tablet DAILY 1 tablet DAILY [...] TO EVALUATE, OBSERVE / ASSESS, AND MONITOR, RECREATION SPECIALIST TO OBSERVE AND MONITOR, PROVIDE SKILLED THERAPEUTIC INTERVENTION, ACTIVITY, EDUCATION, AND TRAINING TO ADDRESS; [code = AGENCY MAY PERFORM A RESUMPTION OF CARE VISIT FOLLOWING ANY HOSPITAL ADMISSION. PT TO EVALUATE, OBSERVE / ASSESS, AND MONITOR, RECREATION SPECIALIST TO OBSERVE AND MONITOR, PROVIDE SKILLED THERAPEUTIC INTERVENTION, ACTIVITY, EDUCATION, AND TRAINING TO ADDRESS;] Future Scheduled Test THERAPEUTI C EXERCISES AND ESTABLISHING A HOME EXERCISE PROGRAM (PT/RECREATION SPECIALIST) [code = THERAPEUTIC EXERCISES AND ESTABLISHING A HOME EXERCISE PROGRAM (PT/RECREATION SPECIALIST)] Future Scheduled Test NEUROMUSCU LAR RE-EDUCATION / BALANCE / POSTURAL CONTROL (PT) [code = NEUROMUSCULAR RE-EDUCATION / BALANCE / POSTURAL CONTROL (PT)] Future Scheduled Test SIT TO/FRO M STAND TRANSFERS (PT/RECREATION SPECIALIST) [code = SIT TO/FROM STAND TRANSFERS (PT/RECREATION SPECIALIST)] Future Scheduled Test PT/RECREATION SPECIALIST TO PROVIDE GAIT TRAINING FOR IMPROVED MOBILITY AND /OR TO NORMALIZE GAIT PATTERN [code = PT/RECREATION SPECIALIST TO PROVIDE GAIT TRAINING FOR IMPROVED MOBILITY AND /OR TO NORMALIZE GAIT PATTERN] Future Scheduled Test PT / RECREATION SPECIALIST T O MONITOR FOR HYPO/HYPERGLYCEMIA AND CONDUCT ROUTINE FOOT INSPECTIONS. RECORD PATIENT REPORTED BLOOD SUGAR LEVELS AND NOTIFY PHYSICIAN AND/OR THE RN CLINICAL PUBLIC HEALTH ANALYST FOR PHYSICIAN NOTIFICATION IF BLOOD SUGAR LEVELS ARE OUTSIDE ORDERED PARAMETERS. TEACH PATIENT/CAREGIVER ON DAILY FOOT INSPECTIONS [code = PT / RECREATION SPECIALIST TO MONITOR FOR HYPO/HYPERGLYCEMIA AND CONDUCT ROUTINE FOOT INSPECTIONS. RECORD PATIENT REPORTED BLOOD SUGAR LEVELS AND NOTIFY PHYSICIAN AND/OR THE RN CLINICAL PUBLIC HEALTH ANALYST FOR PHYSICIAN NOTIFICATION IF BLOOD SUGAR LEVELS ARE OUTSIDE ORDERED PARAMETERS. TEACH PATIENT/CAREGIVER ON DAILY FOOT INSPECTIONS] Future Scheduled Test PT / RECREATION SPECIALIST T O MONITOR AND EDUCATE ON OXYGEN SATURATION DURING ADLS/IADLS, NOTIFY PHYSICIAN AND/OR THE RN CLINICAL PUBLIC HEALTH ANALYST FOR PHYSICIAN NOTIFICATION AND IF O2 SATS BELOW PHYSICIAN ORDERED PARAMETERS AFTER 10 MIN OF REST [code = PT / RECREATION SPECIALIST TO MONITOR AND EDUCATE ON OXYGEN SATURATION DURING ADLS/IADLS, NOTIFY PHYSICIAN AND/OR THE RN CLINICAL PUBLIC HEALTH ANALYST FOR PHYSICIAN NOTIFICATION AND IF O2 SATS BELOW PHYSICIAN ORDERED PARAMETERS AFTER 10 MIN OF REST] Future Scheduled Test PT TO ASSE SS / RECREATION SPECIALIST TO MONITOR CARDIO/RESPIRATORY SYSTEM; AND NOTIFY THE PHYSICIAN AND/OR THE RN CLINICAL PUBLIC HEALTH ANALYST FOR PHYSICIAN NOTIFICATION FOR EARLY SIGNS AND SYMPTOMS OF EXACERBATION OR DETERIORATION. [code = PT TO ASSESS / RECREATION SPECIALIST TO MONITOR CARDIO/RESPIRATORY SYSTEM; AND NOTIFY THE PHYSICIAN AND/OR THE RN CLINICAL PUBLIC HEALTH ANALYST FOR PHYSICIAN NOTIFICATION FOR EARLY SIGNS AND [...] End Date/Time Encounter Type Admission Type Attending [facility] Care Department Encounter ID Discharge Date Discharge Status Discharge Condition Discharge Reason Percent Goals Met 2024-08-15 00:00:00 2024-10-12 00:00:00 Outpatient RECERTIFIC ATION BENJAMIN MART[facility]NEZ [facility] [id number] 2024-10-12 00:00:00 DISCHARGE TO HOME OR SELF CARE INDEPENDEN T WITH USE OF ASSISTIVE DEVICE HH - OTHER (PROVIDE DETAILS IN COORD NOTE) 88.89
--- OUTSIDE RECORDS SUMMARY | 2024-10-26 08:00 | XMS_ITS | Encounter Summary ---
Author Organization Healthcare Address [address] [place] [address] Care Team Providers Care Extension Division Director Name Role Phone Jose Garcia MD Primary Care Provider +1- [phone] Reason for Visit * Reason Comments Follow-up Encounter Details Date Type Department Care Team (Latest Contact Info) Description 10/26/2024 8:00 AM EDT Office Visit [facility] [address], [address] [place] [address] Jeffrey Pool MD [address] [place] [address] Status post reverse arthroplasty of [...] any time in the past 12 m [facility], were you homeless or living in a jail (including now)? No 06/14/2024 Utilities Answer Date [...] 7:57 AM EDT documented in this encounter Plan of Treatment Upcoming Encounters Date Type Department Care Team (Late st Contact Info) Description 01/25/2025 7:50 AM EST Appointment [facility] [address], [address] [place] [address] 01/25/2025 8:30 AM EST Office Visit [facility] [address], [address] [place] [address] Jeffrey Pool MD [address] [place] [phone] Scheduled Orders Name Type Priority Associated Diagnoses [...] wear , care and precautions. Occupational Therapy No Valentina Rodriguez documented as of this encounter Results * [...] lung are grossly clear. Procedure Note Lora eNgrete MD - 10/26/2024 CLINICAL INDICATION: pain TECHNIQUE: [...] documented as of this encounter Care Teams Extension Division Director Relationship Specialty Start Date End Date Jose Garcia MD [address] [place] [address] PCP - General 07/13/20 documented as of this encounter
--- OUTSIDE RECORDS SUMMARY | 2024-10-26 08:04 | XMS_ITS | Encounter Summary ---
Author Organization Healthcare Address [address] [place] [address] Care Team Providers Care Card Fixer Name Role Phone Jose Garcia MD Primary Care Provider +1- [phone] Encounter Details Date Type Department Care Team (Latest Contact Info) Description 10/26/2024 8:04 AM EDT - 10/26/2024 11:59 PM EDT [facility] [address], [address] [place] [phone] Status post reverse arthroplasty of right shoulder [...] time in the past 12 m [facility], were you homeless or living in a senior care (including now)? No 06/14/2024 Utilities Answer Date [...] Info) Description 01/25/2025 7:50 AM EST Appointment [facility] [address], [address] [place] [phone] 01/25/2025 8:30 AM EST Office Visit [facility] [address] [place] [address] Jeffrey Pool MD [address] [place] [address] documented as of this encounter Goals Goal [...] documented as of this encounter Care Teams Card Fixer Relationship Specialty Start Date End Date Jose Garcia MD [address] [place] [address] PCP - General 07/13/20 documented as of this encounter
--- OUTSIDE RECORDS SUMMARY | 2024-10-27 10:44 | XMS_ITS | Patient Health Record ---
[facility] Address [address] [facility] [address] [place] [id number] Care Team Providers Care Dry House Wheeler Name Role Phone Sanjeev Garcia Primary Care Provider Kandy Magaña Unavailable [phone] Allergies No Known Allergies Results Component Value [...] - 38 plat 179 100 - 400 CXR Reviewed date:08/03/2024 05:27:07 PM Interpretation:low lung volumes Performing Lab: Notes/Report: low lung volumes Medications Medication SIG (Take, Route, Frequency, Duration) Notes Start Date End Date Status Betamethasone Dipropionate Aug 0.05 % 1 chrissy applied topically 2 times a day 10/15/2021 Active Albuterol Sulfate HFA 108 (90 Base) MCG/ACT 1 puff as needed Inhalation qid prn 07/18/2024 Active Furosemide 20 MG 1 tab(s) orally once a day 07/11/2021 Active oxyCODONE HCl 10 MG 1 tablet as needed Orally every 6 hrs Not-Taking Omeprazole 40 MG 1 cap(s) orally once a day; Duration: 30 days Active Losartan Potassium 50 MG 1 tab(s) orally once a day Active Calcium-Vitamin D-Minerals 600-800 MG-UNIT 1 tab(s) orally 2 times a day; Duration: 30 Active Metoprolol Succinate ER 25 MG 1 tab(s) orally once a day Active levoFLOXacin 500 MG 1 tablet Orally Once a day; Duration: 7 days 07/18/2024 Active traMADol HCl 50 MG 1 tab(s) Orally q6h prn 09/27/2024 Active metFORMIN HCl 500 mg TAKE ONE TABLET BY MOUTH EVERY DAY with a meal; Duration: 30 days Active Levothyroxine Sodium 75 mcg TAKE ONE TAB LET BY MOUTH EVERY DAY; Duration: 90 Active Celecoxib 200 mg TAKE ONE CAPSULE BY MOUTH EVERY DAY --TAKE WITH FOOD--; Duration: 30 Active Actonel 35 MG 1 tab(s) orally once a week; Duration: 90 days Active Gabapentin 300 MG 1 cap(s) orally Thre e times a day; Duration: 90 days 08/11/2024 Active Vitamin B-12 1000 MCG 2.5 orally once a day Active Cyclobenzaprine HCl 5 MG 1 tab Orally ev jo 8 hours PRN Active Crestor 10 MG 1 tab(s) orally once a day Active Aspirin 81 MG 1 tab(s) orally once a day; Duration: 30 day(s) Active Immunizations Vaccine Route Administration Date Status Comme nts xFlu shot-36 months and older IM Intramuscular 01/09/2005 Administered xFlu shot-36 months and older IM Intramuscular 12/11/2006 Administered Prevnar (PCV20) IM Intramuscular 12/17/2021 Administered PNEUMOVAX 23 VACCINE ID Intradermal 01/27/2012 Administere d Fluzone High Dose (65yr and older) IM Intramuscular 01/23/2015 Administered Fluzone High Dose (65yr and older) IM Intramuscular 12/21/2015 Administered Fluzone High Dose (65yr and older) IM Intramuscular 01/09/2017 Administered Fluzone High Dose (65yr and older) IM Intramuscular 12/03/2017 Administered Fluzone High Dose (65yr and older) IM Intramuscular 01/14/2019 Administered Fluzone High Dose (65yr and older) IM Intramuscular 12/17/2021 Administered Fluzone High Dose (65yr and older) IM Intramuscular 12/02/2022 Administered COVID 19 Moderna Unknown 03/14/2020 Administered COVID 19 Moderna Unknown 04/13/2020 Administered Fluzone High Dose (65yr and older) IM Intramuscular 12/29/2012 Administered Fluzone Quad-Medicare (6months&older) Unknown 12/16/2019 Administered H1N1 flu vaccine IM Intramuscular 02/02/2009 Administered PNEUMOVAX 23 VACCINE IM Intramuscular 01/14/2019 Administe red Prevnar (PCV13) IM Intramuscular 07/11/2014 Administered Shingrix Unknown 08/12/2018 Administered Tetanus Tdap-Adacel (over 7yrs) Unknown 05/29/2023 Administered Tetanus Tdap-Adacel (over 7yrs) IM Intramuscular 01/09/2017 Administered xFlu shot-36 months and older IM Intramuscular 11/10/2008 Administered xFlu shot-36 months and older IM Intramuscular 12/25/2007 Administered xFlu shot-36 months and older IM Intramuscular 01/03/2006 Administered xFluzone (6mos and older)-trivalent IM Intramuscular 12/21/2009 Administered sYkrgsdb-qvupbhgqi-qsoxlwe e pts. IM Intramuscular 12/20/2013 Administered xHeczbcu-wujysyfdc-lfymvri e pts. IM Intramuscular 01/27/2012 Administered COVID 19 Moderna Unknown 11/21/2020 Administered Fluzone High Dose (65yr and older) IM Intramuscular 12/04/2020 Administered Fluzone High Dose (65yr and older) IM Intramuscular 01/28/2017 Administered Problems Problem Type SNOMED Code ICD Code Onset Dates Problem Status W/U Status Risk Notes Problem Hypertension (43402590) HTN (hypertension) (I10) Active confirmed Problem Overactive bladder (159871267) Overactive bladder (N32.81) Active confirmed Problem Otitis externa (4538969) Otitis externa (H60.90) Active confirmed Problem Disorder of lumbar disc (818508246) Lumbar disc disease (M51.9) Active confirmed Problem Diabetic neuropathy (898854641) Diabetic neuropathy (E11.40) Active confirmed Problem Anxiety (94784380) Anxiety (F41.1) Active confi rmed Problem Anxiety (85318833) Situational anxiety (F41.8) Active confirmed Problem Polyneuropathy due to type 2 diabetes mellitus (488205588) Type 2 diabetes mellitus with diabetic polyneuropathy (E11.42) Active confirmed Problem Osteoarthritis (460623248) Unspecified osteoarthritis, unspecified site (M19.90) Active confirmed Problem Age-related osteoporosis (785078210) Age-related osteoporosis without current pathological fracture (M81.0) Active confirmed Problem Generalized osteoarthritis (944003513) Generalized osteoarthritis (M15.9) Active confirmed Problem Gastroesophageal reflux disease without esophagitis (345867766) Gastroesophageal reflux disease without esophagitis (K21.9) Active confirmed Problem Acquired hypothyroidism (548494684) Acquired hypothyroidism (E03.9) Active confirmed Problem Osteoporosis (74194928) Osteoporosis (M81.0) Active confirmed Problem Cardiomyopathy (82049736) Cardiomyopathy (I42.9) Active confirmed Problem Dyslipidemia (705618395) Dyslipidemia (E78.5) Active confirmed Vital Signs Heart Rate 62 /min 08/01/2024 Blood pressure diastolic 72 mm Hg 08/01/2024 Height 56 in 08/01/2024 Blood pressure systolic 120 mm Hg 08/01/2024 Weight 143 lbs 08/01/2024 BMI 32.06 kg/m2 08/01/2024 Encounters Encounter Location Date Provider Diagnosis [facility] [address] [id number] 11/30/2023 Kandy Magaña Wound of skin R23.8 [facility] [address] [place] [id number] 06/23/2024 R Clay Jose Acute bronchitis J20 .9 ; Hypoxemia R09.02 ; Type 2 diabetes mellitus with diabetic polyneuropathy E11.42 ; Acquired hypothyroidism E03.9 ; HTN (hypertension) I10 ; Cardiomyopathy I42.9 ; Dyslipidemia E78.5 and Diabetic neuropathy E11.40 [facility] [facility] [address] [place], [place] [id number] 07/18/2024 Kandy Magaña Acute bronchitis J20 .9 [facility] [address] [place], [place] [id number] 08/01/2024 Kandy Magaña Acute cough R05.1 [facility] [address] [place] [address] [place] [id number] 02/05/2024 R Clay Jose Lumbar radiculopathy M54.16 and Type 2 diabetes mellitus with diabetic polyneuropathy E11.42 [facility] [address] [place], [place] [id number] 04/13/2024 R Clay Jose [facility] [address] [place], [place] [id number] 05/18/2024 R Clay Jose [facility] [address] [place], [place] [id number] 06/06/2024 R Clay Jose Lumbar radiculopathy M54.16 [facility] [address] [place], [place] [id number] 06/08/2024 R Clay Jose Lumbar radiculopathy M54.16 [facility] [address] [place], [place] [id number] 06/08/2024 R Clay Jose [facility] [address] [place], [place] [id number] 06/15/2024 R Clay Jose [facility] [address] [place], [place] [id number] 08/11/2024 R Clay Jose Type 2 diabetes mellitus with diabetic polyneuropathy E11.42 [facility] [address] [facility] [address] [place], [place] [id number] 09/27/2024 R Clay Jose Assessments Encounter Date Diagnosis (ICD Code) Assessment Notes Treatment Notes Treatment Clinical Notes Section Notes 02/05/2024 Lumbar radiculopathy (ICD-10 - M54.16) 06/06/2024 Lumbar radiculopathy (ICD-10 - M54.16) 06/08/2024 Lumbar radiculopathy (ICD-10 - M54.16) 06/23/2024 Acute bronchitis (ICD-10 - J20.9) 06/23/2024 Hypoxemia (ICD-10 - R09.02) 07/18/2024 Acute bronchitis (ICD-10 - J20.9) fluids, rest, supportive measures for fever/symptom relief 08/01/2024 Acute cough (ICD-10 - R05.1) Use albuterol prn, chest x-ray, continue with cough meds. fluids, rest, supportive measures for fever/symptom relief 08/11/2024 Type 2 diabetes mellitus with diabetic polyneuropathy (ICD-10 - E11.42) 11/30/2023 Wound of skin (ICD-10 - R23.8) discussed the following with pt and her daughter: pressure relief q 2 hours when sitting; prevention of friction; padding on wheelchair; padding over open area-no med or tape; keep clean 06/23/2024 Type 2 diabetes mellitus with diabetic polyneuropathy (ICD-10 - E11.42) 02/05/2024 Type 2 diabetes mellitus with diabetic polyneuropathy (ICD-10 - E11.42) 06/23/2024 Acquired hypothyroidism (ICD-10 - E03.9) 06/23/2024 HTN (hypertension) (ICD-10 - I10) 06/23/2024 Cardiomyopathy (ICD-10 - I42.9) 06/23/2024 Dyslipidemia (ICD-10 - E78.5) 06/23/2024 Diabetic neuropathy (ICD-10 - E11.40) 06/23/2024 Other Discharge summary with available lab/diagnostic imaging results obtained and reviewed. Discharge medication list reconciled. Appropriate counseling provided. Moderate Complexity 08/01/2024 Other return for follow up in 1 month along with AW Plan Of Treatment Next Appt Details Provider Name:Sanjeev Heck, 11/01/2024 09:45:00 AM, [address], [address], [place], [place], [id number], Insurance Providers Payer Name Payer Address Payer Phone Subscriber Number Group Number Insured Name Patient Relationship to Insured Coverage Start Date Coverage End Date [employer] (MEDICAR E) [address] [address] [place] [address] [id number] CHEL LEVY Self - patient is the insured Medications Administered Medication Instructions Date of Administration Dosage Notes Depo- Medrol 40 mg/ml 10/06/2008 1.5 mL Depo- Medrol 40 mg/ml 12/20/2019 1.5 mL Depo- Medrol 40 mg/ml 08/10/2020 1.5 mL Giv en by Rachana Priest Depo- Medrol 40 mg/ml 12/04/2020 1.5 mL Depo- Medrol 40 mg/ml 11/15/2021 2 mL Dexamethasone 02/02/2009 1 mL Depo- Medrol 40 mg/ml 04/20/2020 1 mL Depo- Medrol 40 mg/ml 02/28/2020 1.5 mL Depo- Medrol 40 mg/ml 05/29/2017 1.5 mL Depo- Medrol 40 mg/ml 05/22/2016 1 mL Depo- Medrol 40 mg/ml 11/23/2015 1.5 mL Depo- Medrol 40 mg/ml 01/15/2010 1.5mL Depo- Medrol 40 mg/ml 08/27/2007 1.5 mL Dexamethasone 10/08/2018 1 mL Depo- Medrol 40 mg/ml 08/19/2022 1 mL Depo- Medrol 40 mg/ml 06/24/2022 1.5 mL Depo- Medrol 40 mg/ml 09/21/2009 1.5 mL Depo- Medrol 40 mg/ml 10/01/2010 0.5 mL Depo- Medrol 40 mg/ml 09/19/2011 1 Medical (General) History Medical History History ICD Code osteoarthrits hypothyroidism Type 2 diabetes umbilical hernia HLP sleep apnea COPD Osteoporosis Diabetic neuropathy Cardiomyopathy by ECHO 08/2019 => EF 20-3 0% Surgical History Surgery Date(Month/Year) hysterectomy right knee surgery L index surgery cyst removed 08-08 Cyst removed from spine-Dr Cheatham @ [facility] 12/2011 cataract surgery both eyes 05/2012 carpel tunnel surgery on left wrist 06/19 13 carpel tunnel surgery right hand 06/2013 Left TKA 12/2013 left reverse shoulder arthroplasty 01/20 16 right TKA - [facility] 01/11/18 reverse right shoulder replacement - Dr Craft 04/05/2019 AICD implanted - Dr. Honeycutt 08/31/2019 ORIF right humeral shaft fx - [facility] 04/2021 Revision of right humeral shaft fx - [facility] 05/2024 Hospitalization History Reason Date(Month/Year) H-pneumonia 03/2016 [facility] ER-vaginal itching 02/24/16 [facility] ER-neck pain 06/15 [facility] ER-muscle spasm under le ft breast 2.7.12 [facility], Pneumonia, Cellulitis, COPD 12/19/10
--- OUTSIDE RECORDS SUMMARY | 2024-10-27 10:44 | XMS_ITS | Clinical Summary ---
Author Organization [facility] Address [address] [place] [address] Phone Care Team Providers Care Secretary Of State Name Role Phone Valentina Dominique Unavailable Unavailable Conditions or Problems Problem Name Problem Code Onset Date Status Entry Date Provider Comment Standard Description Annotate CELLULITIS , BACK [id number] (SNOMED CT) Active Valentina Dominique Cellulitis of back, except buttock REDNESS-SK IN L52 (ICD-10-CM) Active Valentina Dominique Erythema nodosum Medications Medication Instructions Start Date Stop Date Generic Name [facility] Provider ADVAIR DISKUS AEROSOL POWDER BREATH ACTIVATED FLUTICASONE-SALME TEROL AEPB [id number] Valentina Dominique ALBUTEROL SULFATE NEBU ALBUTEROL SULFATE NEBU [id number] Valentina Dominique PREDNISONE TABS PREDNISONE TABS 41783694896 Valentina Dominique CVS VITAMIN B-12 TABS CYANOCOBALAMIN TABS 95166751353 Valentina Dominique MELOXICAM TABS MELOXICAM TABS 03822593877 Valentina Dominique LOVASTATIN TABS LOVASTATIN TABS 81516001435 Valentina Dominique LISINOPRIL TABS LISINOPRIL TABS 49490253137 Valentina Dominique LEVOTHYROXINE SODIUM TABS LEVOTHYROXINE SODIUM TABS 91794841476 Valentina Dominique JANUVIA TABS SITAGLIPTIN PHOSPHATE TABS 17953923422 Valentina Dominique GLIPIZIDE TABS GLIPIZIDE TABS 49984889415 Valentina Dominique GABAPENTIN CAPS GABAPENTIN CAPS 44634973549 Valentina Dominique ATENOLOL TABS ATENOLOL TABS 73031210707 Valentina Dominique Medications Administered No information available. Allergies, Adverse Reactions, Alerts Observed no known allergies at Results Date Name Value Unit Range Flag Description Clinical Lists Update: Prelo ad SMOK STATUS former smoker Tob acco smoking status Plan of Care No information available. Procedures No information available. Vital Signs No information available. Immunizations No information available. Advance Directives No information available.
--- OUTSIDE RECORDS SUMMARY | 2024-10-27 10:44 | XMS_ITS | Encounter Summary ---
Author Organization Healthcare Address [address] [place] [address] Care Team Providers Care Stator Plate Washer Name Role Phone Jose Garcia MD Primary Care Provider [phone] Reason for Visit * Reason Onset Date Comments HCN - Patient Message 07/27/2024 Encounter Details Date Type Department Care Team (Late st Contact Info) Description 07/27/2024 Telephone [facility] Orthopaedic Surgery & Sports Medicine [address] [place] [address] Jeffrey Pool MD [address] [place] [address] HCN - Patient Message Social History Tobacco Use Types Packs/Day Years Used Date Smoking Tobacco: Former Cigarettes 1 15 1 970 - 1984 Smokeless Tobacco: Never Alcohol [...] any time in the past 12 m [facility], were you homeless or living in a intermediate (including now)? No 06/14/2024 Utilities Answer Date [...] AM EDT documented as of this encounter Miscellaneous Notes * Telephone Encounter - Blayne Tiffanie Curiel - 07/27/2024 1:27 PM EDT Patient's daughter Rosalee answered and we clarified that she isn't to start any OT at this time she is to stay in the sling except for bathing, sleeping and eating until follow up. No weight to the arm * Telephone Encounter - Paco Zamora - 07/27/2024 9:37 AM EDT Clinical Concern/Question Reason for Call: Dr. Pool pt's daughter, [place], is requesting a call back to clarify physicalrestrictions. Best contact number: [phone] (mobile) Optimal time of day to reach caller: ANYTIME Additional comments/information from caller: None Note: Please do not reply to this message. Follow-up communication and further actions as a result of this message need to be communicated with the patient directly, if the patient is not active onMyChart. If the patient is active on MyChart, they will receive notification of the communication/outcome via Dekk[employer]. documented in this encounter Plan of Treatment Upcoming Encounters Date Type Department Care Team (Late st Contact Info) Description 01/25/2025 7:50 AM EST Appointment [facility] Radiology [address] [place] [address] 01/25/2025 8:30 AM EST Office Visit [facility] Orthopaedic Surgery & Sports Medicine [address] [place] [address] Jeffrey Pool MD [address] [place] [address] documented as of this encounter Goals Goal Patient Goal Type Associated Problems Recent Progress Patient-Stated? Author Patient will verbalize understanding of orthotic wear , care and precautions. Occupational Therapy No Valentina Rodriguez documented as of this encounter Visit Diagnoses Not on filedocumented in this encounter Additional Health Concerns Assessment Noted Time A fall risk assessment has been complete d for the patient 07/26/2024 8:51 AM EDT A Body Mass Index follow-up plan has been documented for the patient 08/01/2024 9:48 AM EDT documented as of this encounter Care Teams Stator Plate Washer Relationship Specialty Start Date End Date Jose Garcia MD [address] [place] [address] PCP - General 07/13/20 documented as of this encounter
--- OUTSIDE RECORDS SUMMARY | 2024-10-27 10:44 | XMS_ITS | Clinical Summary ---
Author Organization [facility] Address [address] [place] [address] Care Team Providers Care Rosin Barrel Filler Name Role Phone Jose Garcia MD Primary Care Provider Allergies No known active allergies Medications vitamin B-12 (CYANOCOBALAMIN ) 2500 MCG sublingual tablet tablet Place 2,500 mcg under the tongue Daily. Active meloxicam (MOBIC) 15 MG tablet Take 15 mg by mouth Daily. Active metFORMIN (GLUCOPHAGE) 500 MG tablet Take 500 mg by mouth 2 (Two) Times a Day With Meals. Active lovastatin (MEVACOR) 40 MG tablet Take 40 mg by mouth Every Night. Active atenolol (TENORMIN) 50 MG tablet Take 25 mg by mouth Daily. Active gabapentin (NEURONTIN) 100 MG capsule Take 200 mg by mouth 2 (Two) Times a Day. Active lisinopril (PRINIVIL,ZESTR IL) 2.5 MG tablet Take 2.5 mg by mouth Daily. Active omeprazole (priLOSEC) 40 MG capsule Take 40 mg by mouth As Needed. Active traMADol-acetam inophen (ULTRACET) 37.5-325 MG per tablet Take 1 tablet by mouth Every 6 (Six) Hours As Needed for moderate pain (4-6). If not using other prescribed pain medications. 0 6 Active ropivacaine (NAROPIN) 0.2 % 12 mg/hr by Interscalene route Continuous. 6 Active sennosides-docu sate sodium (SENOKOT-S) 8.6-50 MG tablet Take 2 tablets by mouth 2 (Two) Times a Day As Needed for constipation. 40 tablet 6 Active Active Problems Problem Noted Date Diagnosed Date Rotator cuff tear arthropathy 01/30/2016 HTN (hypertension) 01/30/2016 DM type 2 (diabetes mellitus, type 2) 01/30/2016 Status post reverse total arthroplasty of left sheldon jefferson 01/30/2016 Social History Tobacco Use Types Packs/Day Years Used Date Smoking Tobacco: Former Cigarettes 1 20 1 961 - 1980 Smokeless Tobacco: Never Tobacco Cessation:Counseling Given: No Alcohol Use Standard Drinks/Week Comments No 0 (1 standard drink = 0.6 oz pur e alcohol) Abuse Screen Answer Date Recorded Unsafe at Home or Work/School Not on file Feels Threatened by Someone? Not on file 10/2022 Does Anyone Keep You from Co ntacting Others or Doint Things Outside the Home? Not on file 12/08/2022 Physical Sign of Abuse Present Not on file 1 Housing Stability Answer Date Recorded Current Living Arrangements Not on file 10/2022 Potentially Unsafe Housing Conditions Not on nathalie e 12/08/2022 Family and Community Support Answer Robert e Recorded Help with Day-to-Day Activities Not on file 12/08/2022 Lonely or Isolated Not on file 12/08/2022 Employment Answer Date Recorded Do you want help finding or keeping work or a heron b? Not on file 12/08/2022 Disabilities Answer Date Recorded Concentrating, Remembering, or Making Decisions Difficulty Not on file 12/08/2022 Doing Errands Independently Difficulty Not on fi le 12/08/2022 Education Answer Date Recorded Help with school or training? Not on file Preferred Language Not on file 12/08/2022 Comments No Sex and Gender Information Value Date Recorded Sex Assigned at Not on file Legal Sex Female 11:24 AM EDT Gender Identity Not on file Sexual Orientation Not on file Last Filed Vital Signs Vital Sign Reading Time Taken Comments Blood Pressure 108/72 01/31/2016 5:00 AM EST Pulse 90 01/31/2016 5:00 AM EST Temperature 36.6 C (97.9 F) 01/31/2016 5:00 AM EST Respiratory Rate 16 01/31/2016 5:00 AM EST Oxygen Saturation 92% 01/31/2016 5:00 AM EST Inhaled Oxygen Concentration - - Weight 73.5 kg (162 lb) 01/30/2016 1:15 PM EST Height 142.2 cm (4' 8 ) 01/30/2016 1:15 PM EST Body Mass Index 36.32 01/30/2016 1:15 PM EST Plan of Treatment Health Maintenance Due Date Last Done Comments ANNUAL PHYSICAL 1940 DXA SCAN 1941 TDAP/TD VACCINES (1 - Tdap) 1960 Pneumococcal Vaccine 50+ (1 of 1 - PCV) 1991 ZOSTER VACCINE (1 of 2) 1991 RSV Vaccine - Adults (1 - 1-dose 75+ series) 7 COVID-19 Vaccine (1 - season) 2023 INFLUENZA VACCINE 11/30/2024 HEMOGLOBIN A1C Discontinued 01/17/2016 Medical Devices Implanted Type Area Harness Rigger Device Identifier Shelf Expiration Date Model / Serial / Lot Sphr Junior Aequalis Ascend Flex Rev2 Ctr 36mm - [id number] Implanted:Qty: 1 on 01/30/2016 by Fredy Moreau MD at [facility] Implant Left: Acromial Process TORNIER 09/24/2020 [id number] / / [id number] Sphr Junior Aequalis Ascend Flex Rev2 Std [id number] - [id number] Implanted:Qty: 1 on 01/30/2016 by Fredy Moreau MD at [facility] Implant Left: Acromial Process TORNIER 06/21/2020 [id number] / / [id number] Stem Hum Aequalis Ascendflx Ptc Lng 132.5d 3b 98mm - [id number] Implanted:Qty: 1 on 01/30/2016 by Fredy Moreau MD at [facility] Implant Left: Humerus TORNIER 01/29/2018 [id number] / / [id number] Insrt Hum Aequalis Flex Rev 12.5d 36mm Pls6 - [id number] Implanted:Qty: 1 on 01/30/2016 by Fredy Moreau MD at [facility] Implant Left: Humerus TORNIER 12/12/2020 [id number] / / [id number] Try Shldr Rev Flex Ctr Pls6 - [id number] Implanted:Qty: 1 on 01/30/2016 by Fredy Moreau MD at [facility] Implant Left: Humerus TORNIER 09/29/2017 [id number] / / [id number] Scrw Charanjit Art S/Tap 4.5x32mm - [id number] Implanted:Qty: 2 on 01/30/2016 by Fredy Moreau MD at [facility] Implant Left: Humerus TORNIER [id number] / / Scrw Revrsd M/Dir S/Lk 4.5x32mm - [id number] Implanted:Qty: 2 on 01/30/2016 by Fredy Moreau MD at [facility] Implant Left: Humerus TORNIER [id number] / / Totl Shldr S3 Tornier - [id number] Implanted:Qty: 1 on 01/30/2016 by Fredy Moreau MD at [facility] Implant Left: Acromial Process TORNIER CAPTOTGERALD DRS3 / / Procedures Procedure Name Priority Date/Time Associated Diagnosis Comments HEMOGLOBIN A1C Routine 01/17/2016 9:15 AM EST from Last 3 Months or Most Recently Relevant to Health Maintenance Results * (ABNORMAL) Hemoglobin A1c (01/17/2016 9:15 AM EST) Hemoglobin A1C 5.70(H) 4.80 - 5.60 % 01/17/2016 11:14 AM EST [facility] Blood Venipuncture / Unknown 01/17/2016 9:15 AM EST 01/17/2016 9:26 AM EST Narrative [facility] - 01/17/2016 11:14 AM EST The [place] [employer] recommends maintenance of Hemoglobin A1C at 7.0% or lower. Goals for Hemoglobin A1C reduction may need to be modified if hypoglycemia is a problem. Fredy Moreau MD LAB BLOOD ORDERABLES Julia ferrell Result [facility]
[address] [place] [address], from Last 3 Months or Most Recently Relevant to Health Maintenance Insurance [id number] MEDICARE ADVANTAGE Advance Directives Documents on File Type Date Recorded Patient Cooperative Education Director Expl anation LIVING WILL - SCAN 11/13/2021 1:44 PM * Full Code (Latest Code Status on File) Date Activated Date Inactivated Comments 01/30/2016 8:30 PM 01/31/2016 2:10 PM Question Answer Comments Level Of Support Discussed With: Patient Care Teams Rosin Barrel Filler Relationship Specialty Start Date End Date Jose Garcia MD [address] [facility] [address] [place] [address] PCP - General Family Medicine 01/17/16
--- OUTSIDE RECORDS SUMMARY | 2024-10-27 10:44 | XMS_ITS | Clinical Summary ---
Author Organization [facility] Address [address] [place] [address] Care Team Providers Care Trailer Rental Clerk Name Role Phone Jose Garcia MD Primary Care Provider +1- [phone] Allergies No known active allergies Medications aspirin 81 MG EC tablet Take 1 tablet by mouth 1 (one) time each day. Active cyanocobalamin (Vitamin B-12) 1000 MCG tablet Take 1 tablet by mouth 1 (one) time each day. Active gabapentin (Neurontin) 300 MG capsule Take 1 capsule by mouth in the morning and 1 capsule in the evening and 1 capsule before bedtime. 04/09/2021 Active levothyroxine (Synthroid, Levoxyl) 75 MCG tablet Take 1 tablet by mouth in the morning. 03/15/2021 Active losartan (Cozaar) 50 MG tablet Take 1 tablet by mouth nightly. Active metFORMIN (Glucophage) 500 MG tablet Take 1 tablet by mouth in the morning. 03/04/2021 Active omeprazole (PriLOSEC) [address] capsule Take 1 capsule by mouth daily as needed. Active rosuvastatin (Crestor) 10 MG tablet Take 1 tablet by mouth 1 (one) time each day. Active risedronate (Actonel) 35 MG tablet Take 1 tablet by mouth every 7 (seven) days. Take in morning with full glass of water on an empty stomach. No food, drink, meds, or lying down for 30 minutes after. Takes on Active metoprolol succinate XL (Toprol-XL) 25 MG 24 hr tablet Take 1 tablet by mouth in the morning. Do not crush or chew. . Active celecoxib (CeleBREX) 200 MG capsule Take 1 capsule by mouth daily. 11/11/2023 Active furosemide (Lasix) 20 MG tablet Take 1 tablet by mouth in the morning. 01/20/2024 Active cyclobenzaprine (Flexeril) 5 MG tablet Take 1 tablet by mouth as needed for muscle spasms. Active Calcium Carbonate-Vit D-Min (Calcium-Vitami n D-Minerals) 600-800 MG-UNIT chewable tablet Chew 1 tablet in the morning and 1 tablet in the evening and 1 tablet before bedtime. Active traMADol (Ultram) 50 MG tablet Take 1 tablet by mouth every 8 hours as needed for severe pain. Active acetaminophen (Tylenol) 500 MG tablet Take 2 tablets by mouth in the morning and 2 tablets at noon and 2 tablets before bedtime. 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 11/13/2023 Shoulder pain 05/16/2021 CHF (congestive heart failure) 05/08/2021 HI (myocardial infarction) 05/07/2021 HTN (hypertension) 05/07/2021 Pacemaker 05/07/2021 High cholesterol 05/07/2021 Diabetes mellitus, type 2 05/07/2021 Hypothyroidism 05/07/2021 Gastroesophageal reflux disease 05/07/2021 Non-seasonal allergic rhinitis due to pollen 09/2021 History of COVID-19 05/07/2021 Arthritis 05/07/2021 Osteoporoses 05/07/2021 Overview (12/02/2021): Regulatory Update November 2021 Right supracondylar humerus fracture, sequela Acute pain of right shoulder 04/17/2021 Overview (04/17/2021): Added automatically from request for surgery [id number] Resolved Problems Problem Noted Date Diagnosed Date Resolved Date Pain of right humerus 03/08/20242024 Encounters Date Type Department Care Team Description 10/26/2024 8:04 AM EDT - 10/26/2024 11:59 PM EDT Hospital Encounter [facility] Radiology [address], [address] [place] [address] Status post reverse arthroplasty of right shoulder Discharge Disposition: Home or Self Care 10/26/2024 8:00 AM EDT Office Visit [facility] Orthopaedic Surgery & Sports Medicine [address], [address] [place] [address] Jeffrey Pool MD Status post reverse arthroplasty of right shoulder (Primary Dx) 10/26/2024 Travel 07/27/2024 Telephone [facility] Orthopaedic Surgery & Sports Medicine [address], [address] [place] [address] Jeffrey Pool MD [facility] - Patient Message from Last 3 Months Family History Medical History Relation Name Comments Anesthesia problems Neg Hx Malig Hyperthermia Neg Hx Social History Tobacco Use Types Packs/Day Years Used Date Smoking Tobacco: Former Cigarettes 1984 Smokeless Tobacco: Never Tobacco Cessation:Counseling Given: [...] money to buy more. Never true 06/15/19 25 Within the past 12 months, t he [...] any time in the past 12 m [facility], were you homeless or living in a skilled nursing (including now)? No 06/14/2024 Utilities Answer Date [...] Orientation Straight 05/16/2021 6: 25 AM EDT Last Filed Vital Signs Vital Sign Reading Time Taken Comments Blood Pressure 91/59 10/26/2024 7:57 AM EDT Pulse 90 10/26/2024 7:57 AM EDT Temperature 36.6 C (97.8 F) 07/26/2024 8:51 AM EDT Respiratory Rate 15 06/14/2024 12:22 PM EDT Oxygen Saturation 90% 10/26/2024 7:57 AM EDT Inhaled Oxygen Concentration - - Weight 64.9 kg (143 lb) 10/26/2024 7:57 AM EDT Height 139.7 cm (4' 7 ) 10/26/2024 7:57 AM EDT Body Mass Index 33.24 10/26/2024 7:57 AM EDT Plan of Treatment Upcoming Encounters Date Type Department Care Team (Late st Contact Info) Description 01/25/2025 7:50 AM EST Appointment [facility] [address], [address] [place] [address] 01/25/2025 8:30 AM EST Office Visit [facility] [address], [address] [place] [address] Jeffrey Pool MD [address] [place] [address] Health Maintenance Due Date Last Done Comments [facility]-Bone Density Scan 1940 [facility]-Medicare Annual Wellness (AWV) 1940 [facility]-Infant/Child/Adol SDOH Screenings 1940 Diabetes: Dental Exam 1950 [facility]-RSV Vaccine: 60+ Years or (1 - 1-dose 75+ series) 2016 [facility]-Zoster Vaccines (2 of 3) 10/07/2018 08/12/2018 [id number]-54 Vaccine (7 - Moderna risk 2023- season) 2024 01/15/2024, 02/04/2023, 12/11/2021, Additional history exists [facility]-Influenza Vaccine (#1) 10/31/202401/14, 12/17/2021, 12/04/2020, Additional history exists [facility]-Depression Screening 12/01/2024 12/02/2023 [facility]-Diabetes: Hemoglobin A1C 12/12/2024 06/14/2024 [facility]- SDOH Screenings 12/14/2024 [facility]-Adult SDOH Screenings 12/14/2024 06/14/2024 [facility]-DTaP,Tdap,and Td Vaccines (3 - Td or Tdap) 05/28/2033 05/29/2023, 01/09/2017 [facility]-Pneumococcal Vaccine: 50+ Years Completed 12/17/2021, 01/14/2019, 07/11/2014, Additional history exists [facility]-Obesity Intervention Completed 025, 07/26/2024, 06/28/2024, Additional history exists HPV Vaccines Aged Out No longer eligi ble based on patient's age to complete this topic [facility]-HIB Vaccines Aged Out No longer e ligible based on patient's age to complete this topic [facility]-Hepatitis A Vaccines Aged Out No longer eligible based on patient's age to complete this topic [facility]-IPV Vaccines Aged Out No longer e ligible based on patient's age to complete this topic [facility]-Rotavirus Vaccines Aged Out No lo nger eligible based on patient's age to complete this topic Goals Goal Patient Goal Type Associated Problems Recent Progress Patient-Stated? Author Patient will verbalize understanding of orthotic wear , care and precautions. Occupational Therapy [employer] Devices Implanted Type Area Statement Processor Device Identifier Shelf Expiration Date Model / Serial / Lot Chg Cement [place] G-Hv Bone 40 - [id number] - [id number] Implanted:Qty : 1 on 06/13/2024 by Jeffrey Pool MD at [facility] Cement Right: Shoulder [employer] [id number] 600-15-10 0 / [id number] / Screw Assembly Aequalis Shoulder 20mm - [id number] - [id number] Implanted:Qty : 1 on 06/13/2024 by Jeffrey Pool MD at [facility] Implant Right: Shoulder [employer] ([facility])-139 168 11/11/2028 [id number] / [id number] / Cap Locking Aequalis Shoulder - [id number] - [id number] Implanted:Qty : 1 on 06/13/2024 by Jeffrey Pool MD at [facility] Implant Right: Shoulder [employer] ([facility])-139 168 12/20/2028 [id number] / [id number] / Stem Distal Humeral Ptc Aequalis 9f180gc - [id number] - [id number] Implanted:Qty : 1 on 06/13/2024 by Jeffrey Pool MD at [facility] Implant Right: Shoulder [employer] [facility]139 168 06/11/2028 [id number] / [id number] / Body Proximal Humeral Aequalis Shlder 9mm - [id number] - [id number] Implanted:Qty : 1 on 06/13/2024 by Jeffrey Pool MD at [facility] Implant Right: Shoulder [employer] ([facility])-139 168 08/23/2028 [id number] / [id number] / Pacemaker Pacemaker N/A: Chest Plate 5.0mm Lock Compress Narrow 187mm 10hl - Snone - [id number] Implanted:Qty : 1 on 05/16/2021 by Jeffrey Pool MD at [facility] Plate Right: Shoulder [employer] ([facility])-139 168 [id number] / [id number] / Chg Cable D-M 2.0mm Beaded Set - [id number] Implanted:Qty : 1 on 05/16/2021 by Jeffrey Pool MD at [facility] Shoulder Right: Shoulder [employer] ([facility]139 168 01/25/2026 6704-0-52 0 / / [id number] Chg Cable D-M 2.0mm Beaded Set - [id number] Implanted:Qty : 2 on 05/16/2021 by Jeffrey Pool MD at [facility] Shoulder Right: Shoulder [employer] ([facility])-139 168 01/25/2026 6704-0-52 0 / / [id number] Chg Cable D-M 2.0mm Beaded Set - [id number] Implanted:Qty : 1 on 05/16/2021 by Jeffrey Pool MD at [facility] Shoulder Right: Shoulder [employer] ([facility]139 168 03/23/2022 3704-0-05 0 / / [id number] Chg Cable D-M 2.0mm Beaded Set - [id number] Implanted:Qty : 1 on 05/16/2021 by Jeffrey Pool MD at [facility] Shoulder Right: Shoulder [employer] ([facility]139 168 01/23/2024 3704-0-05 0 / / [id number] Chg Cable D-M 2.0mm Beaded Set - [id number] Implanted:Qty : 1 on 05/16/2021 by Jeffrey Pool MD at [facility] Shoulder Right: Shoulder [employer] ([facility])-139 168 09/17/2024 3704-0-05 0 / / [id number] Reunion Rsa X3 Humeral Insert Implanted:Qty : 1 on 05/16/2021 by Jeffrey Pool MD at [facility] Shoulder Right: Shoulder [employer] 03/09/2024 5571-S-32 12 / / [id number] Description:NONFILE 5.Mm Cable Plug - [id number] Implanted:Qty : 1 on 05/16/2021 by Jeffrey Pool MD at [facility] Shoulder Right: Shoulder [employer] ([facility])-139 168 10/30/2025 [id number] / / [id number] Graft Bone 10cc Vitoss - [id number] Implanted:Qty : 1 on 05/16/2021 by Jeffrey Pool MD at [facility] Right: Shoulder [employer] ([facility])-139 168 02/24/2023 [id number] / / [id number] Graft Bone 10cc Vitoss - [id number] Implanted:Qty : 1 on 05/16/2021 by Jeffrey Pool MD at [facility] Right: Shoulder [employer] ([facility])-139 168 04/27/2023 [id number] / / [id number] Strut Cortical 88d884tp - [id number] - [id number] Implanted:Qty : 1 on 05/16/2021 by Jeffrey Pool MD at [facility] Right: Shoulder [id number] 07/02/2021 FCS / [id number] / [id number] Chg Cable D-M 2.0mm Beaded Set - [id number] Implanted:Qty : 2 on 05/16/2021 by Jeffrey Pool MD at [facility] Right: Shoulder [employer] ([facility])-139 168 11/27/2025 6704-0-52 0 / / [id number] 5.Mm Cable Plug - [id number] Implanted:Qty : 3 on 05/16/2021 by Jeffrey Pool MD at [facility] Right: Shoulder [employer] ([facility])-139 168 12/30/2025 [id number] / / [id number] Chg Cable D-M 2.0mm Beaded Set - [id number] Implanted:Qty : 1 on 05/16/2021 by Jeffrey Pool MD at [facility] Right: Shoulder [employer] ([facility]139 168 01/31/2026 6704-0-52 0 / / [id number] Chg Cable D-M 2.0mm Beaded Set - [id number] Implanted:Qty : 1 on 05/16/2021 by Jeffrey Pool MD at [facility] Right: Shoulder [employer] ([facility])-139 168 10/13/2022 3704-0-05 0 / / [id number] Insert Ascend Flex Rvrsd 36mm/Pls6/7.5 deg C - [id number] - [id number] Implanted:Qty : 1 on 06/13/2024 by Jeffrey Pool MD at [facility] Right: Shoulder [employer] ([facility])-139 168 10/14/2028 [id number] / [id number] / Tray Ascend Flex Reversed Plus 6/Offset 0mm - [id number] - [id number] Implanted:Qty : 1 on 06/13/2024 by Jeffrey Pool MD at [facility] Right: Shoulder [employer] ([facility])-139 168 05/05/2028 [id number] / [id number] / Spacer Aequalis Shoulder 9x20mm - [id number] - [id number] Implanted:Qty : 1 on 06/13/2024 by Jeffrey Pool MD at [facility] Right: Shoulder [employer] ([facility]139 168 04/15/2028 [id number] / [id number] / Procedures Procedure Name Priority Date/Time Associated Diagnosis Comments XR SHOULDER RIGHT 2+ VIEWS Routine 10/26/2024 8:43 AM EDT Status post reverse arthroplasty of right shoulder XR HUMERUS RIGHT 2+ VIEWS Routine 10/26/2024 8:43 AM EDT Status post reverse arthroplasty of right shoulder HEMOGLOBIN A1C Pending Discharge 06/14/2024 1:56 AM EDT from Last 3 Months or Most Recently Relevant to Health Maintenance Results * XR Humerus Right 2+ Views [...] IMG XR PROCEDURES Final Resu lt * Hemoglobin A1c (06/14/2024 1:56 AM EDT) Hemoglobin A1c 5.6 <5.7 % 06/14/2024 5:[address] [facility] Blood Venous blood specimen / Unknown Venipuncture / Unknown 06/14/2024 1:56 AM EDT 06/14/2024 2:[address] [facility] - 06/14/2024 5:33 AM EDT HA1C Interpretive Data: Diagnosis of Diabetes: Diabetic > or = 6.5% Pre-diabetic 5.7 to 6.4% Non-diabetic < or = 5.6% Glycemic Targets for Type I and Type II Diabetics: Non- Adults <7.0% Adults <6.0% Children and Adolescents <7.5% Source: [place] Diabetes Association. Standards of medical care in diabetes,2017. Diabetes Care.2017:40 (suppl 1):S1-S135. us [facility] BLOOD ORDERABLES Final Res ult 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 Yes Care Teams Trailer Rental Clerk Relationship Specialty Start Date End Date Jose Garcia MD [address] [place] [address] PCP - General 07/13/20
--- OUTSIDE RECORDS SUMMARY | 2024-10-27 10:44 | XMS_ITS | Encounter Summary ---
Author Organization [facility] Address [address] [place] [address] Care Team Providers Care Pump Attendant Name Role Phone Jose Garcia MD Primary Care Provider +1- [phone] Encounter Details Date Type Department Care Team (Latest Contact Info) Description 10/26/2024 Travel Social History Tobacco Use Types Packs/Day Years Used Date Smoking Tobacco: Former Cigarettes 970 1984 Smokeless Tobacco: Never Alcohol Use Standard [...] were you homeless or living in a halfway (including now)? No 06/14/2024 Utilities Answer Date [...] AM EDT documented as of this encounter Plan of Treatment Upcoming Encounters Date Type Department Care Team (Late st Contact Info) Description 01/25/2025 7:50 AM EST Appointment [facility] Radiology [address], [address]st [place] [address] 01/25/2025 8:30 AM EST Office Visit [facility] Orthopaedic Surgery & Sports Medicine [address], [address] [place] [address] Jeffrey Pool MD [address] [place] [phone] documented as of this encounter Goals Goal [...] documented as of this encounter Care Teams Pump Attendant Relationship Specialty Start Date End Date Jose Garcia MD [address] [place] [address] PCP - General 07/13/20 documented as of this encounter
--- OUTSIDE RECORDS SUMMARY | 2024-10-27 10:44 | XMS_ITS | Referral Summary ---
Author Organization [employer] ([place], [place], [place], [place]) Address [address] [place] [address] Care Team Providers Care Ear Specialist Name Role Phone Unavailable Primary Care Provider Unavailabl e Social History Tobacco Use Types Packs/Day Years Used Date Smoking Tobacco: Never Assessed Comments Unknown Sex and Gender Information Value Date Recorded Sex Assigned at Female 08/27/2021 5:22 PM CDT Legal Sex Female 5:22 PM CDT Gender Identity Female 08/27/2021 5:22 PM CDT Sexual Orientation Not on file Plan of Treatment Not on file
--- OUTSIDE RECORDS SUMMARY | 2024-10-27 10:44 | XMS_ITS | Clinical Summary ---
Author Organization [employer] ([place], [place], [place], [place]) Address [address] [place] [address] Care Team Providers Care Business Objects Developer Name Role Phone Unavailable Primary Care Provider [...]
[2024-10-27 11:05] LABS: Hematocrit 45.3 % (37.0-47.0); Hemoglobin 14.3 g/dL (12.2-16.2); Immature Granulocytes % 0.2 %; Mean Corpuscular HGB Conc 31.6 g/dL (31.8-35.4); Mean Corpuscular Hemoglobin 29.9 pg (27.0-31.2); Mean Corpuscular Volume 94.6 fl (81-99); Nucleated Red Blood Cells % 0 %; Platelet Count 234 K/mm3 (142-424); Red Blood Count 4.79 M/mm3 (4.20-5.40); Red Cell Distribution Width-SD 50.3 fL; White Blood Count 5.6 K/mm3 (4.8-10.8)
[2024-10-27 11:29] LABS: Albumin Level 4.2 g/dl (3.5-5.0); Chloride 101 mmol/L (98-107); Sodium 135 mmol/L (136-145)
[2024-10-27 11:30] LABS: Potassium 4.4 mmoL/L (3.5-5.1)
[2024-10-27 11:32] LABS: Alanine Aminotransferase 14 U/L (12-78); Alkaline Phosphatase 76 U/L (38-126); Anion Gap 8.4 mEq/L (5-15); Aspartate Amino Transferase 36 U/L (14-36); Bilirubin,Direct 0.4 mg/dl (0.0-0.4); Bilirubin,Indirect 0.3 mg/dL (0.0-0.9); Bilirubin,Total 0.7 mg/dl (0.2-1.3); Bilirubin,Unconjugated 0.2 mg/dL (0.0-1.1); Blood Urea Nitrogen 17 mg/dl (7-17); Calcium 9.6 mg/dl (8.4-10.2); Carbon Dioxide 30 mmol/L (22.0-30.0); Cholesterol 137 mg/dl (140-200); Creatinine,Serum 0.60 mg/dl (0.52-1.04); Estimated Glomerular Filt Rate 95 ml/min (>60); GFR (African American) 116 ML/MIN (>60); Glucose 97 mg/dl (74-100); Magnesium 1.5 mg/dl (1.6-2.3); Total Protein,Serum 6.6 g/dl (6.3-8.2); Triglycerides 61 mg/dl (30-150)
[2024-10-27 11:33] LABS: HDL Cholesterol 78 mg/dl (40-60)
[2024-10-27 11:40] LABS: NT Pro Brain Natriuretic Pep. 176 pg/mL (0-450)
[2024-10-27 12:02] LABS: Thyroid Stimulating Hormone 1.70 uIU/mL (0.465-4.68)
[2024-10-27 12:18] LABS: Free T4 (Free Thyroxine) 1.82 ng/dl (0.78-2.19)
== END 2024-10-27 23:59 | disposition home or self-care (01) ==
LOC: LAB 10:39
PROVIDERS: PCP Family Medicine; Visit Provider Physician Assistant
DX: I11.0 Hypertensive heart disease with heart failure (principal); I50.22 Chronic systolic (congestive) heart failure; Z95.810 Presence of automatic (implantable) cardiac defibrillator; E78.5 Hyperlipidemia, unspecified
CPT/HCPCS: 36415; 71046; 80048; 80061; 80076; 83735; 83880; 84439; 84443; 85025

== ENCOUNTER 2024-11-07 14:13 | Outpatient (CLI) | payer MEDICARE, SELFPAY ==
--- OUTSIDE RECORDS SUMMARY | 2023-11-30 05:30 | XMS_ITS ---
Author Organization [facility] Address [address] [facility] [address] [place] [id number] Care Team Providers Care [employer] Justice Name Role Phone Sanjeev Garcia Primary Care Provider [phone] Kandy Magaña Unavailable [phone] Allergies No Known Allergies REASON FOR VISIT possible bed sore on back side Medications Medication SIG (Take, Route, Frequency, Duration) Notes Start Date End Date Status Calcium-Vitamin D-Minerals 600-800 MG-UNIT 1 tab(s) orally 2 times a day; Duration: 30 Active Aspirin 81 MG 1 tab(s) orally once a day; Duration: 30 day(s) Active Crestor 10 MG 1 tab(s) orally once a day Active Losartan Potassium 50 MG 1 tab(s) orally once a day Active Metoprolol Succinate ER 25 MG 1 tab(s) o rally once a day Active Cyclobenzaprine HCl 5 MG 1 tab Orally ev jo 8 hours PRN Active Levothyroxine Sodium 75 mcg TAKE ONE TAB LET BY MOUTH EVERY DAY; Duration: 90 days Active traMADol-Acetaminophen 37.5-325 MG 1 tab(s) orally every 6 hours as needed 09/28/2023 Active Celecoxib 200 mg TAKE ONE CAPSULE BY MOUTH EVERY DAY --TAKE WITH FOOD--; Duration: 90 days Active Vitamin B-12 1000 MCG 2.5 orally once a day Active metFORMIN HCl 500 mg 1 tablet with a kurt l Orally Once a day; Duration: 30 days Active Betamethasone Dipropionate Aug 0.05 % 1 chrissy applied topically 2 times a day 10/15/2021 Active Actonel 35 MG 1 tab(s) orally once a week; Duration: 90 days Active Omeprazole 40 MG 1 cap(s) orally once a day; Duration: 30 days Active Gabapentin 300 MG 1 cap(s) orally Thre e times a day; Duration: 90 days 07/21/2023 Active Furosemide 20 MG 1 tab(s) orally once a day 07/11/2021 Active Vital Signs Blood pressure systolic 120 mm Hg 11/30/19 24 Blood pressure diastolic 70 mm Hg 024 Height 56 in 11/30/2023 Weight 000 lbs 11/30/2023 Encounters Encounter Location Date Provider Diagnosis [facility] [address] [facility] [address] [place], [place] [id number] 11/30/2023 Kandy Magaña Wound of skin R23.8 Assessments Encounter Date Diagnosis (ICD Code) Assessment Notes Treatment Notes Treatment Clinical Notes Section Notes 11/30/2023 Wound of skin (ICD-10 - R23.8) discussed the following with pt and her daughter: pressure relief q 2 hours when sitting; prevention of friction; padding on wheelchair; padding over open area-no med or tape; keep clean Plan Of Treatment Treatment Notes Assessment Notes Wound of skin discussed the follow ing with pt and her daughter: pressure relief q 2 hours when sitting; prevention of friction; padding on wheelchair; padding over open area-no med or tape; keep clean Next Appt Details Follow Up: prn, Reason: Progress Notes * LAMAR LEVYISDOB:1940 (9 3 yo F)Acc No.[id number]:11/30/2023 Progress Notes Patient: CHEL JORDAN Provider: CARISSA Harrison :1940 A ge:83 Y S ex:Female Date:11/30/2023 Address:[facility] [place], [id number] Pcp:Sanjeev Garcia Subjective: * Chief Complaints: * 1 . Possible bed sore on back side. * HPI: D ermatology: 83 year old female presents with c/o Wound P t is here today for a bed sore.. Pt sts it is from sitting in her chair, after she had surgery on her arm 2 weeks ago and sts that she was not able to get up and walk around or use her walker because there was to be no pressure to be put on her arm. Pt daughter sts that the bed sore is open and sts that it is smaller in size. Pt daughter sts she has been using Bacitracin Ointment on it, but sts maybe a prescription or antibiotic would help better. Pt sts she has used patches on the wound at times to keep it covered. She is pretty independent; daughters help her to dress and to the bathroom; she does some cooking and cleaning with the use of one arm; she is not suppose to use her right arm with a walker; she is eating healthy and will add Ensure daily. * ROS: D ERMATOLOGY: no R marcy. n o H tammy. G ASTROENTEROLOGY: no N ausea. n o V omiting. n o D iarrhea.? M USCULOSKELETAL: Joint pain y es, r ight arm. U ROLOGY: no D ifficulty urinating. n o B lood in urine. h ad ORIF of right humeral shaft at 2021; 2 weeks ago had all metal removed and upper arm with splinting and right arm in sling with instructions not to move it; FU in 2 weeks to have sutures removed. * Medical History: O steoarthrits, Hypothyroidism, Type 2 diabetes, Umbilical hernia, HLP, Sleep apnea, COPD, Osteoporosis, Diabetic neuropathy, Cardiomyopathy by ECHO 08/2019 => EF 20-30%. * Surgical History: h ysterectomy , right knee surgery , L index surgery cyst removed 08-08, Cyst removed from spine-Dr Cheatham @ [facility] 12/2011, cataract surgery both eyes 05/2012, carpel tunnel surgery on left wrist 05/2012, carpel tunnel surgery right hand 06/2013, Left TKA 12/2013, left reverse shoulder arthroplasty 01/2016, right TKA - [facility]io 01/11/18, reverse right shoulder replacement - Dr Craft 04/05/2019, AICD implanted - Dr. Honeycutt 08/31/2019, ORIF right humeral shaft fx - 04/2021. * Hospitalization/Major Diagno stic Procedure: [facility], Pneumonia, Cellulitis, COPD 12/19/10, [facility] ER-muscle spasm under left breast 2.7.12, [facility] ER-neck pain 06/15, [facility] ER-vaginal itching 02/24/16, [facility]-pneumonia 03/2016. * Family History: F ather: , diagnosed with Diabetes, Hypertension, Cancer. M other: , diagnosed with Hypertension, Cancer. * Social History: C URRENT TOBACCO USE S moking Status: Patient does NOT smoke. C affeine: yes, frequency:. Marital Status: . Past smoking status: no, Smoking status: Does not smoke. Alcohol: No. * Medications: T aking Cyclobenzaprine HCl 5 MG Tablet 1 tab Orally every 8 hours PRN , Taking Vitamin B-12 1000 MCG Tablet 2.5 orally once a day , Taking Aspirin 81 MG Tablet Delayed Release 1 tab(s) orally once a day , Taking Crestor 10 MG Tablet 1 tab(s) orally once a day , Taking Losartan Potassium 50 MG Tablet 1 tab(s) orally once a day , Taking Metoprolol Succinate ER 25 MG Tablet Extended Release 24 Hour 1 tab(s) orally once a day , Taking Calcium-Vitamin D-Minerals 600-800 MG-UNIT Tablet Chewable 1 tab(s) orally 2 times a day , Taking Furosemide 20 MG Tablet 1 tab(s) orally once a day , Taking Betamethasone Dipropionate Aug 0.05 % Cream 1 chrissy applied topically 2 times a day , Taking Actonel 35 MG Tablet 1 tab(s) orally once a week , Taking metFORMIN HCl 500 mg Tablet 1 tablet with a meal Orally Once a day , Taking Omeprazole 40 MG Capsule Delayed Release 1 cap(s) orally once a day , Taking Gabapentin 300 MG Capsule 1 cap(s) orally Three times a day , Taking Levothyroxine Sodium 75 mcg Tablet TAKE ONE TABLET BY MOUTH EVERY DAY , Taking traMADol-Acetaminophen 37.5-325 MG Tablet 1 tab(s) orally every 6 hours as needed , Taking Celecoxib 200 mg Capsule TAKE ONE CAPSULE BY MOUTH EVERY DAY --TAKE WITH FOOD-- , Medication List reviewed and reconciled with the patient * Allergies: N .K.D.A. Objective: * Vitals: W t:000, Temp:98.5, BP:120/70, Nurse:ARTIS, Ht: 56. * Examination: G eneral Examination: General Appearance: NAD, alert, pleasant; presents in wheelchair with her daughter. H eart: RRR. L ungs: CTAB A&P. N eurologic Exam: alert and oriented. S kin: left inner buttock with excoriation and open area at 1 cm; clean and dry. E xtremities: right arm in a sling to immobilize the upper arm. ? Assessment: * Assessment: 1. W ound of skin - R23.8 (Primary) S pecify :left buttock Plan: * Treatment: * Follow Up: p rn * Images: Billing Information: * Visit Code: 96530 Office Visit, Est Pt., Level 3. * Procedure Codes: * Electronic signature of Yoly Magaña APRN on 11/07/2024 at 02:16 PM EDT Sign off status: Pending * Provider: CARISSA Harrison Date: 11/30/2023 Generated for Flako anguiano/Mary Beth/Bren on: 11/07/2024 02:16 PM EDT History and Physical Notes * HPI (History of Present Illness) Category Sub-Category Detail Notes Category Not es Dermatology Wound Pt is here today for a bed sore.. Pt sts it is from sitting in her chair, after she had surgery on her arm 2 weeks ago and sts that she was not able to get up and walk around or use her walker because there was to be no pressure to be put on her arm. Pt daughter sts that the bed sore is open and sts that it is smaller in size. Pt daughter sts she has been using Bacitracin Ointment on it, but sts maybe a prescription or antibiotic would help better. Pt sts she has used patches on the wound at times to keep it covered She is pretty independent; daughters help her to dress and to the bathroom; she does some cooking and cleaning with the use of one arm; she is not suppose to use her right arm with a walker; she is eating healthy and will add Ensure daily Examination Category Sub-Category Detail Notes Category Not es General Examination Heart: RRR Lungs: CTAB A&P Extremities: right arm in a sling to immobilize the upper arm General Appearance: NAD, alert, pleasant ; presents in wheelchair with her daughter Skin: left inner buttock w ith excoriation and open area at 1 cm; clean and dry Neurologic Exam: alert and oriented
--- OUTSIDE RECORDS SUMMARY | 2024-06-23 09:30 | XMS_ITS ---
[facility] Address [address] [facility] [address] [place] [id number] Care Team Providers Care Tax Preparer Name Role Phone Sanjeev Garcia Primary Care Provider Allergies No Known Allergies REASON FOR VISIT d/c f/u Medications Medication SIG (Take, Route, Frequency, Duration) Notes Start Date End Date Status Vitamin B-12 1000 MCG 2.5 orally once a day Active Aspirin 81 MG 1 tab(s) orally once a day; Duration: 30 day(s) Active oxyCODONE HCl 10 MG 1 tablet as needed Orally every 6 hrs Not-Taking Cyclobenzaprine HCl 5 MG 1 tab Orally ev jo 8 hours PRN Active Cefuroxime Axetil 500 MG 1 tablet Orally Two times a day 06/23/2024 Active Celecoxib 200 mg 1 capsule with food Orally Once a day; Duration: 30 days Active metFORMIN HCl 500 mg TAKE ONE TABLET BY MOUTH EVERY DAY with a meal; Duration: 30 Active traMADol HCl 50 MG 1 tab(s) Orally q6h prn 06/09/2024 Active Gabapentin 300 MG 1 cap(s) orally Thre e times a day; Duration: 90 days 02/05/2024 Active Levothyroxine Sodium 75 mcg TAKE ONE TAB LET BY MOUTH EVERY DAY; Duration: 90 days Active Calcium-Vitamin D-Minerals 600-800 MG-UNIT 1 tab(s) orally 2 times a day; Duration: 30 Active Furosemide 20 MG 1 tab(s) orally once a day 07/11/2021 Active Betamethasone Dipropionate Aug 0.05 % 1 chrissy applied topically 2 times a day 10/15/2021 Active Omeprazole 40 MG 1 cap(s) orally once a day; Duration: 30 days Active Actonel 35 MG 1 tab(s) orally once a week; Duration: 90 days Active Crestor 10 MG 1 tab(s) orally once a day Active Losartan Potassium 50 MG 1 tab(s) orally once a day Active Metoprolol Succinate ER 25 MG 1 tab(s) orally once a day Active Vital Signs Blood pressure systolic 128 mm Hg 06/24/19 25 Blood pressure diastolic 70 mm Hg 025 Heart Rate 88 /min 06/23/2024 Height 56 in 06/23/2024 Weight 000 lbs 06/23/2024 Encounters Encounter Location Date Provider Diagnosis [facility] [address] [place], [place] [id number] 06/23/2024 Sanjeev Garcia Acute bronchitis J20 .9 ; Hypoxemia R09.02 ; Type 2 diabetes mellitus with diabetic polyneuropathy E11.42 ; Acquired hypothyroidism E03.9 ; HTN (hypertension) I10 ; Cardiomyopathy I42.9 ; Dyslipidemia E78.5 and Diabetic neuropathy E11.40 Assessments Encounter Date Diagnosis (ICD Code) Assessment Notes Treatment Notes Treatment Clinical Notes Section Notes 06/23/2024 Acute bronchitis (ICD-10 - J20.9) 06/23/2024 Hypoxemia (ICD-10 - R09.02) 06/23/2024 Type 2 diabetes mellitus with diabetic polyneuropathy (ICD-10 - E11.42) 06/23/2024 Acquired hypothyroidism (ICD-10 - E03.9) 06/23/2024 HTN (hypertension) (ICD-10 - I10) 06/23/2024 Cardiomyopathy (ICD-10 - I42.9) 06/23/2024 Dyslipidemia (ICD-10 - E78.5) 06/23/2024 Diabetic neuropathy (ICD-10 - E11.40) 06/23/2024 Other Discharge summary with available lab/diagnostic imaging results obtained and reviewed. Discharge medication list reconciled. Appropriate counseling provided. Moderate Complexity Plan Of Treatment Medication Medication Name Sig Start Date Stop Date Notes Cefuroxime Axetil 500 MG 1 tablet Orally Two times a day 0 06/23/2024 Treatment Notes Assessment Notes Other Discharge summary wi th available lab/diagnostic imaging results obtained and reviewed. Discharge medication list reconciled. Appropriate counseling provided. Moderate Complexity Progress Notes * JAIME LEVYOB:1940 ([age] yo F)Acc No.[id number]:06/23/2024 Patient: CHEL JORDAN Provider: Sanjeev Garcia M.D. :1940 A ge:84 Y S ex:Female Date:06/23/2024 Address:[address] [place] [id number] Subjective: * Chief Complaints: * 1 . [facility] d/c f/u. * HPI: H PI: Patient is here today for a Transition of Care Visit. Discharge from the following Facility: [facility] ,Discharge date: 06/14/2024 ,Date of phone contact following discharge: 06/15/2024. Pt's daughter sts she was at for having surgery on the her rt upper arm area. Pt's daughter sts they did keep overnight as her oxygen level was low. Pt's daughter sts her oxygen has been off and on between the 80s and then up into the 90s . She comes in accompanied by her daughter for primary care follow-up of her recent right shoulder surgery. She underwent revision for failure of hardware of previous humeral shaft fx. According to her daughter, she had issues with hypoxemia after surgery and was kept overnight for observation. I have reviewed the available copy of the discharge summary which makes no mention of respiratory issues no reports of chest x-ray. Subjectively she denies dyspnea. She has developed a productive cough since coming home. Sputum is occasionally yellow and green in color. No hemoptysis, fever, or pleuritic pain. * ROS: D ERMATOLOGY: no R marcy. n o H tammy. G ASTROENTEROLOGY: no N ausea. n o V omiting. n o D iarrhea.? U ROLOGY: no D ifficulty urinating. n [...] 08-08, [facility] cataract surgery both eyes 05/2012, carpel tunnel surgery on left wrist 05/2012, carpel tunnel surgery right hand 06/2013, Left TKA 12/2013, left reverse shoulder arthroplasty 01/2016, right TKA - Venancio 01/11/18, reverse right shoulder replacement - Dr Craft 04/05/2019, AICD implanted - Dr. Honeycutt 08/31/2019, ORIF right humeral shaft fx - [facility] 04/2021, Revision of right humeral shaft fx - [facility] 05/2024. * Hospitalization/Major Diagno stic Procedure: C entral [employer], Pneumonia, Cellulitis, [facility], [facility]-neck pain 06/15, [facility] ER-vaginal itching 02/24/16, [facility]-pneumonia 03/2016. * Family History: F ather: , [...] topically 2 times a day , Taking Omeprazole 40 MG Capsule Delayed Release 1 cap(s) orally once a day , Taking Actonel 35 MG Tablet 1 tab(s) orally once a week , Taking Gabapentin 300 MG Capsule 1 cap(s) orally Three times a day , Taking Levothyroxine Sodium 75 mcg Tablet TAKE ONE TABLET BY MOUTH EVERY DAY , Taking Celecoxib 200 mg Capsule 1 capsule with food Orally Once a day , Taking metFORMIN HCl 500 mg Tablet TAKE ONE TABLET BY MOUTH EVERY DAY with a meal , Taking traMADol HCl 50 MG Tablet 1 tab(s) Orally q6h prn , Not-Taking oxyCODONE HCl 10 MG Tablet 1 tablet as needed Orally every 6 hrs , Medication List reviewed and reconciled with the patient * Allergies: N .K.D.A. Objective: * Vitals: W t: 000, Temp: 98.6, BP: 128/70, HR: 88, O2 Sat: 87% on RA, Nurse: daisy, Ht: 56. * Examination: G eneral Examination: S he comes in by wheelchair. She is alert, oriented, and appears in no distress. Color is adequate. HEENT is unremarkable. Chest reveals a few scattered crackles. No rales or wheezes. Right shoulder has dressing in place and is immobilized with a sling. Lower extremities show no edema. Assessment: * Assessment: 1. A cute bronchitis - J20.9 (Primary) 2 . H ypoxemia - R09.02 ?3. T ype 2 diabetes mellitus with diabetic polyneuropathy - E11.42 4 . A cquired hypothyroidism - E03.9 5 . H TN (hypertension) - I10 6 . C ardiomyopathy - I42.9 7 . D yslipidemia - E78.5 8 .?Diabetic neuropathy - E11.40 Plan: * Treatment: 2. O thers Notes: Discharge summary with available lab/diagnostic imaging results obtained and reviewed. Discharge medication list reconciled. Appropriate counseling provided. Moderate Complexity * Procedure Codes: 9 9495 TRANS CARE MGMT 14 DAY DISCH, 1111F [facility] MED/CURENT MED MERGE, G2211 Complex e/m visit add on, G8752 MOST RECENT SYSTOLIC BP < 140MM HG, G8754 MOST RECENT DIASTOLIC BP < 90MM HG * Images: Billing Information: * Visit Code: 45026 Office Visit, Est Pt., Level 3. * Procedure Codes: 86513 TRANS CARE MGMT 14 DAY DISCH. 1111F [facility] MED/CURENT MED MERGE. G2211 Complex e/m visit add on. G8752 MOST RECENT SYSTOLIC BP < 140MM HG. G8754 MOST RECENT DIASTOLIC BP < 90MM HG. * Electronic signature of Sanjeev Garcia MD on 11/07/2024 at 02:16 PM EDT Sign off status: Pending * Provider: Sanjeev Garcia M.D. Date: 0 06/23/2024 Generated for Flako anguiano/Mary Beth/Dkitting on: 0 11/07/2024 02:16 PM EDT History and Physical Notes * HPI (History of Present Illness) Category Sub-Category Detail Notes Category Not es HPI Patient is here toda y for a Transition of Care Visit. Discharge from the following Facility: [facility] ,Discharge date: 06/14/2024 ,Date of phone contact following discharge: 06/15/2024. Pt's daughter sts she was at for having surgery on the her rt upper arm area. Pt's daughter sts they did keep overnight as her oxygen level was low. Pt's daughter sts her oxygen has been off and on between the 80s and then up into the 90s She comes in accompanied by her daughter for primary care follow-up of her recent right shoulder surgery. She underwent revision for failure of hardware of previous humeral shaft fx. According to her daughter, she had issues with hypoxemia after surgery and was kept overnight for observation. I have reviewed the available copy of the discharge summary which makes no mention of respiratory issues no reports of chest x-ray. Subjectively she denies dyspnea. She has developed a productive cough since coming home. Sputum is occasionally yellow and green in color. No hemoptysis, fever, or pleuritic pain. Examination Category Sub-Category Detail Notes Category Not es General Examination She come s in by wheelchair. She is alert, oriented, and appears in no distress. Color is adequate. HEENT is unremarkable. Chest reveals a few scattered crackles. No rales or wheezes. Right shoulder has dressing in place and is immobilized with a sling. Lower extremities show no edema.
--- OUTSIDE RECORDS SUMMARY | 2024-07-18 09:45 | XMS_ITS ---
[facility] Address [address] [place] [id number] Care Team Providers Care Superintendent [employer]munition [employer] Name Role Phone Sanjeev Garcia Primary Care Provider [phone] Kandy Magaña Unavailable [phone] Allergies No Known Allergies Results Component Value Reference Range Notes CBC Fingerstick (in house) Reviewed date:07/18/2024 03:03:23 PM Interpretation: Performing Lab: Notes/Report: wbc 10.8 3.5 - 10 lym 12.8% 15 - 50 mid 3.2% 2 - 15 gran 84.0% 35 - 80 rbc 3.65 3.5 - 5.5 hgb 11.5 11.5 - 16.5 hct 36.2 35 - 55 mcv 99.0 75 - 100 mch 31.5 25 - 35 mchc 31.8 31 - 38 plat 179 100 - 400 REASON FOR VISIT Chest Congestion Medications Medication SIG (Take, Route, Frequency, Duration) Notes Start Date End Date Status Actonel 35 MG 1 tab(s) orally once a week; Duration: 90 days Active Gabapentin 300 MG 1 cap(s) orally Thre e times a day; Duration: 90 days 02/05/2024 Active Levothyroxine Sodium 75 mcg TAKE ONE TAB LET BY MOUTH EVERY DAY; Duration: 90 days Active traMADol HCl 50 MG 1 tab(s) Orally q6h prn 06/09/2024 Active Calcium-Vitamin D-Minerals 600-800 MG-UNIT 1 tab(s) orally 2 times a day; Duration: 30 Active Furosemide 20 MG 1 tab(s) orally once a day 07/11/2021 Active Betamethasone Dipropionate Aug 0.05 % 1 chrissy applied topically 2 times a day 10/15/2021 Active Omeprazole 40 MG 1 cap(s) orally once a day; Duration: 30 days Active Metoprolol Succinate ER 25 MG 1 tab(s) orally once a day Active Cyclobenzaprine HCl 5 MG 1 tab Orally ev jo 8 hours PRN Active Vitamin B-12 1000 MCG 2.5 orally once a day Active Aspirin 81 MG 1 tab(s) orally once a day; Duration: 30 day(s) Active Crestor 10 MG 1 tab(s) orally once a day Active Losartan Potassium 50 MG 1 tab(s) orally once a day Active levoFLOXacin 500 MG 1 tablet Orally Once a day; Duration: 7 days 07/18/2024 Active oxyCODONE HCl 10 MG 1 tablet as needed Orally every 6 hrs Not-Taking Albuterol Sulfate HFA 108 (90 Base) MCG/ACT 1 puff as needed Inhalation qid prn 07/18/2024 Active metFORMIN HCl 500 mg TAKE ONE TABLET BY MOUTH EVERY DAY with a meal; Duration: 30 Active Celecoxib 200 mg TAKE ONE CAPSULE BY MOUTH EVERY DAY --TAKE WITH FOOD--; Duration: 30 Active Vital Signs Blood pressure systolic 102 mm Hg 07/19/19 25 Blood pressure diastolic 60 mm Hg 025 Heart Rate 82 /min 07/18/2024 Height 56 in 07/18/2024 Weight 143 lbs 07/18/2024 BMI 32.06 kg/m2 07/18/2024 Encounters Encounter Location Date Provider Diagnosis [facility] [address] [id number] 07/18/2024 Kandy Magaña Acute bronchitis J20.9 Assessments Encounter Date Diagnosis (ICD Code) Assessment Notes Treatment Notes Treatment Clinical Notes Section Notes 07/18/2024 Acute bronchitis (ICD-10 - J20.9) fluids, rest, supportive measures for fever/symptom relief Plan Of Treatment Medication Medication Name Sig Start Date Stop Date Notes levoFLOXacin 500 MG 1 tablet Orally Once a day; Duration: 7 days 07/18/2024 Albuterol Sulfate HFA 108 (9 0 Base) MCG/ACT 1 puff as needed Inhalation qid prn 07/18/2024 Treatment Notes Assessment Notes Acute bronchitis fluids, rest, suppor tive measures for fever/symptom relief Next Appt Details Follow Up: 1 Week, Reason: Progress Notes * JAIME LEVYOB:1940 ([age] yo F)Acc No.[id number]:07/18/2024 Progress Notes Patient: CHEL JORDAN Provider: CARISSA Harrison :1940 A ge:84 Y S ex:Female Date:07/18/2024 Address:[place], [id number] Pcp:Sanjeev Garcia Subjective: * Chief Complaints: * 1 . Chest Congestion. * HPI: E NT/respiratory: eating/drinking OK; treated 06/03/2024 for bronchitis with Ceftin; all respirtory issues started after her shoulder surgery at . 84 year old female presents with c/o cough g reenish yellow sputum production. c/o headache. c/o chest congestion. Denies : sore throat. D enies : Fever. D enies : Chest Pain. D enies : Short of Breath. D enies : smoking. * ROS: D ERMATOLOGY: no R marcy. n o H tammy. G ASTROENTEROLOGY: no N ausea. n o V omiting. n o D iarrhea.? U ROLOGY: no D ifficulty urinating. n o B lood in urine. * Medical History: O steoarthrits, Hypothyroidism, Type 2 diabetes, Umbilical hernia, HLP, Sleep apnea, COPD, Osteoporosis, Diabetic neuropathy, Cardiomyopathy by ECHO 08/2019 => EF 20-30%. * Surgical History: h ysterectomy , right knee surgery , L index surgery cyst removed 08-08, Cyst removed from spine-Dr Cheatham @ [facility] 12/2011, cataract surgery both eyes 05/2012, carpel tunnel surgery on left wrist 05/2012, carpel tunnel surgery right hand 06/2013, Left TKA 12/2013, left reverse shoulder arthroplasty 01/2016, right TKA - Venancio 01/11/18, reverse right shoulder replacement - Dr Carft 04/05/2019, AICD implanted - Dr. Honeycutt 08/31/2019, ORIF right humeral shaft fx - 04/2021, Revision of right humeral shaft fx - 05/2024. * Hospitalization/Major Diagno stic Procedure: C entral [employer], Pneumonia, Cellulitis, COPD 12/19/10, [facility] ER-muscle spasm under left breast 2.7.12, [facility] ER-neck pain 06/15, [facility] ER-vaginal itching 02/24/16, [facility]-pneumonia 03/2016. * Family History: F ather: [...] TABLET BY MOUTH EVERY DAY , Taking traMADol HCl 50 MG Tablet 1 tab(s) Orally q6h prn , Taking metFORMIN HCl 500 mg Tablet TAKE ONE TABLET BY MOUTH EVERY DAY with a meal , Taking Celecoxib 200 mg Capsule TAKE ONE CAPSULE BY MOUTH EVERY DAY --TAKE WITH FOOD-- , Not-Taking oxyCODONE HCl 10 MG Tablet 1 tablet as needed Orally every 6 hrs , Discontinued Cefuroxime Axetil 500 MG Tablet 1 tablet Orally Two times a day , Medication List reviewed and reconciled with the patient * Allergies: N .K.D.A. Objective: * Vitals: W t: 143, Temp: 97.7, BP: 102/60, HR: 82, O2 Sat: 90% on RA, Nurse: JEANNETTE, Ht: 56, BMI:32.06. * Examination: G eneral Examination: General Appearance: N AD , appears healthy , alert , pleasant; speaks without SOB; periodic congested cough. H EENT: s clera and conjunctiva clear, PERRLA, TM's normal, translucent. O ral cavity: m ucosa moist and WNL , no erythema. N tomeka: s upple , left neck LAD. H eart: R RR. L ungs: c hest sounds are clear posteriorly. Assessment: * Assessment: 1. A cute bronchitis - J20.9 (Primary) Plan: * Treatment: * Labs: * L ab: CBC Fingerstick (in house) (Collection Date & Time - 07/18/2024) Value Reference Range w bc 10.8 3.5 - 10 * l ym 12.8% 15 - 50 * m id 3.2% 2 - 15 * g ran 84.0% 35 - 80 * r bc 3.65 3.5 - 5.5 * h gb 11.5 11.5 - 16.5 * h ct 36.2 35 - 55 * m cv 99.0 75 - 100 * m ch 31.5 25 - 35 * m chc 31.8 31 - 38 * p lat 179 100 - 400 * Britt Gomez 07/18/2024 02 :44:57 PM > Provider reviewed results while patient in office.Kandy Magaña 07/18/2024 03:03:20 PM > * Procedure Codes: G 2211 Complex e/[place], [address] CAPILLARY BLOOD DRAW, 22477 CBC WITH AUTO DIFF * Follow Up: 1 Week * Images: Billing Information: * Visit Code: 48685 Office Visit, Est Pt., Level 3. * Procedure Codes: G2211 Complex e/[place]. [address] CAPILLARY BLOOD DRAW. 49775 CBC WITH AUTO DIFF. * Electronic signature of Yoly Magaña APRN on 11/07/2024 at 02:16 PM EDT Sign off status: Pending * Provider: GIANLUCA HarrisonP Date: 0 07/18/2024 Generated for Flako anguiano/Mary Beth/Bren on: 0 11/07/2024 02:16 PM EDT History and Physical Notes * HPI (History of Present Illness) Category Sub-Category Detail Notes Category Not es ENT/respiratory sore throat Short of Breath Chest Pain cough greenish yellow sput um production Fever headache chest congestion smoking Examination Category Sub-Category Detail Notes Category Not es General Examination HEENT: sclera and c onjunctiva clear, PERRLA, TM's normal, translucent Heart: RRR Lungs: chest sounds are debby ar posteriorly General Appearance: NAD , appears health y , alert , pleasant; speaks without SOB; periodic congested cough Neck: supple , left neck L AD Oral cavity: mucosa moist and WNL , no erythema
--- OUTSIDE RECORDS SUMMARY | 2024-08-01 05:45 | XMS_ITS ---
Author Organization [facility] Address [address] [place] [id number] Care Team Providers Care Coffee Sommelier Name Role Phone Sanjeev Garcia Primary Care Provider Kandy Magaña Unavailable [phone] Allergies No Known Allergies Results Component Value Reference Range Notes CXR Reviewed date:08/03/2024 05:27:07 PM Interpretation:low lung volumes Performing Lab: Notes/Report: low lung volumes REASON FOR VISIT 1 week f/u Medications Medication SIG (Take, Route, Frequency, Duration) Notes Start Date End Date Status Celecoxib 200 mg TAKE ONE CAPSULE BY MOUTH EVERY DAY - TAKE WITH FOOD-; Duration: 30 Active metFORMIN HCl 500 mg TAKE ONE TABLET BY MOUTH EVERY DAY with a meal; Duration: 30 Active Levothyroxine Sodium 75 mcg TAKE ONE TAB LET BY MOUTH EVERY DAY; Duration: 90 days Active Gabapentin 300 MG 1 cap(s) orally Thre e times a day; Duration: 90 days 02/05/2024 Active traMADol HCl 50 MG 1 tab(s) Orally q6h prn 06/09/2024 Active Betamethasone Dipropionate Aug 0.05 % 1 chrissy applied topically 2 times a day 10/15/2021 Active Furosemide 20 MG 1 tab(s) orally once a day 07/11/2021 Active Actonel 35 MG 1 tab(s) orally once a week; Duration: 90 days Active Omeprazole 40 MG 1 cap(s) orally once a day; Duration: 30 days Active Calcium-Vitamin D-Minerals 600-800 MG-UNIT 1 tab(s) orally 2 times a day; Duration: 30 Active Losartan Potassium 50 MG 1 tab(s) orally once a day Active Metoprolol Succinate ER 25 MG 1 tab(s) orally once a day Active Vitamin B-12 1000 MCG 2.5 orally once a day Active Crestor 10 MG 1 tab(s) orally once a day Active Aspirin 81 MG 1 tab(s) orally once a day; Duration: 30 day(s) Active Albuterol Sulfate HFA 108 (90 Base) MCG/ACT 1 puff as needed Inhalation qid prn 07/18/2024 Active oxyCODONE HCl 10 MG 1 tablet as needed Orally every 6 hrs Not-Taking levoFLOXacin 500 MG 1 tablet Orally Once a day; Duration: 7 days 07/18/2024 Active Cyclobenzaprine HCl 5 MG 1 tab Orally ev jo 8 hours PRN Active Vital Signs Blood pressure systolic 120 mm Hg 08/02/19 25 Blood pressure diastolic 72 mm Hg 025 Heart Rate 62 /min 08/01/2024 Height 56 in 08/01/2024 Weight 143 lbs 08/01/2024 BMI 32.06 kg/m2 08/01/2024 Encounters Encounter Location Date Provider Diagnosis [facility] [address] [facility] [address] [place], [place] [id number] 08/01/2024 Kandy Magaña Acute cough R05.1 Assessments Encounter Date Diagnosis (ICD Code) Assessment Notes Treatment Notes Treatment Clinical Notes Section Notes 08/01/2024 Acute cough (ICD-10 - R05.1) Use albuterol prn, chest x-ray, continue with cough meds. fluids, rest, supportive measures for fever/symptom relief 08/01/2024 Other return for follow up in 1 month along with AW Plan Of Treatment Medication Medication Name Sig Start Date Stop Date Notes Albuterol Sulfate HFA 108 (9 0 Base) MCG/ACT 1 puff as needed Inhalation qid prn 07/18/2024 Treatment Notes Assessment Notes Acute cough Use albuterol prn, c hest x-ray, continue with cough meds. fluids, rest, supportive measures for fever/symptom relief Other return for follow up in 1 month along with AW Next Appt Details Follow Up: 1 month,prn, 1 we ek if not better, Reason: Progress Notes * JAIME LEVYOB:1940 ([age] yo F)Acc No.[id number]:08/01/2024 Progress Notes Patient: CHEL JORDAN Provider: CARISSA Harrison :1940 A ge:84 Y S ex:Female Date:08/01/2024 Address:[place], [id number] Pcp:Sanjeev Garcia Subjective: * Chief Complaints: * 1 . 1 week f/u. * HPI: H PI: 84 year old female presents with c/o Here for follow up on:?Pt is here today for a 1 week f/u on bronchitis. Pt sts she is better. Pt sts she does still have a cough . E NT/respiratory: she presentswith her daughter who describes and ongoing congested cough. c/o cough s ometimes productive cough. Denies : sore throat. D enies : Fever. D enies : rhinorrhea. D enies : post nasal drainage. D enies : chest congestion. * ROS: D ERMATOLOGY: no R marcy. [...] 08-08, Cyst removed from spine-Dr Cheatham @ [facility] 12/2011, cataract surgery both eyes 05/2012, carpel [...] 05/2024. * Hospitalization/Major Diagno stic Procedure: [facility], Pneumonia, Cellulitis, COPD 12/19/10, [facility]-muscle spasm under left breast 2.7.12, [facility]-neck pain 06/15, [facility] ER-vaginal itching 02/24/16, [facility]-pneumonia 03/2016. * Family History: F ather: , diagnosed with Cancer, Hypertension, Diabetes. M other: , diagnosed with Cancer, Hypertension. * Social History: C URRENT TOBACCO USE [...] TAKE ONE CAPSULE BY MOUTH EVERY DAY - TAKE WITH FOOD- , Taking levoFLOXacin 500 MG Tablet 1 tablet Orally Once a day , Taking Albuterol Sulfate HFA 108 (90 Base) MCG/ACT Aerosol Solution 1 puff as needed Inhalation qid prn , Not-Taking oxyCODONE HCl 10 MG Tablet 1 tablet as needed Orally every 6 hrs , Medication List reviewed and reconciled with the patient * Allergies: N .K.D.A. Objective: * Vitals: W t: 143, Temp: 98.4, BP: 120/72, HR: 62, O2 Sat: 82% on RA, Nurse: daisy, Ht: 56, BMI:32.06. * Examination: G eneral Examination: General Appearance: a lert, appears healthy, coughing, not dyspneic, Not SOA. C hest: n ormal. H eart: R RR. L ungs: c rackles bilateral lower lobes, no SOA. p resents with her daughter in a wheelchair. Assessment: * Assessment: 1. A aldaire cough - R05.1 (Primary) Plan: * Treatment: Notes: Use albuterol prn, chest x-ray, continue with cough meds. fluids, rest, supportive measures for fever/symptom relief??2.?Others? Notes: return for follow up in 1 month along with AW?? * Procedure Codes: G 2211 Complex e/m visit add on, 1036F TOBACCO NON-USER * Follow Up: 1 month,prn, 1 week if not better * Images: Billing Information: * Visit Code: 53328 Office Visit, Est Pt., Level 3. * Procedure Codes: G2211 Complex e/m visit add on. 1036F TOBACCO NON-USER. * Electronic signature of Yoly Magaña APRN on 11/07/2024 at 02:15 PM EDT Sign off status: Pending * Provider: CARISSA Harrison Date: 0 08/01/2024 Generated for Flako anguiano/Mary Beth/eTnataliasmitting on: 0 11/07/2024 02:15 PM EDT History and Physical Notes * HPI (History of Present Illness) Category Sub-Category Detail Notes Category Not es ENT/respiratory sore throat cough sometimes productive cough Fever post nasal drainage chest congestion rhinorrhea HPI Here for follow up on: Pt is her e today for a 1 week f/u on bronchitis. Pt sts she is better. Pt sts she does still have a cough Examination Category Sub-Category Detail Notes Category Not es General Examination Heart: RRR presents with her daughter in a wheelchair Lungs: crackles bilateral l ower lobes, no SOA General Appearance: alert, appears healt hy, coughing, not dyspneic, Not SOA Chest: normal
--- OUTSIDE RECORDS SUMMARY | 2024-10-26 08:00 | XMS_ITS | Encounter Summary ---
Author Organization Healthcare Address [address] [place] [address] Care Team Providers Care Feed Handler Name Role Phone Jose Garcia MD Primary Care Provider +1- [phone] Reason for Visit * Reason Comments Follow-up Encounter Details Date Type Department Care Team (Latest Contact Info) Description 10/26/2024 8:00 AM EDT Office Visit [facility] [address], [address] [place] [address] Jeffrey Pool MD [address] [place] [address] Status post reverse arthroplasty of right shoulder (Primary Dx) Social History Tobacco Use Types Packs/Day Years Used Date Smoking Tobacco: Former Cigarettes 1 15 1 970 - 1984 Smokeless Tobacco: Never Tobacco Cessation:Counseling Given: Not Answered Alcohol Use Standard Drinks/Week Comments Not Currently 0 (1 standard drink = 0.6 oz pur e alcohol) Humiliation, Afraid, Rape, and Kick questionnair e Answer Date Recorded Within the last year, have y ou been afraid of your partner or ex-partner? No 06/14/2024 Within the last year, have y ou been humiliated or emotionally abused in other ways by your partner or ex-partner? No Within the last year, have y ou been kicked, hit, slapped, or otherwise physically hurt by your partner or ex-partner? No 06/14/2024 Within the last year, have y ou been raped or forced to have any kind of sexual activity by your partner or ex-partner? No 06/14/2024 PHQ-2 Answer Date Recorded Patient Health Questionnaire-2 Score 0 12/02/2023 Hunger Vital Sign Answer Date Recorded Within the past 12 months, y ou worried that your food would run out before you got the money to buy more. Never true 06/15/19 Within the past 12 months, t he food you bought just didn't last and you didn't have money to get more. Never true 06/14/2024 PRAPARE - Transportation Answer Date Re corded In the past 12 months, has l ack of transportation kept you from medical appointments or from getting medications? No 05/31 In the past 12 months, has l ack of transportation kept you from meetings, work, or from getting things needed for daily living? No 06/14/2024 Housing Stability Vital Sign Answer Robert e Recorded In the last 12 months, was t here a time when you were not able to pay the mortgage or rent on time? No 06/14/2024 In the past 12 months, how m any times have you moved where you were living? 1 06/14/2024 At any time in the past 12 m [facility], were you homeless or living in a detention (including now)? No 06/14/2024 Utilities Answer Date Recorded In the past 12 months has th e electric, gas, oil, or water company threatened to shut off services in your home? No 06/14/2024 Comments No Sex and Gender Information Value Date Recorded Sex Assigned at Female 11/06/2023 2:06 PM EDT Legal Sex Female 6:27 PM EDT Gender Identity Female 11/16/2023 1:02 PM EDT Sexual Orientation Straight 05/16/2021 6: 25 AM EDT documented as of this encounter Last Filed Vital Signs Vital Sign Reading Time Taken Comments Blood Pressure 91/59 10/26/2024 7:57 AM EDT Pulse 90 10/26/2024 7:57 AM EDT Temperature - - Respiratory Rate - - Oxygen Saturation 90% 10/26/2024 7:57 AM EDT Inhaled Oxygen Concentration - - Weight 64.9 kg (143 lb) 10/26/2024 7:57 AM EDT Height 139.7 cm (4' 7 ) 10/26/2024 7:57 AM EDT Body Mass Index 33.24 10/26/2024 7:57 AM EDT documented in this encounter Miscellaneous Notes * Progress Notes - Dayron Larios MD - 10/26/2024 8:00 AM EDT Upper Extremity Clinic Note Chief Complaint: follow-up s/p revision rTSA (06/13/24) HPI: Leana Curry is a 84 y.o. female who presents for follow up of the above-mentioned procedure. Today she states that she is doing well. She denies any pain and currently rates her pain 0/10. She has been compliant with UltraSling immobilization and weight-bearing restrictions. She denies any signs of postoperative infection. Denies any other concerns today. She is happy with her surgical outcome thus far. She reports she is able to feed, drink, and brush her teeth without issue. Physical Exam Gen: No acute distress Resp: non labored Cardiac: well perfused Focused Exam Right Upper Extremity Inspection: Surgical incision is well healed without signs of infection ROM: ROM of the right shoulder demonstrates 30 FF, 30 abduction Motor: 4/5 biceps, triceps. 5/5 wrist flexion/extension, EPL, FPL, IO, EDC, FDP Sensation: SILT all terminal nerve distributions Vascular: Palpable radial pulse. Extremity WWP, cap refill < 2s Imaging: My independent interpretation of the radiographs of the right shoulder which demonstrates stable hardware alignment without evidence of hardware failure or osteolysis. Cement mantle appears stable without osteolysis or evidence of hardware loosening. Unchanged metal debris adjacent to humerus. Assessment: Leana Curry is a 84 y.o. female who presents for follow-up of revision rTSA (DOS 06/13/24). She is doing well today and healing as expected. Her surgical incisions are without signs of infectionon exam and XRs are stable compared to prior without signs of hardware failure or complication. We will plan to continue with immobilization in UltraSling at this time with plan to continue this indefinitely. Plan for follow-up in approximately 3 months with repeat radiographs at that time. Dayron Larios MD 10/26/24 8:01 AM Cosigned by Jeffrey Pool MD at 10/27/2024 5:05 PM EDT Associated attestation - Jeffrey Pool MD - 10/27/2024 5:05 PM EDT I saw and evaluated the patient with the resident/fellow. I discussed the case with the resident/fellow and agree with the findings and plan as documented. documented in this encounter Plan of Treatment Upcoming Encounters Date Type Department Care Team (Late st Contact Info) Description 01/25/2025 7:50 AM EST Appointment [facility] [address], [address] [place] [address] 01/25/2025 8:30 AM EST Office Visit [facility] [address], [address] [place] [address] Jeffrey Pool MD [address] [place] [address] Scheduled Orders Name Type Priority Associated Diagnoses Orde r Schedule XR Humerus Right 2+ Views Imaging Routine Status post reverse arthroplasty of right shoulder 1 Occurrences starting 10/26/2024 until 04/29/2026 XR Shoulder Right 2+ Views Imaging Routine Status post reverse arthroplasty of right shoulder 1 Occurrences starting 10/26/2024 until 04/29/2026 documented as of this encounter Goals Goal Patient Goal Type Associated Problems Recent Progress Patient-Stated? Author Patient will verbalize understanding of orthotic wear , care and precautions. Occupational Therapy Valentina Marie documented as of this encounter Results * XR Humerus Right 2+ Views (10/26/2024 8:43 AM EDT) Anatomical Region Laterality Modality Upper Extremities, Humerus Right Digit al Radiography Impressions 10/26/2024 10:29 AM EDT Reverse total shoulder arthroplasty. No acute osseous finding. Questionable subtle increased lucency about the glenoid component screws, may represent prominent trabeculae rather than subtle loosening. Attention this finding is recommended on follow-up imaging studies. CRITICAL RESULT: No. COMMUNICATION: Per this written report. By electronically signing this report, I, the attending physician, attest that I have personally reviewed the images/data for the above examination(s) and agree with the final edited report. Drafted by Manolo Fajardo MD on 10/26/2024 9:53 AM Final report signed by Lora Negrete MD on 10/26/2024 10:29 AM Narrative 10/26/2024 10:29 AM EDT CLINICAL INDICATION: pain TECHNIQUE: XR HUMERUS RIGHT 2+ VIEWS, XR SHOULDER RIGHT 2+ VIEWS COMPARISON: Right shoulder and humerus radiographs 07/26/2024 FINDINGS: Reverse total shoulder arthroplasty. Questionable subtle increased lucency about the glenoid component screws, may represent prominent trabeculae rather than subtle loosening. Redemonstration of small ossific fragments about the proximal arm. Redemonstration of fragmentation of the acromion process. Demineralization of the remaining distal humerus and visualized portions of the radius and ulna. Redemonstration of metallic densities of the soft tissues of the elbow and proximal arm. Visualized portions of the right lung are grossly clear. Procedure Note Lora Negrete MD - 10/26/2024 CLINICAL INDICATION: pain TECHNIQUE: XR HUMERUS RIGHT 2+ VIEWS, XR SHOULDER RIGHT 2+ VIEWS COMPARISON: Right shoulder and humerus radiographs 07/26/2024 FINDINGS: Reverse total shoulder arthroplasty. Questionable subtle increased lucencyabout the glenoid component screws, may represent prominent trabeculaerather than subtle loosening. Redemonstration of small ossific fragmentsabout the proximal arm. Redemonstration of fragmentation of the acromionprocess. Demineralization of the remaining distal humerus and visualizedportions of the radius and ulna. Redemonstration of metallic densities ofthe soft tissues of the elbow and proximal arm. Visualized portions of theright lung are grossly clear. IMPRESSION: Reverse total shoulder arthroplasty. No acute osseous finding. Questionable subtle increased lucency about the glenoid component screws,may represent prominent trabeculae rather than subtle loosening. Attentionthis finding is recommended on follow-up imaging studies. CRITICAL RESULT: No. COMMUNICATION: Per this written report. By electronically signing this report, I, the attending physician, attestthat I have personally reviewed the images/data for the aboveexamination(s) and agree with the final edited report. Drafted by Manolo Fajardo MD on 10/26/2024 9:53 AM Final report signed by Lora Negrete MD on 10/26/2024 10:29 AM us Jeffrey Pool MD IMG XR PROCEDURES Final Resu lt * XR Shoulder Right 2+ Views (10/26/2024 8:43 AM EDT) Anatomical Region Laterality Modality Upper Extremities, Shoulder Right Digi luan Radiography Impressions 10/26/2024 10:29 AM EDT Reverse total shoulder arthroplasty. No acute osseous finding. Questionable subtle increased lucency about the glenoid component screws, may represent prominent trabeculae rather than subtle loosening. Attention this finding is recommended on follow-up imaging studies. CRITICAL RESULT: No. COMMUNICATION: Per this written report. By electronically signing this report, I, the attending physician, attest that I have personally reviewed the images/data for the above examination(s) and agree with the final edited report. Drafted by Manolo Fajardo MD on 10/26/2024 9:53 AM Final report signed by Lora Negrete MD on 10/26/2024 10:29 AM Narrative 10/26/2024 10:29 AM EDT CLINICAL INDICATION: pain TECHNIQUE: XR HUMERUS RIGHT 2+ VIEWS, XR SHOULDER RIGHT 2+ VIEWS COMPARISON: Right shoulder and humerus radiographs 07/26/2024 FINDINGS: Reverse total shoulder arthroplasty. Questionable subtle increased lucency about the glenoid component screws, may represent prominent trabeculae rather than subtle loosening. Redemonstration of small ossific fragments about the proximal arm. Redemonstration of fragmentation of the acromion process. Demineralization of the remaining distal humerus and visualized portions of the radius and ulna. Redemonstration of metallic densities of the soft tissues of the elbow and proximal arm. Visualized portions of the right lung are grossly clear. Procedure Note Lora Negrete MD - 10/26/2024 CLINICAL INDICATION: pain TECHNIQUE: XR HUMERUS RIGHT 2+ VIEWS, XR SHOULDER RIGHT 2+ VIEWS COMPARISON: Right shoulder and humerus radiographs 07/26/2024 FINDINGS: Reverse total shoulder arthroplasty. Questionable subtle increased lucencyabout the glenoid component screws, may represent prominent trabeculaerather than subtle loosening. Redemonstration of small ossific fragmentsabout the proximal arm. Redemonstration of fragmentation of the acromionprocess. Demineralization of the remaining distal humerus and visualizedportions of the radius and ulna. Redemonstration of metallic densities ofthe soft tissues of the elbow and proximal arm. Visualized portions of theright lung are grossly clear. IMPRESSION: Reverse total shoulder arthroplasty. No acute osseous finding. Questionable subtle increased lucency about the glenoid component screws,may represent prominent trabeculae rather than subtle loosening. Attentionthis finding is recommended on follow-up imaging studies. CRITICAL RESULT: No. COMMUNICATION: Per this written report. By electronically signing this report, I, the attending physician, attestthat I have personally reviewed the images/data for the aboveexamination(s) and agree with the final edited report. Drafted by Manolo Fajardo MD on 10/26/2024 9:53 AM Final report signed by Lora Negrete MD on 10/26/2024 10:29 AM Jeffrey Pool MD IMG XR PROCEDURES Final Resu lt documented in this encounter Visit Diagnoses Diagnosis Status post reverse arthroplasty of right shoulder- Primary Status post reverse arthroplasty of right shoulder documented in this encounter Additional Health Concerns Assessment Noted Time A fall risk assessment has been complete d for the patient 10/26/2024 8:01 AM EDT A Body Mass Index follow-up plan has been documented for the patient 10/26/2024 9:33 AM EDT documented as of this encounter Care Teams Feed Handler Relationship Specialty Start Date End Date Jose Garcia MD [address] [place] [address] PCP - General 07/13/20 documented as of this encounter
--- OUTSIDE RECORDS SUMMARY | 2024-10-26 08:04 | XMS_ITS | Encounter Summary ---
Author Organization Healthcare Address [address] [place] [address] Care Team Providers Care Bevel Face Stoner And Polisher Name Role Phone Jose Garcia MD Primary Care Provider +1- [phone] Encounter Details Date Type Department Care Team (Latest Contact Info) Description 10/26/2024 8:04 AM EDT - 10/26/2024 11:59 PM EDT Hospital Encounter [facility] [address], [address] [place] [address] Status post reverse arthroplasty of right shoulder Discharge Disposition: Home or Self Care Social History Tobacco Use Types Packs/Day Years Used Date Smoking Tobacco: Former Cigarettes 1 16 03 970 - 1984 Smokeless Tobacco: Never Alcohol Use Standard Drinks/Week Comments Not Currently [...] any time in the past 12 m [facility], were you homeless or living in a half-way (including now)? No 06/14/2024 Utilities Answer Date [...] AM EDT documented as of this encounter Medications at Time of Discharge acetaminophen (Tylenol) 500 MG tablet Take 2 tablets by mouth in the morning and 2 tablets at noon and 2 tablets before bedtime. 100 tablet 06/13/2024 aspirin 81 MG EC tablet Take 1 tablet by mouth 1 (one) time each day. Calcium Carbonate-Vit D-Min (Calcium-Vitamin D-Minerals) 600-800 MG-UNIT chewable tablet Chew 1 tablet in the morning and 1 tablet in the evening and 1 tablet before bedtime. celecoxib (CeleBREX) 200 MG capsule Take 1 capsule by mouth daily. 11/11/2023 cyanocobalamin (Vitamin B-12) 1000 MCG tablet Take 1 tablet by mouth 1 (one) time each day. cyclobenzaprine (Flexeril) 5 MG tablet Take 1 tablet by mouth as needed for muscle spasms. furosemide (Lasix) 20 MG tablet Take 1 tablet by mouth in the morning. 01/20/2024 gabapentin (Neurontin) 300 MG capsule Take 1 capsule by mouth in the morning and 1 capsule in the evening and 1 capsule before bedtime. 04/09/2021 levothyroxine (Synthroid, Levoxyl) 75 MCG tablet Take 1 tablet by mouth in the morning. 03/15/2021 losartan (Cozaar) 50 MG tablet Take 1 tablet by mouth nightly. metFORMIN (Glucophage) 500 MG tablet Take 1 tablet by mouth in the morning. 03/04/2021 metoprolol succinate XL (Toprol-XL) 25 MG 24 hr tablet Take 1 tablet by mouth in the morning. Do not crush or chew. . omeprazole (PriLOSEC) [address] capsule Take 1 capsule by mouth daily as needed. risedronate (Actonel) 35 MG tablet Take 1 tablet by mouth every 7 (seven) days. Take in morning with full glass of water on an empty stomach. No food, drink, meds, or lying down for 30 minutes after. Takes on rosuvastatin (Crestor) 10 MG tablet Take 1 tablet by mouth 1 (one) time each day. traMADol (Ultram) 50 MG tablet Take 1 tablet by mouth every 8 hours as needed for severe pain. documented as of this encounter Plan of Treatment Upcoming Encounters Date Type Department Care Team (Late st Contact Info) Description 01/25/2025 7:50 AM EST Appointment [facility] Radiology [address] [place] [address] 01/25/2025 8:30 AM EST Office Visit [facility] [address], [address] [place] [address] Jeffrey Pool MD [address] [place] [address] documented as of this encounter Goals Goal Patient Goal Type Associated Problems Recent Progress Patient-Stated? Author Patient will verbalize understanding of orthotic wear , care and precautions. Occupational Therapy No Valentina Rodriguez documented as of this encounter Procedures Procedure Name Priority Date/Time Associated Diagnosis Comments XR HUMERUS RIGHT 2+ VIEWS Routine 10/26/2024 8:43 AM EDT Status post reverse arthroplasty of right shoulder XR SHOULDER RIGHT 2+ VIEWS Routine 10/26/2024 8:43 AM EDT Status post reverse arthroplasty of right shoulder documented in this encounter Results * XR Shoulder Right 2+ Views (10/26/2024 [...] XR PROCEDURES Final Resu lt * XR Humerus Right 2+ Views (10/26/2024 [...] Diagnosis Status post reverse arthroplasty of right shoulder documented in this encounter Additional Health Concerns Assessment Noted Time A fall risk assessment has been complete d for the patient 10/26/2024 8:01 AM EDT A Body Mass Index follow-up plan has been documented for the patient 10/26/2024 9:33 AM EDT documented as of this encounter Care Teams Bevel Face Stoner And Polisher Relationship Specialty Start Date End Date Jose Garcia MD [address] [place] [address] PCP - General 07/13/20 documented as of this encounter
--- OUTSIDE RECORDS SUMMARY | 2024-11-01 05:45 | XMS_ITS ---
Author Organization [facility] Address [address] [facility] [address] [place] [id number] Care Team Providers Care Cloak Room Attendant Name Role Phone Sanjeev Garcia Primary Care Provider Allergies No Known Allergies REASON FOR VISIT f/u on [facility] visit and Scraped Leg Medications Medication SIG (Take, Route, Frequency, Duration) Notes Start Date End Date Status Gabapentin 300 MG 1 cap(s) orally Thre e times a day; Duration: 90 days 08/11/2024 Active Actonel 35 MG 1 tab(s) orally once a week; Duration: 90 days Active traMADol HCl 50 MG 1 tab(s) Orally q6h prn 09/27/2024 Active Levothyroxine Sodium 75 mcg TAKE ONE TAB LET BY MOUTH EVERY DAY; Duration: 90 Active Celecoxib 200 mg TAKE ONE CAPSULE BY MOUTH EVERY DAY - TAKE WITH FOOD-; Duration: 30 Active metFORMIN HCl 500 mg TAKE ONE TABLET BY MOUTH EVERY DAY with a meal; Duration: 30 days Active Albuterol Sulfate HFA 108 (90 Base) MCG/ACT 1 puff as needed Inhalation qid prn 07/18/2024 Active Betamethasone Dipropionate Aug 0.05 % 1 chrissy applied topically 2 times a day 10/15/2021 Active Omeprazole 40 MG 1 cap(s) orally once a day; Duration: 30 days Active Crestor 10 MG 1 tab(s) orally once a day Active Losartan Potassium 50 MG 1 tab(s) orally once a day Active Calcium-Vitamin D-Minerals 600-800 MG-UNIT 1 tab(s) orally 2 times a day; Duration: 30 Active Furosemide 20 MG 1 tab(s) orally once a day 07/11/2021 Active Metoprolol Succinate ER 25 MG 1 [...] PRN Active Vital Signs Blood pressure systolic 102 mm Hg 11/02/19 25 Blood pressure diastolic 60 mm Hg 025 Heart Rate 70 /min 11/01/2024 Height 56 in 11/01/2024 Weight 138.8 lbs 11/01/2024 BMI 31.11 kg/m2 11/01/2024 Encounters Encounter Location Date Provider Diagnosis [facility] [address] [facility] [address] [place] [id number] 11/01/2024 Sanjeev Garcia Skin tear of right lower leg without complication, initial encounter S81.811A and Abrasion of left lower extremity, initial encounter S80.812A Assessments Encounter Date Diagnosis (ICD Code) Assessment Notes Treatment Notes Treatment Clinical Notes Section Notes 11/01/2024 Skin tear of right lower leg without complication, initial encounter (ICD-10 - S81.811A) 11/01/2024 Abrasion of left lower extremity, initial encounter (ICD-10 - S80.812A) 11/01/2024 Other Continue local wound care and follow-up as needed Plan Of Treatment Treatment Notes Assessment Notes Other Continue local wound care and follow-up as needed Next Appt Details Follow Up: prn, Reason: Progress Notes * JAIME LEVYOB:1940 ([age] yo F)Acc No.[id number]:11/01/2024 Progress Notes Patient: CHEL JORDAN Provider: Sanjeev Garcia M.D. :1940 A ge:84 Y S ex:Female Date:11/01/2024 Address:[address] [place] [id number] Subjective: * Chief Complaints: * 1 . f/u on [facility] visit and Scraped Leg. * HPI: D ermatology: The patient is here for a follow-up from [facility] due to abrasions of both lower legs. Pt states she was lifting a laundry basket and it tipped over and scraped both lower legs. Pt states she went to the [facility] on 10/21/24 because the abrasions were looking infected. Pt was given antibiotics and an ointment. see pt docs. She has completed the oral antibiotic and subjectively feels the infection is much improved. * ROS: D ERMATOLOGY: no R marcy. [...] [facility], cataract surgery both eyes 05/2012, carpel [...] * Hospitalization/Major Diagno stic Procedure: [facility], Pneumonia, Cellulitis, COPD 12/19/10, [facility]-muscle spasm under left breast 2.7.12, [facility] ER-neck pain 06/15, [facility] ER-vaginal itching 02/24/16, [facility]-pneumonia 03/2016. * Family History: F [...] cap(s) orally once a day , Taking Albuterol Sulfate HFA 108 (90 Base) MCG/ACT Aerosol Solution 1 puff as needed Inhalation qid prn , Taking metFORMIN HCl 500 mg Tablet TAKE ONE TABLET BY MOUTH EVERY DAY with a meal , Taking Actonel 35 MG Tablet 1 tab(s) orally once a week , Taking Gabapentin 300 MG Capsule 1 cap(s) orally Three times a day , Taking Levothyroxine Sodium 75 mcg Tablet TAKE ONE TABLET BY MOUTH EVERY DAY , Taking Celecoxib 200 mg Capsule TAKE ONE CAPSULE BY MOUTH EVERY DAY - TAKE WITH FOOD- , Taking traMADol HCl 50 MG Tablet 1 tab(s) Orally q6h prn , Not-Taking oxyCODONE HCl 10 MG Tablet 1 tablet as needed Orally every 6 hrs , Discontinued levoFLOXacin 500 MG Tablet 1 tablet Orally Once a day , Medication List reviewed and reconciled with the patient * Allergies: N .K.D.A. Objective: * Vitals: W t: 138.8, Temp: 97.7, BP: 102/60, HR: 70, O2 Sat: 95% on RA, Nurse: JEANNETTE, Ht: 56, BMI:31.11. * Examination: G eneral Examination: Extremities: B elow the right knee, there is a 3 cm healing skin tear with scab. No drainage. Minimal erythema. Below the left knee, there is a 2 x 6 cm abrasion with thick scab and mild surrounding erythema. No purulent drainage.. Assessment: * Assessment: 1. S kin tear of right lower leg without complication, initial encounter - S81.811A (Primary)? 2. A brasion of left lower extremity, initial encounter - S80.812A ? Plan: * Treatment: * Follow Up: p rn * Images: Billing Information: * Visit Code: 06966 Office Visit, Est Pt., Level 3. * Procedure Codes: * Electronic signature of Sanjeev Garcia MD on 11/07/2024 at 02:15 PM EDT Sign off status: Pending * Provider: Sanjeev Garcia M.D. Date: 11/01/2024 Generated for Flako anguiano/Mary Beth/Dkitting on: 11/07/2024 02:15 PM EDT History and Physical Notes * HPI (History of Present Illness) Category Sub-Category Detail Notes Category Not es Dermatology She has complet ed the oral antibiotic and subjectively feels the infection is much improved. Examination Category Sub-Category Detail Notes Category Not es General Examination Extremities: Below the ri ght knee, there is a 3 cm healing skin tear with scab. No drainage. Minimal erythema. Below the left knee, there is a 2 x 6 cm abrasion with thick scab and mild surrounding erythema. No purulent drainage.
--- OUTSIDE RECORDS SUMMARY | 2024-11-07 14:15 | XMS_ITS | Encounter Summary ---
Author Organization [facility] Address [address] [place] [address] Care Team Providers Care Heavy Equipment Technician Name Role Phone Jose Garcia MD Primary Care Provider +1- [phone] Encounter Details Date Type Department Care Team [...] any time in the past 12 m [facility], were you homeless or living in a snf (including now)? No 06/14/2024 Utilities Answer Date [...] Info) Description 01/25/2025 7:50 AM EST Appointment [facility] Radiology [address], [address] [place] [address] 01/25/2025 8:30 AM EST Office Visit [facility] Orthopaedic Surgery & Sports Medicine [address], [address] [place] [address] Jeffrey Pool MD [address] [place] [id number] documented as of this encounter Goals Goal [...] documented as of this encounter Care Teams Heavy Equipment Technician Relationship Specialty Start Date End Date Jose Garcia MD [address] [place] [address] PCP - General 07/13/20 documented as of this encounter
--- OUTSIDE RECORDS SUMMARY | 2024-11-07 14:15 | XMS_ITS | Clinical Summary ---
Author Organization [facility] Address [address] [place] [address] Care Team Providers Care Business Management Professor Name Role Phone Jose Garcia MD Primary Care Provider +1- [phone] Allergies No known active allergies Medications aspirin [...] pain 05/16/2021 CHF (congestive heart failure) 05/08/2021 FL (myocardial infarction) 05/07/2021 HTN (hypertension) 05/07/2021 Pacemaker 05/07/2021 High cholesterol 05/07/2021 Diabetes mellitus, type 2 05/07/2021 Hypothyroidism 05/07/2021 Gastroesophageal reflux disease 05/07/2021 Non-seasonal allergic rhinitis due to pollen 09/2021 History of COVID-19 05/07/2021 Arthritis 05/07/2021 Osteoporoses 05/07/2021 Overview (12/02/2021): Regulatory Update November 2021 Right supracondylar humerus fracture, sequela Acute pain of right shoulder 04/17/2021 Overview (04/17/2021): Added automatically from request for surgery [id number] Resolved Problems Problem Noted Date Diagnosed Date Resolved Date Pain of right humerus 03/08/20242024 Encounters Date Type Department Care Team Description 10/26/2024 8:04 AM EDT - 10/26/2024 11:59 PM EDT Hospital Encounter [facility] Radiology [address], [address] [place] [address] Status post reverse arthroplasty of right shoulder Discharge Disposition: Home or Self Care 10/26/2024 8:00 AM EDT Office Visit [facility] Orthopaedic Surgery & Sports Medicine [address], [address] [place] [phone] Jeffrey Pool MD Status post reverse arthroplasty of right shoulder (Primary Dx) 10/26/2024 Travel from Last 3 Months Family History Medical [...] medical appointments or from getting medications? No 04/1 06/2024 In the past 12 months, has l [...] in the past 12 m [facility], were you homeless or living in a mcfp (including now)? No 06/14/2024 Utilities Answer Date [...] Info) Description 01/25/2025 7:50 AM EST Appointment [facility] Radiology [address], [address] [place] [address] 01/25/2025 8:30 AM EST Office Visit [facility] Orthopaedic Surgery & Sports Medicine [address], [address] [place] [address] Jeffrey oPol MD [address] [place] [address] Health Maintenance Due Date Last Done Comments [facility]-Bone Density Scan 1940 [facility]-Medicare Annual Wellness (AWV) 1940 [facility]-/Child/Adol SDOH Screenings 1940 Diabetes: Dental Exam 1951 [facility]-RSV Vaccine: 60+ Years or (1 - 1-dose 75+ series) 2016 [facility]-Zoster Vaccines (2 of 3) 10/07/2018 08/12/2018 DRS-[id number]-21 Vaccine (7 - Moderna risk 2023- season) [...] Valentina Marie [employer] Implanted Type Area Acupuncture Physician Device Identifier Shelf Expiration Date Model / Serial / Lot Chg Cement Dickey G-Hv Bone 40 - [id number] - [id number] Implanted:Qty : 1 on 06/13/2024 by Jeffrey Pool MD at [facility] Cement Right: Shoulder [id number] 600-15-10 0 / [id number] / Screw Assembly Aequalis Shoulder 20mm - [id number] - [id number] Implanted:Qty : 1 on 06/13/2024 by Jeffrey Pool MD at [facility] Implant Right: Shoulder [employer] [facility]139 168 11/11/2028 [id number] / [id number] / Cap Locking Aequalis Shoulder - [id number] - [id number] Implanted:Qty : 1 on 06/13/2024 by Jeffrey Pool MD at [facility] Implant Right: Shoulder [employer] ([facility]139 168 12/20/2028 [id number] / [id number] / Stem Distal Humeral Ptc Aequalis 9u084bq - [id number] - [id number] Implanted:Qty : 1 on 06/13/2024 by Jeffrey Pool MD at [facility] Implant Right: Shoulder [employer] ([facility]139 168 06/11/2028 [id number] / [id number] / Body Proximal Humeral Aequalis Shlder 9mm - [id number] - [id number] Implanted:Qty : 1 on 06/13/2024 by Jeffrey Pool MD at [facility] Implant Right: Shoulder [employer] ([facility]139 168 08/23/2028 [id number] / [id number] / Pacemaker Pacemaker N/A: Chest Plate 5.0mm Lock Compress Narrow 187mm 10hl - Snone - [id number] Implanted:Qty : 1 on 05/16/2021 by Jeffrey Pool MD at [facility] Plate Right: Shoulder [employer] ([facility])-139 168 [id number] / [id number] / Chg Cable D-M 2.0mm Beaded Set - [id number] Implanted:Qty : 1 on 05/16/2021 by Jeffrey Pool MD at [facility] Shoulder Right: Shoulder [employer] ([facility])-139 168 01/25/2026 6704-0-52 0 / / [id number] Chg Cable D-M 2.0mm Beaded Set - [id number] Implanted:Qty : 2 on 05/16/2021 by Jeffrey Pool MD at [facility] Shoulder Right: Shoulder [employer] ([facility])-139 168 01/25/2026 6704-0-52 0 / / [id number] Chg Cable D-M 2.0mm Beaded Set - [id number] Implanted:Qty : 1 on 05/16/2021 by Jeffrey Pool MD at [facility] Shoulder Right: Shoulder [employer] ([facility])-139 168 03/23/2022 3704-0-05 0 / / [id number] Chg Cable D-M 2.0mm Beaded Set - [id number] Implanted:Qty : 1 on 05/16/2021 by Jeffrey Pool MD at [facility] Shoulder Right: Shoulder [employer] ([facility])-139 168 01/23/2024 3704-0-05 0 / / [id number] Chg Cable D-M 2.0mm Beaded Set - [id number] Implanted:Qty : 1 on 05/16/2021 by Jeffrey Pool MD at [facility] Shoulder Right: Shoulder [employer] ([facility])-139 168 09/17/2024 3704-0-05 0 / / [id number] Reunion Rsa X3 Humeral Insert Implanted:Qty : 1 on 05/16/2021 by Jeffrey Pool MD at [facility] Shoulder Right: Shoulder [employer] 03/09/2024 5571-S-32 / / [id number] Description:NONFILE 5.Mm Cable Plug - [id number] Implanted:Qty : 1 on 05/16/2021 by Jeffrey Pool MD at [facility] Shoulder Right: Shoulder [employer] ([facility])-139 168 10/30/2025 [id number] / / [id number] Graft Bone 10cc Vitoss - [id number] Implanted:Qty : 1 on 05/16/2021 by Jeffrey Pool MD at [facility] Right: Shoulder [employer] ([facility])-139 168 02/24/2023 2577-1383 / / [id number] Graft Bone 10cc Vitoss - [id number] Implanted:Qty : 1 on 05/16/2021 by Jeffrey Pool MD at [facility] Right: Shoulder [employer] ([facility])-139 168 04/27/2023 0484-1497 / / [id number] Strut Cortical 80q861fg - [id number] - [id number] Implanted:Qty : 1 on 05/16/2021 by Jeffrey Pool MD at [facility] Right: Shoulder [facility]-[id number] 07/02/2021 [facility] / [id number] / [id number] Chg Cable D-M 2.0mm Beaded Set - [id number] Implanted:Qty : 2 on 05/16/2021 by Jeffrey Pool MD at [facility] Right: Shoulder [employer] ([facility])-139 168 11/27/2025 6704-0-52 0 / / [id number] 5.Mm Cable Plug - [id number] Implanted:Qty : 3 on 05/16/2021 by Jeffrey Pool MD at [facility] Right: Shoulder [employer] ([facility])-139 168 12/30/2025 [id number] / / [id number] Chg Cable D-M 2.0mm Beaded Set - [id number] Implanted:Qty : 1 on 05/16/2021 by Jeffrey Pool MD at [facility] Right: Shoulder [employer] ([facility])-139 168 01/31/2026 6704-0-52 0 / / [id number] Chg Cable D-M 2.0mm Beaded Set - [id number] Implanted:Qty : 1 on 05/16/2021 by Jeffrey Pool MD at [facility] Right: Shoulder [employer] ([facility])-139 168 10/13/2022 3704-0-05 0 / / [id number] Insert Ascend Flex Rvrsd 36mm/Pls6/7.5 deg C - [id number] - [id number] Implanted:Qty : 1 on 06/13/2024 by Jeffrey Pool MD at [facility] Right: Shoulder [employer] ([facility])-139 168 10/14/2028 [id number] / [id number] / Tray Ascend Flex Reversed Plus 6/Offset 0mm - [id number] - [id number] Implanted:Qty : 1 on 06/13/2024 by Jeffrey Pool MD at [facility] Right: Shoulder [employer] ([facility])-139 168 05/05/2028 [id number] / [id number] / Spacer Aequalis Shoulder 9x20mm - [id number] - [id number] Implanted:Qty : 1 on 06/13/2024 by Jeffrey Pool MD at [facility] Right: Shoulder [employer] ([facility])-139 168 04/15/2028 [id number] / [id number] / Procedures Procedure Name Priority Date/Time [...] 5.6 <5.7 % 06/14/2024 5:33 AM EDT [facility] Blood Venous blood specimen / Unknown Venipuncture / Unknown 06/14/2024 1:56 AM EDT 06/14/2024 2:19 AM EDT Narrative [facility] - 06/14/2024 5:33 AM EDT HA1C Interpretive Data: Diagnosis of Diabetes: Diabetic > or = 6.5% Pre-diabetic 5.7 to 6.4% Non-diabetic < or = 5.6% Glycemic Targets for Type I and Type II Diabetics: Non- Adults <7.0% Adults <6.0% Children and Adolescents <7.5% Source: [place] [employer]. Standards of medical care in diabetes,2017. Diabetes Care.2017:40 (suppl 1):S1-S135. Poly [facility] BLOOD ORDERABLES Final Res ult [facility] [address] [place] [address] from Last 3 Months or Most Recently Relevant to Health Maintenance Insurance Advance Directives Documents on File Type Date Recorded Patient Information Analyst Expl anation Power of Lock Expert 08/13/2022 9:02 AM Yes, not on file with [facility] Advance Directives and Living Will 08/13/2022 9:02 AM yes, not on file wit h [facility] * Full Code (Latest [...] Patient has decision-making capacity? Yes Care Teams Business Management Professor Relationship Specialty Start Date End Date Jose Garcia MD [address] [place], [place] [address] [facility] - General 07/13/20
--- OUTSIDE RECORDS SUMMARY | 2024-11-07 14:16 | XMS_ITS | Clinical Summary ---
Author Organization [facility] Address [address] [place] [address] Phone Care Team Providers Care Subpoena Server Name Role Phone Valentina Dominique Unavailable Unavailable Conditions or Problems Problem Name Problem Code Onset Date Status Entry Date Provider Comment Standard Description Annotate CELLULITIS , BACK [id number] (SNOMED CT) Active Valentina Dominique Cellulitis of back, except buttock REDNESS-SK IN L52 (ICD-10-CM) Active Valentina Dominique Erythema nodosum Medications Medication Instructions Start Date Stop Date Generic Name [facility] Provider ADVAIR DISKUS AEROSOL POWDER BREATH ACTIVATED FLUTICASONE-SALME TEROL AEPB [id number] Valentina Dominique ALBUTEROL SULFATE NEBU ALBUTEROL SULFATE NEBU [id number] Valentina Dominique PREDNISONE TABS PREDNISONE TABS [id number] Valentina Dominique CVS VITAMIN B-12 TABS CYANOCOBALAMIN TABS 90083916276 Valentina Dominique MELOXICAM TABS MELOXICAM TABS 32255356156 Valentina Dominique LOVASTATIN TABS LOVASTATIN TABS 67345440478 Valentina Dominique LISINOPRIL TABS LISINOPRIL TABS 77641318895 Valentina Dominique LEVOTHYROXINE SODIUM TABS LEVOTHYROXINE SODIUM TABS 93639650672 Valentina Dominique JANUVIA TABS SITAGLIPTIN PHOSPHATE TABS 23233339214 Valentina Dominique GLIPIZIDE TABS GLIPIZIDE TABS 29110326362 Valentina Dominique GABAPENTIN CAPS GABAPENTIN CAPS 54873097415 Valentina Dominique ATENOLOL TABS ATENOLOL TABS 59424255549 Valentina Dominique Medications Administered No information available. [...]
--- OUTSIDE RECORDS SUMMARY | 2024-11-07 14:16 | XMS_ITS | Clinical Summary ---
Author Organization [facility] Address [address] [place] [address] Care Team Providers Care Group Work Program Director Name Role Phone Jose Garcia MD [...] series) 7 COVID-19 Vaccine (1 - season) 2024 INFLUENZA VACCINE 11/30/2024 HEMOGLOBIN A1C Discontinued 01/17/2016 Medical Devices Implanted Type Area Automation Engineering Manager Device Identifier Shelf Expiration Date Model / Serial / Lot Sphr Junior Aequalis Ascend Flex Rev2 Ctr 36mm - [id number] Implanted:Qty: 1 on 01/30/2016 by Fredy Moreau MD at [facility] Implant Left: Acromial Process TORNIER 09/24/2020 [id number] / / [id number] Sphr Junior Aequalis Ascend Flex Rev2 Std 30e36wm - [id number] Implanted:Qty: 1 on 01/30/2016 by Fredy Moreau MD at [facility] Implant Left: Acromial Process TORNIER 06/21/2020 [id number] / / [id number] Stem Hum Aequalis Ascendflx Ptc Lng 132.5d 3b 98mm - [id number] Implanted:Qty: 1 on 01/30/2016 by Fredy Moreau MD at [facility] Implant Left: Humerus TORNIER 01/29/2018 [id number] / / [id number] Insrt Hum Aequalis Flex Rev 12.5d 36mm Pls6 - [id number] Implanted:Qty: 1 on 01/30/2016 by Fredy Moreau MD at [facility] Implant Left: Humerus TORNIER 12/12/2020 [id number] / / [id number] Try Shldr Rev Flex Ctr Pls6 - [id number] Implanted:Qty: 1 on 01/30/2016 by Fredy Moreau MD at [facility] Implant Left: Humerus TORNIER 09/29/2017 [id number] / / [id number] Scrw Charanjit Art S/Tap 4.5x32mm - [id number] Implanted:Qty: 2 on 01/30/2016 by Fredy Moreau MD at [facility] Implant Left: Humerus TORNIER [id number] / / Scrw Revrsd M/Dir S/Lk 4.5x32mm - [id number] Implanted:Qty: 2 on 01/30/2016 by Fredy Moreau MD at [facility] Implant Left: Humerus TORNIER [id number] / / Totl Shldr S3 Tornier - [id number] Implanted:Qty: 1 on 01/30/2016 by Fredy Moreau MD at [facility] Implant Left: Acromial Process TORNIER CAPTOTGERALD DRS3 / / Procedures Procedure Name Priority Date/Time Associated Diagnosis Comments HEMOGLOBIN A1C Routine 01/17/2016 9:15 AM EST from Last 3 Months or Most Recently Relevant to Health Maintenance Results * (ABNORMAL) Hemoglobin A1c (01/17/2016 9:15 AM EST) Hemoglobin A1C 5.70(H) 4.80 - 5.60 % 01/17/2016 11:14 AM EST [facility] Blood Venipuncture / Unknown 01/17/2016 9:15 AM EST 01/17/2016 9:26 AM EST Narrative [facility] - 01/17/2016 11:14 AM EST The [place] [employer] recommends maintenance of Hemoglobin A1C at 7.0% or lower. Goals for Hemoglobin A1C reduction may need to be modified if hypoglycemia is a problem. Fredy Moreau MD LAB BLOOD ORDERABLES Julia ferrell Result [facility]
[address] [place] [address], from Last 3 Months or Most Recently Relevant to Health Maintenance Insurance [employer]AGE Advance Directives Documents on File Type Date Recorded Patient Dispatcher Radio Expl anation LIVING WILL - SCAN 11/13/2021 1:44 PM * Full Code (Latest Code Status on File) Date Activated Date Inactivated Comments 01/30/2016 8:30 PM 01/31/2016 2:10 PM Question Answer Comments Level Of Support Discussed With: Patient Care Teams Group Work Program Director Relationship Specialty Start Date End Date Jose Garcia MD [address] [facility] [address] [place] [address] PCP - General Family Medicine 01/17/16
--- OUTSIDE RECORDS SUMMARY | 2024-11-07 14:17 | XMS_ITS | Patient Health Record ---
[facility] Organization [facility] Address [address] [facility] [address] [place] [id number] Care Team Providers Care Dormitory Supervisor Name Role Phone Sanjeev Garcia Primary Care Provider [phone] Kandy Magaña Unavailable [phone] Allergies No Known Allergies Results Component Value Reference Range Notes CXR Reviewed date:08/03/2024 05:27:07 PM Interpretation:low lung volumes Performing Lab: Notes/Report: low lung volumes CBC Fingerstick (in house) Reviewed date:07/18/2024 03:03:23 [...] - 38 plat 179 100 - 400 Medications Medication SIG (Take, Route, Frequency, Duration) Notes Start Date End Date Status Crestor 10 MG 1 tab(s) orally once a day Active Gabapentin 300 MG 1 cap(s) orally Thre e times a day; Duration: 90 days 08/11/2024 Active Losartan Potassium 50 MG 1 tab(s) orally once a day Active Vitamin B-12 1000 MCG 2.5 orally once a day Active Aspirin 81 MG 1 tab(s) orally once a day; Duration: 30 day(s) Active Actonel 35 MG 1 tab(s) orally once a week; Duration: 90 days Active Calcium-Vitamin D-Minerals 600-800 MG-UNIT 1 tab(s) orally 2 times a day; Duration: 30 Active traMADol HCl 50 MG 1 tab(s) Orally q6h prn 09/27/2024 Active Furosemide 20 MG 1 tab(s) orally once a day 07/11/2021 Active oxyCODONE HCl 10 MG 1 tablet as needed Orally every 6 hrs Not-Taking Levothyroxine Sodium 75 mcg TAKE ONE TAB LET BY MOUTH EVERY DAY; Duration: 90 Active Metoprolol Succinate ER 25 MG 1 tab(s) orally once a day Active Celecoxib 200 mg TAKE ONE CAPSULE BY MOUTH EVERY DAY - TAKE WITH FOOD-; Duration: 30 Active Cyclobenzaprine HCl 5 MG 1 tab Orally ev jo 8 hours PRN Active Albuterol Sulfate HFA 108 (90 Base) MCG/ACT 1 puff as needed Inhalation qid prn 07/18/2024 Active metFORMIN HCl 500 mg 1 tablet orally onc e a day; Duration: 30 days Active Betamethasone Dipropionate Aug 0.05 % 1 chrissy applied topically 2 times a day 10/15/2021 Active Omeprazole 40 MG 1 cap(s) orally once a day; Duration: 30 days Active Immunizations Vaccine Route Administration Date Status Comme nts jMavtxjg-uiaejgzfc-qexdrvy e pts. IM Intramuscular 01/27/2012 Administered xChaimmm-znkpgfgmb-pppmxgz e pts. IM Intramuscular 12/20/2013 Administered xFluzone (6mos and older)-trivalent IM Intramuscular 12/21/2009 Administered xFlu shot-36 months and older IM Intramuscular 01/09/2005 Administered xFlu shot-36 months and older IM Intramuscular 01/03/2006 Administered xFlu shot-36 months and older IM Intramuscular 12/11/2006 Administered xFlu shot-36 months and older IM Intramuscular 12/25/2007 Administered xFlu shot-36 months and older IM Intramuscular 11/10/2008 Administered Tetanus Tdap-Adacel (over 7yrs) IM Intramuscular 01/09/2017 Administered Tetanus Tdap-Adacel (over 7yrs) Unknown 05/29/2023 Administered Shingrix Unknown 08/12/2018 Administered Prevnar (PCV20) IM Intramuscular 12/17/2021 Administered Prevnar (PCV13) IM Intramuscular 07/11/2014 Administered PNEUMOVAX 23 VACCINE ID Intradermal 01/27/2012 Administere d PNEUMOVAX 23 VACCINE IM Intramuscular 01/14/2019 Administe red H1N1 flu vaccine IM Intramuscular 02/02/2009 Administered Fluzone Quad-Medicare (6months&older) Unknown 12/16/2019 Administered Fluzone High Dose (65yr and older) IM Intramuscular 12/29/2012 Administered Fluzone High Dose (65yr and older) IM Intramuscular 01/23/2015 Administered Fluzone High Dose (65yr and older) IM Intramuscular 12/21/2015 Administered Fluzone High Dose (65yr and older) IM Intramuscular 01/09/2017 Administered Fluzone High Dose (65yr and older) IM Intramuscular 01/28/2017 Administered Fluzone High Dose (65yr and older) IM Intramuscular 12/03/2017 Administered Fluzone High Dose (65yr and older) IM Intramuscular 01/14/2019 Administered Fluzone High Dose (65yr and older) IM Intramuscular 12/04/2020 Administered Fluzone High Dose (65yr and older) IM Intramuscular 12/17/2021 Administered Fluzone High Dose (65yr and older) IM Intramuscular 12/02/2022 Administered COVID 19 Moderna Unknown 03/14/2020 Administered COVID 19 Moderna Unknown 04/13/2020 Administered COVID 19 Moderna Unknown 11/21/2020 Administered Problems Problem Type SNOMED Code ICD Code Onset Dates Problem Status W/U Status Risk Notes Problem Hypertension (30991662) HTN (hypertension) (I10) Active confirmed Problem Overactive bladder (956778728) Overactive bladder (N32.81) Active confirmed Problem Otitis externa (5545512) Otitis externa (H60.90) Active confirmed Problem Disorder of lumbar disc (615918238) Lumbar disc disease (M51.9) Active confirmed Problem Diabetic neuropathy (128526388) Diabetic neuropathy (E11.40) Active confirmed Problem Anxiety (04062980) Anxiety (F41.1) Active confi rmed Problem Anxiety (92620826) Situational anxiety (F41.8) Active confirmed Problem Polyneuropathy due to type 2 diabetes mellitus (597568866) Type 2 diabetes mellitus with diabetic polyneuropathy (E11.42) Active confirmed Problem Osteoarthritis (933760013) Unspecified osteoarthritis, unspecified site (M19.90) Active confirmed Problem Age-related osteoporosis (932069744) Age-related osteoporosis without current pathological fracture (M81.0) Active confirmed Problem Generalized osteoarthritis (429418827) Generalized osteoarthritis (M15.9) Active confirmed Problem Gastroesophageal reflux disease without esophagitis (535508917) Gastroesophageal reflux disease without esophagitis (K21.9) Active confirmed Problem Acquired hypothyroidism (842521935) Acquired hypothyroidism (E03.9) Active confirmed Problem Osteoporosis (75272823) Osteoporosis (M81.0) Active confirmed Problem Cardiomyopathy (94094343) Cardiomyopathy (I42.9) Active confirmed Problem Dyslipidemia (633317449) Dyslipidemia (E78.5) Active confirmed Vital Signs Heart Rate 70 /min 11/01/2024 Blood pressure diastolic 60 mm Hg 11/01/2024 Height 56 in 11/01/2024 Blood pressure systolic 102 mm Hg 11/01/2024 Weight 138.8 lbs 11/01/2024 BMI 31.11 kg/m2 11/01/2024 Encounters Encounter Location Date Provider Diagnosis [facility] [address] [facility] [address] [place] [id number] 11/30/2023 Kandy Magaña Wound of skin R23.8 [facility] [address] [facility] [address] [place], [place] [id number] 06/23/2024 R Clay Jose Acute bronchitis J20 .9 ; Hypoxemia R09.02 ; Type 2 diabetes mellitus with diabetic polyneuropathy E11.42 ; Acquired hypothyroidism E03.9 ; HTN (hypertension) I10 ; Cardiomyopathy I42.9 ; Dyslipidemia E78.5 and Diabetic neuropathy E11.40 [facility] [address] [facility] [address] [place], [place] [id number] 07/18/2024 Kandy Magaña Acute bronchitis J20 .9 [facility] [address] [facility] [address] [place], [place] [id number] 08/01/2024 Kandy Magaña Acute cough R05.1 [facility] [address] [facility] [address] [place], [place] [id number] 11/01/2024 R Clay Jose Skin tear of right lower leg without complication, initial encounter S81.811A and Abrasion of left lower extremity, initial encounter S80.812A [facility] [address] [place], [place] [id number] 02/05/2024 R Clay Jose Lumbar radiculopathy M54.16 and Type 2 diabetes mellitus with diabetic polyneuropathy E11.42 [facility] [address] [place], [place] [id number] 04/13/2024 R Clay Jose [facility] [address] [place], [place] [id number] 05/18/2024 R Clay Jose [facility] [address] [place], [place] [id number] 06/06/2024 R Clay Jose Lumbar radiculopathy M54.16 [facility] [address] [place], [place] [id number] 06/08/2024 R Clay Jose Lumbar radiculopathy M54.16 [facility] [address] [facility] [address] [place], [place] [id number] 06/08/2024 R Clay Jose [facility] [address] [facility] [address] [place], [place] [id number] 06/15/2024 R Clay Jose [facility] [address] [facility] [address] [place], [place] [id number] 08/11/2024 R Clay Jose Type 2 diabetes mellitus with diabetic polyneuropathy E11.42 [facility] [address] [facility] [address] [place], [place] [id number] 09/27/2024 R Clay Jose [facility] [address] [facility] [address] [place] [id number] 11/02/2024 R Clay Jose Assessments Encounter Date Diagnosis (ICD Code) Assessment Notes Treatment Notes Treatment Clinical Notes Section Notes 11/30/2023 Wound of skin (ICD-10 - R23.8) discussed the following with pt and her daughter: pressure relief q 2 hours when sitting; prevention of friction; padding on wheelchair; padding over open area-no med or tape; keep clean 02/05/2024 Lumbar radiculopathy (ICD-10 - M54.16) 06/06/2024 [...] mellitus with diabetic polyneuropathy (ICD-10 - E11.42) 11/01/2024 Abrasion of left lower extremity, initial encounter (ICD-10 - S80.812A) 11/01/2024 Skin tear of right lower leg without complication, initial encounter (ICD-10 - S81.811A) 02/05/2024 Type 2 diabetes mellitus with diabetic polyneuropathy (ICD-10 - E11.42) 06/23/2024 Type 2 diabetes mellitus with diabetic [...] up in 1 month along with AW 11/01/2024 Other Continue local wound care and follow-up as needed Plan Of Treatment No Information Insurance Providers Payer Name Payer Address Payer Phone Subscriber Number Group Number Insured Name Patient Relationship to Insured Coverage Start Date Coverage End Date [employer] (MEDICAR E) [address] [address] [place] [address] [id number] CHEL LEVY Self - patient is the insured Medications Administered Medication Instructions Date of Administration Dosage Notes Depo- Medrol 40 mg/ml 08/27/2007 1.5 mL Depo- Medrol 40 mg/ml 10/06/2008 1.5 mL Depo- Medrol 40 mg/ml 09/21/2009 1.5 mL Depo- Medrol 40 mg/ml 01/15/2010 1.5mL Depo- Medrol 40 mg/ml 10/01/2010 0.5 mL Depo- Medrol 40 mg/ml 09/19/2011 1 Depo- Medrol 40 mg/ml 11/23/2015 1.5 mL Depo- Medrol 40 mg/ml 05/22/2016 1 mL Depo- Medrol 40 mg/ml 05/29/2017 1.5 mL Depo- Medrol 40 mg/ml 12/20/2019 1.5 mL Depo- Medrol 40 mg/ml 02/28/2020 1.5 mL Depo- Medrol 40 mg/ml 04/20/2020 1 mL Depo- Medrol 40 mg/ml 08/10/2020 1.5 mL Giv en by Rachana Priest Depo- Medrol 40 mg/ml 12/04/2020 1.5 mL Depo- Medrol 40 mg/ml 11/15/2021 2 mL Depo- Medrol 40 mg/ml 06/24/2022 1.5 mL Depo- Medrol 40 mg/ml 08/19/2022 1 mL Dexamethasone 02/02/2009 1 mL Dexamethasone 10/08/2018 1 mL Medical (General) History Medical History History ICD Code osteoarthrits hypothyroidism Type 2 diabetes umbilical hernia HLP sleep apnea COPD Osteoporosis Diabetic neuropathy Cardiomyopathy by ECHO 08/2019 => EF 20-3 0% Surgical History Surgery Date(Month/Year) hysterectomy right knee surgery L index surgery cyst removed 08-08 Cyst removed from spine-Dr Cheatham @ [facility] 12/2011 cataract surgery both eyes 05/2012 carpel tunnel surgery on left wrist 06/19 13 carpel tunnel surgery right hand 06/2013 Left TKA 12/2013 left reverse shoulder arthroplasty 01/19 16 right TKA - [facility] 01/11/18 reverse right shoulder replacement - Dr Craft 04/05/2019 AICD implanted - Dr. Honeycutt 08/31/2019 ORIF right humeral shaft fx - [facility] 04/2021 Revision of right humeral shaft fx - [facility] 05/2024 Hospitalization History Reason Date(Month/Year) [facility]-pneumonia 03/2016 [facility] ER-vaginal itching 02/24/16 [facility] ER-neck pain 06/15 [facility]-muscle spasm under le ft breast 2.7.12 [facility], Pneumonia, Cellulitis, COPD 12/19/10
--- NOTE | 2024-11-07 14:30 | CA_ITS ---
APPROVED REPORT EXAM: Comprehensive 2D, Doppler, and color-flow Echocardiogram Bottle Caser: Allison Saini RT(R) Ht: 4 ft 7 in Wt: 143lbs BSA: 1.52 BP: 125/78 mmHg Indications: HFrEF on nuclear stress test, 48% EF seen in [address]. [address] 2D Dimensions LA Volume 18.30 mL LA Volume Index 12.04 mL/m2 (M/F) 16-34 EF AP4 49.60 % GL Strain -9.0 % M-Mode Dimensions LA Diam 3.79 cm (1.9-4.0) LV Diastology E Decel Time 190 (160-240 msec) E/A Ratio 0.6 Aortic Valve LIV Index 0.67 cm2/m2 AoV Peak Mohamud. 202.0 (50-130 cm/s) AO Peak GR. 16.40 mmHg AO Mean GR. 8.10 (<5 mmHg) AO VTI 42.2 (18-25 cm) LIV (VTI) 1.05 (2.5-4.5 cm2) Mitral Valve MV E Max Mohamud. 45.0 (40-130 cm/s) MV A Velocity 70.0 (40-130 cm/s) E/A Ratio 0.64 MV PHT 56.0 ms Left Ventricle The left ventricle is normal size. Left ventricular systolic function is mildly reduced. There is increased left ventricular wall thickness. There is mild global hypokinesis present. The left ventricular diastolic function is indeterminate. LVEF is 45% Right Ventricle The right ventricle is mildly dilated. The right ventricular systolic function is mildly reduced. There is a device lead in the right ventricle. Atria The left atrium is mildly dilated. The right atrium is mildly dilated. There is no color Doppler evidence of interatrial shunt. Aortic Valve The aortic valve is mildly thickened. Mild to moderate aortic stenosis is present. LIV by continuity equation is 1.4 cm2. Peak velocity is 2.2 m/s. Mean AV gradient 12 mmHg. Max AV gradient 21 mmHg. No aortic regurgitation is present. Mitral Valve The mitral valve is mildly thickened. No evidence of mitral valve stenosis. Trace mitral regurgitation is present. Tricuspid Valve The tricuspid valve leaflets are thin and pliable. Mild tricuspid regurgitation. RVSP is 20-25 mmHg. Pulmonic Valve The pulmonary valve is grossly normal in structure. Trace pulmonic valve regurgitation is present. Great Vessels The aortic root is normal in size. IVC is normal in size and collapses >50% with inspiration. Pericardium There is no pericardial effusion. Other Information Study Quality: Technically Difficult Conclusion Technically difficult study. Mildly reduced LV systolic function (LVEF 45%). Mild RV dilation with mild reduction in RV function. Mild biatrial dilation. Mild to moderate (LIV by continuity equation is 1.4 cm2. Peak velocity is 2.2 m/s. Mean AV gradient 12 mmHg. Max AV gradient 21 mmHg). Mild TR. Electronically signed by : Mary Smith MD 11/08/2024 12:58:23
== END 2024-11-07 23:59 | disposition home or self-care (01) ==
LOC: RT 14:13
PROVIDERS: PCP Family Medicine; Visit Provider Physician Assistant
DX: I08.2 Rheumatic disorders of both aortic and tricuspid valves (principal); I50.20 Unspecified systolic (congestive) heart failure; Z95.810 Presence of automatic (implantable) cardiac defibrillator
CPT/HCPCS: 93306

== ENCOUNTER 2025-01-13 09:02 | Day surgery (SDC) | payer MEDICARE, SELFPAY ==
[2025-01-13 09:26] VITALS: BP 114/65; PULSE 74; RESP 16; O2SAT 92; BMI 33.2
[2025-01-13] MEDS: DEXAMETHASONE 10MG/ML 1ML VIAL 10 MG (09:58)
[2025-01-13] MEDS: LIDOCAINE 1% 30ML PF VIAL 30 ML (09:59)
[2025-01-13 10:00] VITALS: BP 126/97; PULSE 75; RESP 18; O2SAT 95
[2025-01-13 10:02] VITALS: BP 126/97; PULSE 75; RESP 18; O2SAT 94
[2025-01-13 10:10] VITALS: BP 112/82; PULSE 73; RESP 18; O2SAT 90
--- NOTE | 2025-01-13 10:38 | EXP.HP ---
History of Present Illness *Admission Date: 01/13/25 *Reason for visit:: Lumbar epidural steroid injection *History of present illness: This patient has degenerative disc disease of lumbar spine with lumbar radiculopathy symptoms. She presents for lumbar epidural steroid injection today. [facility] Disclaimer: The information contained in this section may have been updated after the patient was seen, as this information can be updated by other users. Medical History Abnormal echocardiogram Cardiomyopathy Abnormal stress test Preoperative clearance Surgical History AICD (automatic cardioverter/defibrillator) present Family History Other No significant family history Social History Smoking Status: Never smoker second hand exposure: No alcohol intake: never substance use type: denies use current occupational status: other Travel in the last 8 weeks?: None household members: spouse housing: house current occupational exposures/hazards: No caffeine: Yes Other Medical History Have you received the Flu Vaccine for this season: No Have you received the Pneumonia Vaccine: No Meds Home Medications and Allergies Home Medications ?Medication ?Instructions ?Recorded ?Confirmed ?Type cyanocobalamin (vitamin B-12) 2,500 mcg PO DAILY Supplement 01/11/18 01/13/25 History 1,000 mcg tablet risedronate 35 mg tablet (Actonel) 35 mg PO WEEKLY Osteoarthritis 03/23/19 01/13/25 History calcium 600 mg (as 1 tab PO BID Supplement 03/25/19 01/13/25 History carbonate)-vitamin D3 20 mcg (800 unit) tablet levothyroxine 75 mcg tablet 75 mcg PO DAILY THYROID 04/04/19 01/13/25 History aspirin 81 mg tablet,delayed 81 mg PO DAILY Heart disease 08/31/19 01/13/25 History release tramadol 37.5 mg-acetaminophen 325 1 tab PO Q4-6H PRN Pain 09/08/19 01/13/25 History mg tablet gabapentin 300 mg capsule 300 mg PO TID Pain 06/12/22 01/13/25 History (Neurontin) metformin 500 mg tablet 500 mg PO DAILY Diabetes 06/12/22 01/13/25 History lidocaine 5 % topical patch 1 patch topical DAILY PRN pain #30 12/04/22 01/13/25 Rx ea camphor 3.1 %-methyl salicylate 10 1 patch topical TID PRN pain 5 07/22/23 01/13/25 Rx %-menthol 6 % topical patch days #20 ea (Salonpas) losartan 50 mg tablet See Rx Instructions .Route 03/16/24 01/13/25 Rx .COMPLEX #90 tabs cyclobenzaprine 5 mg tablet 5 mg PO Q8H PRN muscle spasm #90 05/25/24 01/13/25 Rx tabs celecoxib 200 mg capsule 200 mg PO DAILY 07/18/24 01/13/25 History omeprazole 40 mg capsule,delayed 40 mg PO DAILY PRN GERD 07/18/24 01/13/25 History release rosuvastatin 10 mg tablet See Rx Instructions .Route 07/19/24 01/13/25 Rx .COMPLEX #90 tabs furosemide 20 mg tablet See Rx Instructions .Route 07/21/24 01/13/25 Rx .COMPLEX #90 tabs doxycycline hyclate 100 mg capsule 100 mg PO BID 5 days #10 caps 10/21/24 01/13/25 Rx mupirocin 2 % topical ointment 1 applic topical BID #22 grams 10/21/24 01/13/25 Rx (Centany) metoprolol succinate 25 mg See Rx Instructions .Route 12/29/24 01/13/25 Rx tablet,extended release 24 hr .COMPLEX #90 tabs New Prescriptions to Start Prescriptions: Allergies Allergy/AdvReac Type Severity Reaction Status Date / Time No Known Allergies Allergy Verified 01/13/25 09:26 Exam Data for Last 24 hours Vital signs and Labs for Last 24 Hours: Pulse Resp BP Pulse Ox O2 Del Method 73 18 112/82 90 L Room Air 01/13/25 10:10 01/13/25 10:10 01/13/25 10:10 01/13/25 10:10 01/13/25 10:10 I & O for Last 24 hours: Intake & Output 01/10/25 01/11/25 01/12/25 01/13/25 11:59 11:59 11:59 11:59 Weight 143 lb *Routine HEENT Exam Head: Present normocephalic Eye: Present EOMI ENT: Present mucous membranes moist *Routine Respiratory Exam Respiratory: Present CTA bilaterally *Routine Cardiovascular Exam Cardiovascular: Present RRR, Normal S1 and Normal S2 *Routine Abdominal Exam Abdominal: Present soft *Routine Rectal Exam Rectal:: deferred *Routine Genitalia Exam Genitalia:: deferred Assessment and Plan *Assessment and plan (1) Degenerative disc disease, lumbar: Status: Acute Qualifiers: Disc-related pain type: discogenic back pain and lower extremity pain Qualified Code(s): M51.362 - Other intervertebral disc degeneration, lumbar region with discogenic back pain and lower extremity pain Category: Medical Code(s): M51.369 - Other intervertebral disc degeneration, lumbar region without mention of lumbar back pain or lower extremity pain (2) Lumbar radiculopathy: Status: Acute Category: Medical Code(s): M54.16 - Radiculopathy, lumbar region Plan Lumbar epidural steroid injection interlaminar L4-L5
--- NOTE | 2025-01-13 10:39 | P.PCN_ITS ---
Procedure Date: 01/13/25 Time: 10:39 Anesthesiologist:: Lobo Sanchez MD Complications:: None Pre-procedure Diagnosis:: Degenerative disease of lumbar spine with lumbar radiculopathy symptoms Post-procedure Diagnosis:: Same Indications for Procedure:: This patient is a pleasant 84-year-old white female who we are treating for degenerative disease of the lumbar spine with lumbar radiculopathy symptoms. She presents for an interlaminar L4-L5 lumbar epidural steroid injection today. Procedure Details:: Informed consent was obtained and the risk and benefits of the procedure was explained to the patient. The patient was taken to the procedure room. The patient was placed prone on the procedure table. The patient was prepped and draped in sterile fashion. C-arm fluoroscopy was used to view the lumbar spine. Skin and subcutaneous tissues were anesthetized using lidocaine. I placed an 18-gauge epidural needle and advanced into the L4-L5 interspace using fluoroscopic guidance and [id number] to air. After confirmation of n eedle placement in the epidural space with dye I injected 2 mL of lidocaine 1.5% with dexamethasone 10 mg . Patient tolerated the procedure well with no complications. Plan and Disposition:: Will follow-up with this patient in 2 weeks to evaluate efficacy of this lumbar steroid injection. Reevaluate symptoms at that time.
== END 2025-01-13 10:10 | disposition home or self-care (01) ==
LOC: SC.PAINP 09:02
PROVIDERS: PCP Family Medicine; Visit Provider Anesthesiology
DX: M51.362 Other intervertebral disc degeneration, lumbar region with discogenic back pain and lower extremity pain (principal); I42.9 Cardiomyopathy, unspecified; Z95.810 Presence of automatic (implantable) cardiac defibrillator; Z79.84 Long term (current) use of oral hypoglycemic drugs; Z79.890 Hormone replacement therapy; Z79.899 Other long term (current) drug therapy
CPT/HCPCS: 62323; J1100; J2003

== ENCOUNTER 2025-02-08 08:08 | Outpatient (CLI) | payer MEDICARE, SELFPAY ==
--- NOTE | 2025-02-08 | XR_ITS ---
FINAL REPORT CLINICAL HISTORY: SCREENING COMPARISON: 07/03/2023 FINDINGS: Using L1-4, the bone mineral density of the spine is 1.269 g/cm2, corresponding to T-score of 2.0. The scores are consistent with a normal exam. The bone mineral density change versus baseline is -0.2%. Using the left hip, the bone mineral density of the femoral neck is 0.618 g/cm2, corresponding to a T-score of -2.7. The scores are consistent with osteoporosis. The bone mineral density change versus baseline is 6.1%. Using the right hip, the bone mineral density of the femoral neck is 0.704 g/cm2, corresponding to a T-score of -2.0. The scores are consistent with osteopenia. The bone mineral density change versus baseline is 6%. NOTE: T-score: Standard deviation compared with peak bone mass of young adult mean. *Following the recommendations of the International Society of Bone densitometry, classification of hip BMD is based on the lower of two T-scores; total hip or femoral neck. IMPRESSION: Normal bone mineral density of the lumbar spine. Diminished bone mineral density of the right hip, consistent with osteopenia. Diminished bone mineral density of the left hip, consistent with osteoporosis. Reviewed, Interpreted and Dictated by Eduard Bunch MD Transcribed by Dara Hess Authenticated and [facility]
--- NOTE | 2025-02-08 08:10 | MM_ITS ---
PROCEDURE INFORMATION: Exam: MG Bilateral Screening 3D Mammography Exam date and time: 02/08/2025 8:34 AM Age: 84 years old Clinical indication: Screening examination TECHNIQUE: Imaging protocol: Bilateral Screening tomosynthesis and 2D mammography including computer-aided detection (CAD) when performed. COMPARISON: 1. MG MM DIG SCREENING MAMM BI W/CAD 07/03/2023 9:36 AM 2. MG MM DIG SCREENING MAMM BI W/CAD 01/15/2022 10:06 AM FINDINGS: MAMMOGRAPHY: Breast composition: There are scattered areas of fibroglandular density. Mass: None. Architectural distortion: None. Calcifications: No suspicious calcifications. Asymmetric density: None. Skin thickening: None. Axillary adenopathy: None. IMPRESSION: No mammographic evidence of malignancy. Annual screening is recommended unless otherwise clinically indicated. ASSESSMENT: BI-RADS Category 1: Negative.
== END 2025-02-08 23:59 | disposition home or self-care (01) ==
PROVIDERS: PCP Family Medicine; Visit Provider Family Medicine
DX: Z12.31 Encounter for screening mammogram for malignant neoplasm of breast (principal); M81.0 Age-related osteoporosis without current pathological fracture; R92.323 Mammographic fibroglandular density, bilateral breasts; R93.7 Abnormal findings on diagnostic imaging of other parts of musculoskeletal system; Z78.0 Asymptomatic menopausal state
CPT/HCPCS: 77063; 77067; 77080